=== PATIENT | female | born 1980 | race Two or more races ===

== ENCOUNTER 2019-08-19 22:35 | Inpatient (IN) | payer MEDICARE, MEDICAID ==
[2019-08-19] MEDS ORDERED: NS 0.9% 1000 ML** 1,000 ML IV ONE (22:49)
[2019-08-19] MEDS ORDERED: Charcoal ACTIVATED* 25 GM/120 ML BTL PO ONE (22:49)
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
[2019-08-19 23:30] LABS: ABS Basophils 0.1 10^3/ul (0-0.2); ABS Lymphocytes 1.6 10^3/ul (1.0-4.8); ABS Monocytes 0.4 10^3/ul (0-0.8); ABS Neutrophils 2.8 10^3/ul (1.5-7.7); Eosinophil % 0.8 %; Hematocrit 39 % (35-47); Hemoglobin 12.8 g/dL (12.0-16.0); Lymphocyte % 32.3 %; Mean Corpuscular HGB Conc 33 g/dL (31-36); Mean Corpuscular Hemoglobin 31 pg (27-31); Mean Corpuscular Volume 94 fL (80-97); Nucleated Red Blood Cells % 0.1; Platelet Count 245 10^3/uL (150-450); Red Blood Count 4.12 10^6 /uL (3.70-4.87); Red Cell Distribution Width 13 % (10-15); White Blood Count 4.9 10^3/uL (3.5-10.8)
--- OUTSIDE RECORDS SUMMARY | 2019-08-19 23:34 | XMS REPORT | Continuity of Care Document ---
:1980 External Reference #:[id number] Author Name Deangelo Monet M.D. (transmitted by agent of provider Ashley Torres) Address [address] [place] [id number] Care Team Providers Name Role Phone Masha Devlin MD - Internal Medicine Care Team Information Security Monitor [phone] Problems Description No Information Available Social History Type Date Description Comments Sex Unknown Tobacco Use Start: Unknown End: Former Cigarette Smoker Unknown Smoking Status Reviewed: 08/17/19 Former Cigarette Smoker ETOH Use Occasionally consumes alcohol Tobacco Use Start: Unknown End: Patient is a former quit Nov 2018 Unknown smoker Recreational Drug Use Denies Drug Use Exercise Type/Frequency Does not exercise Allergies, Adverse Reactions, Alerts Active Allergies Reaction Severity Comments Date Penicillin anaphylaxsis Severe 02/02/2019 Medications Active Medications SIG Qnty Indications Ordering Date Provider Voltarejuvenal apply 2 grams twice 200units Deangelo Monet, 08/17/2019 1% Gel daily as needed for M.D. pain to the hands as needed Contour Next Blood use to test blood 150units E10.40 Jose Parsons MD 06/14 Glucose Test sugar four times Strips daily. substitution okay Basaglar Kwikpen inject 24 units at 9ml E10.40 Jose Parsons MD 06/14/2019 bedtime or as 100Unit/ML Solution directed, MDD 30 Pen-Inject Novolog Flexpen 6 units with meals 9ml E10.40 Jose Parsons MD 06/14/2019 or as directed, mdd 100Unit/ML Solution 30 Pen-Inject Levothyroxine Sodium 300mcg once daily 30tabs E10.40 Jose Parsons MD 06/14 300mcg Tablets Pen [place] 1 each with every 150units E10.40 Jose Parsons MD 06/14/2019 31G X 6 insulin injection mm Misc Onetouch Ultra Mini as directed 1units E10.40 Jose Parsons MD 06/14/2019 w/Device Kit Onetouch Ultra Blue test 3 times per 150units E10.40 Jose Parsons MD 06/14 day and as Strips needed(based on insurance coverage) Onetouch Delica Plus to use 4 x daily to 1units E10.40 Jose Parsons MD 01/2019 [place]ancing Device monitor bs, [facility] substitute what insurance will cover Onetouch Delica test up to 3 times 200units E10.40 Jose Parsons MD 2018 Lancets Fine 30G daily 30G [facility] Wrist Splint use nightly to help 2units G56.03 Deangelo Monet, 05/18/2019 [facility] with carpal tunnel M.D. features g56.01 B6 Natural take one 60tabs G56.03 Deangelo Monet, 05/18/2019 100mg capsule/tablet M.D. Tablets daily by mouth Meloxicam take one tab twice 30tabs Deangelo Monet, 03/10/2019 7.5mg daily as needed for M.D. Tablets pain, avoid other nsaids Contour Next Blood use to test blood 150units E10.40 Jose Parsons MD 02/13 Glucose Test sugar 5 times Strips daily. Insulin use 4-6 times/day 150units E10.65 Jose Parsons MD 02/02/2019 Syringe/0.3ML/30G X for insulin 5/16" injection 30G X 5/16" 0.3 ML [facility] Quick-Set Infusion place 1 each every 20units E10.65 Jose Parsons MD 02/02 43" 9mm 2 days for insulin 43"/9mm Misc pump Minimed Pump replace every 2 20units Jose Parsons MD 02/02/2019 [place] 3ML days. dx e10.9 Res 3ML Misc Gabapentin 2 capsules by mouth 180caps Jose Parsons MD 300mg three times a day Capsules Lisinopril 1 by mouth every Unknown 2.5mg day Tablets Depakote ER 1 tablet by mouth Unknown 500mg twice daily Tablets ER 24HR Clonazepam 1 tablet twice Unknown 0.5mg daily as needed Tablets Bupropion 1 by mouth every Unknown Hydrochloride ER day (XL) 300mg Tablets ER 24HR Temazepam take one capsule by Unknown 30mg mouth once daily Capsules maximum daily dose = 1 History Medications Synthroid take 1 tablet 30tabs E10.40 Jose Parsons MD 05/18/2019 - 200mcg daily on an empty 06/14/2019 Tablets stomach Wrist Splint use nightly to 2units Deangelo Monet, 03/10/2019 - [facility] help with carpal M.DVincent 05/18/2019 tunnel features g56.01 bilateral and during the day when typing or writing, right and left Medications Administered in Office Medication SIG Qnty Indications Ordering Provider Date Records Fee Jose Parsons MD 03/22/2019 Injection Immunizations Description No Information Available Vital Signs Date Vital Result Comment 08/17/2019 1:26pm Height 60 inches 5'0" Weight 138.00 lb Heart Rate 87 /min BP Systolic Sitting 114 mmHg BP Diastolic Sitting 78 mmHg Respiratory Rate 16 /min Body Temperature 96.8 F O2 % BldC Oximetry 98 % BMI (Body Mass Index) 26.9 kg/m2 06/14/2019 9:03am Height 60 inches 5'0" Weight 133.00 lb w/ shoes Heart Rate 84 /min BP Systolic Sitting 133 mmHg BP Diastolic Sitting 88 mmHg BMI (Body Mass Index) 26.0 kg/m2 Results Test Acquired Facility Test Result H/L Range Note Date Laboratory 05/16/2019 [facility] TSH (Thyroid 56.19 High 0.34- 5.[address] Stim Horm) mcIU/[place] [address] [phone] Laboratory 05/16/2019 [facility] Rheumatoid < 10 IU/mL Normal <[address] [place] [address] [phone] Anca AB Ser If 05/16/2019 [facility] C-Anca Negative Negative [address] [place] [address] [phone] P-Anca Negative Negative 1 Vitamin B6 05/16/2019 [facility] Pyridoxal See Comment 5-[address] 5-Phosphate g/[place] [address] [phone] Pyridoxic Acid 2 g/L Abnormal 3-30 3 Laboratory 05/16/2019 [facility] Aso Negative <[address] (Antistreptolysin O) IU/mL Iu/[place] [address] Titer [phone] [place] Screen W/ Reflex To WB Negative Negative Creatine Kinase(CK) 28 U/L Normal 10-223 Uric Acid 4.7 mg/dL Normal 2.3-6.6 Ssa/SSB Abs Igg 05/16/2019 [facility] SS-A/Ro Antibody <0.[address] [place] [address] [phone] SS-B/La Antibody <0.2 U 6 Laboratory test 05/16/2019 [facility] Erythrocyte Sed 20 mm/Hr High 0-[address] [place] [address] [phone] C Reactive Protein 3.79 mg/L Normal <8.01 Ferritin 159.9 ng/mL Normal 11-307 1 Negative for cANCA and pANCA patterns by immunofluorescence. ADDITIONAL INFORMATION This test was developed and its performance characteristics determined by [facility] in a manner consistent with CLIA requirements. This test has not been cleared or approved by the U.S. Food and Drug Administration. Test Performed by: [facility] [place] [address] 2 Unknown interfering substance present; unable to obtain results. ADDITIONAL INFORMATION This test was developed and its performance characteristics determined by [facility] in a manner consistent with CLIA requirements. This test has not been cleared or approved by the U.S. Food and Drug Administration. 3 ADDITIONAL INFORMATION This test was developed and its performance characteristics determined by [facility] in a manner consistent with CLIA requirements. This test has not been cleared or approved by the U.S. Food and Drug Administration. Test Performed by: [facility] - [address] [address] 4 Normal values may vary with age, season and geographic area. Titers above upper limits may be indicative of infection, however only a two dilution rise in titer is required to be considered significant. ASO titer will usually rise above upper limits within one week of exposure, increase to peak levels at 3-5 weeks and return to baseline level at 6-12 twelve months. 5 REFERENCE VALUE <1.0 (Negative) 6 REFERENCE VALUE <1.0 (Negative) Test Performed by: [facility] - [address] [address] Procedures Date Code Description Status 05/31/2019 78370 Nerve Conduction 09-10 Studies Completed 05/31/2019 60553 Needle Electromyography Complete, Five Or More Muscles Completed Studied 05/31/2019 39049 Needle Electromyography Each Extremity W/Related Completed Paraspinal Areas Medical Devices Description No Information Available Encounters Type Date Location Provider Dx Diagnosis Office Visit 08/17/2019 Rheumatology Deangelo Monet, G56.03 Carpal tunnel 1:20p [facility] ElyDVincent syndrome, bilateral upper limbs G56.22 Lesion of ulnar nerve, left upper limb R70.0 Elevated erythrocyte sedimentation rate G62.9 Polyneuropathy, unspecified Office Visit 06/14/2019 9:00a [place] [facility] Jose Parsons, E10.40 Type 1 diabetes Endocrinology of mellitus with [facility] diabetic neuropathy, unsp E06.3 Autoimmune thyroiditis Office Visit 05/18/2019 1:20p Rheumatology Deangelo R20.8 Other disturbances [facility] Monet M.D. of skin sensation M06.4 Inflammatory polyarthropathy M79.643 Pain in unspecified hand R70.0 Elevated erythrocyte sedimentation rate G56.03 Carpal tunnel syndrome, bilateral upper limbs Office Visit 03/10/2019 Rheumatology Deangelo M06.4 Inflammatory 10:00a [facility] Monet M.D. polyarthropathy M79.643 Pain in unspecified hand R20.8 Other disturbances of skin sensation M79.10 Myalgia, unspecified site Assessments Date Code Description Provider 08/17/2019 G56.03 Carpal tunnel syndrome, bilateral upper limbs Deangelo Monet M.D. 08/17/2019 G56.22 Lesion of ulnar nerve, left upper limb Deangelo Monet M.D. 08/17/2019 R70.0 Elevated erythrocyte sedimentation rate Deangelo Monet M.D. 08/17/2019 G62.9 Polyneuropathy, unspecified Deangelo Monet M.D. 06/14/2019 E10.40 Type 1 diabetes mellitus with diabetic Jose Parsons MD neuropathy, unspecifi 06/14/2019 E06.3 Autoimmune thyroiditis Jose Parsons MD 05/31/2019 G56.03 Carpal tunnel syndrome, bilateral upper limbs Brynn Rodrigez M.D. 05/31/2019 G56.22 Lesion of ulnar nerve, left upper limb Brynn Rodrigez M.D. 05/18/2019 R20.8 Other disturbances of skin sensation Deangelo Monet M.D. 05/18/2019 M06.4 Inflammatory polyarthropathy Deangelo Monet M.D. 05/18/2019 M79.643 Pain in unspecified hand Deangelo Monet M.D. 05/18/2019 R70.0 Elevated erythrocyte sedimentation rate Deangelo Monet M.D. 05/18/2019 G56.03 Carpal tunnel syndrome, bilateral upper limbs Deangelo Monet M.D. 03/10/2019 M06.4 Inflammatory polyarthropathy Deangelo Monet M.D. 03/10/2019 M79.643 Pain in unspecified hand Deangelo Monet M.D. 03/10/2019 R20.8 Other disturbances of skin sensation Deangelo Monet M.D. 03/10/2019 M79.10 Myalgia, unspecified site Deangelo Monet M.D. Plan of Treatment 08/17/2019 - Deangelo Monet M.D.G56.03 Carpal tunnel syndrome, bilateral upper limbsReferral:Daly Lazo M.D., Surgery,HandG56.22 Lesion of ulnar nerve, left upper limbR70.0 Elevated erythrocyte sedimentation rateG62.9 Polyneuropathy , unspecifiedComments:I discussed with the patient that people with neuropathy do not always feel pain when there is a wound or injury on the foot. As a result , daily foot care is necessary to monitor for changes in the skin (such as cracks or wounds), which can increase the risk of infection. Also I advised: Avoid activities that can injure the feet Some activities increase the risk of foot injury and are not recommended, including walking barefoot, using a heating pad or hot water bottle on the feet, and stepping intothe bathtub before testing the temperature with the hand.Use care when trimming the nails Trim thetoe nails along the shape of the toe (rounded, not straight across) and file the nails to remove anysharp edges (figure 1). Never cut (or allow a manicurist to cut) the cuticles. Do not pop blisters, try to free ingrown toenails, or otherwise break the skin on the feet. See a healthcare provider or human resources clerk for even minor procedures.Wash and check the feet daily Use lukewarm water and mild soap to clean the feet. Gently pat feet dry and apply a moisturizing cream or lotion.Check the entire surface of both feet for skin breaks, blisters, swelling, or redness, including between and underneath the toes where damage may be hidden. Use a mirror or ask a family member or caregiver to help if it is difficult to see the entire foot. The patient expressed understanding.Follow up:Follow up in 9 to 12 months or sooner if needed Functional Status Description No Information Available Mental Status Description No Information Available Referrals Refer to Reason for Referral Status Appt Date Daly Lazo M.D. Please evaluate patient with carpal tunnel Sent symptoms confirmed on EMG; for possible carpal tunnel release [address] [place] [id number] [phone]
[2019-08-19 23:48] LABS: ALT 18 U/L (7-52); AST 18 U/L (13-39); Albumin 3.5 g/dL (3.2-5.2); Albumin/Globulin Ratio 1.2 (1-3); Alkaline Phosphatase 45 U/L (34-104); Anion Gap 6 mmol/L (2-11); BUN/Creatinine Ratio 17.1 (8-20); Blood Urea Nitrogen 12 mg/dL (6-24); CO2 Carbon Dioxide 29 mmol/L (22-32); Calcium 9.2 mg/dL (8.6-10.3); Chloride 102 mmol/L (101-111); EGFR African American 112.7 (>60); EGFR Non-African American 93.2 (>60); Glucose 472 mg/dL (70-100); Potassium 3.8 mmol/L (3.5-5.0); Sodium 137 mmol/L (135-145); Total Protein 6.5 g/dL (6.4-8.9)
[2019-08-19 23:54] LABS: HCG Pregnancy < 0.60 mIU/mL
[2019-08-19 23:57] LABS: Acetaminophen < 15 mcg/mL; Alcohol < 10 mg/dL (<10); Salicylate < 2.50 mg/dL (<30)
[2019-08-20 00:40] LABS: Urine Appearance Clear; Urine Bilirubin Negative (Negative); Urine Blood Negative (Negative); Urine Color Straw; Urine Glucose 3+(>=500 mg/dL) (Negative); Urine Ketones Trace (Negative); Urine Nitrite Negative (Negative); Urine Protein Negative (Negative); Urine Specific Gravity 1.031 (1.010-1.030); Urine Urobilinogen Negative (Negative)
[2019-08-20 00:56] LABS: Urine Benzodiazepine Screen Presumptive Positive (None Detect); Urine Opiates Screen None Detected (None Detect)
[2019-08-20 01:04] LABS: TSH (Thyroid Stimulating Horm) 0.69 mcIU/mL (0.34-5.60)
[2019-08-20] MEDS ORDERED: NS 0.9% 1000 ML** 2,000 ML IV ONE (02:23)
[2019-08-20] MEDS ORDERED: Insulin LISPRO* 1 UNITS UNIT SUBCUT ONE ×2 (02:24→02:37)
[2019-08-20] MEDS ORDERED: Dextrose 50% VIAL 50 ml IV PUSH PRN (02:24)
[2019-08-20] MEDS ORDERED: NS 0.9% 1000 ML** 1,000 ML IV SCH (02:30)
[2019-08-20] MEDS ORDERED: NS 0.9% w/ 20 Meq KCL 1000 ML* 1,000 ML IV SCH (05:00)
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
[2019-08-20] MEDS ORDERED: Levothyroxine TAB* 150 MCG TAB PO SCH ×2 (06:00→09:00)
[2019-08-20] MEDS ORDERED: NS 0.9% 1000 ML** 1,000 ML IV ONE ×2 (08:23→11:12)
--- NOTE | 2019-08-20 08:31 | PN ---
Subjective Date of Service: 08/20/19 Interval History: Ms. Birgit Jasso is lying in bed. Will attempt to open her eyes when spoken to, but is not able to fully open eyes or make any attempts at verbal communication. is at bedside and has been throughout the night. He reports one prior overdose a number of years ago. She was fighting with her mother yesterday, though unknown what the fight was about. Nursing reports hypotension intermittently throughout the night. At one point in the night, she was awake enough to get OOB to the bathroom with 2 heavy assist. Family History: Unchanged from Admission Social History: Unchanged from Admission Past Medical History: Unchanged from Admission Objective Active Medications: Dextrose (Dextrose 50% Vial 50 Ml*) 25 ml IV PUSH .FOR FS < 60 - SS PRN FS < 60 Potassium Chloride/Sodium Chloride (Ns 0.9% W/ 20 Meq Kcl 1000 Ml*) 1,000 mls @ 125 mls/hr IV PER RATE SHERMAN Sodium Chloride (Ns 0.9% 1000 Ml) 1,000 mls @ 0 mls/hr IV .BOLUS ONE Levothyroxine Sodium (Synthroid Tab*) 300 mcg PO 0600 SHERMAN Norethindrone (Ngoc (Nf)) 0.35 mg PO DAILY SHERMAN Pantoprazole Sodium (Protonix Tab*) 40 mg PO DAILY [facility] Vital Signs - 8 hr 08/20/19 08/20/19 08/20/19 00:53 01:00 01:01 Temperature Pulse Rate 99 95 101 Respiratory 16 Rate Blood Pressure 91/65 98/64 (mmHg) O2 Sat by Pulse 94 97 100 Oximetry 08/20/19 08/20/19 08/20/19 01:23 01:36 01:53 Temperature 98.1 F Pulse Rate 89 94 90 Respiratory 16 Rate Blood Pressure 99/71 103/77 101/71 (mmHg) O2 Sat by Pulse 98 96 Oximetry 08/20/19 08/20/19 08/20/19 02:00 02:29 02:53 Temperature Pulse Rate 91 88 93 Respiratory Rate Blood Pressure 127/80 124/80 (mmHg) O2 Sat by Pulse 96 100 100 Oximetry 08/20/19 08/20/19 08/20/19 03:00 03:23 03:42 Temperature 98.1 F Pulse Rate 92 93 101 Respiratory 12 Rate Blood Pressure 108/65 106/77 (mmHg) O2 Sat by Pulse 100 99 99 Oximetry 08/20/19 08/20/19 08/20/19 03:45 03:50 04:00 Temperature 98.1 F Pulse Rate 97 90 91 Respiratory 13 17 16 Rate Blood Pressure 117/74 101/71 102/64 (mmHg) O2 Sat by Pulse 99 96 98 Oximetry 08/20/19 08/20/19 08/20/19 04:15 04:30 04:45 Temperature Pulse Rate 89 87 87 Respiratory 16 18 18 Rate Blood Pressure 86/49 81/40 80/45 (mmHg) O2 Sat by Pulse 98 100 100 Oximetry 08/20/19 08/20/19 08/20/19 05:00 05:01 05:31 Temperature Pulse Rate 104 106 Respiratory 24 30 21 Rate Blood Pressure 118/92 93/58 (mmHg) O2 Sat by Pulse 100 95 Oximetry 08/20/19 08/20/19 08/20/19 05:45 06:00 06:01 Temperature Pulse Rate 99 101 103 Respiratory 24 24 23 Rate Blood Pressure 86/44 77/47 85/45 (mmHg) O2 Sat by Pulse 96 95 95 Oximetry 08/20/19 08/20/19 08/20/19 06:15 06:30 06:33 Temperature Pulse Rate 99 99 98 Respiratory 22 23 21 Rate Blood Pressure 75/46 69/40 118/72 (mmHg) O2 Sat by Pulse 96 95 93 Oximetry 08/20/19 08/20/19 08/20/19 06:45 06:52 07:00 Temperature Pulse Rate 96 98 99 Respiratory 0 5 2 Rate Blood Pressure 91/72 101/59 96/58 (mmHg) O2 Sat by Pulse 92 92 92 Oximetry 08/20/19 08/20/19 08/20/19 07:15 07:30 07:46 Temperature Pulse Rate 100 98 99 Respiratory 1 17 20 Rate Blood Pressure 92/58 122/72 89/61 (mmHg) O2 Sat by Pulse 90 97 98 Oximetry Oxygen Devices in Use Now: OxyMask - 2L Appearance: Middle-aged female lying in bed, sedated, but in NAD Ears/Nose/Mouth/Throat: Mucous Membranes Moist Neck: NL Appearance and Movements; NL JVP, Trachea Midline Respiratory: Symmetrical Chest Expansion and Respiratory Effort, Clear to Auscultation Cardiovascular: NL Sounds; No Murmurs; No JVD, RRR Abdominal: NL Sounds; No Tenderness; No Distention Extremities: No Edema Neurological: - - Arouses to verbal stimuli Lines/Tubes/Other Access: Clean, Dry and Intact Peripheral IV Nutrition: Taking PO's Result Diagrams: 08/19/19 23:24 08/19/19 23:24 Assess/Plan/Problems-Billing Assessment: Ms. Niesha Jasso is a 39 yo F with PMH of DM, hypothyroidism, one prior suicide attempt by overdose; who presented to the ED after an overdose, requiring admission to ICU d/t level of sedation. - Patient Problems (1) Overdose Code(s): T50.901A - POISONING BY UNSP DRUG/MEDS/BIOL SUBST, ACCIDENTAL, INIT Comment: - Suicide attempt after fighting with mother; history of one prior suicide attempt - Reportedly took trazodone 50mg x10, clonazepam 0.5mg x10, temazepam 30mg x10 - Poison Control recommended serial EKGs to monitor for QT prolongation, capnography, and monitoring x6 hours after mental status is back to baseline - Appreciate Psych consult - 1:1 monitor (2) Insulin dependent diabetes mellitus Code(s): E11.9 - TYPE 2 DIABETES MELLITUS WITHOUT COMPLICATIONS; Z79.4 - SNF (CURRENT) USE OF INSULIN Comment: - Hyperglycemic - A1c earlier this year 9.1% - Takes 70/30 and glargine at home - Start Lispo SS (3) Hypotension Comment: - Intermittent with SBP down into 60s, but varies by arm - NS bolus x1L now and monitor closely (4) Hypothyroidism Code(s): E03.9 - HYPOTHYROIDISM, UNSPECIFIED Comment: - Continue levothyroxine (change to IV) (5) DVT prophylaxis Code(s): Z29.9 - ENCOUNTER FOR PROPHYLACTIC MEASURES, UNSPECIFIED Comment: - SCDs (6) Full code status Code(s): Z78.9 - OTHER SPECIFIED HEALTH STATUS Comment: Status and Disposition: Inpatient. Remains in ICU d/t sedation and hypotension. Anticipate d/c to [facility] when medically stable, but Psych consult pending. Attending: Eitan Jackson
[2019-08-20] MEDS: Pantoprazole TAB * 40 MG TAB PO SCH (08:38)
[2019-08-20] MEDS: Norethindrone (NF) 0.35 MG TAB PO SCH (08:38)
[2019-08-20] MEDS: Levothyroxine INJ* 100 MCG/5 ML VIAL IV SCH (09:46)
[2019-08-20] MEDS ORDERED: Insulin LISPRO* 1 UNITS UNIT SUBCUT SCH (10:00)
[2019-08-20] MEDS: Insulin LISPRO* 1 UNITS UNIT SUBCUT SCH ×5 (11:34→22:04)
--- NOTE | 2019-08-20 11:49 | PN ---
Date of Service: 08/20/19 Critical Care Services: qt-c's <500 minimally awake Vital Signs: Temp Pulse Resp BP SpO2 FiO2 99.4 F 95 20 88/61 97 08/20/19 08:00 08/20/19 11:00 08/20/19 11:00 08/20/19 11:00 08/20/19 11:00 Physical Exam: Gen: NAD. Croatian speaking. lethargic but responsive, Heart: RRR, Lungs: Decreased Breath sounds, GI: +BSs, soft, NTP. No rebound or guarding. Neuro: No focal deficits. Extremities: No edema. Fluid Balance (Past 24 Hours): I= O= Net Intake & Output 08/18/19 08/19/19 08/20/19 08/21/19 06:59 06:59 06:59 06:59 Intake Total 3000 0 Balance 3000 0 Weight 138 lb Intake: IV Fluids 3000 NS (0.9%) 2000 Oral 0 Other: Estimated Void Large # Voids 1 0 Labs: Laboratory Results - last 24 hr 08/19/19 08/19/19 08/19/19 23:24 23:24 23:24 WBC 4.9 RBC 4.12 Hgb 12.8 Hct 39 MCV 94 MCH 31 MCHC 33 RDW 13 Plt Count 245 MPV 8.0 Neut % (Auto) 57.3 Lymph % (Auto) 32.3 [place] % (Auto) 8.2 Eos % (Auto) 0.8 Baso % (Auto) 1.4 Absolute Neuts (auto) 2.8 Absolute Lymphs (auto) 1.6 Absolute Monos (auto) 0.4 Absolute Eos (auto) 0.0 Absolute Basos (auto) 0.1 Absolute Nucleated RBC 0.0 Nucleated RBC % 0.1 VBG pH VBG pCO2 VBG pO2 VBG HCO3 VBG O2 Saturation VBG Base Excess Sodium 137 Potassium 3.8 Chloride 102 Carbon Dioxide 29 Anion Gap 6 BUN 12 Creatinine 0.70 Est GFR ( Amer) 112.7 Est GFR (Non-Af Amer) 93.2 BUN/Creatinine Ratio 17.1 Glucose 472 H POC Glucose (mg/dL) Glucose Meter Confirm Lactic Acid 1.2 Calcium 9.2 Total Bilirubin 0.30 AST 18 ALT 18 Alkaline Phosphatase 45 Total Creatine Kinase Total Protein 6.5 Albumin 3.5 Globulin 3.0 Albumin/Globulin Ratio 1.2 TSH 0.69 Beta HCG, Quant < 0.60 Urine Color Urine Appearance Urine pH Ur Specific Koppel Urine Protein Urine Ketones Urine Blood Urine Nitrate Urine Bilirubin Urine Urobilinogen Ur Leukocyte Esterase Urine Glucose Salicylates < 2.50 Urine Opiates Screen Acetaminophen < 15 Ur Barbiturates Screen Ur Phencyclidine Scrn Ur Amphetamines Screen U Benzodiazepines Scrn Urine Cocaine Screen U Cannabinoids Screen Serum Alcohol < 10 08/20/19 08/20/19 08/20/19 00:30 00:30 01:15 WBC RBC Hgb Hct MCV MCH MCHC RDW Plt Count MPV Neut % (Auto) Lymph % (Auto) [place] % (Auto) Eos % (Auto) Baso % (Auto) Absolute Neuts (auto) Absolute Lymphs (auto) Absolute Monos (auto) Absolute Eos (auto) Absolute Basos (auto) Absolute Nucleated RBC Nucleated RBC % VBG pH 7.32 VBG pCO2 49 VBG pO2 57.0 H VBG HCO3 23.5 L VBG O2 Saturation 88.2 H VBG Base Excess -1.4 L Sodium Potassium Chloride Carbon Dioxide Anion Gap BUN Creatinine Est GFR ( Amer) Est GFR (Non-Af Amer) BUN/Creatinine Ratio Glucose POC Glucose (mg/dL) Glucose Meter Confirm Lactic Acid Calcium Total Bilirubin AST ALT Alkaline Phosphatase Total Creatine Kinase Total Protein Albumin Globulin Albumin/Globulin Ratio TSH Beta HCG, Quant Urine Color Straw Urine Appearance Clear Urine pH 5.0 Ur Specific [place]oppel 1.031 H Urine Protein Negative Urine Ketones Trace A Urine Blood Negative Urine Nitrate Negative Urine Bilirubin Negative Urine Urobilinogen Negative Ur Leukocyte Esterase Negative Urine Glucose 3+(>=500 mg/dl) A Salicylates Urine Opiates Screen None detected Acetaminophen Ur Barbiturates Screen None detected Ur Phencyclidine Scrn None detected Ur Amphetamines Screen None detected U Benzodiazepines Scrn Presumptive positive A Urine Cocaine Screen None detected U Cannabinoids Screen None detected Serum Alcohol 08/20/19 08/20/19 08/20/19 02:21 02:26 06:26 WBC RBC Hgb Hct MCV MCH MCHC RDW Plt Count MPV Neut % (Auto) Lymph % (Auto) [place] % (Auto) Eos % (Auto) Baso % (Auto) Absolute Neuts (auto) Absolute Lymphs (auto) Absolute Monos (auto) Absolute Eos (auto) Absolute Basos (auto) Absolute Nucleated RBC Nucleated RBC % VBG pH VBG pCO2 VBG pO2 VBG HCO3 VBG O2 Saturation VBG Base Excess Sodium Potassium Chloride Carbon Dioxide Anion Gap BUN Creatinine Est GFR ( Amer) Est GFR (Non-Af Amer) BUN/Creatinine Ratio Glucose POC Glucose (mg/dL) > 444 H* 234 H Glucose Meter Confirm 491 H Lactic Acid Calcium Total Bilirubin AST ALT Alkaline Phosphatase Total Creatine Kinase Total Protein Albumin Globulin Albumin/Globulin Ratio TSH Beta HCG, Quant Urine Color Urine Appearance Urine pH Ur Specific Koppel Urine Protein Urine Ketones Urine Blood Urine Nitrate Urine Bilirubin Urine Urobilinogen Ur Leukocyte Esterase Urine Glucose Salicylates Urine Opiates Screen Acetaminophen Ur Barbiturates Screen Ur Phencyclidine Scrn Ur Amphetamines Screen U Benzodiazepines Scrn Urine Cocaine Screen U Cannabinoids Screen Serum Alcohol 08/20/19 09:00 WBC RBC Hgb Hct MCV MCH MCHC RDW Plt Count MPV Neut % (Auto) Lymph % (Auto) [place] % (Auto) Eos % (Auto) Baso % (Auto) Absolute Neuts (auto) Absolute Lymphs (auto) Absolute Monos (auto) Absolute Eos (auto) Absolute Basos (auto) Absolute Nucleated RBC Nucleated RBC % VBG pH VBG pCO2 VBG pO2 VBG HCO3 VBG O2 Saturation VBG Base Excess Sodium Potassium Chloride Carbon Dioxide Anion Gap BUN Creatinine Est GFR ( Amer) Est GFR (Non-Af Amer) BUN/Creatinine Ratio Glucose POC Glucose (mg/dL) Glucose Meter Confirm Lactic Acid Calcium Total Bilirubin AST ALT Alkaline Phosphatase Total Creatine Kinase 23 Total Protein Albumin Globulin Albumin/Globulin Ratio TSH Beta HCG, Quant Urine Color Urine Appearance Urine pH Ur Specific [place] Urine Protein Urine Ketones Urine Blood Urine Nitrate Urine Bilirubin Urine Urobilinogen Ur Leukocyte Esterase Urine Glucose Salicylates Urine Opiates Screen Acetaminophen Ur Barbiturates Screen Ur Phencyclidine Scrn Ur Amphetamines Screen U Benzodiazepines Scrn Urine Cocaine Screen U Cannabinoids Screen Serum Alcohol Impression: Overdose and suicide attempt Hx of Bi-polar disease, suicide attempts, and depression Plan: 1:1 Supervision Psych consult in Croatian Monitor Qt-c's D/W Boyfriend at the bedside with [employer] Critical Care Time:
[2019-08-20] MEDS: NS 0.9% 1000 ML** 1,000 ML IV SCH (16:59)
[2019-08-20] MEDS: Insulin GLARGINE(*) 1 UNITS UNIT SUBCUT SCH (17:36)
[2019-08-20] MEDS ORDERED: INSULIN GLARGINE HUM REC ANLOG 24 UNIT SUBCUT SCH (18:00)
[2019-08-21] MEDS: Insulin LISPRO* 1 UNITS UNIT SUBCUT SCH ×5 (01:51→20:52)
[2019-08-21] MEDS ORDERED: Magnesium CITRATE* 300 ML BTL PO ONE (03:09)
[2019-08-21] MEDS ORDERED: Docusate CAP* 100 MG PO PRN (03:09)
[2019-08-21] MEDS ORDERED: Polyethylene Glycol 3350* 17 GM PACKET PO PRN (03:10)
[2019-08-21] MEDS: Levothyroxine INJ* 100 MCG/5 ML VIAL IV SCH (06:36)
[2019-08-21 06:42] LABS: ABS Eosinophils 0.2 10^3/ul (0-0.6); ABS Lymphocytes 2.1 10^3/ul (1.0-4.8); ABS Monocytes 0.4 10^3/ul (0-0.8); ABS Neutrophils 2.8 10^3/ul (1.5-7.7); Eosinophil % 3.2 %; Hematocrit 34 % (35-47); Lymphocyte % 37.5 %; Mean Corpuscular HGB Conc 33 g/dL (31-36); Mean Corpuscular Hemoglobin 31 pg (27-31); Mean Corpuscular Volume 95 fL (80-97); Nucleated Red Blood Cells % 0.1; Platelet Count 219 10^3/uL (150-450); Red Blood Count 3.52 10^6 /uL (3.70-4.87); Red Cell Distribution Width 13 % (10-15); White Blood Count 5.5 10^3/uL (3.5-10.8)
[2019-08-21 06:48] LABS: INR 1.02 (0.82-1.09)
[2019-08-21 06:52] LABS: BUN/Creatinine Ratio 8.3 (8-20); Calcium 7.1 mg/dL (8.6-10.3); EGFR African American 174.2 (>60)
[2019-08-21] MEDS ORDERED: Potassium Chlor TAB* 20 MEQ TAB.ER PO ONE (07:10)
[2019-08-21] MEDS: Pantoprazole TAB * 40 MG TAB PO SCH (08:01)
[2019-08-21] MEDS: KCL 20 MEQ/100 ML IVPREMIX* 20 MEQ/100 ML BAG IV SCH ×2 (08:02→11:42)
[2019-08-21] MEDS: Norethindrone (NF) 0.35 MG TAB PO SCH (08:02)
[2019-08-21] MEDS: NS 0.9% 1000 ML** 1,000 ML IV SCH (09:44)
--- NOTE | 2019-08-21 09:50 | PN ---
Subjective Date of Service: 08/21/19 Interval History: Ms. Niesha Jasso is feeling better today. She is awake and able to participate in conversation. She has little to no memory of yesterday. Feels constipated and told nursing she has not had a BM in over a week. Denies CP, SOB, N/V. She is hungry. She is asking if she will be sent down to [facility] after medically cleared. No concerns from nursing. Family History: Unchanged from Admission Social History: Unchanged from Admission Past Medical History: Unchanged from Admission Objective Active Medications: Dextrose (Dextrose 50% Vial 50 Ml*) 25 ml IV PUSH .FOR FS < 60 - SS PRN FS < 60 Docusate Sodium (Colace Cap*) 100 mg PO BID PRN CONSTIPATION Sodium Chloride (Ns 0.9% 1000 Ml) 1,000 mls @ 125 mls/hr IV PER RATE SHERMAN Potassium Chloride (Potassium Chloride 20 Meq/100 Ml Ivpremix*) 20 meq in 100 mls @ 50 mls/hr IV Q2H [facility] Insulin Glargine (Lantus(*)) 10 units SUBCUT Q24H [facility]ERMAN Insulin Human Lispro (Humalog*) 0 units SUBCUT ACHS SHERMAN; Protocol Levothyroxine Sodium (Synthroid Tab*) 300 mcg PO DAILY@0600 [facility] Norethindrone (Ngoc (Nf)) 0.35 mg PO DAILY [facility] Pantoprazole Sodium (Protonix Tab*) 40 mg PO DAILY [facility] Polyethylene Glycol/Electrolytes (Miralax*) 17 gm PO DAILY PRN CONSTIPATION Vital Signs - 8 hr 08/21/19 08/21/19 08/21/19 02:00 02:30 03:00 Temperature Pulse Rate 96 95 91 Respiratory 20 23 Rate Blood Pressure 106/69 108/69 103/64 (mmHg) O2 Sat by Pulse 95 94 93 Oximetry 08/21/19 08/21/19 08/21/19 03:30 03:33 04:00 Temperature 99.5 F Pulse Rate 90 95 Respiratory 22 Rate Blood Pressure 105/71 99/68 (mmHg) O2 Sat by Pulse 96 95 Oximetry 08/21/19 08/21/19 08/21/19 04:30 05:00 05:30 Temperature Pulse Rate 83 86 87 Respiratory 22 Rate Blood Pressure 95/66 103/64 95/62 (mmHg) O2 Sat by Pulse 96 95 94 Oximetry 08/21/19 08/21/19 08/21/19 06:00 06:30 07:00 Temperature Pulse Rate 87 87 93 Respiratory 23 Rate Blood Pressure 99/63 117/75 108/81 (mmHg) O2 Sat by Pulse 94 96 98 Oximetry 08/21/19 08/21/19 08/21/19 07:30 08:00 08:01 Temperature Pulse Rate 88 91 89 Respiratory 15 17 Rate Blood Pressure 122/85 113/71 (mmHg) O2 Sat by Pulse 98 97 97 Oximetry 08/21/19 08/21/19 08:19 09:00 Temperature 99.7 F Pulse Rate 90 Respiratory 18 13 Rate Blood Pressure 128/86 (mmHg) O2 Sat by Pulse 94 Oximetry Oxygen Devices in Use Now: Nasal Cannula - 2L Appearance: Middle-aged female sitting in bed in NAD Ears/Nose/Mouth/Throat: Mucous Membranes Moist Neck: NL Appearance and Movements; NL JVP, Trachea Midline Respiratory: Symmetrical Chest Expansion and Respiratory Effort, Clear to Auscultation Cardiovascular: NL Sounds; No Murmurs; No JVD, RRR Abdominal: - - Soft, tender throughout Extremities: No Edema Neurological: Alert and Oriented x 3 Lines/Tubes/Other Access: Clean, Dry and Intact Peripheral IV Nutrition: Taking PO's Result Diagrams: 08/21/19 06:19 08/21/19 06:19 Assess/Plan/Problems-Billing Assessment: Ms. Niesha Jasso is a 39 yo F with PMH of DM, hypothyroidism, one prior suicide attempt by overdose; who presented to the ED after an overdose, requiring admission to ICU d/t level of sedation. - Patient Problems (1) Overdose Code(s): T50.901A - POISONING BY UNSP DRUG/MEDS/BIOL SUBST, ACCIDENTAL, INIT Comment: - Suicide attempt after fighting with mother; history of one prior suicide attempt - Reportedly took trazodone 50mg x10, clonazepam 0.5mg x10, temazepam 30mg x10 - Poison Control recommended serial EKGs to monitor for QT prolongation, capnography, and monitoring x6 hours after mental status is back to baseline - Appreciate Psych consult - 1:1 monitor (2) Hypotension Comment: - Resolved with IVF (3) Insulin dependent diabetes mellitus Code(s): E11.9 - TYPE 2 DIABETES MELLITUS WITHOUT COMPLICATIONS; Z79.4 - [employer] (CURRENT) USE OF INSULIN Comment: - Hyperglycemic, but one episode of hypoglycemia last night - A1c earlier this year 9.1% - Takes 70/30 and glargine at home - Continue Lantus, Lispro SS (4) Hypothyroidism Code(s): E03.9 - HYPOTHYROIDISM, UNSPECIFIED Comment: - Continue levothyroxine (5) DVT prophylaxis Code(s): Z29.9 - ENCOUNTER FOR PROPHYLACTIC MEASURES, UNSPECIFIED Comment: - SCDs (6) Full code status Code(s): Z78.9 - OTHER SPECIFIED HEALTH STATUS Comment: Status and Disposition: Inpatient. Transfer out of ICU today. Anticipate d/c to [facility] when medically stable, Psych consult pending. Attending: Lizzette Valles
--- NOTE | 2019-08-21 12:33 | CONSULT ---
Consult Consult: Psychiatry attempted to evaluate Ms. Brenner in the ICU. Several attempts to interview her are truncated by her urgent need to use the commode s/p Mag. Citrate. Psychiatry will f/u with her tomorrow morning (08/22) when she can tolerate this better.
[2019-08-21] MEDS: Insulin GLARGINE(*) 1 UNITS UNIT SUBCUT SCH (16:47)
[2019-08-22 06:12] LABS: BUN/Creatinine Ratio 8.3 (8-20); Calcium 8.8 mg/dL (8.6-10.3); EGFR African American 134.7 (>60); EGFR Non-African American 111.3 (>60); Potassium 4.1 mmol/L (3.5-5.0)
[2019-08-22] MEDS ORDERED: Acetaminophen TAB* 325 MG PO ONE (06:12)
[2019-08-22 06:28] LABS: Magnesium 1.9 mg/dL (1.9-2.7)
[2019-08-22 06:55] LABS: TSH (Thyroid Stimulating Horm) 0.41 mcIU/mL (0.34-5.60)
[2019-08-22 06:57] LABS: Free T4 1.15 ng/dL (0.61-1.12)
[2019-08-22] MEDS: Levothyroxine TAB* 100 MCG TAB PO SCH (06:58)
[2019-08-22] MEDS: Norethindrone (NF) 0.35 MG TAB PO SCH (08:09)
[2019-08-22] MEDS: Pantoprazole TAB * 40 MG TAB PO SCH (08:10)
[2019-08-22] MEDS: Insulin LISPRO* 1 UNITS UNIT SUBCUT SCH ×4 (08:10→20:31)
[2019-08-22] MEDS ORDERED: Polyethylene Glycol 3350* 17 GM PACKET PO PRN (10:56)
[2019-08-22] MEDS ORDERED: Magnesium Hydroxide LIQ* 30 ML UDC PO PRN (10:56)
[2019-08-22] MEDS ORDERED: Senna TAB 8.6 mg* TAB PO PRN (10:56)
--- NOTE | 2019-08-22 11:00 | PN ---
Subjective Date of Service: 08/22/19 Interval History: Pt feels well, overnight telemetry showed no arrhythmia. C/o no BM x 7 days and upper abd discomfort, denies nausea, eating well Family History: Unchanged from Admission Social History: Unchanged from Admission Past Medical History: Unchanged from Admission Objective Active Medications: Dextrose (Dextrose 50% Vial 50 Ml*) 25 ml IV PUSH .FOR FS < 60 - SS PRN PRN Reason: FS < 60 Docusate Sodium (Colace Cap*) 100 mg PO BID PRN PRN Reason: CONSTIPATION Docusate Sodium (Colace Cap*) 100 mg PO BID [facility] Insulin Glargine (Lantus(*)) 20 units SUBCUT Q24H [facility] Insulin Human Lispro (Humalog*) 0 units SUBCUT ACHS [facility]; Protocol Last Admin: 08/22/19 08:10 Dose: 4 unit Levothyroxine Sodium (Synthroid Tab*) 300 mcg PO DAILY@0600 [facility] Last Admin: 08/22/19 06:58 Dose: 150 mcg Magnesium Hydroxide (Milk Of Magnesia Liq*) 30 ml PO BID [facility] Magnesium Hydroxide (Milk Of Magnesia Liq*) 30 ml PO BID PRN PRN Reason: CONSTIPATION Norethindrone (Ngoc (Nf)) 0.35 mg PO DAILY [facility] Last Admin: 08/22/19 08:09 Dose: Not Given Pantoprazole Sodium (Protonix Tab*) 40 mg PO DAILY [facility] Last Admin: 08/22/19 08:10 Dose: 40 mg Polyethylene Glycol/Electrolytes (Miralax*) 17 gm PO DAILY PRN PRN Reason: CONSTIPATION Polyethylene Glycol/Electrolytes (Miralax*) 17 gm PO DAILY PRN PRN Reason: CONSTIPATION Senna (Senokot 8.6 Mg Tab*) 1 tab PO BEDTIME PRN PRN Reason: CONSTIPATION Vital Signs - 8 hr 08/22/19 08/22/19 08/22/19 03:02 07:30 07:39 Temperature 98.2 F 98.1 F Pulse Rate 116 104 Respiratory 16 16 18 Rate Blood Pressure 144/85 112/66 (mmHg) O2 Sat by Pulse 97 95 Oximetry Oxygen Devices in Use Now: None Appearance: 39 yo F in nAD, aAOx3 Eyes: No Scleral Icterus, PERRLA Ears/Nose/Mouth/Throat: NL Teeth, Lips, Gums, Mucous Membranes Moist Neck: NL Appearance and Movements; NL JVP, Trachea Midline Respiratory: Symmetrical Chest Expansion and Respiratory Effort, Clear to Auscultation Cardiovascular: NL Sounds; No Murmurs; No JVD, RRR Abdominal: - - soft, mild tenderness in b/l upper Q's no rebounbd no guarding, BS+, tympanic to percussion Lymphatic: No Cervical Adenopathy Extremities: No Edema, No Clubbing, Cyanosis Skin: No Rash or Ulcers, No Nodules or Sclerosis Neurological: Alert and Oriented x 3, NL Muscle Strength and Tone Result Diagrams: 08/21/19 06:19 08/22/19 05:41 Microbiology and Other Data: Microbiology 08/20/19 04:00 Nasal Screen MRSA (PCR) - Final Nasal Mrsa Not Detected Assess/Plan/Problems-Billing Assessment: Ms. Niesha Jasso is a 39 yo F with PMH of DM, hypothyroidism, one prior suicide attempt by overdose; who presented to the ED after an overdose, requiring admission to ICU d/t level of sedation. - Patient Problems (1) Overdose Comment: - Suicide attempt after fighting with mother; history of one prior suicide attempt - Reportedly took trazodone 50mg x10, clonazepam 0.5mg x10, temazepam 30mg x10 - Poison Control recommended serial EKGs to monitor for QT prolongation, capnography, and monitoring x6 hours after mental status is back to baseline - Psych consult pending - 1:1 monitor (2) Hypotension Comment: - Resolved with IVF (3) Hypothyroidism Comment: - Continue levothyroxine (4) Insulin dependent diabetes mellitus Comment: - Hyperglycemic, increasing Lantus from 10 to 20 u today - A1c earlier this year 9.1% - Continue Lantus, Lispro SS (5) Constipation Comment: laxatives ordered (6) DVT prophylaxis Comment: - SCDs Status and Disposition: Inpatient. , Psych consult pending.
[2019-08-22] MEDS ORDERED: hydrOXYzine HCL TAB* 50 MG PO PRN (11:33)
--- NOTE | 2019-08-22 12:17 | DS ---
CC: Dr. Devlin; Dr. Arora * DISCHARGE SUMMARY: DATE OF ADMISSION: 08/20/19 DATE OF DISCHARGE: 08/22/19 PRIMARY CARE PROVIDER: Dr. Devlin. DISPOSITION AT DISCHARGE: Transferred to our mental health unit. CONDITION AT DISCHARGE: Stable. DISCHARGE DIAGNOSES: 1. Overdose on trazodone, clonazepam, temazepam. 2. Hypotension that resolved with IV fluids. SECONDARY DIAGNOSES: 1. Depression. 2. Insulin-dependent diabetes. 3. Hypothyroidism. LABORATORY DATA AND STUDIES PERFORMED DURING THE HOSPITAL STAY: Included: On 08/29, white blood cell count of 5.5, hemoglobin 11.0, hematocrit 34, and platelets of 219. Sodium was 137, potassium 4.1, chloride 108, carbon dioxide 24, BUN 5, creatinine 0.6. The patient's TSH level was 0.41, free T4 of 1.1, total T3 of 80. Microbiology test: Nasal MRSA screen was negative. Chest x-ray obtained on admission, impression: "Lung volumes, lines and tubes as above." CONSULTATIONS DURING THE HOSPITAL STAY: Included Dr. Arora from Psychiatry. HOSPITALIZATION COURSE: Kelsie Jasso is a 39-year-old female who immigrated from [place] approximately 10 months ago with multiple psychiatric admissions in the past for depression as well as insulin-dependent diabetes and hypothyroidism, who presented to the hospital, brought in after a suicidal attempt. Apparently, the patient argued with her family member and she took several doses of the medications from home. 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 On 08/22/19, Dr. Aroar saw the patient in consultation and recommended inpatient psychiatric admission. MEDICATIONS AT DISCHARGE: Include: 1. Insulin glargine 24 units subcutaneously q.p.m. 2. Synthroid 300 mcg daily. 3. Norethindrone 0.35 mg daily. 4. Omeprazole 40 mg daily. 5. Insulin lispro sliding scale with fingersticks 4 times a day. Please note that the patient's thyroid hormones were slightly abnormal, but her TSH is within normal limits. The patient is on thyroid supplementation and no further changes in her medications are recommended. The patient is being admitted to mental health unit for voluntary status. For physical exam at the time of discharge, please see the progress note. Please note that this is a short summary of the patient's hospital stay. Please refer to further medical records for details. TIME SPENT: Approximately 35 minutes were spent on the patient's discharge. [id number]/[facility] #: [id number] EMILY
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
[2019-08-22] MEDS: Insulin GLARGINE(*) 1 UNITS UNIT SUBCUT SCH (16:57)
[2019-08-22] MEDS: Docusate CAP* 100 MG PO SCH (20:32)
[2019-08-22] MEDS: Divalproex DR TAB(*) 500 MG PO SCH (20:32)
[2019-08-22] MEDS: QUEtiapine TAB* 100 MG PO SCH (20:33)
[2019-08-23] MEDS: Insulin LISPRO* 1 UNITS UNIT SUBCUT SCH ×4 (10:15→21:39)
[2019-08-23] MEDS: Magnesium Hydroxide LIQ* 30 ML UDC PO SCH ×2 (10:18→10:35)
[2019-08-23] MEDS: Levothyroxine TAB* 100 MCG TAB PO SCH (10:19)
[2019-08-23] MEDS: BuPROPion XL* 150 MG TAB.XL PO SCH (10:20)
[2019-08-23] MEDS: Docusate CAP* 100 MG PO SCH ×2 (10:21→21:37)
[2019-08-23] MEDS: Divalproex DR TAB(*) 500 MG PO SCH ×2 (10:21→21:37)
[2019-08-23] MEDS: Pantoprazole TAB * 40 MG TAB PO SCH (10:21)
[2019-08-23] MEDS: Norethindrone (NF) 0.35 MG TAB PO SCH (10:35)
[2019-08-23] MEDS ORDERED: Magnesium CITRATE* 300 ML BTL PO ONE (11:35)
--- NOTE | 2019-08-23 15:38 | PN ---
Subjective - Subjective Date of Service: 08/23/19 Service Type: 22959 Hosp care 15 min low complexity Subjective: Patient lying in bed, pleasant cooperative upon approach. She reports significant upper abd pain and constipation x2 days since being given activated charcoal. She reports improved sleep last night, attributes to current medications. She states her usually helps her with insulin coverage and that her FS readings are usually higher than they have been in the hospital. She denies following a diabetic diet and is agreeable to meet with indirect sales exec. Will tend to constipation and diabetes management, as this is preventing milieu and group interactions. Objective - General Observations Appearance: Unkempt Stature: Overweight Posture: Other (See Comment) - lying down Eye Contact: Average Behavior/Activity: Slowed - Interaction Observations Attitude Towards Examiner: Cooperative Stated Mood: Dysphoric Affect: Flat Speech Pattern/Tone: Appropriate, Quiet Volume Thought Process: Circumstantial Perception: WNL Thought Content: Preoccupation/Ruminations, Depressive Thought Process: Lethality: Passive Wish Hallucination Type: Denies Delusion Type: Denies - Cognitive Function Orientation: A&O x 4 Level of Consciousness: Alert Cognition: Impaired Attention/Concentration Estimated Intelligence: Normal Insight: Difficulty Acknowledging Presence of Psyciatric Problems Judgment Within Normal Limits: No Ability to Make Reasonable Decisions: Serverely Impaired - Medication Compliance Cooperative with Inpatient Medication Regimen: Yes - Group Participation Participates in Group Activities: No Assessment - Assessment Merits Inpatient Hospitalization: For Immediate Safety, For Stabilization Inpatient DSM-V Dx: F31.81 Clinical Impression: 39yo, , [place] female with history of bipolar 2 d/o borderline personality d/o who was transferred to [facility] on 08/22/19 after being treated in ICU for intentional overdose on clonazepam, temazepam and trazodone in a suicide attempt. She merits hospitalization for immediate safety and stabilization. Plan - Plan Treatment Plan: Name: IFTIKHARJANN HARDEN Birthdate: 1980 [id number] continue acute intensive psychiatric treatment. obtained abd x-ray, showing constipation. give mag citratex1 and utilize prn medications. continue depakote and obtain valproic acid level on am of 08/25/19. continue wellbutrin and quetiapine, as ordered. discharge to include PCP and referral for outpatient mental health treatment. Patient would likely benefit from program such as [facility]. Continued Medication Management: Start Medication Medications: Current Medications Bupropion HCl (Wellbutrin Xl *) 300 mg PO DAILY [facility] Last Admin: 08/23/19 10:20 Dose: 300 mg Divalproex Sodium (Depakote Dr Tab(*)) 500 mg PO BID [facility] Last Admin: 08/23/19 10:21 Dose: 500 mg Docusate Sodium (Colace Cap*) 100 mg PO BID [facility] Last Admin: 08/23/19 10:21 Dose: 100 mg Hydroxyzine HCl (Atarax Tab*) 50 mg PO Q6H PRN PRN Reason: anxiety Insulin Glargine (Lantus(*)) 20 units SUBCUT Q24H [facility] Last Admin: 08/22/19 16:57 Dose: 20 units Insulin Human Lispro (Humalog*) [address] [facility]; Protocol Last Admin: 08/23/19 12:54 Dose: 3 unit Levothyroxine Sodium (Synthroid Tab*) 300 mcg PO DAILY@0600 [facility] Last Admin: 08/23/19 10:19 Dose: 300 mcg Magnesium Hydroxide (Milk Of Magnesia Liq*) 30 ml PO BID PRN PRN Reason: CONSTIPATION Norethindrone (Ngoc (Nf)) 0.35 mg PO DAILY [facility] Last Admin: 08/23/19 10:35 Dose: Not Given Pantoprazole Sodium (Protonix Tab*) 40 mg PO DAILY [facility] Last Admin: 08/23/19 10:21 Dose: 40 mg Quetiapine Fumarate (Seroquel Tab*) 100 mg PO BEDTIME [facility] Last Admin: 08/22/19 20:33 Dose: 100 mg Senna (Senokot 8.6 Mg Tab*) 1 tab PO BEDTIME PRN PRN Reason: CONSTIPATION - Discharge Plan Discharge Plan: Inpatient Hospitalization
--- NOTE | 2019-08-23 16:52 | PN ---
[facility]: Group Therapy Note - Service Type Service Type: [id number] Group Psychotherapy - Group Participation Patient Participating in Group: Yes Level of Group Participation: Attentive, Spontaneously Participate Relatedness to Group: Well Related - Additional Group Comments Group Comments: Kelsie participated and was very attentive throughout the group. She appeared to be personally involved in some of the discussion, but she was also quiet and reserved.
[2019-08-23] MEDS: Insulin GLARGINE(*) 1 UNITS UNIT SUBCUT SCH (17:08)
[2019-08-23] MEDS: QUEtiapine TAB* 100 MG PO SCH (21:38)
[2019-08-24 08:39] LABS: HDL Cholesterol 36.8 mg/dL
[2019-08-24] MEDS: Docusate CAP* 100 MG PO SCH ×2 (09:25→21:42)
[2019-08-24] MEDS: Divalproex DR TAB(*) 500 MG PO SCH ×2 (09:25→21:04)
[2019-08-24] MEDS: Pantoprazole TAB * 40 MG TAB PO SCH (09:25)
[2019-08-24] MEDS: BuPROPion XL* 150 MG TAB.XL PO SCH (09:25)
[2019-08-24] MEDS: Insulin LISPRO* 1 UNITS UNIT SUBCUT SCH ×4 (09:26→21:07)
[2019-08-24] MEDS: Norethindrone (NF) 0.35 MG TAB PO SCH (09:28)
--- NOTE | 2019-08-24 10:45 | PN ---
Subjective - Subjective Date of Service: 08/24/19 Service Type: 24798 Hosp care 25 min moderate complexity Subjective: Patient is euthymic with bright affect. She reports having a large BM and continues to have abd cramping and bloating. Will continue laxatives and patient encouraged to increase fluids and ambulation. Will consider repeat abd x-ray. Spoke with hospitalist regarding diabetes management. Will increase bedtime dose of Lispro. Objective - General Observations Appearance: Well Groomed Stature: Overweight Posture: WNL Eye Contact: Average Behavior/Activity: WNL - Interaction Observations Attitude Towards Examiner: Cooperative Stated Mood: Euthymic Affect: Bright Speech Pattern/Tone: Clear, Appropriate, Normal Volume Thought Process: Coherent, Goal Directed Perception: WNL Thought Content: Depressive Thought Process: Lethality: Passive Wish Hallucination Type: Denies Delusion Type: Denies - Cognitive Function Orientation: A&O x 4 Level of Consciousness: Alert Cognition: WNL Estimated Intelligence: Normal Insight: WNL Judgment Within Normal Limits: No Ability to Make Reasonable Decisions: Moderately Impaired - Medication Compliance Cooperative with Inpatient Medication Regimen: Yes - Group Participation Participates in Group Activities: Partial Assessment - Assessment Merits Inpatient Hospitalization: For Immediate Safety, For Stabilization Inpatient DSM-V Dx: F31.81 Clinical Impression: 39yo, , [place] female with history of bipolar 2 d/o borderline personality d/o who was transferred to [facility] on 08/22/19 after being treated in ICU for intentional overdose on clonazepam, temazepam and trazodone in a suicide attempt. She merits hospitalization for immediate safety and stabilization. Plan - Plan Treatment Plan: Name: IFTIKHARJANN HARDEN Birthdate: 1980 [id number] continue acute intensive psychiatric treatment. increase laxatives and lispro; continue other medications as ordered. obtain valproic acid level on am of 08/25/19. discharge to include PCP and referral for outpatient mental health treatment. Patient would likely benefit from program such as [facility]. Continued Medication Management: Start Medication Medications: Current Medications Bupropion HCl (Wellbutrin Xl *) 300 mg PO DAILY [facility] Last Admin: 08/24/19 09:25 Dose: 300 mg Divalproex Sodium (Depakote Dr Tab(*)) 500 mg PO BID [facility] Last Admin: 08/24/19 09:25 Dose: 500 mg Docusate Sodium (Colace Cap*) 100 mg PO BID [facility] Last Admin: 08/24/19 09:25 Dose: Not Given Hydroxyzine HCl (Atarax Tab*) 50 mg PO Q6H PRN PRN Reason: anxiety Insulin Glargine (Lantus(*)) 20 units SUBCUT Q24H [facility] Last Admin: 08/23/19 17:08 Dose: 20 units Insulin Human Lispro (Humalog*) 0 units SUBCUT [facility]; Protocol Last Admin: 08/24/19 09:26 Dose: 1 unit Levothyroxine Sodium (Synthroid Tab*) 300 mcg PO DAILY@0600 [facility] Last Admin: 08/23/19 10:19 Dose: 300 mcg Magnesium Hydroxide (Milk Of Magnesia Liq*) 30 ml PO BID PRN PRN Reason: CONSTIPATION Norethindrone (Ngoc (Nf)) 0.35 mg PO DAILY [facility] Last Admin: 08/24/19 09:28 Dose: Not Given Pantoprazole Sodium (Protonix Tab*) 40 mg PO DAILY [facility] Last Admin: 08/24/19 09:25 Dose: 40 mg Polyethylene Glycol/Electrolytes (Miralax*) 17 gm PO DAILY [facility] Quetiapine Fumarate (Seroquel Tab*) 100 mg PO BEDTIME [facility] Last Admin: 08/23/19 21:38 Dose: 100 mg Senna (Senokot 8.6 Mg Tab*) 2 tab PO BID [facility] - Discharge Plan Discharge Plan: Inpatient Hospitalization
[2019-08-24] MEDS: Levothyroxine TAB* 100 MCG TAB PO SCH (11:01)
[2019-08-24] MEDS: Polyethylene Glycol 3350* 17 GM PACKET PO SCH (12:32)
[2019-08-24] MEDS: Senna TAB 8.6 mg* TAB PO SCH ×2 (12:33→21:42)
[2019-08-24] MEDS: Insulin GLARGINE(*) 1 UNITS UNIT SUBCUT SCH (12:35)
[2019-08-24] MEDS: QUEtiapine TAB* 100 MG PO SCH (21:04)
[2019-08-25] MEDS: Insulin LISPRO* 1 UNITS UNIT SUBCUT SCH ×2 (08:44→13:35)
[2019-08-25] MEDS: Docusate CAP* 100 MG PO SCH (08:45)
[2019-08-25] MEDS: Senna TAB 8.6 mg* TAB PO SCH (08:45)
[2019-08-25] MEDS: BuPROPion XL* 150 MG TAB.XL PO SCH (08:46)
[2019-08-25] MEDS: Divalproex DR TAB(*) 500 MG PO SCH (08:46)
[2019-08-25] MEDS: Levothyroxine TAB* 100 MCG TAB PO SCH (08:46)
[2019-08-25] MEDS: Pantoprazole TAB * 40 MG TAB PO SCH (08:46)
[2019-08-25] MEDS: Norethindrone (NF) 0.35 MG TAB PO SCH (08:47)
[2019-08-25] MEDS: Polyethylene Glycol 3350* 17 GM PACKET PO SCH (08:47)
[2019-08-25 10:40] VITALS: BP 126/69
[2019-08-25] MEDS: Insulin GLARGINE(*) 1 UNITS UNIT SUBCUT SCH (13:35)
--- NOTE | 2019-08-25 21:54 | DS ---
CC: Dr. Devlin; Dr. Parsons; [facility]. * DISCHARGE SUMMARY: DATE OF ADMISSION TO THE [facility]: 08/22/19 DATE OF DISCHARGE: 08/25/19 SUPERVISING PSYCHIATRIST: Cuate Arora MD * (DICTATED BY EITAN MUNOZ NP) DIAGNOSES: 1. Bipolar 2 disorder, most recent episode depressed. 2. Borderline personality disorder. 3. Diabetes mellitus, type 2. CONDITION AT THE TIME OF DISCHARGE: Improved. The patient is euthymic with bright affect. She has been pleasant and participating in unit programming. She reports resolution of constipation and abdominal pain. She denies suicidal ideation. She denies passive wish. She reports desire to be discharged. She reports desire to be referred to [facility] as she has been trying to do so since her arrival to this area earlier this year. The patient is discharged to home. MENTAL STATUS EXAM: Kelsie is a 39-year-old female with several facial piercings and tattoos on arms and with hair dyed reddish. She is cooperative, pleasant, and talkative. She is alert and oriented x3. Her speech is soft, articulate, and spontaneous. She speaks Georgian with a Jamaican accent. Mood is euthymic with bright affect. Thought process is logical, coherent, and goal directed. Eye contact is good. Thought content is negative for suicidal ideation or passive wish. She denies HI or . She denies auditory or visual hallucinations. Insight and judgement are good and that she was agreeable to voluntary hospitalization. She appears to have an average intellect and her fund of knowledge is adequate. INSTRUCTIONS GIVEN TO PATIENT: A. Medications: The following were prescribed by myself for a 2 week supply: 1. Bupropion XL 300 [address] daily[address] 2. Depakote [address] 500 mg p.o. b.i.d. 3. Docusate 100 mg p.o. b.i.d. p.r.n. constipation. 4. MiraLAX 17 g p.o. daily p.r.n. constipation. 5. Quetiapine 200 mg p.o. q.h.s. 6. Senokot 8.6 mg 2 tabs p.o. b.i.d. p.r.n. constipation. She will resume the following medications through primary care: 1. Insulin Lantus 25 units q.h.s. 2. Humalog insulin per sliding scale. 3. Levothyroxine 300 mcg p.o. q.a.m. 4. Norethindrone 0.35 mg p.o. daily. 5. Pantoprazole 40 mg p.o. daily. B. Diet: Diabetic diet. The patient was given information by her lap machine tender. C. Activity: Ambulation as tolerated. Tobacco cessation is not applicable. There are no pending labs or diagnostic studies. D. Followup care: The patient was referred to [facility] and has an intake on 09/01/19 with Yuki Abdi. She was referred back to Dr. Devlin, has an appointment on 09/05/[address] Parsons on 08/29/19. E. Substance use followup: Not applicable. HOSPITAL COURSE: Part A: Reason for admission. The patient is a 39-year-old Jamaican female with a significant history of bipolar disorder type 2 and borderline personality disorder. She was admitted to the hospital on 08/20/19. She was treated for an overdose on clonazepam, trazodone, and temazepam. The patient reported having a vague memory of events leading to hospitalization. She states that she was talking with her mother on the phone and that the two of them had an argument. The patient states, "I got angry, I basically exploded." She recalls taking the meds described above. She also indicates that the day prior she had had an intentional overdose on 10 tablets of Klonopin and 10 tablets of Aleve. The patient believed at that the time that she would and that was an intent to end her life. She states she sees Dr. Devlin in the community for primary care since moving to the [facility], but she had the left over medications from her previous prescription in [place]. She describes herself has having low self esteem. She indicates that her mother was intoxicated and calling her names such as "silly and stupid". The patient endorses depressed mood. She reports trying to get into [facility] for the past several months without success. She endorses a remote history of discrete hypomanic episode lasting over a week long in her teens and 20s. Current symptoms include difficulty sleeping, guilt , poor energy, lack of concentration, decreased appetite, and suicidal ideations. She denies anhedonia or psychomotor retardation. Part B: Psychiatric treatment rendered. The patient was transferred to the adult behavioral services unit and placed on 15 minute checks for safety. We resumed Depakote DR 500 mg twice daily, Wellbutrin XL 300 mg daily, and Seroquel 100 mg at night. For the first day on the BSU, the patient endorsed significant abdominal pain and constipation. We obtained an abdominal x-ray, which indicated her colon was full of stool. She received mag citrate and other laxatives with good effect. The following day, the patient reported some cramping, but participated in groups and therapeutic milieu. She was observed to be interactive, euthymic with bright affect. She reported her mood to be good. The patient agreed to meet with lap machine tender to discuss a diabetic diet. It appears her helps her with diabetes management and she states that her sugars are often higher than they have been here in the 250s. We obtained a hemoglobin A1c that was 14.3. According to medical records from the floor she has had an A1c of approximately 9 earlier this year. We increased insulin Lantus bedtime dose to 25 units. Her Depakote trough this morning on the day of discharge was 89 and therapeutic. The patient was notified of this result. She reported mild problematic sleeping, but otherwise readiness for discharge. We increased Seroquel to 200 mg at discharge. The patient declined the need to remain hospitalized for further programming or stabilization and reported readiness to be discharged home. EITAN MUNOZ NP [id number]/[facility] #: [id number] EMILY
== END 2019-08-25 16:32 | disposition home or self-care (01) | DRG 885 ==
LOC: ED 22:35 → ICU 08-20 02:24 → MEDTELE 08-21 07:30 → BSU 08-22 15:27
PROVIDERS: ADMIT Internal Medicine; ATTEND Internal Medicine
DX: F31.81 Bipolar II disorder (principal); F60.3 Borderline personality disorder; E11.9 Type 2 diabetes mellitus without complications; T43.212A Poisoning by selective serotonin and norepinephrine reuptake inhibitors, intentional self-harm, initial encounter; I95.9 Hypotension, unspecified; E03.9 Hypothyroidism, unspecified; K59.00 Constipation, unspecified; K21.9 Gastro-esophageal reflux disease without esophagitis; Y92.9 Unspecified place or not applicable; Z88.0 Allergy status to penicillin; Z79.4 Long term (current) use of insulin; Z79.899 Other long term (current) drug therapy; Z87.891 Personal history of nicotine dependence; Z81.8 Family history of other mental and behavioral disorders
CPT/HCPCS: 36415; 71045; 74019; 80048; 80053; 80061; 80164; 80307; 80320; 80329; 81003; 82550; 82803; 82947; 83036; 83605; 83735; 84439; 84443; 84479; 84702; 85025; 85610; 87641; 90853; 93005; 99222; 99231; 99232; 99238; 99285; A9270-GY; G0480; J3480

== ENCOUNTER 2019-10-11 11:25 | Emergency (ER) | payer MEDICARE, MEDICAID ==
[2019-10-11] MEDS ORDERED: Ibuprofen TAB* 600 MG PO ONE (12:02)
[2019-10-11 13:25] VITALS: BP 140/89
--- NOTE | 2019-10-11 13:44 | ED ---
Back Pain - HPI Summary HPI Summary: This patient is an otherwise healthy 39-year-old female who presents to the ED after a fall 2 days ago. She states she fell onto her right side. She is endorsing pain to her right ribs. She states she is now having difficulty with breathing due to the right rib pain. She denies any wheezing or rhonchorous sounds. States when she takes a deep breath, the pain worsens to her right side. She denies any hematemesis or hemoptysis. Eating and drinking well still. Ambulating well. Denies any pain otherwise. Pain is currently rated a 7/10. Denies any bruises or other signs of trauma. - History of Current Complaint Chief Complaint: EDChestWallPain Stated Complaint: FELL TWO DAYS AGO/ RT SIDE PAIN/ CHEST PAIN PER PT Time Seen by Provider: 10/11/19 11:29 Hx Obtained From: Patient Onset/Duration: Sudden Onset Onset/Duration: Started Hours Ago Timing: Constant Back Pain Location: Is Discrete @ - right ribs Severity Initially: Moderate Severity Currently: Moderate Pain Intensity: 4 Pain Scale Used: 0-10 Numeric Character: Aching Aggravating Symptom(s): Movement, Lifting, Bending Alleviating Symptom(s): Rest, Position Associated Signs And Symptoms: Positive: Negative. Negative: Swelling, Redness , Bruising, Weakness, Numbness - Risk Factors AAA Risk Factors: Negative - Allergies/Home Medications Allergies/Adverse Reactions: Allergies Allergy/AdvReac Type Severity Reaction Status Date / Time Penicillins Allergy Severe Anaphylatic Verified 10/11/19 11:30 Shock PMH/Surg Hx/FS Hx/Imm Hx Previously Healthy: Yes Endocrine/Hematology History: Reports: Hx Diabetes Sensory History: Denies: Hx Contacts or Glasses, Hx Legally Blind, Hx Deafness, Hx Hearing Aid Opthamlomology History: Denies: Hx Contacts or Glasses, Hx Legally Blind Psychiatric History: Reports: Hx Depression, Hx Bipolar Disorder - Surgical History Surgery Procedure, Year, and Place: Cholecystectomy, tubal - Immunization History Date of Tetanus Vaccine: unk Date of Influenza Vaccine: unk Hx Pertussis Vaccination: No Immunizations Up to Date: Yes Infectious Disease History: No Infectious Disease History: Denies: Traveled Outside the [place] in Last 30 Days - Family History Known Family History: Positive: Diabetes - Social History Occupation: Employed Full-time Lives: With Family Alcohol Use: None Hx Substance Use: No Substance Use Type: Reports: None Substance Use Comment - Amount & Last Used: today Hx Tobacco Use: No Smoking Status (MU): Never Smoked Tobacco Review of Systems Negative: Fever, Chills, Fatigue, Skin Diaphoresis Positive: Chest Pain - referred from R ribs. Negative: Palpitations Negative: Shortness Of Breath, Cough Negative: Abdominal Pain, Vomiting Positive: Arthralgia - right rib pain Neurological: Negative All Other Systems Reviewed And Are Negative: Yes Physical Exam Triage Information Reviewed: Yes Vital Signs On Initial Exam: Initial Vitals Temp Pulse Resp BP Pulse Ox 98.5 F 103 16 129/88 100 10/11/19 11:27 10/11/19 11:27 10/11/19 11:27 10/11/19 11:27 10/11/19 11:27 Vital Signs Reviewed: Yes Appearance: Positive: Well-Appearing, Well-Nourished Skin: Positive: Warm, Skin Color Reflects Adequate Perfusion Head/Face: Positive: Normal Head/Face Inspection Eyes: Positive: EOMI, NIKUNJ, Conjunctiva Clear Neck: Positive: Supple Respiratory/Lung Sounds: Positive: Clear to Auscultation, Breath Sounds Present Cardiovascular: Positive: RRR, Pulses are Symmetrical in both Upper and Lower Extremities Musculoskeletal: Positive: Pain @ - right ribs Neurological: Positive: Speech Normal Psychiatric: Positive: Affect/Mood Appropriate Procedures - Sedation Patient Received Moderate/Deep Sedation with Procedure: No Diagnostics - Vital Signs Vital Signs Temp Pulse Resp BP Pulse Ox 10/11/19 13:24 98.1 F 87 16 140/89 100 10/11/19 11:27 98.5 F 103 16 129/88 100 - Laboratory Lab Statement: Any lab studies that have been ordered have been reviewed, and results considered in the medical decision making process. Back Pain Course/Dx - Course Course Of Treatment: This patient is evaluated for right-sided rib pain as well as chest discomfort. States she has chest pain from the R ribs after a fall. Denies cardiac history. She has not been using Tylenol or ibuprofen for relief. She has not used any heat or ice to the area. On palpation, patient is endorsing a 10/10 pain to the right ribs. There is no ecchymosis or signs of trauma. Lungs CTA, RRR. Chest x-ray with right rib series obtained which is negative for any acute fractures. On reexamination, patient remains clear to auscultation and is now complaining of a 4/10 pain after dispensed ibuprofen. Patient states she is okay for discharge at this time. Return precautions given. Rib contusion diagnosis. - Diagnoses Differential Diagnosis/HQI/PQRI: Positive: Fracture, Strain, Sprain Provider Diagnoses: Rib pain on right side Discharge ED - Sign-Out/Discharge Documenting (check all that apply): Patient Departure - Discharge Plan Condition: Stable Disposition: HOME Patient Education Materials: Rib Contusion (ED) Referrals: Masha Devlin MD [Primary Care Provider] - Additional Instructions: Please follow up with PCP Ibuprofen 600mg three times daily Heat to the area as much as possible - Billing Disposition and Condition Condition: STABLE Disposition: Home
== END 2019-10-11 13:25 | disposition home or self-care (01) ==
LOC: ED 11:25
DX: R07.81 Pleurodynia (principal); W19.XXXA Unspecified fall, initial encounter; Y92.9 Unspecified place or not applicable; E11.9 Type 2 diabetes mellitus without complications; F31.9 Bipolar disorder, unspecified; Z90.49 Acquired absence of other specified parts of digestive tract; Z98.51 Tubal ligation status; Z88.0 Allergy status to penicillin
CPT/HCPCS: 99282; A9270-GY

== ENCOUNTER 2019-10-15 10:40 | Inpatient (IN) | payer MEDICARE, MEDICAID ==
--- NOTE | 2019-10-15 11:02 | ED ---
HPI Chest Pain - HPI Summary HPI Summary: Patient is a 39 y/o F presenting to the ED for a chief complaint of right anterior chest pain and rib pain that began one week ago after a fall. Patient is present with her . Patient states that her chest pain began after a fall in her bathroom on 10/09/19. At that time, patient was seen at [facility] and had a chest x-ray. She was diagnosed with a right rib contusion and discharged. Since her fall, she has taken ibuprofen for chest pain. Her chest pain and right rib pain have worsened since initial onset. She has difficulty describing her symptoms due to the pain. On triage, she rates her chest pain as 10/10 in severity. The chest pain worsens with deep breaths, movement, and coughing. Patient notes shortness of breath. On vitals, patient does not have a fever. Patient denies any alleviating factors. PMHx is significant for diabetes mellitus type I. - History of Current Complaint Chief Complaint: EDChestWallPain Time Seen by Provider: 10/15/19 10:56 Hx Obtained From: Patient Onset/Duration: Started Days Ago - 10/09/19, Traumatic - Fall, Still Present Timing: Constant, Lasting Days Initial Severity: Severe Current Severity: Severe Pain Intensity: 10 Pain Scale Used: 0-10 Numeric Chest Pain Location: Right Anterior Chest Pain Radiates: No Aggravating Factor(s): Movement, Deep Breaths, Other: - Coughing Alleviating Factor(s): Nothing Associated Signs and Symptoms: Positive: Chest Pain, Shortness of Breath. Negative: Fever Related History: Recent Trauma - Fall - Additional Pertinent History Primary Care Physician: OLGA - Allergy/Home Medications Allergies/Adverse Reactions: Allergies Allergy/AdvReac Type Severity Reaction Status Date / Time Penicillins Allergy Severe Anaphylatic Verified 10/15/19 10:52 Shock PMH/Surg Hx/FS Hx/Imm Hx Previously Healthy: Yes Endocrine/Hematology History: Reports: Hx Diabetes - Type I Cardiovascular History: Denies: Hx Hypercholesterolemia, Hx Hypertension GI History: Reports: Hx Gastroesophageal Reflux Disease Sensory History: Denies: Hx Contacts or Glasses, Hx Legally Blind, Hx Deafness, Hx Hearing Aid Opthamlomology History: Denies: Hx Contacts or Glasses, Hx Legally Blind EENT History: Denies: Hx Deafness Psychiatric History: Reports: Hx Depression, Hx Bipolar Disorder - Surgical History Surgical History: Yes Surgery Procedure, Year, and Place: Cholecystectomy, tubal - Immunization History Date of Tetanus Vaccine: unk Date of Influenza Vaccine: unk Infectious Disease History: No Infectious Disease History: Denies: Traveled Outside the [place] in Last 30 Days - Family History Known Family History: Positive: Diabetes - Social History Occupation: Unemployed Lives: With Family Alcohol Use: None Hx Substance Use: No Substance Use Type: Reports: None Substance Use Comment - Amount & Last Used: today Hx Tobacco Use: No Smoking Status (MU): Never Smoked Tobacco Review of Systems Negative: Fever - In vitals, 98.5 F Positive: Chest Pain - Right anterior Positive: Shortness Of Breath Positive: Myalgia - Right-sided rib pain All Other Systems Reviewed And Are Negative: Yes Physical Exam - Summary Physical Exam Summary: VITAL SIGNS: Reviewed. GENERAL: Patient is a well-developed and nourished FEMALE who is lying comfortable in the stretcher. Patient is not in any acute respiratory distress. HEAD AND FACE: No signs of trauma. No ecchymosis, hematomas or skull depressions. No sinus tenderness.. EYES: PERRLA, EOMI x 2, No injected conjunctiva, no nystagmus. EARS: Hearing grossly intact. Ear canals and tympanic membranes are within normal limits. MOUTH: Oropharynx within normal limits. NECK: Supple, trachea is midline, no adenopathy, no JVD, no carotid bruit, no c- spine tenderness, neck with full ROM. CHEST: Symmetric. Right-sided ribcage and midaxillary area tenderness. No ecchymosis, no deformity, no crepitus. LUNGS: Clear to auscultation bilaterally. No wheezing or crackles. CVS: Regular rate and rhythm, S1 and S2 present, no murmurs or gallops appreciated. ABDOMEN: Soft, non-tender. No signs of distention. No rebound, no guarding, and no masses palpated. Bowel sounds are normal. EXTREMITIES: FROM in all major joints, no edema, no cyanosis or clubbing. NEURO: Alert and oriented x 3. No acute neurological deficits. Speech is normal and follows commands. SKIN: Dry and warm. Triage Information Reviewed: Yes Vital Signs On Initial Exam: Initial Vitals Temp Pulse Resp BP Pulse Ox 98.5 F 110 16 148/75 100 10/15/19 10:51 10/15/19 10:51 10/15/19 10:51 10/15/19 10:51 10/15/19 10:51 Vital Signs Reviewed: Yes Procedures - Sedation Patient Received Moderate/Deep Sedation with Procedure: No Diagnostics - Vital Signs Vital Signs Temp Pulse Resp BP Pulse Ox 10/15/19 10:51 98.5 F 110 16 148/75 100 - Laboratory Result Diagrams: 10/15/19 16:44 10/15/19 16:44 Lab Statement: Any lab studies that have been ordered have been reviewed, and results considered in the medical decision making process. - CT Chest CT CT Interpretation Completed By: Radiologist Summary of CT Findings: Chest CT IMPRESSION: No pneumothorax is noted. No chest wall injury is identified. No alveolar consolidation is noted. Reviewed by Dr. Birmingham. - EKG 10:44 Cardiac Rate: Tachycardia - 107 BPM EKG Rhythm: Sinus Tachycardia ST Segment: Normal Ectopy: None Summary of EKG Findings: EKG at 10:44 shows sinus tachycardia with 107 BPM, no STEMI. Reviewed and interpreted by Dr. Birmingham. Chest Pain Course/Dx - Course Assessment/Plan: Patient is a 39 y/o F presenting to the ED for a chief complaint of right anterior chest pain and rib pain that began one week ago after a fall. Patient is present with her . Patient states that her chest pain began after a fall in her bathroom on 10/09/19. At that time, patient was seen at [facility] and had a chest x-ray. She was diagnosed with a right rib contusion and discharged. Since her fall, she has taken ibuprofen for chest pain. Her chest pain and right rib pain have worsened since initial onset. She has difficulty describing her symptoms due to the pain. On triage, she rates her chest pain as 10/10 in severity. The chest pain worsens with deep breaths, movement, and coughing. Patient notes shortness of breath. On vitals, patient does not have a fever. Patient denies any alleviating factors. PMHx is significant for diabetes mellitus type I. The patient's blood work is consistent with DKA. In the ED course, the patient was given IV fluids and insulin drip. The patient also has increased WBC's, however as the chest CT shows no pneumonia and she doesn't have any urinary tract infection symptoms, I chose not to give antibiotics at this point. I discussed my physical exam and other findings with Dr. Munroe from the ICU and she accepted the patient for admission. She agrees with management and she doesn't think that the patient requires antibiotics at this point. The patient is feeling better and she is hemodynamically stable. She was also given morphine for the pain and Zofran for nausea and vomiting. - Diagnoses Provider Diagnoses: DKA (diabetic ketoacidoses), Rib pain on right side - Provider Notifications Discussed Care Of Patient With: Kassie Munroe - At 13:14, patients case was reviewed by Dr. Kassie Munroe who agrees to admit the [place] [facility] Discussed With Above Provider: 13:14 Instructed by Provider To: Admit As Inpatient - Critical Care Time Critical Care Time: 30-74 min Discharge ED - Sign-Out/Discharge Documenting (check all that apply): Patient Departure - Admit - Discharge Plan Condition: Stable Disposition: ADMITTED TO [facility] - Billing Disposition and Condition Condition: STABLE Disposition: Admitted to [facility] - Attestation Statements Document Initiated by Hollieibe: Yes Documenting Scribe: Brynn Frausto Provider For Whom Terence is Documenting (Include Credential): Adolfo Birmingham MD Scribe Attestation: I, Brynn Frausto, scribed for Adolfo Birmingham MD on 10/15/19 at 1821. Scribe Documentation Reviewed: Yes Provider Attestation: The documentation as recorded by the Brynn magaña accurately reflects the service I personally performed and the decisions made by me, Adolfo Birmingham MD Status of Scribe Document: Viewed
[2019-10-15] MEDS ORDERED: Morphine 4 MG/ML VIAL (1 ml) 4 MG/ML VIAL IV ONE (11:04)
[2019-10-15] MEDS ORDERED: Ondansetron INJ* 2 MG/ML VIAL IV ONE (11:04)
[2019-10-15 11:05] LABS: Hematocrit 42 % (35-47); Hemoglobin 13.4 g/dL (12.0-16.0); Mean Corpuscular HGB Conc 32 g/dL (31-36); Mean Corpuscular Hemoglobin 31 pg (27-31); Mean Corpuscular Volume 97 fL (80-97); Platelet Count 452 10^3/uL (150-450); Red Blood Count 4.34 10^6 /uL (3.70-4.87); Red Cell Distribution Width 14 % (10-15); White Blood Count 20.3 10^3/uL (3.5-10.8)
[2019-10-15 11:09] LABS: INR 0.97 (0.82-1.09)
[2019-10-15 11:21] LABS: ABS Basophils 0.1 10^3/ul (0-0.2); ABS Lymphocytes 1.1 10^3/ul (1.0-4.8); ABS Monocytes 1.8 10^3/ul (0-0.8); ABS Neutrophils 17.2 10^3/ul (1.5-7.7); Lymphocyte % 5.6 %
[2019-10-15 11:30] LABS: ALT 7 U/L (7-52); AST 9 U/L (13-39); Albumin 3.5 g/dL (3.2-5.2); Albumin/Globulin Ratio 0.7 (1-3); Alkaline Phosphatase 103 U/L (34-104); BUN/Creatinine Ratio 11.5 (8-20); Blood Urea Nitrogen 12 mg/dL (6-24); Calcium 9.5 mg/dL (8.6-10.3); Chloride 103 mmol/L (101-111); EGFR African American 71.4 (>60); Globulin 4.9 g/dL (2-4); Glucose 499 mg/dL (70-100); Potassium 4.5 mmol/L (3.5-5.0); Sodium 132 mmol/L (135-145); Total Protein 8.4 g/dL (6.4-8.9)
[2019-10-15 11:35] LABS: CO2 Carbon Dioxide < 7 mmol/L (22-32)
[2019-10-15] MEDS: NS 0.9% 1000 ML** 2,000 ML IV ONE ×2 (11:41→13:29)
[2019-10-15 11:46] LABS: HCG Pregnancy 0.96 mIU/mL
[2019-10-15] MEDS: Insulin Infusion 100unit/100mL 100 UNITS/100 ML UNIT IV SCH ×3 (12:07→18:46)
[2019-10-15 12:11] LABS: C Reactive Protein 240.84 mg/L (<8.01); Creatine Kinase 23 U/L (10-223)
[2019-10-15 12:49] LABS: Alcohol < 10 mg/dL (<10); Salicylate < 2.50 mg/dL (<30)
[2019-10-15] MEDS ORDERED: NS 0.9% 1000 ML** 1,000 ML IV SCH (14:15)
--- NOTE | 2019-10-15 14:40 | HP ---
History of Present Illness - History of Present Illness Reason for Visit: right chest pain-1 week History of Present Illness: 39 F with history of Insulin dependent Diabetes Mellitus, Hypothyroidism, Bipolar disorder with recent fall presented with right anterior chest pain. According to patient she was apparently well 1 week ago when she fell down and hit her right side and since then she is having pain on her right anterior chest. She visited ED after 2 days, xray was negative for fracture and she was discharged with ibuprofen and hot compression with diagnosis of right rib contusion. She states that she is still having pain and is getting worse. Pain is 10/10 and is increased on movement and on deep inspiration and cough. She denies fever, chills and rigor and cough. Although she admits of having shortness of breath. She also states that she is having burning micturition and increased frequency of urination for 1 week. Her appetite has decreased and she is not eating and drinking well. She admits that she has not taken her insulin regularly since August as she thinks it is not helping her. Hospital Stay Her vitals sign were stable except mild tachycardia. Blood work showed WBC of 20.3 with left shift, ABG pH 7.00, ABG pO2 142, Hco3 is 3.6 and base excess - 27.3, Na 132, Co2 <7, creatinine 1.04, Glucose 499, Trop 0.05 and CRP 240.84. Urine tox screen negative for alcohol. Chest CT negative for chest wall injury, pneumothorax and consolidation. She is admitted with diagnosis of DKA and requires insulin drip and fluid resuscitation and needs ICU admission. - Past Medical History Past Medical History: 1. Insulin dependent Diabetes Mellitus 2. Hypothyroidism 3. Bipolar disorder 4. Suicide attempt - Past Surgical History Past Surgical History: 1. Cholecystectomy 2. Ovarian Cyst removal - Past Family History Past Family History: Mother had heart disease and Hypertension. Father has Diabetes. - Past Social History Past Social History: Patient lives with her and is on disability. She used to drink alcohol ocassionally; quit few months ago. She quit smoking 1 years ago; used to smoke 1 PPD. She denies use of other recreational drug. She is full code. Medications: Home Medications 1. Seroquel 200 mg bedtime 2. Miralax 17 g PO daily PRN 3. Omeprazole 1 cap PO daily 4. Levothyroxine 300 mcg PO daily 5. Depakote Dr 500 mg PO BID 6. Wellbutrin XL 300 mg daily 7. Norethindrone 0.35 mg PO daily Allergies/Adverse Reactions: Allergies Allergy/AdvReac Type Severity Reaction Status Date / Time Penicillins Allergy Severe Anaphylatic Verified 10/15/19 10:52 Shock Review of Systems - Review of Systems Constitutional: Negative: Fever, Chills, Sweats, Weakness, Malaise, Other Eyes: Negative: Pain, Vision Change, Conjunctivae Inflammation, Eyelid Inflammation, Redness, Other ENT: Negative: Ear Pain, Ear Discharge, Nose Pain, Nose Discharge, Nose Congestion, Mouth Pain, Mouth Swelling, Throat Pain, Throat Swelling, Other Respiratory: Positive: Shortness of Breath, Pleuritic Pain. Negative: Cough, Dry, Hemoptysis, SOB with Excertion, Sputum, Wheezing Cardiovascular: Positive: Chest Pain. Negative: Palpitations, Orthopnea, Paroxysmal Noc. Dyspnea, Edema, Light Headedness, Other Gastrointestinal: Positive: Nausea, Vomiting. Negative: Abdominal Pain, Diarrhea, Constipation, Melena, Hematochezia, Other Genitourinary: Positive: Dysuria, Frequency. Negative: Incontinence, Hematuria , Retention, Other Musculoskeletal: Negative: Neck Pain, Shoulder Pain, Arm Pain, Back Pain, Hand Pain, Leg Pain, Foot Pain, Other Skin: Negative: Rash, Lesions, Maximiliano, Bruising, Other Neurological: Negative: Weakness, Numbness, Incoordination, Change in Speech, Confusion, Seizures, Other Exam Vital Signs: Vital Signs (72 hours) 10/15/19 10/15/19 10/15/19 10:51 11:03 11:04 Temperature 98.5 F Pulse Rate 110 106 105 Respiratory 16 23 24 Rate Blood Pressure 148/75 162/95 (mmHg) O2 Sat by Pulse 100 100 100 Oximetry 10/15/19 10/15/19 10/15/19 11:33 11:42 12:00 Temperature Pulse Rate 94 Respiratory 26 26 21 Rate Blood Pressure 150/96 (mmHg) O2 Sat by Pulse 100 Oximetry 10/15/19 10/15/19 10/15/19 13:00 13:07 13:39 Temperature Pulse Rate 90 90 88 Respiratory 19 22 22 Rate Blood Pressure 119/94 124/73 (mmHg) O2 Sat by Pulse 100 100 100 Oximetry Exam: Patient is lying on a bed with no acute distress. HEENT; Normocephalic and atraumatic Lungs: Rapid swallow breaths; Clear with no added sounds heart: Normal in rate and rhythm. S1/S2 heard with no murmur Abdomen: Soft, nondistended and nontender. Normal BS heard Extremities: No swelling. Warm and dry Neuro: Alert, oriented and conscious. Moving all four extremities equally Result Diagrams: 10/15/19 10:54 10/15/19 10:54 Assessment/Plan - Assessment/Plan Assessment: 39 F with history of Insulin dependent diabetes, Hypothyroidism and Depression and recent fall presented with right pleuritic chest pain associated with difficulty in breathing. Found to have leucocytosis, high anion gap metabolic acidosis 2/2 Diabetic keotacidosis with blood glucose of 499( 2/2 to noncompliance and ppt by suspected UTI) . Chest CT negative for fracture and infiltrates. Currently on insulin drip and IVF. Plan: Hospital Diagnosis 1. High Anion Gap Metabolic Acidosis 2. Diabetic Ketoacidosis 3. Suspected UTI Cardiovascular:No acute issues -- HR 90-96 bpm -- SBP 119-150 -- Telemetry Home meds:None Pulmonary: No acute issues -- RR 20-22 -- sats 97-100% on room air Home meds:None Gastrointestinal:(1) Nausea and Vomiting -- Secondary to DKA --IV zofran prn -- LFTs Tbili 0.20 ALP 103 AST 9 ALT 7 -- diet: clear liquid -- bowel regimen: None -- ulcer prophylaxis: not indicated at this time Home meds: None Endocrine:(1) DKA (2) Insulin dependent DM (3) hypothyroidism --currently on DKA- receiving IVF and insulin drip --noncompliance- not taking insulin since august because she thinks it didnot help her --Blood glucose: 499, 456 --ABG pH-7.00 pCo2- <20 Hco3- 3.6 O2 saturation-99 --IVF- NS @ 125 cc/hr; received bolus on ED --On insulin drip Home meds: Insulin glargine, lispro, levothyroxine Renal: (1) GRICEL- resolved -- UOP: ins and outs -- Cr 1.04, 0.86 -- Lytes Na 136 K 4.5 Ca 9.5 Mag 2.3 --received IVF Home meds: None Infectious disease:(1) leucocytosis -- Tmax 97.4 -- WBC 20 --elevated CRP- 240.84 --has burning micturition and increased frequency of micturition -- Micro UA pending Urine cx pending MRSA negative --start on ciprofloxacin(day 1) Home meds: None Neurologic:(1) Bipolar (2) Borderline personality (3) History of suicide attempt -- No active issues Home meds: Wellbutrin, Depakote, Seroquel Hematological: No acute issues -- Hgb 13.4 -- Plt 452 -- Coags INR 0.97 -- DVT prophylaxis: SQ Lovenox Home meds: None Metabolic:(1) High anion gap metabolic acidosis (2) Diabetic ketoacidosis --Received bolus IVF --On insulin drip --secondary to noncompliance and also ppt by UTI Home meds: None Other: None Home meds: None Deep vein thrombosis prophylaxis: SQ Lovenox Dietary:clear liquid Condition: critical Prognosis: guarded Code status: Full code Disposition:continue ICU care Critical Care Time spent in the care of this patient (excluding any procedure time): at least 60 minutes. Patient care included clinical interview (with patient and/or family), bedside exam of the patient, review of labs, x-rays, and other ancillary data, coordination of (respiratory, nursing care, review of patient's records, discussion regarding patients management with involved consultants, primary physician, pharmacists, and other healthcare personnel (dietary, case management , physical/occupational therapy etc.) Attestation Documenting Resident: Shivani Campoverde Supervising Physician: Kassie Munroe Attestation: This service has been performed in part by a resident under the direction of a teaching physician.I, Kassie Munroe, performed the service, or was physically present during the critical, or krishnan portions of the service, furnished by the resident. I participated in the management of the patient.
[2019-10-15 14:59] LABS: Glucose Confirmatory 382 mg/dL (70-100); Magnesium 2.3 mg/dL (1.9-2.7)
[2019-10-15 15:16] LABS: BUN/Creatinine Ratio 15.1 (8-20); Blood Urea Nitrogen 13 mg/dL (6-24); Calcium 8.5 mg/dL (8.6-10.3); Chloride 111 mmol/L (101-111); EGFR African American 88.9 (>60); EGFR Non-African American 73.5 (>60); Sodium 136 mmol/L (135-145)
[2019-10-15 15:24] LABS: Troponin I 0.05 ng/mL (<0.03)
[2019-10-15] MEDS ORDERED: NS 0.9% 1000 ML** 1,000 ML IV ONE (15:49)
[2019-10-15 16:05] LABS: Glucose 382 mg/dL (70-100)
[2019-10-15 16:52] LABS: CO2 Carbon Dioxide < 7 mmol/L (22-32); Troponin I 0.03 ng/mL (<0.03)
[2019-10-15] MEDS: Enoxaparin(*) 40 MG/0.4 ML SYR SUBCUT SCH (16:52)
[2019-10-15] MEDS: Ciprofloxacin 400MG IVPREMIX(* 400 MG/200 ML BAG IVPB SCH (16:52)
[2019-10-15 16:53] LABS: Hematocrit 36 % (35-47); Hemoglobin 11.8 g/dL (12.0-16.0); Mean Corpuscular HGB Conc 33 g/dL (31-36); Mean Corpuscular Hemoglobin 31 pg (27-31); Mean Corpuscular Volume 94 fL (80-97); Mean Platelet Volume 6.9 fL (7.4-10.4); Platelet Count 401 10^3/uL (150-450); Red Blood Count 3.84 10^6 /uL (3.70-4.87); Red Cell Distribution Width 13 % (10-15); White Blood Count 17.5 10^3/uL (3.5-10.8)
[2019-10-15 17:10] LABS: BUN/Creatinine Ratio 15.8 (8-20); Calcium 7.8 mg/dL (8.6-10.3); EGFR African American 102.5 (>60); EGFR Non-African American 84.7 (>60); Magnesium 1.9 mg/dL (1.9-2.7); Potassium 3.3 mmol/L (3.5-5.0)
[2019-10-15 17:17] LABS: ABS Basophils 0.1 10^3/ul (0-0.2); ABS Lymphocytes 1.4 10^3/ul (1.0-4.8); ABS Monocytes 1.1 10^3/ul (0-0.8); ABS Neutrophils 14.9 10^3/ul (1.5-7.7); Lymphocyte % 8.1 %
[2019-10-15] MEDS: Acetaminophen TAB* 325 MG PO PRN (17:38)
[2019-10-15] MEDS ORDERED: D5W 1/2 NS 1000 ML BAG* 1,000 ML IV SCH (19:00)
[2019-10-15 20:57] LABS: Urine Appearance Cloudy; Urine Bilirubin Negative (Negative); Urine Blood 1+ (Negative); Urine Color Yellow; Urine Glucose 3+(>=500 mg/dL) (Negative); Urine Ketones 2+ (Negative); Urine Nitrite Negative (Negative); Urine Protein 2+(100 mg/dL) (Negative); Urine Specific Gravity 1.018 (1.010-1.030); Urine Urobilinogen Negative (Negative)
[2019-10-15 21:08] LABS: Urine Bacteria Absent (Absent); Urine Granular Casts Present (Absent); Urine Red Blood Cell 1+(3-5/hpf) (Absent); Urine Squamous Epithelial Cell Present (Absent); Urine White Blood Cell Trace(0-5/hpf) (Absent)
[2019-10-15] MEDS: Divalproex DR TAB(*) 500 MG PO SCH (21:21)
[2019-10-15] MEDS: Ibuprofen TAB* 600 MG PO PRN (21:21)
[2019-10-15] MEDS: Potassium Chlor TAB* 20 MEQ TAB.ER PO SCH (21:21)
[2019-10-15 21:48] LABS: BUN/Creatinine Ratio 16.5 (8-20); Calcium 7.9 mg/dL (8.6-10.3); Magnesium 1.7 mg/dL (1.9-2.7); Potassium 2.9 mmol/L (3.5-5.0)
[2019-10-15] MEDS ORDERED: Potassium Chlor TAB* 20 MEQ TAB.ER PO ONE (21:58)
[2019-10-15] MEDS ORDERED: Magnesium Sulfate 2 GM IV* 2 GM/50 ML BAG IVPB ONE (21:59)
[2019-10-15] MEDS ORDERED: D5W IV SCH ×2 (22:00)
[2019-10-15] MEDS ORDERED: 1/2 NS IV SCH ×2 (22:00)
[2019-10-15] MEDS ORDERED: POTASSIUM ACETATE IV SCH ×2 (22:00)
[2019-10-15] MEDS ORDERED: 1/2 NS IVPB SCH (23:00)
[2019-10-15] MEDS ORDERED: D5W IVPB SCH (23:00)
[2019-10-15] MEDS ORDERED: POTASSIUM ACETATE IVPB SCH (23:00)
[2019-10-16 03:01] LABS: BUN/Creatinine Ratio 17.6 (8-20); Calcium 7.9 mg/dL (8.6-10.3); EGFR African American 105.7 (>60); EGFR Non-African American 87.4 (>60); Potassium 3.3 mmol/L (3.5-5.0)
[2019-10-16] MEDS: Ciprofloxacin 400MG IVPREMIX(* 400 MG/200 ML BAG IVPB SCH ×2 (04:33→17:38)
[2019-10-16] MEDS: Insulin Infusion 100unit/100mL 100 UNITS/100 ML UNIT IV SCH (04:34)
[2019-10-16] MEDS: POTASSIUM ACETATE IVPB SCH ×3 (06:21→21:12)
[2019-10-16] MEDS: 1/2 NS IVPB SCH ×3 (06:21→21:12)
[2019-10-16] MEDS: D5W IVPB SCH ×3 (06:21→21:12)
[2019-10-16] MEDS: Levothyroxine TAB* 150 MCG TAB PO SCH (06:29)
[2019-10-16 07:11] LABS: BUN/Creatinine Ratio 17.3 (8-20); Calcium 7.8 mg/dL (8.6-10.3); EGFR African American 104.1 (>60); Potassium 3.4 mmol/L (3.5-5.0)
[2019-10-16] MEDS ORDERED: Insulin Infusion 100unit/100mL 100 UNITS/100 ML UNIT IV SCH (07:30)
[2019-10-16] MEDS ORDERED: Pantoprazole TAB * 40 MG TAB PO SCH (09:00)
[2019-10-16] MEDS: Acetaminophen TAB* 325 MG PO PRN ×2 (09:11→13:20)
[2019-10-16] MEDS: Potassium Chlor TAB* 20 MEQ TAB.ER PO SCH (09:11)
[2019-10-16] MEDS: Polyethylene Glycol 3350* 17 GM PACKET PO PRN (09:11)
[2019-10-16] MEDS: BuPROPion XL* 300 MG TAB.XL PO SCH (09:12)
[2019-10-16] MEDS: Norethindrone (NF) 0.35 MG TAB PO SCH (09:27)
[2019-10-16] MEDS: Divalproex DR TAB(*) 500 MG PO SCH ×3 (09:27→21:21)
[2019-10-16] MEDS: Pantoprazole TAB * 40 MG TAB PO SCH (09:29)
[2019-10-16] MEDS ORDERED: Dextrose 50% VIAL 50 ml IV PUSH PRN ×2 (10:48→20:16)
[2019-10-16] MEDS: Insulin GLARGINE(*) 1 UNITS UNIT SUBCUT SCH (11:06)
[2019-10-16] MEDS: Ondansetron INJ* 2 MG/ML VIAL IV PRN ×2 (11:06→21:21)
[2019-10-16] MEDS: Ibuprofen TAB* 600 MG PO PRN (11:12)
--- NOTE | 2019-10-16 11:17 | PN ---
<Shivani Campoverde - Last Filed: 10/16/19 11:10> Date of Service: 10/16/19 Critical Care Services: 39 F with history of Insulin dependent diabetes, Hypothyroidism and Depression and recent fall presented with right pleuritic chest pain associated with difficulty in breathing. Found to have leucocytosis, high anion gap metabolic acidosis 2/2 Diabetic ketoacidosis with blood glucose of 499( 2/2 to noncompliance and ppt by suspected UTI) . Chest CT negative for fracture and infiltrates. Received insulin drip and IVF. Bridging with insulin glargine and lispro. HD#2 on 10/16 Overnight- No acute overnight events Patient is resting on bed and breathing comfortably. She says that she has rib pain but is responding well to tylenol and ibuprofen. She also adds that she get nauseous and throws up so doesnot want to take depakote; agreed to take after giving zofran. Vital Signs: Temp Pulse Resp BP SpO2 FiO2 97.6 F 94 17 123/69 100 10/16/19 07:52 10/16/19 10:00 10/16/19 10:00 10/16/19 10:00 10/16/19 10:00 Physical Exam: Gen: Resting on a bed without any distress HEENT: Normocephalic and atraumatic Lungs: tenderness on right lower rib. clear with no added sounds Cardiac: Normal in rate and rhythm. S1/S2 heard with no murmur. Abdomen: Soft, nondistended and nontender. Extremities: Warm and dry Neuro: alert, oriented and coperative Fluid Balance (Past 24 Hours): I= O= Net Intake & Output 10/14/19 10/15/19 10/16/19 10/17/19 06:59 06:59 06:59 06:59 Intake Total 3383.7 Output Total 600 Balance 2783.7 Weight 61.1 kg Intake: IV Fluids 2809.8 D5W 1/2 NS 20 meq KCL 1500 NS 1300 IVPB 200 ABX - CIPROFLOXACIN 200 Medicated IV 13.9 CC - Insulin 13.9 Oral 360 Output: Urine 600 Labs: Laboratory Results - last 24 hr 10/15/19 10/15/19 10/15/19 10:50 10:54 10:54 WBC RBC Hgb Hct MCV MCH MCHC RDW Plt Count MPV Neut % (Auto) 84.9 Lymph % (Auto) 5.6 Hitchcock % (Auto) 8.8 Eos % (Auto) 0.0 Baso % (Auto) 0.7 Absolute Neuts (auto) 17.2 H Absolute Lymphs (auto) 1.1 Absolute Monos (auto) 1.8 H Absolute Eos (auto) 0.0 Absolute Basos (auto) 0.1 Absolute Nucleated RBC 0.0 Nucleated RBC % 0.0 INR (Anticoag Therapy) 0.97 ABG pH ABG pCO2 ABG pO2 ABG HCO3 ABG O2 Saturation ABG Base Excess Sodium Potassium Chloride Carbon Dioxide Anion Gap BUN Creatinine Est GFR ( Amer) Est GFR (Non-Af Amer) BUN/Creatinine Ratio Glucose POC Glucose (mg/dL) Glucose Meter Confirm Lactic Acid 1.0 Calcium Magnesium Total Bilirubin AST ALT Alkaline Phosphatase Total Creatine Kinase Troponin I C-Reactive Protein Total Protein Albumin Globulin Albumin/Globulin Ratio Beta HCG, Quant Urine Color Urine Appearance Urine pH Ur Specific [place] Urine Protein Urine Ketones Urine Blood Urine Nitrate Urine Bilirubin Urine Urobilinogen Ur Leukocyte Esterase Urine WBC (Auto) Urine RBC (Auto) Ur Squamous Epith Cells Urine Bacteria Granular Casts Urine Glucose Urine Ascorbic Acid Salicylates Serum Alcohol 10/15/19 10/15/19 10/15/19 10:54 11:09 11:55 WBC RBC Hgb Hct MCV MCH MCHC RDW Plt Count MPV Neut % (Auto) Lymph % (Auto) [place] % (Auto) Eos % (Auto) Baso % (Auto) Absolute Neuts (auto) Absolute Lymphs (auto) Absolute Monos (auto) Absolute Eos (auto) Absolute Basos (auto) Absolute Nucleated RBC Nucleated RBC % INR (Anticoag Therapy) ABG pH 7.00 L* ABG pCO2 ABG pO2 142 H ABG HCO3 3.6 L* ABG O2 Saturation 99.4 H ABG Base Excess -27.3 L Sodium 132 L Potassium 4.5 Chloride 103 Carbon Dioxide < 7 L* Anion Gap Not Reportable BUN 12 Creatinine 1.04 H Est GFR ( Amer) 71.4 Est GFR (Non-Af Amer) 59.0 BUN/Creatinine Ratio 11.5 Glucose 499 H POC Glucose (mg/dL) 226 H Glucose Meter Confirm Lactic Acid Calcium 9.5 Magnesium Total Bilirubin 0.20 AST 9 L ALT 7 Alkaline Phosphatase 103 Total Creatine Kinase 23 Troponin I 0.05 H* C-Reactive Protein 240.84 H Total Protein 8.4 Albumin 3.5 Globulin 4.9 H Albumin/Globulin Ratio 0.7 L Beta HCG, Quant 0.96 Urine Color Urine Appearance Urine pH Ur Specific [place] Urine Protein Urine Ketones Urine Blood Urine Nitrate Urine Bilirubin Urine Urobilinogen Ur Leukocyte Esterase Urine WBC (Auto) Urine RBC (Auto) Ur Squamous Epith Cells Urine Bacteria Granular Casts Urine Glucose Urine Ascorbic Acid Salicylates < 2.50 Serum Alcohol < 10 10/15/19 10/15/19 10/15/19 12:46 13:01 14:35 WBC RBC Hgb Hct MCV MCH MCHC RDW Plt Count MPV Neut % (Auto) Lymph % (Auto) [place] % (Auto) Eos % (Auto) Baso % (Auto) Absolute Neuts (auto) Absolute Lymphs (auto) Absolute Monos (auto) Absolute Eos (auto) Absolute Basos (auto) Absolute Nucleated RBC Nucleated RBC % INR (Anticoag Therapy) ABG pH ABG pCO2 ABG pO2 ABG HCO3 ABG O2 Saturation ABG Base Excess Sodium 136 Potassium TNP Chloride 111 Carbon Dioxide < 7 L* Anion Gap Not Reportable BUN 13 Creatinine 0.86 Est GFR ( Amer) 88.9 Est GFR (Non-Af Amer) 73.5 BUN/Creatinine Ratio 15.1 Glucose 456 H 382 H POC Glucose (mg/dL) > 444 H* Glucose Meter Confirm 382 H Lactic Acid Calcium 8.5 L Magnesium 2.3 Total Bilirubin AST ALT Alkaline Phosphatase Total Creatine Kinase Troponin I 0.03 H* C-Reactive Protein Total Protein Albumin Globulin Albumin/Globulin Ratio Beta HCG, Quant Urine Color Urine Appearance Urine pH Ur Specific [place] Urine Protein Urine Ketones Urine Blood Urine Nitrate Urine Bilirubin Urine Urobilinogen Ur Leukocyte Esterase Urine WBC (Auto) Urine RBC (Auto) Ur Squamous Epith Cells Urine Bacteria Granular Casts Urine Glucose Urine Ascorbic Acid Salicylates Serum Alcohol 10/15/19 10/15/19 10/15/19 14:38 15:38 16:42 WBC RBC Hgb Hct MCV MCH MCHC RDW Plt Count MPV Neut % (Auto) Lymph % (Auto) [place] % (Auto) Eos % (Auto) Baso % (Auto) Absolute Neuts (auto) Absolute Lymphs (auto) Absolute Monos (auto) Absolute Eos (auto) Absolute Basos (auto) Absolute Nucleated RBC Nucleated RBC % INR (Anticoag Therapy) ABG pH ABG pCO2 ABG pO2 ABG HCO3 ABG O2 Saturation ABG Base Excess Sodium Potassium Chloride Carbon Dioxide Anion Gap BUN Creatinine Est GFR ( Amer) Est GFR (Non-Af Amer) BUN/Creatinine Ratio Glucose POC Glucose (mg/dL) 403 H* 357 H 251 H Glucose Meter Confirm Lactic Acid Calcium Magnesium Total Bilirubin AST ALT Alkaline Phosphatase Total Creatine Kinase Troponin I C-Reactive Protein Total Protein Albumin Globulin Albumin/Globulin Ratio Beta HCG, Quant Urine Color Urine Appearance Urine pH Ur Specific [place] Urine Protein Urine Ketones Urine Blood Urine Nitrate Urine Bilirubin Urine Urobilinogen Ur Leukocyte Esterase Urine WBC (Auto) Urine RBC (Auto) Ur Squamous Epith Cells Urine Bacteria Granular Casts Urine Glucose Urine Ascorbic Acid Salicylates Serum Alcohol 10/15/19 10/15/19 10/15/19 16:44 16:44 17:38 WBC 17.5 H RBC 3.84 Hgb 11.8 L Hct 36 MCV 94 MCH 31 MCHC 33 RDW 13 Plt Count 401 MPV 6.9 L Neut % (Auto) 85.2 Lymph % (Auto) 8.1 Hitchcock % (Auto) 6.0 Eos % (Auto) 0.0 Baso % (Auto) 0.7 Absolute Neuts (auto) 14.9 H Absolute Lymphs (auto) 1.4 Absolute Monos (auto) 1.1 H Absolute Eos (auto) 0.0 Absolute Basos (auto) 0.1 Absolute Nucleated RBC 0.0 Nucleated RBC % 0.0 INR (Anticoag Therapy) ABG pH ABG pCO2 ABG pO2 ABG HCO3 ABG O2 Saturation ABG Base Excess Sodium 137 Potassium 3.3 L Chloride 115 H Carbon Dioxide 7 L* Anion Gap 15 H BUN 12 Creatinine 0.76 Est GFR ( Amer) 102.5 Est GFR (Non-Af Amer) 84.7 BUN/Creatinine Ratio 15.8 Glucose 237 H POC Glucose (mg/dL) 246 H Glucose Meter Confirm Lactic Acid Calcium 7.8 L Magnesium 1.9 Total Bilirubin AST ALT Alkaline Phosphatase Total Creatine Kinase Troponin I C-Reactive Protein Total Protein Albumin Globulin Albumin/Globulin Ratio Beta HCG, Quant Urine Color Urine Appearance Urine pH Ur Specific [place] Urine Protein Urine Ketones Urine Blood Urine Nitrate Urine Bilirubin Urine Urobilinogen Ur Leukocyte Esterase Urine WBC (Auto) Urine RBC (Auto) Ur Squamous Epith Cells Urine Bacteria Granular Casts Urine Glucose Urine Ascorbic Acid Salicylates Serum Alcohol 10/15/19 10/15/19 10/15/19 18:34 19:17 20:39 WBC RBC Hgb Hct MCV MCH MCHC RDW Plt Count MPV Neut % (Auto) Lymph % (Auto) [place] % (Auto) Eos % (Auto) Baso % (Auto) Absolute Neuts (auto) Absolute Lymphs (auto) Absolute Monos (auto) Absolute Eos (auto) Absolute Basos (auto) Absolute Nucleated RBC Nucleated RBC % INR (Anticoag Therapy) ABG pH ABG pCO2 ABG pO2 ABG HCO3 ABG O2 Saturation ABG Base Excess Sodium Potassium Chloride Carbon Dioxide Anion Gap BUN Creatinine Est GFR ( Amer) Est GFR (Non-Af Amer) BUN/Creatinine Ratio Glucose POC Glucose (mg/dL) 149 H 261 H 259 H Glucose Meter Confirm Lactic Acid Calcium Magnesium Total Bilirubin AST ALT Alkaline Phosphatase Total Creatine Kinase Troponin I C-Reactive Protein Total Protein Albumin Globulin Albumin/Globulin Ratio Beta HCG, Quant Urine Color Urine Appearance Urine pH Ur Specific [place] Urine Protein Urine Ketones Urine Blood Urine Nitrate Urine Bilirubin Urine Urobilinogen Ur Leukocyte Esterase Urine WBC (Auto) Urine RBC (Auto) Ur Squamous Epith Cells Urine Bacteria Granular Casts Urine Glucose Urine Ascorbic Acid Salicylates Serum Alcohol 10/15/19 10/15/19 10/15/19 20:45 21:25 22:53 WBC RBC Hgb Hct MCV MCH MCHC RDW Plt Count MPV Neut % (Auto) Lymph % (Auto) [place] % (Auto) Eos % (Auto) Baso % (Auto) Absolute Neuts (auto) Absolute Lymphs (auto) Absolute Monos (auto) Absolute Eos (auto) Absolute Basos (auto) Absolute Nucleated RBC Nucleated RBC % INR (Anticoag Therapy) ABG pH ABG pCO2 ABG pO2 ABG HCO3 ABG O2 Saturation ABG Base Excess Sodium 133 L Potassium 2.9 L Chloride 112 H Carbon Dioxide 12 L* Anion Gap 9 BUN 13 Creatinine 0.79 Est GFR ( Amer) 98.0 Est GFR (Non-Af Amer) 81.0 BUN/Creatinine Ratio 16.5 Glucose 223 H POC Glucose (mg/dL) 205 H Glucose Meter Confirm Lactic Acid Calcium 7.9 L Magnesium 1.7 L Total Bilirubin AST ALT Alkaline Phosphatase Total Creatine Kinase Troponin I C-Reactive Protein Total Protein Albumin Globulin Albumin/Globulin Ratio Beta HCG, Quant Urine Color Yellow Urine Appearance Cloudy Urine pH 5.0 Ur Specific [place] 1.018 Urine Protein 2+(100 mg/dl) A Urine Ketones 2+ A Urine Blood 1+ A Urine Nitrate Negative Urine Bilirubin Negative Urine Urobilinogen Negative Ur Leukocyte Esterase Negative Urine WBC (Auto) Trace(0-5/hpf) Urine RBC (Auto) 1+(3-5/hpf) A Ur Squamous Epith Cells Present A Urine Bacteria Absent Granular Casts Present A Urine Glucose 3+(>=500 mg/dl) A Urine Ascorbic Acid * A Salicylates Serum Alcohol 10/15/19 10/16/19 10/16/19 23:39 00:39 01:38 WBC RBC Hgb Hct MCV MCH MCHC RDW Plt Count MPV Neut % (Auto) Lymph % (Auto) [place] % (Auto) Eos % (Auto) Baso % (Auto) Absolute Neuts (auto) Absolute Lymphs (auto) Absolute Monos (auto) Absolute Eos (auto) Absolute Basos (auto) Absolute Nucleated RBC Nucleated RBC % INR (Anticoag Therapy) ABG pH ABG pCO2 ABG pO2 ABG HCO3 ABG O2 Saturation ABG Base Excess Sodium Potassium Chloride Carbon Dioxide Anion Gap BUN Creatinine Est GFR ( Amer) Est GFR (Non-Af Amer) BUN/Creatinine Ratio Glucose POC Glucose (mg/dL) 191 H 179 H 182 H Glucose Meter Confirm Lactic Acid Calcium Magnesium Total Bilirubin AST ALT Alkaline Phosphatase Total Creatine Kinase Troponin I C-Reactive Protein Total Protein Albumin Globulin Albumin/Globulin Ratio Beta HCG, Quant Urine Color Urine Appearance Urine pH Ur Specific [place] Urine Protein Urine Ketones Urine Blood Urine Nitrate Urine Bilirubin Urine Urobilinogen Ur Leukocyte Esterase Urine WBC (Auto) Urine RBC (Auto) Ur Squamous Epith Cells Urine Bacteria Granular Casts Urine Glucose Urine Ascorbic Acid Salicylates Serum Alcohol 10/16/19 10/16/19 10/16/19 02:40 03:35 04:37 WBC RBC Hgb Hct MCV MCH MCHC RDW Plt Count MPV Neut % (Auto) Lymph % (Auto) [place] % (Auto) Eos % (Auto) Baso % (Auto) Absolute Neuts (auto) Absolute Lymphs (auto) Absolute Monos (auto) Absolute Eos (auto) Absolute Basos (auto) Absolute Nucleated RBC Nucleated RBC % INR (Anticoag Therapy) ABG pH ABG pCO2 ABG pO2 ABG HCO3 ABG O2 Saturation ABG Base Excess Sodium 133 L Potassium 3.3 L Chloride 114 H Carbon Dioxide 13 L* Anion Gap 6 BUN 13 Creatinine 0.74 Est GFR ( Amer) 105.7 Est GFR (Non-Af Amer) 87.4 BUN/Creatinine Ratio 17.6 Glucose 165 H POC Glucose (mg/dL) 176 H 171 H Glucose Meter Confirm Lactic Acid Calcium 7.9 L Magnesium Total Bilirubin AST ALT Alkaline Phosphatase Total Creatine Kinase Troponin I C-Reactive Protein Total Protein Albumin Globulin Albumin/Globulin Ratio Beta HCG, Quant Urine Color Urine Appearance Urine pH Ur Specific [place] Urine Protein Urine Ketones Urine Blood Urine Nitrate Urine Bilirubin Urine Urobilinogen Ur Leukocyte Esterase Urine WBC (Auto) Urine RBC (Auto) Ur Squamous Epith Cells Urine Bacteria Granular Casts Urine Glucose Urine Ascorbic Acid Salicylates Serum Alcohol 10/16/19 10/16/19 10/16/19 05:37 06:34 07:32 WBC RBC Hgb Hct MCV MCH MCHC RDW Plt Count MPV Neut % (Auto) Lymph % (Auto) [place] % (Auto) Eos % (Auto) Baso % (Auto) Absolute Neuts (auto) Absolute Lymphs (auto) Absolute Monos (auto) Absolute Eos (auto) Absolute Basos (auto) Absolute Nucleated RBC Nucleated RBC % INR (Anticoag Therapy) ABG pH ABG pCO2 ABG pO2 ABG HCO3 ABG O2 Saturation ABG Base Excess Sodium 132 L Potassium 3.4 L Chloride 113 H Carbon Dioxide 15 L Anion Gap 4 BUN 13 Creatinine 0.75 Est GFR ( Amer) 104.1 Est GFR (Non-Af Amer) 86.0 BUN/Creatinine Ratio 17.3 Glucose 167 H POC Glucose (mg/dL) 215 H 180 H Glucose Meter Confirm Lactic Acid Calcium 7.8 L Magnesium Total Bilirubin AST ALT Alkaline Phosphatase Total Creatine Kinase Troponin I C-Reactive Protein Total Protein Albumin Globulin Albumin/Globulin Ratio Beta HCG, Quant Urine Color Urine Appearance Urine pH Ur Specific [place] Urine Protein Urine Ketones Urine Blood Urine Nitrate Urine Bilirubin Urine Urobilinogen Ur Leukocyte Esterase Urine WBC (Auto) Urine RBC (Auto) Ur Squamous Epith Cells Urine Bacteria Granular Casts Urine Glucose Urine Ascorbic Acid Salicylates Serum Alcohol 10/16/19 10/16/19 10/16/19 08:36 09:45 10:42 WBC RBC Hgb Hct MCV MCH MCHC RDW Plt Count MPV Neut % (Auto) Lymph % (Auto) [place] % (Auto) Eos % (Auto) Baso % (Auto) Absolute Neuts (auto) Absolute Lymphs (auto) Absolute Monos (auto) Absolute Eos (auto) Absolute Basos (auto) Absolute Nucleated RBC Nucleated RBC % INR (Anticoag Therapy) ABG pH ABG pCO2 ABG pO2 ABG HCO3 ABG O2 Saturation ABG Base Excess Sodium Potassium Chloride Carbon Dioxide Anion Gap BUN Creatinine Est GFR ( Amer) Est GFR (Non-Af Amer) BUN/Creatinine Ratio Glucose POC Glucose (mg/dL) 158 H 215 H 230 H Glucose Meter Confirm Lactic Acid Calcium Magnesium Total Bilirubin AST ALT Alkaline Phosphatase Total Creatine Kinase Troponin I C-Reactive Protein Total Protein Albumin Globulin Albumin/Globulin Ratio Beta HCG, Quant Urine Color Urine Appearance Urine pH Ur Specific [place] Urine Protein Urine Ketones Urine Blood Urine Nitrate Urine Bilirubin Urine Urobilinogen Ur Leukocyte Esterase Urine WBC (Auto) Urine RBC (Auto) Ur Squamous Epith Cells Urine Bacteria Granular Casts Urine Glucose Urine Ascorbic Acid Salicylates Serum Alcohol Studies: 10/15- Chest CT- Negative for fracture, pneumothorax and infiltrates. 10/15- EKG- sinus tachycardia with LVH Nutrition: clear liquid Impression: 39 F with history of Insulin dependent diabetes, Hypothyroidism and Depression and recent fall presented with right pleuritic chest pain associated with difficulty in breathing. Found to have leucocytosis, high anion gap metabolic acidosis 2/2 Diabetic ketoacidosis with blood glucose of 499( 2/2 to noncompliance and ppt by suspected UTI) . Chest CT negative for fracture and infiltrates. Received insulin drip and IVF. Bridging with insulin glargine and lispro. Plan: Hospital Diagnosis 1. High Anion Gap Metabolic Acidosis 2. Diabetic Ketoacidosis 3. UTI Cardiovascular:No acute issues -- HR 90-96 bpm -- SBP 97-133 -- Telemetry Home meds:None Pulmonary: No acute issues -- RR 16-20 -- sats 97-100% on room air Home meds:None Gastrointestinal:(1) Nausea and Vomiting -- Secondary to DKA-closed anion gap --IV zofran prn -- LFTs Tbili 0.20 ALP 103 AST 9 ALT 7 -- diet: clear liquid -- bowel regimen: None -- ulcer prophylaxis: not indicated at this time Home meds: None Endocrine:(1) DKA (2) Insulin dependent DM (3) hypothyroidism -- Closed anion gap --ppt by noncompliance- not taking insulin since august because she thinks it did not help her --Blood glucose: 158-230 --ABG 10/15 pH-7.00 pCo2- <20 Hco3- 3.6 O2 saturation-99 --IVF- NS @ 125 cc/hr; received bolus on ED --On insulin drip- bridging with insulin glargine and lispro; can stop regular insulin after 1-2 hr. --pending Ab1c Home meds: Insulin glargine, lispro, levothyroxine Renal: (1) GRICEL- resolved -- UOP: ins and outs -- Cr 1.04, 0.86, 0.75 -- Lytes Na 132 K 3.4 Ca 7.8 Mag 1.7; repleting --receiving IVF Home meds: None Infectious disease:(1) leucocytosis (2) UTI -- Tmax 97.4 -- WBC 17.5 from 20 --elevated CRP- 240.84 --has burning micturition and increased frequency of micturition -- Micro UA abnormal Urine cx pending MRSA negative --start on ciprofloxacin(day 2) Home meds: None Neurologic:(1) Bipolar (2) Borderline personality (3) History of suicide attempt -- No active issues --nauseous while taking depakote; trying with zofran Home meds: Wellbutrin, Depakote, Seroquel Hematological: No acute issues -- Hgb 11.8 from 13; trend -- Plt 401 from 452 -- Coags INR 0.97 -- DVT prophylaxis: SQ Lovenox Home meds: None Metabolic:(1) High anion gap metabolic acidosis-closed (2) Diabetic ketoacidosis-resolved --Received bolus IVF --On insulin drip- bridging with insulin lantus and lispro --secondary to noncompliance and also ppt by UTI Home meds: None Other: Right rib pain secondary to fall --controlled with tylenol and ibyprofen Home meds: None Deep vein thrombosis prophylaxis: SQ Lovenox Dietary:clear liquid Condition:Improved Prognosis: guarded Code status: Full code Disposition:continue ICU care Critical Care Time spent in the care of this patient (excluding any procedure time): at least 60 minutes. Patient care included clinical interview (with patient and/or family), bedside exam of the patient, review of labs, x-rays, and other ancillary data, coordination of (respiratory, nursing care, review of patient's records, discussion regarding patients management with involved consultants, primary physician, pharmacists, and other healthcare personnel (dietary, case management , physical/occupational therapy etc.) Attestation Documenting Resident: Shivani Campoverde Supervising Physician: Gustavo Holbrook Attestation: This service has been performed in part by a resident under the direction of a teaching physician.I, Kassie Munroe, performed the service, or was physically present during the critical, or krishnan portions of the service, furnished by the resident. I participated in the management of the patient. <Gustavo Holbrook - Last Filed: 10/16/19 13:12> Vital Signs: Temp Pulse Resp BP SpO2 FiO2 36.7 C 97 18 116/68 100 10/16/19 11:49 10/16/19 12:00 10/16/19 12:00 10/16/19 12:00 10/16/19 12:00 Physical Exam: Gen: HEENT: Lungs: Cardiac: Abdomen: Extremities: Neuro: Fluid Balance (Past 24 Hours): I= O= Net Intake & Output 10/14/19 10/15/19 10/16/19 10/17/19 06:59 06:59 06:59 06:59 Intake Total 3383.7 180 Output Total 600 Balance 2783.7 180 Weight 61.1 kg Intake: IV Fluids 2809.8 D5W 1/2 NS 20 meq KCL 1500 NS 1300 IVPB 200 ABX - CIPROFLOXACIN 200 Medicated IV 13.9 CC - Insulin 13.9 Oral 360 180 Output: Urine 600 Labs: Laboratory Results - last 24 hr 10/15/19 10/15/19 10/15/19 10:54 13:01 14:35 WBC RBC Hgb Hct MCV MCH MCHC RDW Plt Count MPV Neut % (Auto) Lymph % (Auto) [place] % (Auto) Eos % (Auto) Baso % (Auto) Absolute Neuts (auto) Absolute Lymphs (auto) Absolute Monos (auto) Absolute Eos (auto) Absolute Basos (auto) Absolute Nucleated RBC Nucleated RBC % Sodium 132 L 136 Potassium 4.5 TNP Chloride 103 111 Carbon Dioxide < 7 L* < 7 L* Anion Gap Not Reportable BUN 12 13 Creatinine 1.04 H 0.86 Est GFR ( Amer) 71.4 88.9 Est GFR (Non-Af Amer) 59.0 73.5 BUN/Creatinine Ratio 11.5 15.1 Glucose 499 H 456 H 382 H POC Glucose (mg/dL) Glucose Meter Confirm 382 H Calcium 9.5 8.5 L Magnesium 2.3 Total Bilirubin 0.20 AST 9 L ALT 7 Alkaline Phosphatase 103 Total Creatine Kinase 23 Troponin I 0.05 H* 0.03 H* C-Reactive Protein 240.84 H Total Protein 8.4 Albumin 3.5 Globulin 4.9 H Albumin/Globulin Ratio 0.7 L Beta HCG, Quant 0.96 Urine Color Urine Appearance Urine pH Ur Specific [place] Urine Protein Urine Ketones Urine Blood Urine Nitrate Urine Bilirubin Urine Urobilinogen Ur Leukocyte Esterase Urine WBC (Auto) Urine RBC (Auto) Ur Squamous Epith Cells Urine Bacteria Granular Casts Urine Glucose Urine Ascorbic Acid Salicylates < 2.50 Serum Alcohol < 10 10/15/19 10/15/19 10/15/19 14:38 15:38 16:42 WBC RBC Hgb Hct MCV MCH MCHC RDW Plt Count MPV Neut % (Auto) Lymph % (Auto) [place] % (Auto) Eos % (Auto) Baso % (Auto) Absolute Neuts (auto) Absolute Lymphs (auto) Absolute Monos (auto) Absolute Eos (auto) Absolute Basos (auto) Absolute Nucleated RBC Nucleated RBC % Sodium Potassium Chloride Carbon Dioxide Anion Gap BUN Creatinine Est GFR ( Amer) Est GFR (Non-Af Amer) BUN/Creatinine Ratio Glucose POC Glucose (mg/dL) 403 H* 357 H 251 H Glucose Meter Confirm Calcium Magnesium Total Bilirubin AST ALT Alkaline Phosphatase Total Creatine Kinase Troponin I C-Reactive Protein Total Protein Albumin Globulin Albumin/Globulin Ratio Beta HCG, Quant Urine Color Urine Appearance Urine pH Ur Specific [place] Urine Protein Urine Ketones Urine Blood Urine Nitrate Urine Bilirubin Urine Urobilinogen Ur Leukocyte Esterase Urine WBC (Auto) Urine RBC (Auto) Ur Squamous Epith Cells Urine Bacteria Granular Casts Urine Glucose Urine Ascorbic Acid Salicylates Serum Alcohol 10/15/19 10/15/19 10/15/19 16:44 16:44 17:38 WBC 17.5 H RBC 3.84 Hgb 11.8 L Hct 36 MCV 94 MCH 31 MCHC 33 RDW 13 Plt Count 401 MPV 6.9 L Neut % (Auto) 85.2 Lymph % (Auto) 8.1 [place] % (Auto) 6.0 Eos % (Auto) 0.0 Baso % (Auto) 0.7 Absolute Neuts (auto) 14.9 H Absolute Lymphs (auto) 1.4 Absolute Monos (auto) 1.1 H Absolute Eos (auto) 0.0 Absolute Basos (auto) 0.1 Absolute Nucleated RBC 0.0 Nucleated RBC % 0.0 Sodium 137 Potassium 3.3 L Chloride 115 H Carbon Dioxide 7 L* Anion Gap 15 H BUN 12 Creatinine 0.76 Est GFR ( Amer) 102.5 Est GFR (Non-Af Amer) 84.7 BUN/Creatinine Ratio 15.8 Glucose 237 H POC Glucose (mg/dL) 246 H Glucose Meter Confirm Calcium 7.8 L Magnesium 1.9 Total Bilirubin AST ALT Alkaline Phosphatase Total Creatine Kinase Troponin I C-Reactive Protein Total Protein Albumin Globulin Albumin/Globulin Ratio Beta HCG, Quant Urine Color Urine Appearance Urine pH Ur Specific [place] Urine Protein Urine Ketones Urine Blood Urine Nitrate Urine Bilirubin Urine Urobilinogen Ur Leukocyte Esterase Urine WBC (Auto) Urine RBC (Auto) Ur Squamous Epith Cells Urine Bacteria Granular Casts Urine Glucose Urine Ascorbic Acid Salicylates Serum Alcohol 10/15/19 10/15/19 10/15/19 18:34 19:17 20:39 WBC RBC Hgb Hct MCV MCH MCHC RDW Plt Count MPV Neut % (Auto) Lymph % (Auto) [place] % (Auto) Eos % (Auto) Baso % (Auto) Absolute Neuts (auto) Absolute Lymphs (auto) Absolute Monos (auto) Absolute Eos (auto) Absolute Basos (auto) Absolute Nucleated RBC Nucleated RBC % Sodium Potassium Chloride Carbon Dioxide Anion Gap BUN Creatinine Est GFR ( Amer) Est GFR (Non-Af Amer) BUN/Creatinine Ratio Glucose POC Glucose (mg/dL) 149 H 261 H 259 H Glucose Meter Confirm Calcium Magnesium Total Bilirubin AST ALT Alkaline Phosphatase Total Creatine Kinase Troponin I C-Reactive Protein Total Protein Albumin Globulin Albumin/Globulin Ratio Beta HCG, Quant Urine Color Urine Appearance Urine pH Ur Specific [place] Urine Protein Urine Ketones Urine Blood Urine Nitrate Urine Bilirubin Urine Urobilinogen Ur Leukocyte Esterase Urine WBC (Auto) Urine RBC (Auto) Ur Squamous Epith Cells Urine Bacteria Granular Casts Urine Glucose Urine Ascorbic Acid Salicylates Serum Alcohol 10/15/19 10/15/19 10/15/19 20:45 21:25 22:53 WBC RBC Hgb Hct MCV MCH MCHC RDW Plt Count MPV Neut % (Auto) Lymph % (Auto) [place] % (Auto) Eos % (Auto) Baso % (Auto) Absolute Neuts (auto) Absolute Lymphs (auto) Absolute Monos (auto) Absolute Eos (auto) Absolute Basos (auto) Absolute Nucleated RBC Nucleated RBC % Sodium 133 L Potassium 2.9 L Chloride 112 H Carbon Dioxide 12 L* Anion Gap 9 BUN 13 Creatinine 0.79 Est GFR ( Amer) 98.0 Est GFR (Non-Af Amer) 81.0 BUN/Creatinine Ratio 16.5 Glucose 223 H POC Glucose (mg/dL) 205 H Glucose Meter Confirm Calcium 7.9 L Magnesium 1.7 L Total Bilirubin AST ALT Alkaline Phosphatase Total Creatine Kinase Troponin I C-Reactive Protein Total Protein Albumin Globulin Albumin/Globulin Ratio Beta HCG, Quant Urine Color Yellow Urine Appearance Cloudy Urine pH 5.0 Ur Specific [place] 1.018 Urine Protein 2+(100 mg/dl) A Urine Ketones 2+ A Urine Blood 1+ A Urine Nitrate Negative Urine Bilirubin Negative Urine Urobilinogen Negative Ur Leukocyte Esterase Negative Urine WBC (Auto) Trace(0-5/hpf) Urine RBC (Auto) 1+(3-5/hpf) A Ur Squamous Epith Cells Present A Urine Bacteria Absent Granular Casts Present A Urine Glucose 3+(>=500 mg/dl) A Urine Ascorbic Acid * A Salicylates Serum Alcohol 10/15/19 10/16/19 10/16/19 23:39 00:39 01:38 WBC RBC Hgb Hct MCV MCH MCHC RDW Plt Count MPV Neut % (Auto) Lymph % (Auto) [place] % (Auto) Eos % (Auto) Baso % (Auto) Absolute Neuts (auto) Absolute Lymphs (auto) Absolute Monos (auto) Absolute Eos (auto) Absolute Basos (auto) Absolute Nucleated RBC Nucleated RBC % Sodium Potassium Chloride Carbon Dioxide Anion Gap BUN Creatinine Est GFR ( Amer) Est GFR (Non-Af Amer) BUN/Creatinine Ratio Glucose POC Glucose (mg/dL) 191 H 179 H 182 H Glucose Meter Confirm Calcium Magnesium Total Bilirubin AST ALT Alkaline Phosphatase Total Creatine Kinase Troponin I C-Reactive Protein Total Protein Albumin Globulin Albumin/Globulin Ratio Beta HCG, Quant Urine Color Urine Appearance Urine pH Ur Specific [place] Urine Protein Urine Ketones Urine Blood Urine Nitrate Urine Bilirubin Urine Urobilinogen Ur Leukocyte Esterase Urine WBC (Auto) Urine RBC (Auto) Ur Squamous Epith Cells Urine Bacteria Granular Casts Urine Glucose Urine Ascorbic Acid Salicylates Serum Alcohol 10/16/19 10/16/19 10/16/19 02:40 03:35 04:37 WBC RBC Hgb Hct MCV MCH MCHC RDW Plt Count MPV Neut % (Auto) Lymph % (Auto) [place] % (Auto) Eos % (Auto) Baso % (Auto) Absolute Neuts (auto) Absolute Lymphs (auto) Absolute Monos (auto) Absolute Eos (auto) Absolute Basos (auto) Absolute Nucleated RBC Nucleated RBC % Sodium 133 L Potassium 3.3 L Chloride 114 H Carbon Dioxide 13 L* Anion Gap 6 BUN 13 Creatinine 0.74 Est GFR ( Amer) 105.7 Est GFR (Non-Af Amer) 87.4 BUN/Creatinine Ratio 17.6 Glucose 165 H POC Glucose (mg/dL) 176 H 171 H Glucose Meter Confirm Calcium 7.9 L Magnesium Total Bilirubin AST ALT Alkaline Phosphatase Total Creatine Kinase Troponin I C-Reactive Protein Total Protein Albumin Globulin Albumin/Globulin Ratio Beta HCG, Quant Urine Color Urine Appearance Urine pH Ur Specific [place] Urine Protein Urine Ketones Urine Blood Urine Nitrate Urine Bilirubin Urine Urobilinogen Ur Leukocyte Esterase Urine WBC (Auto) Urine RBC (Auto) Ur Squamous Epith Cells Urine Bacteria Granular Casts Urine Glucose Urine Ascorbic Acid Salicylates Serum Alcohol 10/16/19 10/16/19 10/16/19 05:37 06:34 07:32 WBC RBC Hgb Hct MCV MCH MCHC RDW Plt Count MPV Neut % (Auto) Lymph % (Auto) [place] % (Auto) Eos % (Auto) Baso % (Auto) Absolute Neuts (auto) Absolute Lymphs (auto) Absolute Monos (auto) Absolute Eos (auto) Absolute Basos (auto) Absolute Nucleated RBC Nucleated RBC % Sodium 132 L Potassium 3.4 L Chloride 113 H Carbon Dioxide 15 L Anion Gap 4 BUN 13 Creatinine 0.75 Est GFR ( Amer) 104.1 Est GFR (Non-Af Amer) 86.0 BUN/Creatinine Ratio 17.3 Glucose 167 H POC Glucose (mg/dL) 215 H 180 H Glucose Meter Confirm Calcium 7.8 L Magnesium Total Bilirubin AST ALT Alkaline Phosphatase Total Creatine Kinase Troponin I C-Reactive Protein Total Protein Albumin Globulin Albumin/Globulin Ratio Beta HCG, Quant Urine Color Urine Appearance Urine pH Ur Specific [place] Urine Protein Urine Ketones Urine Blood Urine Nitrate Urine Bilirubin Urine Urobilinogen Ur Leukocyte Esterase Urine WBC (Auto) Urine RBC (Auto) Ur Squamous Epith Cells Urine Bacteria Granular Casts Urine Glucose Urine Ascorbic Acid Salicylates Serum Alcohol 10/16/19 10/16/19 10/16/19 08:36 09:45 10:42 WBC RBC Hgb Hct MCV MCH MCHC RDW Plt Count MPV Neut % (Auto) Lymph % (Auto) [place] % (Auto) Eos % (Auto) Baso % (Auto) Absolute Neuts (auto) Absolute Lymphs (auto) Absolute Monos (auto) Absolute Eos (auto) Absolute Basos (auto) Absolute Nucleated RBC Nucleated RBC % Sodium Potassium Chloride Carbon Dioxide Anion Gap BUN Creatinine Est GFR ( Amer) Est GFR (Non-Af Amer) BUN/Creatinine Ratio Glucose POC Glucose (mg/dL) 158 H 215 H 230 H Glucose Meter Confirm Calcium Magnesium Total Bilirubin AST ALT Alkaline Phosphatase Total Creatine Kinase Troponin I C-Reactive Protein Total Protein Albumin Globulin Albumin/Globulin Ratio Beta HCG, Quant Urine Color Urine Appearance Urine pH Ur Specific [place] Urine Protein Urine Ketones Urine Blood Urine Nitrate Urine Bilirubin Urine Urobilinogen Ur Leukocyte Esterase Urine WBC (Auto) Urine RBC (Auto) Ur Squamous Epith Cells Urine Bacteria Granular Casts Urine Glucose Urine Ascorbic Acid Salicylates Serum Alcohol Plan: DKA resolved. Making transition to glargine off gtt. HgbA1C ordered. Patient reports non-compliance x 2 months. I have educated the patient in detail about the need to be compliant with her DM regimen and the consequences of not doing so. The above attestation should read : This service has been performed in part by a resident under the direction of a teaching physician. I, Gustavo Holbrook, performed the service, or was physically present during the critical, or krishnan portions of the service, furnished by the resident. I participated in the management of the patient.
[2019-10-16] MEDS: Insulin LISPRO* 1 UNITS UNIT SUBCUT SCH ×3 (13:18→21:31)
[2019-10-16] MEDS: Enoxaparin(*) 40 MG/0.4 ML SYR SUBCUT SCH (13:18)
[2019-10-16 15:08] LABS: Magnesium 2.6 mg/dL (1.9-2.7)
[2019-10-16] MEDS: Ketorolac INJ* 15 MG/ML 1 ML VIAL IV PUSH PRN ×2 (15:58→21:21)
[2019-10-16] MEDS ORDERED: Insulin LISPRO* 1 UNITS UNIT SUBCUT ONE (20:16)
[2019-10-16 21:39] LABS: Calcium 7.9 mg/dL (8.6-10.3); Magnesium 2.3 mg/dL (1.9-2.7); Potassium 4.2 mmol/L (3.5-5.0)
[2019-10-16 21:45] LABS: EGFR African American 82.2 (>60)
[2019-10-17] MEDS: Insulin GLARGINE(*) 1 UNITS UNIT SUBCUT SCH ×2 (00:04→11:48)
[2019-10-17] MEDS: Insulin LISPRO* 1 UNITS UNIT SUBCUT SCH ×6 (00:16→20:19)
[2019-10-17] MEDS: D5W IVPB SCH (00:58)
[2019-10-17] MEDS: POTASSIUM ACETATE IVPB SCH (00:58)
[2019-10-17] MEDS: 1/2 NS IVPB SCH (00:58)
[2019-10-17] MEDS: Ciprofloxacin 400MG IVPREMIX(* 400 MG/200 ML BAG IVPB SCH (03:59)
[2019-10-17] MEDS ORDERED: Insulin LISPRO* 1 UNITS UNIT SUBCUT ONE (04:36)
[2019-10-17] MEDS: Ketorolac INJ* 15 MG/ML 1 ML VIAL IV PUSH PRN ×2 (05:39→18:28)
[2019-10-17] MEDS: Levothyroxine TAB* 150 MCG TAB PO SCH (05:39)
[2019-10-17 06:25] LABS: ABS Lymphocytes 0.6 10^3/ul (1.0-4.8); ABS Monocytes 0.9 10^3/ul (0-0.8); ABS Neutrophils 8.9 10^3/ul (1.5-7.7); Eosinophil % 0.1 %; Hematocrit 31 % (35-47); Hemoglobin 10.7 g/dL (12.0-16.0); Lymphocyte % 5.7 %; Mean Corpuscular HGB Conc 34 g/dL (31-36); Mean Corpuscular Hemoglobin 31 pg (27-31); Mean Corpuscular Volume 92 fL (80-97); Mean Platelet Volume 7.1 fL (7.4-10.4); Platelet Count 288 10^3/uL (150-450); Red Blood Count 3.41 10^6 /uL (3.70-4.87); Red Cell Distribution Width 13 % (10-15); White Blood Count 10.4 10^3/uL (3.5-10.8)
[2019-10-17 06:37] LABS: Calcium 7.7 mg/dL (8.6-10.3); Magnesium 2.1 mg/dL (1.9-2.7); Potassium 3.6 mmol/L (3.5-5.0)
[2019-10-17 06:42] LABS: BUN/Creatinine Ratio 9.8 (8-20); EGFR African American 82.2 (>60)
[2019-10-17] MEDS: Polyethylene Glycol 3350* 17 GM PACKET PO PRN (07:37)
[2019-10-17] MEDS: Acetaminophen TAB* 325 MG PO PRN ×3 (07:37→20:18)
[2019-10-17] MEDS: Pantoprazole TAB * 40 MG TAB PO SCH (07:38)
[2019-10-17] MEDS: Norethindrone (NF) 0.35 MG TAB PO SCH (07:41)
[2019-10-17] MEDS: Divalproex DR TAB(*) 500 MG PO SCH ×2 (07:41→20:20)
[2019-10-17] MEDS: BuPROPion XL* 300 MG TAB.XL PO SCH (10:51)
[2019-10-17] MEDS ORDERED: PROCHLORPERAZINE INJ 5 MG/ML 2 ML VIAL IV PRN (13:50)
[2019-10-17] MEDS: Enoxaparin(*) 40 MG/0.4 ML SYR SUBCUT SCH (13:57)
[2019-10-17] MEDS ORDERED: Magnesium Hydroxide LIQ* 30 ML UDC PO PRN (13:57)
--- NOTE | 2019-10-17 14:01 | PN ---
Subjective Date of Service: 10/17/19 Interval History: Denies other barriers to insulin; denies issues with fridge to keep insulin, financial issues. She simply decided to stop taking the insulin because "I was taking it and my blood sugar would still be high." She mentioned she has had transportation issues to get to appointments and she has discussed this with the diabetic nurse educator, Nikki. She has not had a BM in 2 weeks reportedly and has abd pain today. She notes some nausea which has only improved minimally with zofran. Objective Active Medications: Acetaminophen (Tylenol Tab*) 650 mg PO Q4H PRN PRN Reason: PAIN - MILD Last Admin: 10/17/19 11:48 Dose: 650 mg Bupropion HCl (Bupropion Xl*) 300 mg PO DAILY [facility] Last Admin: 10/17/19 10:51 Dose: 300 mg Dextrose (Dextrose 50% Vial 50 Ml*) 25 ml IV PUSH .FOR FS < 60 - SS PRN PRN Reason: FS < 60 Divalproex Sodium (Depakote Dr Tab(*)) 500 mg PO BID [facility] Last Admin: 10/17/19 07:41 Dose: Not Given Enoxaparin Sodium (Lovenox(*)) 40 mg SUBCUT Q24H [facility] Last Admin: 10/16/19 13:18 Dose: 40 mg Insulin Glargine (Lantus(*)) 20 units SUBCUT Q24H [facility] Insulin Human Lispro (Humalog*) 0 units SUBCUT ACHS [facility]; Protocol Ketorolac Tromethamine (Toradol Inj*) 15 mg IV PUSH Q6H PRN PRN Reason: PAIN - MILD Last Admin: 10/17/19 05:39 Dose: 15 mg Levothyroxine Sodium (Synthroid Tab*) 300 mcg PO DAILY@0600 [facility] Last Admin: 10/17/19 05:39 Dose: 300 mcg Norethindrone (Ngoc (Nf)) 0.35 mg PO DAILY [facility] Last Admin: 10/17/19 07:41 Dose: Not Given Ondansetron HCl (Zofran Inj*) 4 mg IV Q6H PRN PRN Reason: NAUSEA Last Admin: 10/16/19 21:21 Dose: 4 mg Pantoprazole Sodium (Protonix Tab*) 40 mg PO DAILY [facility] Last Admin: 01/07/20 07:38 Dose: 40 mg Polyethylene Glycol/Electrolytes (Miralax*) 17 gm PO DAILY PRN PRN Reason: CONSTIPATION Last Admin: 10/17/19 07:37 Dose: 17 gm Prochlorperazine Edisylate (Compazine Inj*) 5 mg IV Q6H PRN PRN Reason: Nausea/Vomiting breakthrough Vital Signs - 8 hr 10/17/19 10/17/19 07:15 07:45 Temperature 97.8 F Pulse Rate 100 Respiratory 14 14 Rate Blood Pressure 99/59 (mmHg) O2 Sat by Pulse 99 Oximetry Oxygen Devices in Use Now: None Appearance: young, female, laying upright in bed, appearing comfortable and in NAD Eyes: No Scleral Icterus, - - PERRL Ears/Nose/Mouth/Throat: Mucous Membranes Moist Neck: Trachea Midline Respiratory: Symmetrical Chest Expansion and Respiratory Effort, Clear to Auscultation Cardiovascular: NL Sounds; No Murmurs; No JVD, RRR Abdominal: - - abd soft, minimally tender diffusely, without distension Extremities: No Edema, No Clubbing, Cyanosis Skin: No Rash or Ulcers Neurological: Alert and Oriented x 3, NL Muscle Strength and Tone Result Diagrams: 10/17/19 05:48 10/17/19 05:48 Microbiology and Other Data: Microbiology 10/15/19 12:57 Aerobic Blood Culture - Preliminary Blood Venous No Growth Day 2 Anaerobic Blood Culture - Preliminary No Growth Day 2 10/15/19 12:59 Aerobic Blood Culture - Preliminary Blood Venous No Growth Day 2 Anaerobic Blood Culture - Preliminary No Growth Day 2 10/15/19 20:45 Urine Culture - Final Urine No Growth (<1,000 CFU/mL) 10/15/19 14:22 Nasal Screen MRSA (PCR) - Final Nasal Mrsa Not Detected Assess/Plan/Problems-Billing Assessment: 39 yo female with PMHx DMT1, hypothyroidism, BPD presents with DKA. Initially admitted to the ICU and has since been transferred to the floor. - Patient Problems (1) DKA (diabetic ketoacidoses) Current Visit: Yes Status: Acute Code(s): E11.10 - TYPE 2 DIABETES MELLITUS WITH KETOACIDOSIS WITHOUT COMA SNOMED Code(s): 897157226 Comment: -transfered to floor from ICU -anion gap has closed, though bicarb remains low -ABG is compensated -BG>500 yesterday evening -will continue to monitor (2) Diabetes mellitus type 1 Current Visit: Yes Status: Acute Comment: -will need f/u with Dr. Parsons -was taking long acting insulin 24U QPM, with 6U short acting insulin with each meal and a sliding scale prn short acting insulin; this was the regimen from June 2019 which patient self-discontinued -changing inpatient regimen to glargine 20U QPM with scheduled 3U lispro AC and adjusting sliding scale to match Dr. Parsons's SS rec - glucose 201-250 ... add 2 units - glucose 251-300 ... add 4 units - glucose 301-350 ... add 6 units - glucose >350 ... add 8 units (3) Fall Current Visit: Yes Status: Acute Comment: -fell at home prior to this admission, a mechanical fall in shower -c/o rib pain; rib x-ray from 10/11/19 without fracture; continue toradol (4) Constipation Current Visit: No Status: Acute Code(s): K59.00 - CONSTIPATION, UNSPECIFIED SNOMED Code(s): 70511139 Comment: -reports no BM in 2 weeks -suppository ordered, po laxitives have been ineffective -ABD plain demonstrates large volume stool -if abd pain is not resolved after BM should consider gastroparesis (5) Hypothyroidism Current Visit: No Status: Acute Code(s): E03.9 - HYPOTHYROIDISM, UNSPECIFIED SNOMED Code(s): 44828124 Comment: - TSH elevated - Patient states she has been taking her synthroid, however I have called her pharmacy and she has not picked it up in a year though she is picking up her other medications - was previously on 175 mcg, will continue with this (6) Depression Current Visit: Yes Status: Acute Code(s): F32.9 - MAJOR DEPRESSIVE DISORDER , SINGLE EPISODE, UNSPECIFIED SNOMED Code(s): 44229487 Comment: -continue depakote and wellbutrin (7) DVT prophylaxis Current Visit: No Status: Acute Code(s): Z29.9 - ENCOUNTER FOR PROPHYLACTIC MEASURES, UNSPECIFIED SNOMED Code(s): 546608810 Comment: -lovenox (8) Full code status Current Visit: No Status: Acute Code(s): Z78.9 - OTHER SPECIFIED HEALTH STATUS SNOMED Code(s): 066381392 Comment:
[2019-10-17 14:47] LABS: TSH (Thyroid Stimulating Horm) 13.47 mcIU/mL (0.34-5.60)
[2019-10-17] MEDS ORDERED: Insulin GLARGINE(*) 1 UNITS UNIT SUBCUT SCH (21:00)
[2019-10-18] MEDS ORDERED: Morphine INJ* 2 MG/ML 1 ML SYRINGE (TWO MG - NEW SYRINGE VERSION) IV ONE (03:12)
[2019-10-18 03:43] LABS: Hematocrit 31 % (35-47); Hemoglobin 10.8 g/dL (12.0-16.0); Mean Corpuscular HGB Conc 35 g/dL (31-36); Mean Corpuscular Hemoglobin 31 pg (27-31); Mean Corpuscular Volume 90 fL (80-97); Mean Platelet Volume 7.1 fL (7.4-10.4); Platelet Count 303 10^3/uL (150-450); Red Blood Count 3.46 10^6 /uL (3.70-4.87); Red Cell Distribution Width 14 % (10-15); White Blood Count 16.6 10^3/uL (3.5-10.8)
[2019-10-18 03:58] LABS: Albumin 2.5 g/dL (3.2-5.2); Albumin/Globulin Ratio 0.7 (1-3); BUN/Creatinine Ratio 11.6 (8-20); Calcium 8.2 mg/dL (8.6-10.3); EGFR African American 88.9 (>60); EGFR Non-African American 73.5 (>60); Globulin 3.5 g/dL (2-4); Potassium 3.1 mmol/L (3.5-5.0); Total Bilirubin 0.2 mg/dL (0.2-1.0)
[2019-10-18 04:12] LABS: ABS Lymphocytes 0.5 10^3/ul (1.0-4.8); Eosinophil % 0.1 %; Lymphocyte % 3.2 %
[2019-10-18] MEDS ORDERED: Ciprofloxacin 400MG IVPREMIX(* 400 MG/200 ML BAG IVPB SCH (05:00)
--- NOTE | 2019-10-18 05:16 | PN ---
Resident Interval ProgressNote Date of Service: 10/18/19 Called to see patient for right flank pain 39 y/o T1DM came in for DKA, currently resolved with gap closed. She had this sudden onset of right flank pain tonight, radiating to her back, no nausea/ vomiting. It's constant. Never had flank pain in the past, no kidney stone in the past. PE: vitals: T99.3, HR 126, BP 121/61mmhg Abdomen: BS+, right flank erythematous, warm, swollen, but no laceration seen. CVA tenderness+, tenderness mainly on right abdomen, soft, no rigidity Labs: TW 16.6, Hb 10.8, glucose 261 K 3.1, bicarb 16, AG closed A: right flank pain with leukocytosis ? nephrolithiasis vs cellulitis vs myositis P; - start iv cipro+ doxycycline for broad coverage - urine analysis - CTAP plain to look for stone or pyelonephritis - K replacement
[2019-10-18] MEDS: Levothyroxine TAB* 175 MCG TAB PO SCH (06:29)
[2019-10-18] MEDS: Ketorolac INJ* 15 MG/ML 1 ML VIAL IV PUSH PRN (06:29)
[2019-10-18] MEDS: KCL 10 MEQ/50 ML IVPREMIX* 10 MEQ/50 ML BAG IV SCH ×3 (06:29→09:47)
[2019-10-18] MEDS: BuPROPion XL* 300 MG TAB.XL PO SCH (08:07)
[2019-10-18] MEDS: Acetaminophen TAB* 325 MG PO PRN (08:07)
[2019-10-18] MEDS: Insulin LISPRO* 1 UNITS UNIT SUBCUT SCH ×7 (08:47→20:57)
[2019-10-18] MEDS ORDERED: DOXYcycline CAP(*) 100 MG PO SCH (09:00)
[2019-10-18] MEDS ORDERED: LACTATED RINGERS IV ONE (09:05)
[2019-10-18] MEDS ORDERED: Morphine INJ* 2 MG/ML 1 ML SYRINGE (TWO MG - NEW SYRINGE VERSION) IV PRN (09:19)
[2019-10-18] MEDS ORDERED: HYDROmorphone INJ1* 1 MG/ML SYRINGE IV PRN (09:33)
[2019-10-18] MEDS ORDERED: PROCHLORPERAZINE INJ 5 MG/ML 2 ML VIAL IV PRN (09:33)
[2019-10-18] MEDS ORDERED: Scopolamine 1.5 mg* PATCH TRANSDERM PRN (09:33)
[2019-10-18] MEDS ORDERED: DiMENhydriNATE IV* 50 MG/ML VIAL IV PUSH PRN (09:33)
[2019-10-18] MEDS ORDERED: fentaNYL* 50 MCG/ML 2 ML VIAL (100 MCG VIAL) IV PRN (09:33)
[2019-10-18] MEDS ORDERED: Naloxone* 0.4 MG/ML 1 ML VIAL IV PRN (09:33)
[2019-10-18] MEDS ORDERED: Buffered Lidocaine 1% SYRIN* 1 ML/SYRINGE INTRADERM ONE ×2 (09:33→11:00)
[2019-10-18] MEDS ORDERED: fentaNYL* 50 MCG/ML 2 ML VIAL (100 MCG VIAL) ONE (09:43)
[2019-10-18] MEDS ORDERED: Rocuronium* 10 MG/ML VIAL ONE (09:43)
[2019-10-18] MEDS ORDERED: KETAMINE HCL* 50 MG/ML 10 ML VIAL ONE (09:43)
[2019-10-18] MEDS ORDERED: Midazolam* 1 MG/ML 2 ML VIAL (2 MG) ONE (09:44)
[2019-10-18] MEDS: KCL 20 MEQ/100 ML IVPREMIX* 20 MEQ/100 ML BAG IV SCH ×2 (09:47→17:42)
[2019-10-18] MEDS: Pantoprazole TAB * 40 MG TAB PO SCH (09:49)
[2019-10-18] MEDS: Divalproex DR TAB(*) 500 MG PO SCH ×2 (09:49→21:00)
[2019-10-18] MEDS: Norethindrone (NF) 0.35 MG TAB PO SCH (09:49)
[2019-10-18] MEDS ORDERED: Bupivacaine 0.25% EPI 200,000* 30 ML SDV ONE (09:52)
[2019-10-18] MEDS ORDERED: Lactated Ringers 1000 ML Bag* 1,000 ML IV SCH ×2 (10:00→18:00)
[2019-10-18] MEDS ORDERED: metroNIDAZOLE IV 500 MG/100ML* 500 MG/100 ML BAG IVPB SCH (10:00)
--- NOTE | 2019-10-18 10:05 | CONSULT ---
Consult Consult: CC: TITA abd pain/R flank pain HPI: 39 yo F with DM admitted in DKA on 10/15/19 to [facility] [place]. H/o fall in [place] on 10/11 following which she reports R flank pain with progressive worsening over the week. Early on she had N/V but denies any recently and just ate some breakfast. Yesterday she also c/o abdominal pain, R side, requiring pain medication. A CT scan was done to r/o kidney stone and she was found to have a retroperitoneal abscess at the tip of the appendix with concern for perforated appendicitis with abscess. RN notes she had had increasing tachycardia and decreased U/O overnight. No F/C. PMH: PSH: lap edward; lap R ovarian cystectomy All: PCN Active Medications Generic Name Dose Route Start Last Admin Trade Name Freq PRN Reason Stop Dose Admin Acetaminophen 650 mg 10/15/19 14:58 10/18/19 08:07 Tylenol Tab* PO 650 mg Q4H PRN Administration PAIN - MILD Bisacodyl 10 mg 10/17/19 13:57 Dulcolax Supp* DC DAILY PRN severe constipation Bupropion HCl 300 mg 10/16/19 09:00 10/18/19 08:07 Bupropion Xl* PO 300 mg DAILY [facility] Administration Dextrose 25 ml 10/16/19 10:48 Dextrose 50% Vial 50 Ml* IV PUSH .FOR FS < 60 - SS PRN FS < 60 Dimenhydrinate 12.5 mg 10/18/19 09:33 Dramamine Iv* IV PUSH ONCE PRN NAUSEA/VOMITING Divalproex Sodium 500 mg 10/15/19 21:00 10/18/19 09:[address] Tab(*) PO Not Given BID [facility] Enoxaparin Sodium 40 mg 10/15/19 14:00 10/17/19 13:57 Lovenox(*) SUBCUT 40 mg Q24H [facility] Administration Fentanyl Citrate 25 mcg 10/18/19 09:33 Fentanyl* IV Q3M PRN PAIN - MODERATE Hydromorphone HCl 0.2 mg 10/18/19 09:33 Dilaudid Inj1s* IV Q5M PRN PAIN - SEVERE Lactated Ringer's 1,830 mls @ 1,830 mls/hr 10/18/19 09:05 10/18/19 09:37 Lactated Ringers 1000 Ml Bag* 30 ml/kg infuse over 1 hr (1830 ml) 10/18/19 10:04 1,830 mls/hr IV Administration .NOTE TOTAL VOLUME ONE Aztreonam 2 gm/ Sodium 100 mls @ 100 mls/hr 10/18/19 18:00 Chloride IV Q8H [facility] Metronidazole/Sodium Chloride 500 mg in 100 mls @ 100 mls/hr 10/18/19 10:00 Flagyl 500 Mg Ivpb* IVPB Q8H [facility] Potassium Chloride 20 meq in 100 mls @ 50 mls/hr 10/18/19 10:00 10/18/19 09: 47 Potassium Chloride 20 Meq/100 Ml Ivpremix* IV 10/18/19 13:59 50 mls/hr Q2H [facility] Administration Lactated Ringer's 1,000 mls @ 125 mls/hr 10/18/19 10:00 Lactated Ringers 1000 Ml Bag* IV PER RATE [facility] Insulin Glargine 20 units 10/17/19 21:00 10/17/19 20:19 Lantus(*) SUBCUT 20 unit Q24H [facility] Administration Insulin Human Lispro 0 units 10/17/19 13:49 10/18/19 08:47 Humalog* SUBCUT 4 units ACHS [facility] Administration Protocol Insulin Human Lispro 3 units 10/17/19 16:30 10/18/19 08:48 Humalog* SUBCUT 3 units AC [facility] Administration Ketorolac Tromethamine 15 mg 10/16/19 14:55 10/18/19 06:29 Toradol Inj* IV PUSH 15 mg Q6H PRN Administration PAIN - MILD Levothyroxine Sodium 175 mcg 10/18/19 06:00 10/18/19 06:29 Synthroid Tab* PO 175 mcg 0600 [facility] Administration Lidocaine/Sodium Bicarbonate 0.2 ml 10/18/19 09:33 Buffered Lidocaine 1% Syrin* INTRADERM 10/18/19 09:34 ONCE ONE Magnesium Hydroxide 30 ml 10/17/19 13:57 Milk Of Magnesia Liq* PO Q4H PRN CONSTIPATION Morphine Sulfate 2 mg 10/18/19 09:19 Morphine Inj (Syringe))* IV Q2H PRN PAIN - SEVERE Naloxone HCl 0.08 mg 10/18/19 09:33 Narcan* IV Q2M PRN severe induced resp depression Norethindrone 0.35 mg 10/16/19 09:00 10/18/19 09:49 Ngoc (Nf) PO Not Given DAILY [facility] Ondansetron HCl 4 mg 10/16/19 10:54 10/16/19 21:21 Zofran Inj* IV 4 mg Q6H PRN Administration NAUSEA Pantoprazole Sodium 40 mg 10/16/19 10:00 10/18/19 09:49 Protonix Tab* PO Not Given DAILY [facility] Pharmacy Profile Note 1 note 10/21/19 09:35 Scopolamine Patch Remove* PATCH OFF 10/21/19 09:36 Q72H ONE Polyethylene Glycol/Electrolytes 17 gm 10/15/19 15:59 10/17/19 07:37 Miralax* PO 17 gm DAILY PRN Administration CONSTIPATION Prochlorperazine Edisylate 5 mg 10/17/19 13:50 Compazine Inj* IV Q6H PRN Nausea/Vomiting breakthrough Prochlorperazine Edisylate 5 mg 10/18/19 09:33 Compazine Inj* IV ONCE PRN NAUSEA/VOMITING Scopolamine 1 patch 10/18/19 09:33 Transderm-Scop 1.5 Mg Patch* TRANSDERM Q72H PRN Nausea/Vomiting Vital Signs Temp 99.3 F 10/18/19 02:54 Pulse 126 10/18/19 02:54 Resp 18 10/18/19 04:30 BP 121/61 10/18/19 02:54 Pulse Ox 99 10/18/19 02:54 Gen: Mild distress; A&O x 3 Abd: well healed lap scars; ND; soft; tender in RLQ and flank; +Rovsing sx. +BS Ext: warm Intake & Output 10/17/19 10/18/19 10/18/19 18:59 06:59 18:59 Intake Total 600 0 240 Output Total 0 Balance 600 0 240 Intake: Oral 600 0 240 Output: Urine 0 Other: # Bowel Movements 0 Laboratory Results - last 24 hr 10/17/19 10/17/19 10/17/19 05:48 10:02 11:39 WBC RBC Hgb Hct MCV MCH MCHC RDW Plt Count MPV Neut % (Auto) Lymph % (Auto) [place] % (Auto) Eos % (Auto) Baso % (Auto) Absolute Neuts (auto) Absolute Lymphs (auto) Absolute Monos (auto) Absolute Eos (auto) Absolute Basos (auto) Absolute Nucleated RBC Nucleated RBC % ABG pH ABG pCO2 ABG pO2 ABG HCO3 ABG O2 Saturation ABG Base Excess Sodium 131 L Potassium 3.6 Chloride 109 Carbon Dioxide 13 L* Anion Gap 9 BUN 9 Creatinine 0.92 Est GFR ( Amer) 82.2 Est GFR (Non-Af Amer) 68.0 BUN/Creatinine Ratio 9.8 Glucose 392 H POC Glucose (mg/dL) 224 H Glucose Meter Confirm Calcium 7.7 L Ionized Calcium 1.29 Magnesium 2.1 Total Bilirubin AST ALT Alkaline Phosphatase Total Protein Albumin Globulin Albumin/Globulin Ratio TSH 13.47 H 10/17/19 10/17/19 10/17/19 12:30 17:14 19:58 WBC RBC Hgb Hct MCV MCH MCHC RDW Plt Count MPV Neut % (Auto) Lymph % (Auto) [place] % (Auto) Eos % (Auto) Baso % (Auto) Absolute Neuts (auto) Absolute Lymphs (auto) Absolute Monos (auto) Absolute Eos (auto) Absolute Basos (auto) Absolute Nucleated RBC Nucleated RBC % ABG pH 7.34 L ABG pCO2 29 L ABG pO2 100 ABG HCO3 18.1 L ABG O2 Saturation 99.8 H ABG Base Excess -8.8 L Sodium Potassium Chloride Carbon Dioxide Anion Gap BUN Creatinine Est GFR ( Amer) Est GFR (Non-Af Amer) BUN/Creatinine Ratio Glucose POC Glucose (mg/dL) 391 H Glucose Meter Confirm 287 H Calcium Ionized Calcium Magnesium Total Bilirubin AST ALT Alkaline Phosphatase Total Protein Albumin Globulin Albumin/Globulin Ratio TSH 10/18/19 10/18/19 10/18/19 03:19 03:35 03:35 WBC 16.6 H RBC 3.46 L Hgb 10.8 L Hct 31 L MCV 90 MCH 31 MCHC 35 RDW 14 Plt Count 303 MPV 7.1 L Neut % (Auto) 90.6 Lymph % (Auto) 3.2 [place] % (Auto) 5.9 Eos % (Auto) 0.1 Baso % (Auto) 0.2 Absolute Neuts (auto) 15.0 H Absolute Lymphs (auto) 0.5 L Absolute Monos (auto) 1.0 H Absolute Eos (auto) 0.0 Absolute Basos (auto) 0.0 Absolute Nucleated RBC 0.0 Nucleated RBC % 0.0 ABG pH ABG pCO2 ABG pO2 ABG HCO3 ABG O2 Saturation ABG Base Excess Sodium 135 Potassium 3.1 L Chloride 108 Carbon Dioxide 19 L Anion Gap 8 BUN 10 Creatinine 0.86 Est GFR ( Amer) 88.9 Est GFR (Non-Af Amer) 73.5 BUN/Creatinine Ratio 11.6 Glucose 225 H POC Glucose (mg/dL) 261 H Glucose Meter Confirm Calcium 8.2 L Ionized Calcium Magnesium Total Bilirubin 0.20 AST 11 L ALT 8 Alkaline Phosphatase 86 Total Protein 6.0 L Albumin 2.5 L Globulin 3.5 Albumin/Globulin Ratio 0.7 L TSH 10/18/19 10/18/19 08:14 08:44 WBC RBC Hgb Hct MCV MCH MCHC RDW Plt Count MPV Neut % (Auto) Lymph % (Auto) [place] % (Auto) Eos % (Auto) Baso % (Auto) Absolute Neuts (auto) Absolute Lymphs (auto) Absolute Monos (auto) Absolute Eos (auto) Absolute Basos (auto) Absolute Nucleated RBC Nucleated RBC % ABG pH ABG pCO2 ABG pO2 ABG HCO3 ABG O2 Saturation ABG Base Excess Sodium Potassium Chloride Carbon Dioxide Anion Gap BUN Creatinine Est GFR ( Amer) Est GFR (Non-Af Amer) BUN/Creatinine Ratio Glucose POC Glucose (mg/dL) 290 H 143 H Glucose Meter Confirm Calcium Ionized Calcium Magnesium Total Bilirubin AST ALT Alkaline Phosphatase Total Protein Albumin Globulin Albumin/Globulin Ratio TSH CT scan reviewed. Assessment: 39 yo F with DM and now evidence of perforated appendicitis with abscess in retroperitoneum. Plan: Will proceed to the OR for laparoscopic appendectomy/drainage of abscess. The nature of the procedure, indications, risks, benefits, alternative and option of no treatment was discussed. Risks explained including, not limited to : bleeding, infection, pain, scars, blood clots, pneumonia, visceral injury and risk of GETA. All questions answered. She stated understanding and agrees to proceed. Keep NPO. Cipro/Flagyl to continue.
[2019-10-18] MEDS ORDERED: metroNIDAZOLE IV 500 MG/100ML* 500 MG/100 ML BAG IVPB ONE (10:15)
--- NOTE | 2019-10-18 10:24 | PN ---
Hospitalist Progress Note Date of Service: 10/18/19 HOSPITALIST ADDENDUM Case reviewed and d/w Stacy DEAN. Patient seen and examined at bedside. Ms Niesha Jasso is a 39yo F with PMH of insulin dependent DM, hypothyroidism, admitted initially to ICU for DKA. CT abdome showed findings suggestive of perforated appendicitis with phlegmon. Surgery consult appreciated and plan to take to OR today. Selected Entries 10/18/19 07:22 Temperature 100.0 F Pulse Rate 114 Respiratory 22 Rate Blood Pressure 102/57 (mmHg) O2 Sat by Pulse 100 Oximetry Abd: soft, RLQ tenderness with peritoneal signs, BS+ A/P: Acute appendicitis Agree with surgical management. Change antibiotics to Aztreonam and Metronidazole.
[2019-10-18] MEDS ORDERED: Phenylephrine 10 MG/ML VIAL* 1 ML VIAL ONE (11:30)
[2019-10-18] MEDS ORDERED: Norepinephrine VIAL* 1 MG/ML 4 ML VIAL ONE (11:30)
[2019-10-18] MEDS ORDERED: Lidocaine 2% PF * 5 ML VIAL ONE (11:30)
[2019-10-18] MEDS ORDERED: Propofol* 10 MG/ML 20 ML BTL ONE (11:31)
[2019-10-18] MEDS ORDERED: Sugammadex * 500 MG/5 ML VIAL IV PUSH ONE (11:31)
[2019-10-18] MEDS ORDERED: DiMENhydriNATE IV* 50 MG/ML VIAL ONE (11:31)
[2019-10-18] MEDS ORDERED: PROCHLORPERAZINE INJ 5 MG/ML 2 ML VIAL ONE (11:31)
--- NOTE | 2019-10-18 12:15 | BRIEFOPN ---
Brief Operative/Procedure Note - Operation Details Pre-Op Diagnosis: Perforated appendicitis with abscess Post-Op Diagnosis: Perforated appendicitis with abscess Procedures: Appendectomy and drain placement Surgeon(s)/Proceduralists: Dr. Tavear. Assist: DIANNE Armando Anesthesia: GETA. IVF: 2L Estimated Blood Loss: <50cc Findings: As above Specimen(s)/Culture(s) Description: Appendix Complications: None
[2019-10-18] MEDS ORDERED: Insulin LISPRO* 1 UNITS UNIT SUBCUT ONE (13:06)
[2019-10-18] MEDS: Lactated Ringers 1000 ML Bag* 1,000 ML IV SCH ×2 (15:15→20:21)
[2019-10-18] MEDS: Enoxaparin(*) 40 MG/0.4 ML SYR SUBCUT SCH (15:41)
--- NOTE | 2019-10-18 15:44 | PN ---
Subjective Date of Service: 10/18/19 Interval History: Overnight patient found to be tachycardic to the 120s and meeting sepsis criteria. CT abd/pelvis found acute appendicitis with large phlegmon. Patient assessed in the morning.Patient feels her abdominal pain is localized to the right side and worse than yesterday. Feels some nausea but denies vomiting. Denies fever/chills, chest pain, SOB. Still has not had BM. Objective Active Medications: Acetaminophen (Tylenol Tab*) 650 mg PO Q4H PRN PRN Reason: PAIN - MILD Last Admin: 10/18/19 08:07 Dose: 650 mg Bisacodyl (Dulcolax Supp*) 10 mg ND DAILY PRN PRN Reason: severe constipation Bupropion HCl (Bupropion Xl*) 300 mg PO DAILY [facility] Last Admin: 10/18/19 08:07 Dose: 300 mg Dextrose (Dextrose 50% Vial 50 Ml*) 25 ml IV PUSH .FOR FS < 60 - SS PRN PRN Reason: FS < 60 Divalproex Sodium (Depakote Dr Tab(*)) 500 mg PO BID [facility] Last Admin: 10/18/19 09:49 Dose: Not Given Enoxaparin Sodium (Lovenox(*)) 40 mg SUBCUT Q24H [facility] Last Admin: 10/18/19 15:41 Dose: 40 mg Aztreonam 2 gm/ Sodium (Chloride) 100 mls @ 100 mls/hr IV Q8H [facility] Lactated Ringer's (Lactated Ringers 1000 Ml Bag*) 1,000 mls @ 150 mls/hr IV PER RATE [facility] Last Admin: 10/18/19 15:15 Dose: 150 mls/hr Metronidazole/Sodium Chloride (Flagyl 500 Mg Ivpb*) 500 mg in 100 mls @ 100 mls /hr IVPB Q8H [facility] Insulin Glargine (Lantus(*)) 20 units SUBCUT Q24H [facility] Last Admin: 10/17/19 20:19 Dose: 20 unit Insulin Human Lispro (Humalog*) 0 units SUBCUT ACHS [facility]; Protocol Last Admin: 10/18/19 12:50 Dose: 2 units Insulin Human Lispro (Humalog*) 3 units SUBCUT AC [facility] Last Admin: 10/18/19 15:07 Dose: Not Given Levothyroxine Sodium (Synthroid Tab*) 175 mcg PO 0600 [facility] Last Admin: 10/18/19 06:29 Dose: 175 mcg Magnesium Hydroxide (Milk Of Magnesia Liq*) 30 ml PO Q4H PRN PRN Reason: CONSTIPATION Morphine Sulfate (Morphine Inj (Syringe))*) 2 mg IV Q2H PRN PRN Reason: PAIN - SEVERE Norethindrone (Ngoc (Nf)) 0.35 mg PO DAILY [facility] Last Admin: 10/18/19 09:49 Dose: Not Given Ondansetron HCl (Zofran Inj*) 4 mg IV Q6H PRN PRN Reason: NAUSEA Last Admin: 10/16/19 21:21 Dose: 4 mg Pantoprazole Sodium (Protonix Tab*) 40 mg PO DAILY [facility] Last Admin: 10/18/19 09:49 Dose: Not Given Polyethylene Glycol/Electrolytes (Miralax*) 17 gm PO DAILY PRN PRN Reason: CONSTIPATION Last Admin: 10/17/19 07:37 Dose: 17 gm Prochlorperazine Edisylate (Compazine Inj*) 5 mg IV Q6H PRN PRN Reason: Nausea/Vomiting breakthrough Vital Signs - 8 hr 10/18/19 10/18/19 10/18/19 08:00 12:20 12:44 Temperature 97.2 F Pulse Rate 105 104 Respiratory 20 20 18 Rate Blood Pressure 119/80 109/74 (mmHg) O2 Sat by Pulse 100 100 Oximetry 10/18/19 10/18/19 10/18/19 13:30 13:57 14:00 Temperature 96.8 F Pulse Rate 99 102 100 Respiratory 16 18 16 Rate Blood Pressure 98/71 107/71 (mmHg) O2 Sat by Pulse 100 100 100 Oximetry 10/18/19 14:45 Temperature 97.5 F Pulse Rate 101 Respiratory 16 Rate Blood Pressure 108/62 (mmHg) O2 Sat by Pulse 100 Oximetry Oxygen Devices in Use Now: None Appearance: Young, female laying upright in hospital bed appearing overall comfortable; nontoxic appearing and not diaphoretic Eyes: No Scleral Icterus, - - PERRL Ears/Nose/Mouth/Throat: Mucous Membranes Moist Neck: Trachea Midline Respiratory: Symmetrical Chest Expansion and Respiratory Effort, Clear to Auscultation Cardiovascular: NL Sounds; No Murmurs; No JVD, - - tachycardia with regular rhythm Abdominal: - - tenderness to right upper and lower quadrant; bowel is soft; no distension; normoactive BS x 4Q; no guarding Extremities: No Edema, No Clubbing, Cyanosis Skin: No Rash or Ulcers Neurological: Alert and Oriented x 3, NL Muscle Strength and Tone Result Diagrams: 10/18/19 03:35 10/18/19 03:35 Microbiology and Other Data: Microbiology 10/15/19 12:57 Aerobic Blood Culture - Preliminary Blood Venous No Growth Day 2 Anaerobic Blood Culture - Preliminary No Growth Day 2 10/15/19 12:59 Aerobic Blood Culture - Preliminary Blood Venous No Growth Day 2 Anaerobic Blood Culture - Preliminary No Growth Day 2 10/15/19 20:45 Urine Culture - Final Urine No Growth (<1,000 CFU/mL) 10/15/19 14:22 Nasal Screen MRSA (PCR) - Final Nasal Mrsa Not Detected Assess/Plan/Problems-Billing Assessment: 39 yo female with PMHx DMT1, hypothyroidism, BPD presents with DKA. DKA has since been improving. Patient developed signs of sepsis on the floor and found to have perforated appendicitis, now s/p appendectomy on 10/18/19. - Patient Problems (1) Sepsis Current Visit: Yes Status: Acute Comment: -SIRS criteria of tachycardia and leukocytosis -secondary to appendicitis, further description below -blood culture pending -changed antibiotics to aztreonam and flagyl as patient was previously on cipro during this hospitalization and hx of anaphylaxis to penicillins (2) Perforated appendicitis Current Visit: Yes Status: Acute Code(s): K35.32 - ACUTE APPENDICITIS WITH PERF AND LOC PERITONITIS, W/O ABSCS SNOMED Code(s): 73661382 Comment: -found to have signs of sepsis overnight. CT abd/pelvis demonstrates appendix phlegmon 11 cm at its largest with associated gas -Dr. Tavera performed appendectomy today -will continue aztreonam and flagyl; blood culture pending; will continue to monitor -giving additional fluid bolus this evening due to tachycardia recurring postoperatively -cont symptomatic tx (3) DKA (diabetic ketoacidoses) Current Visit: Yes Status: Acute Code(s): E11.10 - TYPE 2 DIABETES MELLITUS WITH KETOACIDOSIS WITHOUT COMA SNOMED Code(s): 154531938 Comment: -previously in the ICU and has since been transferred to the floor -anion gap has closed, bicarb is improving upward -ABG is compensated -BGs 140s-310s -will continue to monitor (4) Diabetes mellitus type 1 Current Visit: Yes Status: Acute Comment: -will need f/u with Dr. Parsons, diabetic nurse educator is following at home -was taking long acting insulin 24U QPM, with 6U short acting insulin with each meal and a sliding scale prn short acting insulin; this was the regimen from June 2019 which patient self-discontinued -increasing inpatient glargine to match home regimen as patient is still hyperglycemic -ordering scheduled 3U lispro AC and adjusting sliding scale to match Dr. Parsons' s SS rec - glucose 201-250 ... add 2 units - glucose 251-300 ... add 4 units - glucose 301-350 ... add 6 units - glucose >350 ... add 8 units (5) Fall Current Visit: Yes Status: Acute Comment: -fell at home prior to this admission, a mechanical fall in shower -c/o rib pain; rib x-ray from 10/11/19 without fracture -continue pain control (6) Constipation Current Visit: No Status: Acute Code(s): K59.00 - CONSTIPATION, UNSPECIFIED SNOMED Code(s): 84227706 Comment: -reports no BM in 2 weeks -suppository ordered, po laxitives have been ineffective -ABD plain demonstrates large volume stool -still questioning if there is undiagnosed gastroparesis however now will be difficult to discern given acute appendicitis s/p appendectomy (7) Hypothyroidism Current Visit: No Status: Acute Code(s): E03.9 - HYPOTHYROIDISM, UNSPECIFIED SNOMED Code(s): 36254553 Comment: - TSH elevated - Patient states she has been taking her synthroid, however I have called her pharmacy and she has not picked it up in a year though she is picking up her other medications - was previously on 175 mcg, will continue with this - will need f/u outpatient (8) Depression Current Visit: Yes Status: Acute Code(s): F32.9 - MAJOR DEPRESSIVE DISORDER , SINGLE EPISODE, UNSPECIFIED SNOMED Code(s): 66186061 Comment: -continue depakote and wellbutrin (9) DVT prophylaxis Current Visit: No Status: Acute Code(s): Z29.9 - ENCOUNTER FOR PROPHYLACTIC MEASURES, UNSPECIFIED SNOMED Code(s): 443153079 Comment: -lovenox (10) Full code status Current Visit: No Status: Acute Code(s): Z78.9 - OTHER SPECIFIED HEALTH STATUS SNOMED Code(s): 909644871 Comment: Status and Disposition: inpatient
[2019-10-18] MEDS: metroNIDAZOLE IV 500 MG/100ML* 500 MG/100 ML BAG IVPB SCH (16:06)
[2019-10-18] MEDS: Polyethylene Glycol 3350* 17 GM PACKET PO PRN (17:58)
[2019-10-18] MEDS ORDERED: oxyCODONE/Acetamin 5/325 MG* TAB PO PRN (18:13)
[2019-10-18] MEDS ORDERED: Insulin GLARGINE(*) 1 UNITS UNIT SUBCUT SCH (18:17)
[2019-10-18] MEDS: Aztreonam (*) 2 GM in NS 0.9% 100 ML* 100 ML IV SCH (18:24)
[2019-10-18] MEDS ORDERED: Lactated Ringers 1000 ML Bag* 1,000 ML IV ONE (19:00)
[2019-10-18] MEDS: Insulin GLARGINE(*) 1 UNITS UNIT SUBCUT SCH (20:57)
--- NOTE | 2019-10-18 22:53 | OP ---
CC: Dr. Masha Devlin * DATE OF OPERATION: 10/18/19 - ROOM #351 DATE OF : 80 SURGEON: Dr. Tavera. [employer] SERVICER: ERIN Barragan ANESTHESIOLOGIST: Gustavo Shah MD ANESTHESIA: General endotracheal. PRE-OP DIAGNOSIS: Perforated appendicitis with abscess. POST-OP DIAGNOSIS: Perforated appendicitis with abscess. OPERATIVE PROCEDURE: Laparoscopic drainage of retroperitoneal abscess and laparoscopic appendectomy. ESTIMATED BLOOD LOSS: Minimal. IV FLUIDS: Crystalloid. SPECIMENS: Abscess fluid culture. DRAINS: 7 mm Jorge-Do. COMPLICATIONS: None. COUNTS: Instrument, needle, and sponge counts correct. DESCRIPTION OF PROCEDURE: The patient was brought to the operating room and placed on table supine. Sequential compression devices were placed on both lower extremities. General anesthesia was administered. She was positioned and padded appropriately. She had received appropriate intravenous antibiotics. Time-out was performed. Local anesthetic was infiltrated to the skin and soft tissue prior to making each incision. Entry to the abdomen was through a transumbilical vertical incision using an open technique. After accessing peritoneal cavity, a 12 mm trocar was placed. Carbon dioxide was insufflated to a pressure of 15 mmHg. Under direct visualization, 5 mm trocars were placed in the suprapubic midline and the left lower quadrant. Inspection was turned to the right lower quadrant. There was a normal appearing cecum and there was noted to be a thickened appendix base with appendix coursing in the retrocecal direction. As the tissues were bluntly mobilized medially, a retroperitoneal abscess was encountered with pus forthcoming that was aspirated with laparoscopic suction and the fluid was sent for culture and sensitivity and the abscess was irrigated copiously. It was determined that this abscess was most likely on the basis of an appendicitis which appeared to be more chronic than acute. It was decided, however, to perform the appendectomy. The appendix was identified at the base and wound was created in the mesentry at the base and then the appendix was divided from the cecum with EndoGIA stapler with a liu cartridge. The mesentry of the appendix was then divided using EndoGIA stapler with a oliva cartridge. The appendix was placed through an endoscopic retrieval bag and submitted to Pathology. A 7 mm ERICA drain was cut to an appropriate length, placed into the peritoneal cavity, and inserted into the abscess. The tubing was withdrawn through the suprapubic wound. The remaining ports were removed under direct visualization and carbon dioxide was released. The umbilicus was closed with 0 Vicryl in a [id number] fashion to approximate the fascia. The skin incisions were closed with 4-0 Monocryl in subcuticular fashion. DermaFlex was applied. The drain was secured with 3-0 Prolene. Dressings were applied to the drain site and it was connected to the suction bulb. [id number]/[facility] #: [id number] [facility] C[facility]ERSanjuana
[2019-10-19] MEDS: metroNIDAZOLE IV 500 MG/100ML* 500 MG/100 ML BAG IVPB SCH ×3 (00:43→17:04)
[2019-10-19] MEDS: Aztreonam (*) 2 GM in NS 0.9% 100 ML* 100 ML IV SCH ×3 (02:07→18:13)
[2019-10-19] MEDS: Lactated Ringers 1000 ML Bag* 1,000 ML IV SCH ×2 (04:26→14:53)
[2019-10-19] MEDS: oxyCODONE/Acetamin 5/325 MG* TAB PO PRN ×4 (04:33→22:49)
[2019-10-19] MEDS: Levothyroxine TAB* 175 MCG TAB PO SCH (06:12)
[2019-10-19 06:42] LABS: Hematocrit 26 % (35-47); Hemoglobin 8.9 g/dL (12.0-16.0); Mean Corpuscular HGB Conc 35 g/dL (31-36); Mean Corpuscular Hemoglobin 31 pg (27-31); Mean Corpuscular Volume 90 fL (80-97); Mean Platelet Volume 6.9 fL (7.4-10.4); Platelet Count 248 10^3/uL (150-450); Red Blood Count 2.82 10^6 /uL (3.70-4.87); Red Cell Distribution Width 14 % (10-15); White Blood Count 12.9 10^3/uL (3.5-10.8)
[2019-10-19 07:02] LABS: Albumin 1.9 g/dL (3.2-5.2); Albumin/Globulin Ratio 0.7 (1-3); BUN/Creatinine Ratio 15.5 (8-20); Calcium 7.2 mg/dL (8.6-10.3); EGFR African American 110.9 (>60); EGFR Non-African American 91.6 (>60); Globulin 2.8 g/dL (2-4); Potassium 3.4 mmol/L (3.5-5.0); Total Bilirubin 0.2 mg/dL (0.2-1.0); Total Protein 4.7 g/dL (6.4-8.9)
[2019-10-19 07:03] LABS: BUN/Creatinine Ratio 15.5 (8-20); Calcium 7.2 mg/dL (8.6-10.3); EGFR African American 110.9 (>60); EGFR Non-African American 91.6 (>60); Potassium 3.4 mmol/L (3.5-5.0)
[2019-10-19 07:40] LABS: ABS Lymphocytes 0.9 10^3/ul (1.0-4.8); Eosinophil % 0.2 %; Lymphocyte % 6.7 %
[2019-10-19] MEDS: Divalproex DR TAB(*) 500 MG PO SCH ×2 (08:08→22:30)
[2019-10-19] MEDS: Pantoprazole TAB * 40 MG TAB PO SCH (08:09)
[2019-10-19] MEDS: Norethindrone (NF) 0.35 MG TAB PO SCH (08:09)
[2019-10-19] MEDS: Polyethylene Glycol 3350* 17 GM PACKET PO PRN (08:19)
[2019-10-19] MEDS: Insulin LISPRO* 1 UNITS UNIT SUBCUT SCH ×7 (08:21→22:22)
[2019-10-19] MEDS: BuPROPion XL* 300 MG TAB.XL PO SCH (08:42)
--- NOTE | 2019-10-19 08:44 | PN ---
Progress Note - Progress Note Date of Service: 10/19/19 SOAP: Subjective: Better today. Still has pain but well controlled. Tolerating full liquid diet. No BM and just took MOM. Objective: Vital Signs Temp 98.0 F 10/19/19 07:41 Pulse 101 10/19/19 07:41 Resp 18 10/19/19 08:34 BP 97/62 10/19/19 07:41 Pulse Ox 97 10/19/19 07:41 Gen: NAD; non-toxic appearing. Abd: incisions c/d/i; no erythema; ERICA with dark, maroon effluent with particulate matter. Ext: warm and well perfused. Intake & Output 10/18/19 10/19/19 10/19/19 18:59 06:59 18:59 Intake Total 640 1768 Output Total 1105 770 Balance -465 998 Intake: IV Fluids 300 1198 ABX - AZTREONAM 105 ABX - CIPROFLOXACIN 250 ABX - FLAGYL 103 LR 990 potassium 50 IVPB 100 ABX - FLAGYL 100 Oral 240 570 Output: ERICA #1 95 70 Brown 1000 700 Residual 10 Brown 16 Fr 10 Laboratory Results - last 24 hr 10/18/19 10/18/19 10/18/19 08:44 09:54 12:08 WBC RBC Hgb Hct MCV MCH MCHC RDW Plt Count MPV Neut % (Auto) Lymph % (Auto) [place] % (Auto) Eos % (Auto) Baso % (Auto) Absolute Neuts (auto) Absolute Lymphs (auto) Absolute Monos (auto) Absolute Eos (auto) Absolute Basos (auto) Absolute Nucleated RBC CBC Comment Nucleated RBC % Diff Slide Review Hypogranular Platelets Clumped Platelets Large Platelets Giant Platelets Sodium Potassium Chloride Carbon Dioxide Anion Gap BUN Creatinine Est GFR ( Amer) Est GFR (Non-Af Amer) BUN/Creatinine Ratio Glucose POC Glucose (mg/dL) 143 H 315 H Lactic Acid 1.9 Calcium Total Bilirubin AST ALT Alkaline Phosphatase Total Protein Albumin Globulin Albumin/Globulin Ratio 10/18/19 10/18/19 10/18/19 12:25 15:19 20:44 WBC RBC Hgb Hct MCV MCH MCHC RDW Plt Count MPV Neut % (Auto) Lymph % (Auto) [place] % (Auto) Eos % (Auto) Baso % (Auto) Absolute Neuts (auto) Absolute Lymphs (auto) Absolute Monos (auto) Absolute Eos (auto) Absolute Basos (auto) Absolute Nucleated RBC CBC Comment Nucleated RBC % Diff Slide Review Hypogranular Platelets Clumped Platelets Large Platelets Giant Platelets Sodium Potassium Chloride Carbon Dioxide Anion Gap BUN Creatinine Est GFR ( Amer) Est GFR (Non-Af Amer) BUN/Creatinine Ratio Glucose POC Glucose (mg/dL) 219 H 231 H 255 H Lactic Acid Calcium Total Bilirubin AST ALT Alkaline Phosphatase Total Protein Albumin Globulin Albumin/Globulin Ratio 10/19/19 10/19/19 10/19/19 06:22 06:22 06:22 WBC 12.9 H RBC 2.82 L Hgb 8.9 L Hct 26 L MCV 90 MCH 31 MCHC 35 RDW 14 Plt Count 248 MPV 6.9 L Neut % (Auto) 85.3 Lymph % (Auto) 6.7 [place] % (Auto) 7.6 Eos % (Auto) 0.2 Baso % (Auto) 0.2 Absolute Neuts (auto) 11.0 H Absolute Lymphs (auto) 0.9 L Absolute Monos (auto) 1.0 H Absolute Eos (auto) 0.0 Absolute Basos (auto) 0.0 Absolute Nucleated RBC 0.0 CBC Comment Nucleated RBC % 0.0 Diff Slide Review Hypogranular Platelets Clumped Platelets Large Platelets Giant Platelets Sodium 136 Potassium 3.4 L Chloride 112 H Carbon Dioxide 18 L Anion Gap 6 BUN 11 Creatinine 0.71 Est GFR ( Amer) 110.9 Est GFR (Non-Af Amer) 91.6 BUN/Creatinine Ratio 15.5 Glucose 104 H POC Glucose (mg/dL) Lactic Acid 1.4 Calcium 7.2 L Total Bilirubin AST ALT Alkaline Phosphatase Total Protein Albumin Globulin Albumin/Globulin Ratio 10/19/19 10/19/19 10/19/19 06:31 06:31 08:20 WBC Cancelled RBC Cancelled Hgb Cancelled Hct Cancelled MCV Cancelled MCH Cancelled MCHC Cancelled RDW Cancelled Plt Count Cancelled MPV Cancelled Neut % (Auto) Cancelled Lymph % (Auto) Cancelled [place] % (Auto) Cancelled Eos % (Auto) Cancelled Baso % (Auto) Cancelled Absolute Neuts (auto) Cancelled Absolute Lymphs (auto) Cancelled Absolute Monos (auto) Cancelled Absolute Eos (auto) Cancelled Absolute Basos (auto) Cancelled Absolute Nucleated RBC Cancelled CBC Comment Cancelled Nucleated RBC % Cancelled Diff Slide Review Cancelled Hypogranular Platelets Cancelled Clumped Platelets Cancelled Large Platelets Cancelled Giant Platelets Cancelled Sodium 136 Potassium 3.4 L Chloride 113 H Carbon Dioxide 18 L Anion Gap 5 BUN 11 Creatinine 0.71 Est GFR ( Amer) 110.9 Est GFR (Non-Af Amer) 91.6 BUN/Creatinine Ratio 15.5 Glucose 104 H POC Glucose (mg/dL) 112 H Lactic Acid Calcium 7.2 L Total Bilirubin 0.20 AST 41 H ALT 28 Alkaline Phosphatase 82 Total Protein 4.7 L Albumin 1.9 L Globulin 2.8 Albumin/Globulin Ratio 0.7 L Microbiology 10/18/19 11:23 Gram Stain - Final Wound 10/15/19 12:57 Aerobic Blood Culture - Preliminary Blood Venous No Growth Day 3 Anaerobic Blood Culture - Preliminary No Growth Day 3 10/15/19 12:59 Aerobic Blood Culture - Preliminary Blood Venous No Growth Day 3 Anaerobic Blood Culture - Preliminary No Growth Day 3 Assessment: POD#1 s/p lap drainage RP abscess/appendectomy. Tachycardia possibly SIRS response in combination with pain. Clinically improved. Plan: Diet as tolerated. Cont abx and await culture results. Cont ERICA.
--- NOTE | 2019-10-19 13:31 | PN ---
Subjective Date of Service: 10/19/19 Interval History: HOSPITALIST PROGRESS NOTE Patient seen and examined at bedside. Care reviewed and d/w Ashwin Larkin RN. She feels improved today. Abdominal pain is controlled, denies N/V, passing flatus, but no BM so far. Family History: Unchanged from Admission Social History: Unchanged from Admission Past Medical History: Unchanged from Admission Objective Active Medications: Acetaminophen (Tylenol Tab*) 650 mg PO Q4H PRN PRN Reason: PAIN - MILD Last Admin: 10/18/19 08:07 Dose: 650 mg Bisacodyl (Dulcolax Supp*) 10 mg MD DAILY PRN PRN Reason: severe constipation Bupropion HCl (Bupropion Xl*) 300 mg PO DAILY [facility] Last Admin: 10/19/19 08:42 Dose: 300 mg Dextrose (Dextrose 50% Vial 50 Ml*) 25 ml IV PUSH .FOR FS < 60 - SS PRN PRN Reason: FS < 60 Divalproex Sodium (Depakote Dr Tab(*)) 500 mg PO BID [facility] Last Admin: 10/19/19 08:08 Dose: Not Given Enoxaparin Sodium (Lovenox(*)) 40 mg SUBCUT Q24H [facility] Last Admin: 10/18/19 15:41 Dose: 40 mg Aztreonam 2 gm/ Sodium (Chloride) 100 mls @ 100 mls/hr IV Q8H [facility] Last Admin: 10/19/19 09:55 Dose: 100 mls/hr Lactated Ringer's (Lactated Ringers 1000 Ml Bag*) 1,000 mls @ 150 mls/hr IV PER RATE [facility] Last Admin: 10/19/19 04:26 Dose: 150 mls/hr Metronidazole/Sodium Chloride (Flagyl 500 Mg Ivpb*) 500 mg in 100 mls @ 100 mls /hr IVPB Q8H [facility] Last Admin: 10/19/19 08:09 Dose: 100 mls/hr Insulin Glargine (Lantus(*)) 24 units SUBCUT BEDTIME [facility] Last Admin: 10/18/19 20:57 Dose: 24 units Insulin Human Lispro (Humalog*) 0 units SUBCUT ACHS [facility]; Protocol Last Admin: 10/19/19 12:29 Dose: Not Given Insulin Human Lispro (Humalog*) 3 units SUBCUT AC [facility] Last Admin: 10/19/19 12:29 Dose: Not Given Levothyroxine Sodium (Synthroid Tab*) 175 mcg PO 0600 [facility] Last Admin: 10/19/19 06:12 Dose: 175 mcg Magnesium Hydroxide (Milk Of Magnesia Liq*) 30 ml PO Q4H PRN PRN Reason: CONSTIPATION Last Admin: 10/19/19 08:19 Dose: 30 ml Morphine Sulfate (Morphine Inj (Syringe))*) 2 mg IV Q2H PRN PRN Reason: pain - breakthrough Norethindrone (Ngoc (Nf)) 0.35 mg PO DAILY [facility] Last Admin: 10/19/19 08:09 Dose: Not Given Ondansetron HCl (Zofran Inj*) 4 mg IV Q6H PRN PRN Reason: NAUSEA Last Admin: 10/16/19 21:21 Dose: 4 mg Oxycodone/Acetaminophen (Percocet 5/325 Tab*) 1 tab PO Q4H PRN PRN Reason: PAIN - MODERATE Last Admin: 10/18/19 20:43 Dose: 1 tab Oxycodone/Acetaminophen (Percocet 5/325 Tab*) 2 tab PO Q4H PRN PRN Reason: PAIN - SEVERE Last Admin: 10/19/19 12:30 Dose: 2 tab Pantoprazole Sodium (Protonix Tab*) 40 mg PO DAILY [facility] Last Admin: 10/19/19 08:09 Dose: 40 mg Polyethylene Glycol/Electrolytes (Miralax*) 17 gm PO DAILY PRN PRN Reason: CONSTIPATION Last Admin: 10/19/19 08:19 Dose: 17 gm Prochlorperazine Edisylate (Compazine Inj*) 5 mg IV Q6H PRN PRN Reason: Nausea/Vomiting breakthrough Vital Signs - 8 hr 10/19/19 10/19/19 10/19/19 07:41 08:00 08:34 Temperature 98.0 F Pulse Rate 101 Respiratory 16 18 18 Rate Blood Pressure 97/62 (mmHg) O2 Sat by Pulse 97 Oximetry 10/19/19 10/19/19 11:05 12:30 Temperature 98.3 F Pulse Rate 114 Respiratory 16 18 Rate Blood Pressure 111/63 (mmHg) O2 Sat by Pulse 100 Oximetry Oxygen Devices in Use Now: None Appearance: Pleasant young lady sitting up in bed in NAD Eyes: No Scleral Icterus Ears/Nose/Mouth/Throat: Mucous Membranes Moist Neck: Trachea Midline Respiratory: Symmetrical Chest Expansion and Respiratory Effort, Clear to Auscultation Cardiovascular: NL Sounds; No Murmurs; No JVD, RRR Abdominal: - - Soft, mild incisional tenderness, NG, NR, BS+, CDI. ERICA drain with sanguinolent drainage Neurological: Alert and Oriented x 3, NL Muscle Strength and Tone Result Diagrams: 10/19/19 06:22 10/19/19 06:31 Assess/Plan/Problems-Billing Assessment: Mrs Jasso is a 39 yo female with PMH of type 1 DM, hypothyroidism, Bipolar disorder, who presented to ED with c/o pleuritic chest pain after a fall, found to be in DKA requiring ICU admission for insulin drip. Patient developed signs of sepsis and was found to have perforated appendicitis with retroperitoneal abscess, now s/p lap abscess drainage and appendectomy on 10/18/19. - Patient Problems (1) Sepsis Comment: - Presentation compatible with sepsis including tachycardia and leukocytosis - Source is appendicitis (2) Perforated appendicitis Comment: - CT abd/pelvis demonstrated a complex 11x5x3 cm fluid and gas collection inseparable from the appendix. - S/p appendectomy. - Continue aztreonam and flagyl; initial blood cultures show no growth and repeat ones are pending. (3) DKA (diabetic ketoacidoses) Comment: - Present on admission secondary to non compliance, now resolved. (4) Diabetes mellitus type 1 Comment: - She was taking long acting insulin 24U QPM, with 6U short acting insulin with each meal and a sliding scale prn short acting insulin; this was the regimen from June 2019 which patient self-discontinued. - Continue Lantus 24 units and Lispro 3 units AC with sliding scale: - glucose 201-250 ... add 2 units - glucose 251-300 ... add 4 units - glucose 301-350 ... add 6 units - glucose >350 ... add 8 units (5) Hypothyroidism Comment: - TSH elevated, likely secondary to non compliance, as Stacy DEAN called her pharmacy and she has not picked it up in a year though she is picking up her other medications - Continue Levothyroxine 175 mcg/day and repeat TFT as outpatient in the next 4- 6 weeks. (6) Depression Comment: - Continue Depakote and Wellbutrin (7) DVT prophylaxis Comment: - Lovenox. (8) Full code status Comment: Status and Disposition: Inpatient
[2019-10-19] MEDS: Enoxaparin(*) 40 MG/0.4 ML SYR SUBCUT SCH (14:50)
[2019-10-19] MEDS: KCL 10 MEQ/50 ML IVPREMIX* 10 MEQ/50 ML BAG IV SCH ×2 (14:51→22:26)
[2019-10-19] MEDS: Acetaminophen TAB* 325 MG PO PRN (15:33)
[2019-10-19] MEDS: Insulin GLARGINE(*) 1 UNITS UNIT SUBCUT SCH (22:52)
[2019-10-20] MEDS: Lactated Ringers 1000 ML Bag* 1,000 ML IV SCH ×2 (00:13→14:01)
[2019-10-20] MEDS: KCL 10 MEQ/50 ML IVPREMIX* 10 MEQ/50 ML BAG IV SCH (03:44)
[2019-10-20] MEDS: Levothyroxine TAB* 175 MCG TAB PO SCH (06:26)
[2019-10-20] MEDS: metroNIDAZOLE IV 500 MG/100ML* 500 MG/100 ML BAG IVPB SCH ×5 (06:38→23:55)
[2019-10-20] MEDS: Aztreonam (*) 2 GM in NS 0.9% 100 ML* 100 ML IV SCH ×3 (06:40→18:30)
[2019-10-20] MEDS ORDERED: Aztreonam (*) 2 GM in NS 0.9% 100 ML* 100 ML IV SCH (08:00)
[2019-10-20] MEDS: Insulin LISPRO* 1 UNITS UNIT SUBCUT SCH ×7 (10:00→21:02)
[2019-10-20] MEDS: Pantoprazole TAB * 40 MG TAB PO SCH (10:04)
[2019-10-20] MEDS: Norethindrone (NF) 0.35 MG TAB PO SCH (10:04)
[2019-10-20] MEDS: BuPROPion XL* 300 MG TAB.XL PO SCH (10:04)
[2019-10-20] MEDS: Divalproex DR TAB(*) 500 MG PO SCH ×2 (10:04→20:52)
[2019-10-20] MEDS: oxyCODONE/Acetamin 5/325 MG* TAB PO PRN ×3 (10:08→21:01)
[2019-10-20] MEDS: Acetaminophen TAB* 325 MG PO PRN (11:14)
--- NOTE | 2019-10-20 13:07 | PN ---
Subjective Date of Service: 10/20/19 Interval History: HOSPITALIST PROGRESS NOTE Patient seen and examined at bedside. Case reviewed and d/w Ashwin Larkin RN. She feels a little better today, still has mild RLQ pain. Had a BM yesterday, tolerating liquid diet well. Family History: Unchanged from Admission Social History: Unchanged from Admission Past Medical History: Unchanged from Admission Objective Active Medications: Bisacodyl (Dulcolax Supp*) 10 mg AL DAILY PRN PRN Reason: severe constipation Bupropion HCl (Bupropion Xl*) 300 mg PO DAILY [facility] Last Admin: 10/20/19 10:04 Dose: 300 mg Dextrose (Dextrose 50% Vial 50 Ml*) 25 ml IV PUSH .FOR FS < 60 - SS PRN PRN Reason: FS < 60 Divalproex Sodium (Depakote Dr Tab(*)) 500 mg PO BID [facility] Last Admin: 10/20/19 10:04 Dose: Not Given Enoxaparin Sodium (Lovenox(*)) 40 mg SUBCUT Q24H [facility] Last Admin: 10/19/19 14:50 Dose: 40 mg Lactated Ringer's (Lactated Ringers 1000 Ml Bag*) 1,000 mls @ 150 mls/hr IV PER RATE [facility] Last Admin: 10/20/19 00:13 Dose: 150 mls/hr Metronidazole/Sodium Chloride (Flagyl 500 Mg Ivpb*) 500 mg in 100 mls @ 100 mls /hr IVPB Q8H [facility] Last Admin: 10/20/19 06:41 Dose: 100 mls/hr Aztreonam 2 gm/ Sodium (Chloride) 100 mls @ 100 mls/hr IV Q8H [facility] Last Admin: 10/20/19 10:05 Dose: 100 mls/hr Ibuprofen (Motrin Tab*) 600 mg PO Q6H PRN PRN Reason: PAIN - MILD Insulin Glargine (Lantus(*)) 24 units SUBCUT BEDTIME [facility] Last Admin: 10/19/19 22:52 Dose: 24 units Insulin Human Lispro (Humalog*) 0 units SUBCUT ACHS [facility]; Protocol Last Admin: 10/20/19 10:00 Dose: Not Given Insulin Human Lispro (Humalog*) 3 units SUBCUT AC [facility] Last Admin: 10/20/19 10:01 Dose: Not Given Levothyroxine Sodium (Synthroid Tab*) 175 mcg PO 0600 [facility] Last Admin: 10/20/19 06:26 Dose: 175 mcg Magnesium Hydroxide (Milk Of Magnesia Liq*) 30 ml PO Q4H PRN PRN Reason: CONSTIPATION Last Admin: 10/19/19 08:19 Dose: 30 ml Morphine Sulfate (Morphine Inj (Syringe))*) 2 mg IV Q2H PRN PRN Reason: pain - breakthrough Norethindrone (Ngoc (Nf)) 0.35 mg PO DAILY [facility] Last Admin: 10/20/19 10:04 Dose: Not Given Ondansetron HCl (Zofran Inj*) 4 mg IV Q6H PRN PRN Reason: NAUSEA Last Admin: 10/16/19 21:21 Dose: 4 mg Oxycodone/Acetaminophen (Percocet 5/325 Tab*) 1 tab PO Q4H PRN PRN Reason: PAIN - MODERATE Last Admin: 10/18/19 20:43 Dose: 1 tab Oxycodone/Acetaminophen (Percocet 5/325 Tab*) 2 tab PO Q4H PRN PRN Reason: PAIN - SEVERE Last Admin: 10/20/19 10:08 Dose: 2 tab Pantoprazole Sodium (Protonix Tab*) 40 mg PO DAILY [facility] Last Admin: 10/20/19 10:04 Dose: 40 mg Polyethylene Glycol/Electrolytes (Miralax*) 17 gm PO DAILY PRN PRN Reason: CONSTIPATION Last Admin: 10/19/19 08:19 Dose: 17 gm Prochlorperazine Edisylate (Compazine Inj*) 5 mg IV Q6H PRN PRN Reason: Nausea/Vomiting breakthrough Vital Signs - 8 hr 10/20/19 10/20/19 10/20/19 06:43 09:01 10:08 Temperature 97.2 F Pulse Rate 108 Respiratory 20 16 18 Rate Blood Pressure 128/76 (mmHg) O2 Sat by Pulse 100 Oximetry 10/20/19 11:38 Temperature 98.2 F Pulse Rate 107 Respiratory 16 Rate Blood Pressure 112/65 (mmHg) O2 Sat by Pulse 100 Oximetry Oxygen Devices in Use Now: None Appearance: Young lady sitting up in bed in NAD Eyes: No Scleral Icterus Ears/Nose/Mouth/Throat: Mucous Membranes Moist Neck: Trachea Midline Respiratory: Symmetrical Chest Expansion and Respiratory Effort, Clear to Auscultation Cardiovascular: RRR - Normal S1 and S2 Abdominal: - - Soft, mild RLQ and incisional tenderness, NG, NR, BS+. ERICA with serosanguinolent drainage Neurological: Alert and Oriented x 3, NL Muscle Strength and Tone Result Diagrams: 10/19/19 06:22 10/19/19 06:31 Assess/Plan/Problems-Billing Assessment: Mrs Jasso is a 39 yo female with PMH of type 1 DM, hypothyroidism, Bipolar disorder, who presented to ED with c/o pleuritic chest pain after a fall, found to be in DKA requiring ICU admission for insulin drip. Patient developed signs of sepsis and was found to have perforated appendicitis with retroperitoneal abscess, now s/p lap abscess drainage and appendectomy on 10/18/19. - Patient Problems (1) Sepsis Comment: - Presentation compatible with sepsis including tachycardia and leukocytosis - Source is appendicitis (2) Perforated appendicitis Comment: - CT abd/pelvis demonstrated a complex 11x5x3 cm fluid and gas collection inseparable from the appendix. - S/p appendectomy. - Continue aztreonam and flagyl; f/u blood cultures show no growth and peritoneal fluid is pending (3) DKA (diabetic ketoacidoses) Comment: - Present on admission secondary to non compliance, now resolved. (4) Diabetes mellitus type 1 Comment: - She was taking long acting insulin 24U QPM, with 6U short acting insulin with each meal and a sliding scale prn short acting insulin; this was the regimen from June 2019 which patient self-discontinued. - Continue Lantus 24 units and Lispro 3 units AC with sliding scale: - glucose 201-250 ... add 2 units - glucose 251-300 ... add 4 units - glucose 301-350 ... add 6 units - glucose >350 ... add 8 units (5) Hypothyroidism Comment: - TSH elevated, likely secondary to non compliance, as Stacy DEAN called her pharmacy and she has not picked it up in a year though she is picking up her other medications - Continue Levothyroxine 175 mcg/day and repeat TFT as outpatient in the next 4- 6 weeks. (6) Depression Comment: - Continue Depakote and Wellbutrin (7) DVT prophylaxis Comment: - Lovenox. (8) Full code status Comment: Status and Disposition: Inpatient
--- NOTE | 2019-10-20 13:39 | PN ---
Progress Note - Progress Note Date of Service: 10/20/19 SOAP: Subjective: NAD C/O Right side abdominal pain + BM + Flatus tolerating fulls Objective: Vital Signs Temp 98.2 F 10/20/19 11:38 Pulse 107 10/20/19 11:38 Resp 18 10/20/19 13:27 BP 112/65 10/20/19 11:38 Pulse Ox 100 10/20/19 11:38 Intake & Output 10/19/19 10/20/19 10/20/19 18:59 06:59 18:59 Intake Total 1770 2083 Output Total 220 30 Balance 1550 205 Intake: IV Fluids 1200 1023 ABX - AZTREONAM 100 ABX - FLAGYL 100 LR 1000 983 potassium 40 IVPB 110 potassium 110 Oral 570 950 Output: JONAH #1 20 30 Urine 0 Brown 200 Other: Estimated Void Medium # Bowel Movements 2 Estimated Stool Amount Large # Voids 1 Microbiology 10/18/19 11:23 Wound Gram Stain - Final 10/18/19 11:23 Wound - Abscess Anaerobic Culture - Preliminary Bacteroides Fragilis 10/18/19 11:23 Wound Wound Culture - Preliminary Streptococcus Constellatus Bacteroides Fragilis Umbilical jonah DRAIN continues with SS leakage, Drain with dark purulent output in container PEX Gen: NAD Chest: CTA CVS: continues with tachycardia Abd: JONAH with SS leakage to dressing, bulb with maroon purulent output Right sided tendernes to palpation, incisions c/d/i Ext: calves soft B/L non tender Assessment: POD 2 S/P Laparoscopic drainage of a retroperitoneal abscess and appendectomy. Tachycardia. Bowel function returning, tolerated fulls [] Plan: ABX and Follow Cx's, advance diet, encouraged deep breathing. IS/SCD's, continue drain until output clears I changed the drain dressing during exam. []
[2019-10-20] MEDS: Enoxaparin(*) 40 MG/0.4 ML SYR SUBCUT SCH (13:57)
[2019-10-20] MEDS: Ibuprofen TAB* 600 MG PO PRN (13:57)
[2019-10-20 19:25] LABS: Hematocrit 27 % (35-47); Hemoglobin 8.8 g/dL (12.0-16.0); Mean Corpuscular HGB Conc 33 g/dL (31-36); Mean Corpuscular Hemoglobin 30 pg (27-31); Mean Corpuscular Volume 92 fL (80-97); Mean Platelet Volume 7.1 fL (7.4-10.4); Platelet Count 370 10^3/uL (150-450); Red Blood Count 2.93 10^6 /uL (3.70-4.87); Red Cell Distribution Width 15 % (10-15); White Blood Count 15.3 10^3/uL (3.5-10.8)
[2019-10-20 19:38] LABS: BUN/Creatinine Ratio 22.2 (8-20); Calcium 7.2 mg/dL (8.6-10.3); EGFR African American 127.3 (>60); EGFR Non-African American 105.2 (>60); Potassium 3.5 mmol/L (3.5-5.0)
[2019-10-20 19:58] LABS: ABS Eosinophils 0.1 10^3/ul (0-0.6); ABS Lymphocytes 1.1 10^3/ul (1.0-4.8); ABS Monocytes 1.3 10^3/ul (0-0.8); ABS Neutrophils 12.8 10^3/ul (1.5-7.7); Eosinophil % 0.5 %; Lymphocyte % 7.4 %
[2019-10-20] MEDS: Insulin GLARGINE(*) 1 UNITS UNIT SUBCUT SCH (21:03)
[2019-10-21] MEDS: Lactated Ringers 1000 ML Bag* 1,000 ML IV SCH (00:03)
[2019-10-21] MEDS: Aztreonam (*) 2 GM in NS 0.9% 100 ML* 100 ML IV SCH ×3 (01:41→17:21)
[2019-10-21] MEDS: Ibuprofen TAB* 600 MG PO PRN ×3 (01:47→23:24)
[2019-10-21] MEDS: oxyCODONE/Acetamin 5/325 MG* TAB PO PRN ×4 (05:08→21:14)
[2019-10-21] MEDS: Levothyroxine TAB* 175 MCG TAB PO SCH (05:08)
[2019-10-21] MEDS: Divalproex DR TAB(*) 500 MG PO SCH ×2 (07:18→21:05)
[2019-10-21] MEDS: Norethindrone (NF) 0.35 MG TAB PO SCH (07:19)
[2019-10-21] MEDS: BuPROPion XL* 300 MG TAB.XL PO SCH (07:47)
[2019-10-21] MEDS: Pantoprazole TAB * 40 MG TAB PO SCH (07:47)
[2019-10-21] MEDS: metroNIDAZOLE IV 500 MG/100ML* 500 MG/100 ML BAG IVPB SCH ×3 (07:47→23:20)
[2019-10-21] MEDS ORDERED: Scopolamine PATCH Remove* 1 NOTE MISC PATCH OFF ONE (09:35)
[2019-10-21] MEDS: Insulin LISPRO* 1 UNITS UNIT SUBCUT SCH ×7 (09:42→20:57)
--- NOTE | 2019-10-21 12:14 | PN ---
Progress Note - Progress Note Date of Service: 10/21/19 Note: Reports RLQ pain which is unchanged from yesterday. Pain is tolerable. She is tolerating regular diet. Having BMs. Has been OOB and walking. LR was saline locked today. Serous fluid draining around the ERICA. Vital Signs - 12 hr Temp Pulse Resp BP Pulse Ox 10/21/19 11:41 16 10/21/19 11:13 97.2 F 91 17 99/54 100 10/21/19 07:35 97.5 F 89 17 101/64 100 10/21/19 07:30 16 10/21/19 07:17 16 10/21/19 05:08 16 10/21/19 03:45 97.8 F 95 16 118/66 98 10/21/19 00:32 97.6 F 99 16 100/66 98 Intake & Output 10/20/19 10/21/19 10/21/19 22:59 06:59 14:59 Intake Total 1000 1127 1505 Output Total 680 305 Balance 6278 597 5376 Intake: IV Fluids 1017 873 LR 1017 873 IVPB 110 322 ABX - FLAGYL 110 LR 322 Oral 1000 310 Output: ERICA #1 30 5 Urine 650 300 Other: Estimated Void Large # Voids 1 General: No acute distress. Looks tired. Abdomen: Soft, tenderness in RLQ, nondistended. Dressing over lower abdomen is clean and dry. Perineal edema. ERICA drain with purulent fluid. Extremities: Moderate pedal edema b/l. Warm Skin: Warm and dry. Neuro: Alert, oriented x3 A&P 39F with appendicitis and abscess s/p lap appy and drain placement POD 3. -Diet as tolerated. -Oxycodone prn for pain. -Continue antibiotics -Appreciate hospitalist management of diabetes.
--- NOTE | 2019-10-21 13:01 | PN ---
Subjective Date of Service: 10/21/19 Interval History: HOSPITALIST PROGRESS NOTE Patient seen and examined at bedside. She offers no new complaints at this time. RLQ pain is unchanged, tolerating diet well with no N/V. Having BMs. Family History: Unchanged from Admission Social History: Unchanged from Admission Past Medical History: Unchanged from Admission Objective Active Medications: Bisacodyl (Dulcolax Supp*) 10 mg ID DAILY PRN PRN Reason: severe constipation Bupropion HCl (Bupropion Xl*) 300 mg PO DAILY [facility] Last Admin: 10/21/19 07:47 Dose: 300 mg Dextrose (Dextrose 50% Vial 50 Ml*) 25 ml IV PUSH .FOR FS < 60 - SS PRN PRN Reason: FS < 60 Divalproex Sodium (Depakote Dr Tab(*)) 500 mg PO BID [facility] Last Admin: 10/21/19 07:18 Dose: Not Given Enoxaparin Sodium (Lovenox(*)) 40 mg SUBCUT Q24H [facility] Last Admin: 10/20/19 13:57 Dose: 40 mg Metronidazole/Sodium Chloride (Flagyl 500 Mg Ivpb*) 500 mg in 100 mls @ 100 mls /hr IVPB Q8H [facility] Last Admin: 10/21/19 07:47 Dose: 100 mls/hr Aztreonam 2 gm/ Sodium (Chloride) 100 mls @ 100 mls/hr IV Q8H [facility] Last Admin: 10/21/19 09:49 Dose: 100 mls/hr Ibuprofen (Motrin Tab*) 600 mg PO Q6H PRN PRN Reason: PAIN - MILD Last Admin: 10/21/19 07:47 Dose: 600 mg Insulin Glargine (Lantus(*)) 24 units SUBCUT BEDTIME [facility] Last Admin: 10/20/19 21:03 Dose: 24 units Insulin Human Lispro (Humalog*) 0 units SUBCUT ACHS [facility]; Protocol Last Admin: 10/21/19 09:44 Dose: Not Given Insulin Human Lispro (Humalog*) 3 units SUBCUT AC [facility] Last Admin: 10/21/19 09:42 Dose: 3 units Levothyroxine Sodium (Synthroid Tab*) 175 mcg PO 0600 [facility] Last Admin: 10/21/19 05:08 Dose: 175 mcg Magnesium Hydroxide (Milk Of Magnesia Liq*) 30 ml PO Q4H PRN PRN Reason: CONSTIPATION Last Admin: 10/19/19 08:19 Dose: 30 ml Morphine Sulfate (Morphine Inj (Syringe))*) 2 mg IV Q2H PRN PRN Reason: pain - breakthrough Norethindrone (Ngoc (Nf)) 0.35 mg PO DAILY [facility] Last Admin: 10/21/19 07:19 Dose: Not Given Ondansetron HCl (Zofran Inj*) 4 mg IV Q6H PRN PRN Reason: NAUSEA Last Admin: 10/16/19 21:21 Dose: 4 mg Oxycodone/Acetaminophen (Percocet 5/325 Tab*) 1 tab PO Q4H PRN PRN Reason: PAIN - MODERATE Last Admin: 10/18/19 20:43 Dose: 1 tab Oxycodone/Acetaminophen (Percocet 5/325 Tab*) 2 tab PO Q4H PRN PRN Reason: PAIN - SEVERE Last Admin: 10/21/19 11:41 Dose: 2 tab Pantoprazole Sodium (Protonix Tab*) 40 mg PO DAILY [facility] Last Admin: 10/21/19 07:47 Dose: 40 mg Polyethylene Glycol/Electrolytes (Miralax*) 17 gm PO DAILY PRN PRN Reason: CONSTIPATION Last Admin: 10/19/19 08:19 Dose: 17 gm Prochlorperazine Edisylate (Compazine Inj*) 5 mg IV Q6H PRN PRN Reason: Nausea/Vomiting breakthrough Vital Signs - 8 hr 10/21/19 10/21/19 10/21/19 05:08 07:17 07:30 Temperature Pulse Rate Respiratory 16 16 16 Rate Blood Pressure (mmHg) O2 Sat by Pulse Oximetry 10/21/19 10/21/19 10/21/19 07:35 11:13 11:41 Temperature 97.5 F 97.2 F Pulse Rate 89 91 Respiratory 17 17 16 Rate Blood Pressure 101/64 99/54 (mmHg) O2 Sat by Pulse 100 100 Oximetry Oxygen Devices in Use Now: None Appearance: Pleasant young lady sitting up in bed in NAD Eyes: No Scleral Icterus Ears/Nose/Mouth/Throat: Mucous Membranes Moist Neck: Trachea Midline Respiratory: Symmetrical Chest Expansion and Respiratory Effort, Clear to Auscultation Cardiovascular: NL Sounds; No Murmurs; No JVD, RRR Abdominal: - - Soft, mild RLQ tenderness, NG, NR, BS+. ERICA with purulent drainage Neurological: Alert and Oriented x 3, NL Muscle Strength and Tone Result Diagrams: 10/20/19 10:29 10/20/19 10:29 Assess/Plan/Problems-Billing Assessment: Mrs Jasso is a 39 yo female with PMH of type 1 DM, hypothyroidism, Bipolar disorder, who presented to ED with c/o pleuritic chest pain after a fall, found to be in DKA requiring ICU admission for insulin drip. Patient developed signs of sepsis and was found to have perforated appendicitis with retroperitoneal abscess, now s/p lap abscess drainage and appendectomy on 10/18/19. - Patient Problems (1) Sepsis Comment: - Presentation compatible with sepsis including tachycardia and leukocytosis - Source is appendicitis (2) Perforated appendicitis Comment: - CT abd/pelvis demonstrated a complex 11x5x3 cm fluid and gas collection inseparable from the appendix. - S/p appendectomy 10/18/2019. - Continue aztreonam and flagyl; f/u blood cultures show no growth, peritoneal fluid grew Strpetococcus constellatus and Bacteroides. (3) DKA (diabetic ketoacidoses) Comment: - Present on admission secondary to non compliance, now resolved. (4) Diabetes mellitus type 1 Comment: - She was taking long acting insulin 24U QPM, with 6U short acting insulin with each meal and a sliding scale prn short acting insulin; this was the regimen from June 2019 which patient self-discontinued. - Continue Lantus 24 units and Lispro 3 units AC with sliding scale: - glucose 201-250 ... add 2 units - glucose 251-300 ... add 4 units - glucose 301-350 ... add 6 units - glucose >350 ... add 8 units (5) Hypothyroidism Comment: - TSH elevated, likely secondary to non compliance, as Stacy DEAN called her pharmacy and she has not picked it up in a year though she is picking up her other medications - Continue Levothyroxine 175 mcg/day and repeat TFT as outpatient in the next 4- 6 weeks. (6) Depression Comment: - Continue Depakote and Bupropion (7) DVT prophylaxis Comment: - Lovenox. (8) Full code status Comment: Status and Disposition: Inpatient
[2019-10-21] MEDS: Enoxaparin(*) 40 MG/0.4 ML SYR SUBCUT SCH (15:10)
[2019-10-21] MEDS: Insulin GLARGINE(*) 1 UNITS UNIT SUBCUT SCH (21:06)
[2019-10-21] MEDS: Ondansetron INJ* 2 MG/ML VIAL IV PRN (21:15)
[2019-10-22] MEDS: Aztreonam (*) 2 GM in NS 0.9% 100 ML* 100 ML IV SCH ×4 (00:43→22:00)
[2019-10-22] MEDS: Levothyroxine TAB* 175 MCG TAB PO SCH (06:13)
[2019-10-22 08:47] LABS: ABS Lymphocytes 0.9 10^3/ul (1.0-4.8); ABS Monocytes 1.4 10^3/ul (0-0.8); ABS Neutrophils 18.7 10^3/ul (1.5-7.7); Eosinophil % 0.1 %; Hematocrit 32 % (35-47); Hemoglobin 10.5 g/dL (12.0-16.0); Lymphocyte % 4.5 %; Mean Corpuscular HGB Conc 33 g/dL (31-36); Mean Corpuscular Hemoglobin 31 pg (27-31); Mean Corpuscular Volume 92 fL (80-97); Mean Platelet Volume 7.1 fL (7.4-10.4); Platelet Count 490 10^3/uL (150-450); Red Blood Count 3.44 10^6 /uL (3.70-4.87); Red Cell Distribution Width 15 % (10-15); White Blood Count 21.1 10^3/uL (3.5-10.8)
[2019-10-22 08:57] LABS: BUN/Creatinine Ratio 28.6 (8-20); Calcium 7.2 mg/dL (8.6-10.3); EGFR African American 145.8 (>60); EGFR Non-African American 120.5 (>60); Potassium 4.1 mmol/L (3.5-5.0)
[2019-10-22] MEDS: Norethindrone (NF) 0.35 MG TAB PO SCH (09:01)
[2019-10-22] MEDS: Divalproex DR TAB(*) 500 MG PO SCH ×2 (09:01→20:52)
[2019-10-22] MEDS: Insulin LISPRO* 1 UNITS UNIT SUBCUT SCH ×7 (09:02→21:11)
[2019-10-22] MEDS: BuPROPion XL* 300 MG TAB.XL PO SCH (09:03)
[2019-10-22] MEDS: Pantoprazole TAB * 40 MG TAB PO SCH (09:03)
[2019-10-22] MEDS: oxyCODONE/Acetamin 5/325 MG* TAB PO PRN ×3 (09:07→22:22)
--- NOTE | 2019-10-22 11:31 | PN ---
Subjective Date of Service: 10/22/19 Interval History: HOSPITALIST PROGRESS NOTE Patient seen and examined at bedside. Care reviewed and d/w Janis Car RN. Her RLQ pain is a little worse today. No BM today, passing flatus. No N/V. Family History: Unchanged from Admission Social History: Unchanged from Admission Past Medical History: Unchanged from Admission Objective Active Medications: Bisacodyl (Dulcolax Supp*) [address] DAILY PRN PRN Reason: severe constipation Bupropion HCl (Bupropion Xl*) 300 mg PO DAILY [facility] Last Admin: 10/22/19 09:03 Dose: 300 mg Dextrose (Dextrose 50% Vial 50 Ml*) 25 ml IV PUSH .FOR FS < 60 - SS PRN PRN Reason: FS < 60 Divalproex Sodium (Depakote Dr Tab(*)) 500 mg PO BID [facility] Last Admin: 10/22/19 09:01 Dose: Not Given Enoxaparin Sodium (Lovenox(*)) 40 mg SUBCUT Q24H [facility] Last Admin: 10/21/19 15:10 Dose: 40 mg Metronidazole/Sodium Chloride (Flagyl 500 Mg Ivpb*) 500 mg in 100 mls @ 100 mls /hr IVPB Q8H [facility] Last Admin: 10/21/19 23:20 Dose: 100 mls/hr Aztreonam 2 gm/ Sodium (Chloride) 100 mls @ 100 mls/hr IV Q8H [facility] Last Admin: 10/22/19 00:43 Dose: 100 mls/hr Ibuprofen (Motrin Tab*) 600 mg PO Q6H PRN PRN Reason: PAIN - MILD Last Admin: 10/21/19 23:24 Dose: 600 mg Insulin Glargine (Lantus(*)) 22 units SUBCUT BEDTIME [facility] Insulin Human Lispro (Humalog*) 0 units SUBCUT ACHS [facility]; Protocol Last Admin: 10/22/19 09:02 Dose: 2 units Insulin Human Lispro (Humalog*) 3 units SUBCUT AC [facility] Last Admin: 10/22/19 09:02 Dose: 3 units Levothyroxine Sodium (Synthroid Tab*) 175 mcg PO 0600 [facility] Last Admin: 10/22/19 06:13 Dose: 175 mcg Magnesium Hydroxide (Milk Of Magnesia Liq*) 30 ml PO Q4H PRN PRN Reason: CONSTIPATION Last Admin: 10/19/19 08:19 Dose: 30 ml Morphine Sulfate (Morphine Inj (Syringe))*) 2 mg IV Q2H PRN PRN Reason: pain - breakthrough Norethindrone (Ngoc (Nf)) 0.35 mg PO DAILY [facility] Last Admin: 10/22/19 09:01 Dose: Not Given Ondansetron HCl (Zofran Inj*) 4 mg IV Q6H PRN PRN Reason: NAUSEA Last Admin: 10/21/19 21:15 Dose: 4 mg Oxycodone/Acetaminophen (Percocet 5/325 Tab*) 1 tab PO Q4H PRN PRN Reason: PAIN - MODERATE Last Admin: 10/18/19 20:43 Dose: 1 tab Oxycodone/Acetaminophen (Percocet 5/325 Tab*) 2 tab PO Q4H PRN PRN Reason: PAIN - SEVERE Last Admin: 10/22/19 09:07 Dose: 2 tab Pantoprazole Sodium (Protonix Tab*) 40 mg PO DAILY [facility] Last Admin: 10/22/19 09:03 Dose: 40 mg Polyethylene Glycol/Electrolytes (Miralax*) 17 gm PO DAILY PRN PRN Reason: CONSTIPATION Last Admin: 10/19/19 08:19 Dose: 17 gm Prochlorperazine Edisylate (Compazine Inj*) 5 mg IV Q6H PRN PRN Reason: Nausea/Vomiting breakthrough Vital Signs - 8 hr 10/22/19 10/22/19 10/22/19 04:10 07:49 07:57 Temperature 97.6 F 95.8 F 97.1 F Pulse Rate 84 75 Respiratory 16 16 Rate Blood Pressure 105/63 102/58 (mmHg) O2 Sat by Pulse 99 100 Oximetry 10/22/19 10/22/19 08:00 09:07 Temperature Pulse Rate Respiratory 18 18 Rate Blood Pressure (mmHg) O2 Sat by Pulse Oximetry Oxygen Devices in Use Now: None Appearance: Pleasant young lady lying in bed in NAD Eyes: No Scleral Icterus Ears/Nose/Mouth/Throat: Mucous Membranes Moist Neck: Trachea Midline Respiratory: Symmetrical Chest Expansion and Respiratory Effort, Clear to Auscultation Cardiovascular: NL Sounds; No Murmurs; No JVD, RRR Abdominal: - - Soft, mild RLQ tenderness, NG, NR, BS+. Dressing is soaked with serous drainage. ERICA has serous drainage with purulent residue Extremities: - - Bilateral LE edema Neurological: Alert and Oriented x 3, NL Muscle Strength and Tone Result Diagrams: 10/22/19 08:21 10/22/19 08:21 Microbiology and Other Data: Microbiology 10/15/19 12:57 Aerobic Blood Culture - Preliminary Blood Venous No Growth Day 2 Anaerobic Blood Culture - Preliminary No Growth Day 2 10/15/19 12:59 Aerobic Blood Culture - Preliminary Blood Venous No Growth Day 2 Anaerobic Blood Culture - Preliminary No Growth Day 2 10/15/19 20:45 Urine Culture - Final Urine No Growth (<1,000 CFU/mL) 10/15/19 14:22 Nasal Screen MRSA (PCR) - Final Nasal Mrsa Not Detected Assess/Plan/Problems-Billing Assessment: Mrs Jasso is a 39 yo female with PMH of type 1 DM, hypothyroidism, Bipolar disorder, who presented to ED with c/o pleuritic chest pain after a fall, found to be in DKA requiring ICU admission for insulin drip. Patient developed signs of sepsis and was found to have perforated appendicitis with retroperitoneal abscess, now s/p lap abscess drainage and appendectomy on 10/18/19. - Patient Problems (1) Sepsis Comment: - Presentation compatible with sepsis including tachycardia and leukocytosis - Source is appendicitis (2) Perforated appendicitis Comment: - CT abd/pelvis demonstrated a complex 11x5x3 cm fluid and gas collection inseparable from the appendix. - S/p appendectomy 10/18/2019. - Continue aztreonam and flagyl; f/u blood cultures show no growth, peritoneal fluid grew Strpetococcus constellatus and Bacteroides. - She's still having considerable drainage through her ERICA, but also serous drainage on her dressing. She has more pain today, WBC is up to 21k. D/w Surgery - suspect she has another collection, or ERICA not connected to collection. Will check CT abd/pelvis. - Unable to get peripheral IV access despite multiple attempts, including with US. General surgery will place central line. (3) DKA (diabetic ketoacidoses) Comment: - Present on admission secondary to non compliance, now resolved. (4) Diabetes mellitus type 1 Comment: - She was taking long acting insulin 24U QPM, with 6U short acting insulin with each meal and a sliding scale prn short acting insulin; this was the regimen from June 2019 which patient self-discontinued. - Her glucose was a little on the low side fasting - will decrease Lantus to 22 units and monitor. (5) Hypothyroidism Comment: - TSH elevated, likely secondary to non compliance, as Stacy DEAN called her pharmacy and she has not picked it up in a year though she is picking up her other medications - Continue Levothyroxine 175 mcg/day and repeat TFT as outpatient in the next 4- 6 weeks. (6) Depression Comment: - Continue Depakote and Bupropion (7) DVT prophylaxis Comment: - Lovenox. (8) Full code status Comment: Status and Disposition: Inpatient
--- NOTE | 2019-10-22 11:35 | PN ---
Progress Note - Progress Note Date of Service: 10/22/19 Note: C/o RLQ abdominal pain which is worse than yesterday. Tolerating diet. Last BM 2 days ago. Afebrile. Lost IV access and has not been able to have another peripheral IV placed despite multiple attempts. Vital Signs - 12 hr Temp Pulse Resp BP Pulse Ox 10/22/19 09:07 18 10/22/19 08:00 18 10/22/19 07:57 97.1 F 10/22/19 07:49 95.8 F 75 16 102/58 100 10/22/19 04:10 97.6 F 84 16 105/63 99 General: NAD, appears uncomfortable. Abdomen: soft, nondistended, tenderness to RLQ. No rebound or guarding. ERICA drain with fibrinous material and serous fluid. Extremities: Pedal edema b/l is improved from yesterday. Warm Skin: Warm and dry. Neuro: Alert, oriented x3 Laboratory Results - last 24 hr 10/22/19 10/22/19 10/22/19 05:53 08:21 08:21 WBC 21.1 H RBC 3.44 L Hgb 10.5 L Hct 32 L MCV 92 MCH 31 MCHC 33 RDW 15 Plt Count 490 H D MPV 7.1 L Neut % (Auto) 88.6 Lymph % (Auto) 4.5 Mcdowell % (Auto) 6.6 Eos % (Auto) 0.1 Baso % (Auto) 0.2 Absolute Neuts (auto) 18.7 H Absolute Lymphs (auto) 0.9 L Absolute Monos (auto) 1.4 H Absolute Eos (auto) 0.0 Absolute Basos (auto) 0.0 Absolute Nucleated RBC 0.0 Nucleated RBC % 0.0 Sodium 134 L Potassium 4.1 Chloride 107 Carbon Dioxide 21 L Anion Gap 6 BUN 16 Creatinine 0.56 Est GFR ( Amer) 145.8 Est GFR (Non-Af Amer) 120.5 BUN/Creatinine Ratio 28.6 H Glucose 199 H POC Glucose (mg/dL) 94 Calcium 7.2 L A&P 39F with acute appendicitis and abscess s/p lap appy and drain placement POD 4. Abdominal pain worse than yesterday and worsening leukocytosis. -Central line placed for IV access. -Continue IV Flagyl and aztreonam. -ERICA to bulb suction -Plan for CT scan with po and IV contrast to evaluate for new abscess. -Hospitalist team following for diabetes management. -DVT ppx: lovenox
--- NOTE | 2019-10-22 11:48 | OP ---
Operative Report - Blank - Operative Report Date of Operation: 10/22/19 Note: PRE-PROCEDURE DX: Acute appendicitis with abscess POST-PROCEDURE DX: Same SURGEON: Alie Mckeon MD PROCEDURE: L subclavian central line placement ANESTHESIA: Local (Lidocaine 1%) EBL: 10 ml INDICATION: Kelsie Jasso was admitted with acute appendicitis with abscess s/p laparoscopic appendectomy and drain placement. She lost IV access and a new peripheral IV could not be placed despite multiple attempts. She requires IV antibiotics. Risks were discussed including but not limited to bleeding, infection, or pneumothorax. She agreed to proceed. DESCRIPTION: The left upper chest and neck were prepped and draped in the usual sterile fashion. A time out confirming the patient's name, date of , and procedure was called. The left subclavian vein was cannulated with the needle. The wire was placed through the needle, and the needle removed. A skin cari was made. The skin tract was dilated. The catheter was placed into the vein using Seldinger technique. The catheter was advanced to 19 cm at the skin. All lumens lamont back blood and were flushed with saline. The line was sutured in place with 3-0 silk. A Biopatch and sterile dressing was placed over the line. Chest xray showed central line in SVC without complication.
[2019-10-22] MEDS: metroNIDAZOLE IV 500 MG/100ML* 500 MG/100 ML BAG IVPB SCH ×3 (11:50→20:33)
[2019-10-22] MEDS: Enoxaparin(*) 40 MG/0.4 ML SYR SUBCUT SCH (13:34)
[2019-10-22] MEDS ORDERED: Iodixanol* (CONTRAST) 320 MG/ML 100 ML SDV IV ONE (15:02)
[2019-10-22] MEDS: Ibuprofen TAB* 600 MG PO PRN (20:32)
[2019-10-22] MEDS ORDERED: Insulin GLARGINE(*) 1 UNITS UNIT SUBCUT SCH (21:00)
[2019-10-22] MEDS: Polyethylene Glycol 3350* 17 GM PACKET PO PRN (21:03)
[2019-10-23] MEDS: metroNIDAZOLE IV 500 MG/100ML* 500 MG/100 ML BAG IVPB SCH ×3 (04:35→20:04)
[2019-10-23] MEDS: oxyCODONE/Acetamin 5/325 MG* TAB PO PRN ×4 (04:49→20:40)
[2019-10-23] MEDS: Levothyroxine TAB* 175 MCG TAB PO SCH (04:50)
[2019-10-23 04:57] LABS: Hematocrit 26 % (35-47); Hemoglobin 8.6 g/dL (12.0-16.0); Mean Corpuscular HGB Conc 33 g/dL (31-36); Mean Corpuscular Hemoglobin 30 pg (27-31); Mean Corpuscular Volume 92 fL (80-97); Mean Platelet Volume 6.7 fL (7.4-10.4); Platelet Count 504 10^3/uL (150-450); Red Blood Count 2.85 10^6 /uL (3.70-4.87); Red Cell Distribution Width 14 % (10-15); White Blood Count 18.4 10^3/uL (3.5-10.8)
[2019-10-23 05:13] LABS: BUN/Creatinine Ratio 20.3 (8-20); Calcium 7.2 mg/dL (8.6-10.3); EGFR African American 105.7 (>60); EGFR Non-African American 87.4 (>60); Potassium 3.9 mmol/L (3.5-5.0)
[2019-10-23 05:20] LABS: ABS Lymphocytes 1.6 10^3/ul (1.0-4.8); ABS Monocytes 1.4 10^3/ul (0-0.8); ABS Neutrophils 15.3 10^3/ul (1.5-7.7); Eosinophil % 0.3 %; Lymphocyte % 8.6 %
[2019-10-23] MEDS: Aztreonam (*) 2 GM in NS 0.9% 100 ML* 100 ML IV SCH ×2 (05:45→15:25)
[2019-10-23] MEDS: Pantoprazole TAB * 40 MG TAB PO SCH (08:33)
[2019-10-23] MEDS: BuPROPion XL* 300 MG TAB.XL PO SCH (08:33)
[2019-10-23] MEDS: Ibuprofen TAB* 600 MG PO PRN ×2 (08:34→18:24)
--- NOTE | 2019-10-23 09:51 | PN ---
Progress Note - Progress Note Date of Service: 10/23/19 SOAP: Subjective: NAD still c/o left abdominal pain + BM Yesterday [] Objective: Vital Signs Temp 98.8 F 10/23/19 07:40 Pulse 94 10/23/19 07:40 Resp 16 10/23/19 07:40 BP 105/63 10/23/19 07:40 Pulse Ox 99 10/23/19 07:40 Intake & Output 10/22/19 10/23/19 10/23/19 18:59 06:59 18:59 Intake Total 110 1450 Output Total 1295 1030 Balance -1185 420 Intake: IV Fluids 10 50 NS 10 50 IVPB 100 400 ABX - AZTREONAM 200 ABX - FLAGYL 100 200 Oral 1000 Output: ERICA #1 95 130 Urine 1200 900 Laboratory Tests 10/20/19 10/22/19 10/22/19 10:29 08:21 08:21 WBC 15.3 H 21.1 H Plt Count 370 490 H D BUN/Creatinine Ratio 28.6 H 10/23/19 10/23/19 04:30 04:30 WBC 18.4 H Plt Count 504 H BUN/Creatinine Ratio 20.3 H PEX Gen: NAD Chest: CTA CVS: RRR Abd: Right sided tenderness to palpation, ERICA now with serous output Ext: + edema, calves soft non tender [] Assessment: POD 5 S/P Lap Drainage of retroperitoneal abscess/appy with cont ^ WBC today 18.4(21.1). Ct suggests ERICA not draining the collection [] Plan: NPO now. IR for perc drainage of abscess/collection IS, deep breathing encouraged OOB, ambulate Above d/w Dr Tavera []
[2019-10-23] MEDS: Divalproex DR TAB(*) 500 MG PO SCH ×2 (09:52→21:40)
[2019-10-23] MEDS: Norethindrone (NF) 0.35 MG TAB PO SCH (09:52)
[2019-10-23] MEDS: Insulin LISPRO* 1 UNITS UNIT SUBCUT SCH ×7 (09:52→20:35)
[2019-10-23] MEDS ORDERED: Ciprofloxacin 400MG IVPREMIX(* 400 MG/200 ML BAG IVPB SCH (14:00)
[2019-10-23] MEDS: Enoxaparin(*) 40 MG/0.4 ML SYR SUBCUT SCH (15:44)
[2019-10-23] MEDS: Levofloxacin 750 MG IVPREMIX(* 750 MG/150 ML BAG IVPB SCH (15:45)
--- NOTE | 2019-10-23 19:46 | PN ---
Subjective Date of Service: 10/23/19 Interval History: Patient continues to report right sided abd pain. Denies chest pain or shortness of breath. Denies fever or chills. Denies n/v/d. Patient with purulent drainage from left abd drain. no fever or chills overnight WBC's 18.4 today trending down. Family History: Unchanged from Admission Social History: Unchanged from Admission Past Medical History: Unchanged from Admission Objective Active Medications: Bisacodyl (Dulcolax Supp*) 10 mg MT DAILY PRN PRN Reason: severe constipation Bupropion HCl (Bupropion Xl*) 300 mg PO DAILY [facility] Last Admin: 10/23/19 08:33 Dose: 300 mg Dextrose (Dextrose 50% Vial 50 Ml*) 25 ml IV PUSH .FOR FS < 60 - SS PRN PRN Reason: FS < 60 Divalproex Sodium (Depakote Dr Tab(*)) 500 mg PO BID [facility] Last Admin: 10/23/19 09:52 Dose: Not Given Enoxaparin Sodium (Lovenox(*)) 40 mg SUBCUT Q24H [facility] Last Admin: 10/23/19 15:44 Dose: 40 mg Heparin Sodium (Porcine) (Heparin Flush Picc/Ml/Cvc(*)) 1 - 3 ml FLUSH 0600, 1800 [facility]; Protocol Last Admin: 10/23/19 18:35 Dose: 1 ml Metronidazole/Sodium Chloride (Flagyl 500 Mg Ivpb*) 500 mg in 100 mls @ 100 mls /hr IVPB 0400,1200,2000 [facility] Last Admin: 10/23/19 13:00 Dose: 100 mls/hr Levofloxacin/Dextrose (Levaquin 750 Mg Ivpremix(*)) 750 mg in 150 mls @ 100 mls /hr IVPB Q24H [facility]; Protocol Last Admin: 10/23/19 15:45 Dose: 100 mls/hr Ibuprofen (Motrin Tab*) 600 mg PO Q6H PRN PRN Reason: PAIN - MILD Last Admin: 10/23/19 18:24 Dose: 600 mg Insulin Glargine (Lantus(*)) 22 units SUBCUT BEDTIME [facility] Last Admin: 10/22/19 21:01 Dose: 22 units Insulin Human Lispro (Humalog*) 0 units SUBCUT ACHS [facility]; Protocol Last Admin: 10/23/19 17:55 Dose: Not Given Insulin Human Lispro (Humalog*) 3 units SUBCUT [facility] Last Admin: 10/23/19 17:55 Dose: Not Given Levothyroxine Sodium (Synthroid Tab*) 175 mcg PO 0600 [facility] Last Admin: 10/23/19 04:50 Dose: 175 mcg Magnesium Hydroxide (Milk Of Magnesia Liq*) 30 ml PO Q4H PRN PRN Reason: CONSTIPATION Last Admin: 10/19/19 08:19 Dose: 30 ml Morphine Sulfate (Morphine Inj (Syringe))*) 2 mg IV Q2H PRN PRN Reason: pain - breakthrough Norethindrone (Ngoc (Nf)) 0.35 mg PO DAILY [facility] Last Admin: 10/23/19 09:52 Dose: Not Given Ondansetron HCl (Zofran Inj*) 4 mg IV Q6H PRN PRN Reason: NAUSEA Last Admin: 10/21/19 21:15 Dose: 4 mg Oxycodone/Acetaminophen (Percocet 5/325 Tab*) 1 tab PO Q4H PRN PRN Reason: PAIN - MODERATE Last Admin: 10/18/19 20:43 Dose: 1 tab Oxycodone/Acetaminophen (Percocet 5/325 Tab*) 2 tab PO Q4H PRN PRN Reason: PAIN - SEVERE Last Admin: 10/23/19 15:46 Dose: 2 tab Pantoprazole Sodium (Protonix Tab*) 40 mg PO DAILY [facility] Last Admin: 10/23/19 08:33 Dose: 40 mg Polyethylene Glycol/Electrolytes (Miralax*) 17 gm PO DAILY PRN PRN Reason: CONSTIPATION Last Admin: 10/22/19 21:03 Dose: 17 gm Prochlorperazine Edisylate (Compazine Inj*) 5 mg IV Q6H PRN PRN Reason: Nausea/Vomiting breakthrough Vital Signs - 8 hr 10/23/19 10/23/19 10/23/19 11:37 11:44 15:23 Temperature 98.8 F Pulse Rate 99 Respiratory 18 16 18 Rate Blood Pressure 101/57 (mmHg) O2 Sat by Pulse 100 Oximetry 10/23/19 10/23/19 10/23/19 15:30 15:46 17:56 Temperature 98 F Pulse Rate 105 Respiratory 16 18 18 Rate Blood Pressure 106/55 (mmHg) O2 Sat by Pulse 99 Oximetry Oxygen Devices in Use Now: None Appearance: alert, oriented x 3 , no acute distress Eyes: No Scleral Icterus Ears/Nose/Mouth/Throat: Clear Oropharnyx, Mucous Membranes Moist Neck: NL Appearance and Movements; NL JVP, Trachea Midline Respiratory: Symmetrical Chest Expansion and Respiratory Effort, Clear to Auscultation Cardiovascular: NL Sounds; No Murmurs; No JVD, No Edema Abdominal: - - tenderness to right abd, soft, bs active x 4 Extremities: No Edema, No Clubbing, Cyanosis Skin: No Rash or Ulcers Neurological: Alert and Oriented x 3 Nutrition: Taking PO's Result Diagrams: 10/23/19 04:30 10/23/19 04:30 Microbiology and Other Data: Microbiology 10/15/19 12:57 Aerobic Blood Culture - Preliminary Blood Venous No Growth Day 2 Anaerobic Blood Culture - Preliminary No Growth Day 2 10/15/19 12:59 Aerobic Blood Culture - Preliminary Blood Venous No Growth Day 2 Anaerobic Blood Culture - Preliminary No Growth Day 2 10/15/19 20:45 Urine Culture - Final Urine No Growth (<1,000 CFU/mL) 10/15/19 14:22 Nasal Screen MRSA (PCR) - Final Nasal Mrsa Not Detected Assess/Plan/Problems-Billing Assessment: Mrs Jasso is a 39 yo female with PMH of type 1 DM, hypothyroidism, Bipolar disorder, who presented to ED with c/o pleuritic chest pain after a fall, found to be in DKA requiring ICU admission for insulin drip. Patient developed signs of sepsis and was found to have perforated appendicitis with retroperitoneal abscess, now s/p lap abscess drainage and appendectomy on 10/18/19. - Patient Problems (1) Perforated appendicitis Current Visit: Yes Status: Acute Code(s): K35.32 - ACUTE APPENDICITIS WITH PERF AND LOC PERITONITIS, W/O ABSCS SNOMED Code(s): 29063624 Comment: management per surgery - CT abd/pelvis demonstrated a complex 11x5x3 cm fluid and gas collection inseparable from the appendix. - S/p appendectomy 10/18/2019. - continue flagyl; f/u blood cultures show no growth, peritoneal fluid grew Strpetococcus constellatus and Bacteroides.- aztreonam d/c'd and started on levaquin for gram positive coverage - ID consulted - She's still having considerable drainage through her ERICA, but also serous drainage on her dressing. She has more pain today, WBC trending down 18.4k. D/w Surgery - suspect she has another collection, or ERICA not connected to collection. -CT abd/pelvis- Per surgery suspect drain not in correct position to drain abscess- will have ultrasound guided drain placement tomorrow - central line in place (2) Sepsis Current Visit: Yes Status: Acute Comment: - Presentation compatible with sepsis including tachycardia and leukocytosis - Source is appendicitis - continue levaquin and flagyl (3) DKA (diabetic ketoacidoses) Current Visit: Yes Status: Acute Code(s): E11.10 - TYPE 2 DIABETES MELLITUS WITH KETOACIDOSIS WITHOUT COMA SNOMED Code(s): 167040099 Comment: - Present on admission secondary to non compliance, now resolved. (4) Depression Current Visit: Yes Status: Acute Code(s): F32.9 - MAJOR DEPRESSIVE DISORDER , SINGLE EPISODE, UNSPECIFIED SNOMED Code(s): 67307926 Comment: - Continue Depakote and Bupropion - patient is refusing depakote (5) Diabetes mellitus type 1 Current Visit: Yes Status: Acute Comment: - She was taking long acting insulin 24U QPM, with 6U short acting insulin with each meal and a sliding scale prn short acting insulin; this was the regimen from June 2019 which patient self-discontinued. - Her glucose today 108-189 - will decrease Lantus to 18 units and monitor. - continue 3 units with meals and sliding scale (6) Hypothyroidism Current Visit: Yes Status: Acute Code(s): E03.9 - HYPOTHYROIDISM, UNSPECIFIED SNOMED Code(s): 92657533 Comment: - TSH elevated, likely secondary to non compliance, as Stacy DEAN called her pharmacy and she has not picked it up in a year though she is picking up her other medications - Continue Levothyroxine 175 mcg/day and repeat TFT as outpatient in the next 4- 6 weeks. (7) DVT prophylaxis Current Visit: Yes Status: Acute Code(s): Z29.9 - ENCOUNTER FOR PROPHYLACTIC MEASURES, UNSPECIFIED SNOMED Code(s): 331639435 Comment: - Lovenox. (8) Full code status Current Visit: Yes Status: Acute Code(s): Z78.9 - OTHER SPECIFIED HEALTH STATUS SNOMED Code(s): 086636404 Comment: Status and Disposition: Inpatient
[2019-10-23] MEDS ORDERED: Insulin GLARGINE(*) 1 UNITS UNIT SUBCUT SCH (21:00)
[2019-10-24] MEDS: Ibuprofen TAB* 600 MG PO PRN ×2 (02:44→22:27)
[2019-10-24] MEDS: metroNIDAZOLE IV 500 MG/100ML* 500 MG/100 ML BAG IVPB SCH ×3 (03:59→20:29)
[2019-10-24] MEDS: Levothyroxine TAB* 175 MCG TAB PO SCH (05:41)
[2019-10-24] MEDS: oxyCODONE/Acetamin 5/325 MG* TAB PO PRN ×3 (05:41→20:26)
[2019-10-24 06:04] LABS: Hematocrit 25 % (35-47); Hemoglobin 8.4 g/dL (12.0-16.0); Mean Corpuscular HGB Conc 34 g/dL (31-36); Mean Corpuscular Hemoglobin 30 pg (27-31); Mean Corpuscular Volume 91 fL (80-97); Mean Platelet Volume 6.5 fL (7.4-10.4); Platelet Count 522 10^3/uL (150-450); Red Blood Count 2.75 10^6 /uL (3.70-4.87); Red Cell Distribution Width 14 % (10-15); White Blood Count 16.3 10^3/uL (3.5-10.8)
[2019-10-24 06:11] LABS: BUN/Creatinine Ratio 18.3 (8-20); Calcium 7.4 mg/dL (8.6-10.3); EGFR African American 134.7 (>60); EGFR Non-African American 111.3 (>60); Potassium 4.2 mmol/L (3.5-5.0)
[2019-10-24 07:31] LABS: ABS Lymphocytes 1.2 10^3/ul (1.0-4.8); ABS Monocytes 1.2 10^3/ul (0-0.8); ABS Neutrophils 13.9 10^3/ul (1.5-7.7); Eosinophil % 0.1 %; Lymphocyte % 7.2 %
[2019-10-24 08:32] LABS: C Reactive Protein 121.28 mg/L (<8.01)
[2019-10-24] MEDS: Insulin LISPRO* 1 UNITS UNIT SUBCUT SCH ×7 (08:33→21:16)
[2019-10-24] MEDS: Morphine INJ* 2 MG/ML 1 ML SYRINGE (TWO MG - NEW SYRINGE VERSION) IV PRN ×2 (08:44→23:26)
[2019-10-24 09:45] LABS: INR 1.37 (0.82-1.09)
[2019-10-24] MEDS ORDERED: fentaNYL* 50 MCG/ML 2 ML VIAL (100 MCG VIAL) ONE (10:51)
--- NOTE | 2019-10-24 11:01 | PN ---
Progress Note - Progress Note Date of Service: 10/24/19 SOAP: Subjective: NAD Still c/o right abdominl pain Objective: Vital Signs Temp 97.9 F 10/24/19 10:11 Pulse 91 10/24/19 10:11 Resp 16 10/24/19 10:11 BP 99/59 10/24/19 10:11 Pulse Ox 96 10/24/19 10:11 Intake & Output 10/23/19 10/24/19 10/24/19 18:59 06:59 18:59 Intake Total 480 1069 Output Total 800 1140 Balance -320 -71 Weight 140 lb Intake: IV Fluids 480 209 ABX - AZTREONAM 110 ABX - FLAGYL 110 209 ABX - LEVOFLOXACIN 260 Oral 0 500 NG Tube Irrigate Amount 360 Output: ERICA #1 40 Urine 800 1100 Other: Date of Last Bowel 10/23/19 Movement # Bowel Movements 2 Estimated Stool Amount Large Small PEX GEN: NAD Chest:CTA CVS: RRR Abd: Right side tender to mild palpation ERICA with serous output and fibrinous exudate EXT: + B/L edema calves soft non tender [] Assessment: 39 yo female S/P Lap drainage of retroperitoneal abscess and Appy with continued leukocytosis [] Plan: US guided drainage of abdominal collection/abscess today. Daily labs. Aztreonam was changed to Levaquin 10/23/19 []
[2019-10-24] MEDS: Divalproex DR TAB(*) 500 MG PO SCH ×2 (13:06→20:30)
[2019-10-24] MEDS: Norethindrone (NF) 0.35 MG TAB PO SCH (13:07)
[2019-10-24] MEDS: BuPROPion XL* 300 MG TAB.XL PO SCH (13:08)
[2019-10-24] MEDS: Pantoprazole TAB * 40 MG TAB PO SCH (13:08)
[2019-10-24] MEDS: Enoxaparin(*) 40 MG/0.4 ML SYR SUBCUT SCH (14:00)
[2019-10-24] MEDS: Levofloxacin 750 MG IVPREMIX(* 750 MG/150 ML BAG IVPB SCH (16:21)
--- NOTE | 2019-10-24 19:00 | CONS ---
CONSULTATION REPORT: DATE OF CONSULT: 10/24/19 REQUESTING PHYSICIAN: Dr. Tavera. CONSULTING SERVICE: Infectious Disease. REASON FOR CONSULT: Leukocytosis. IMPRESSION: 1. Perforated appendicitis with abscess, treated with laparoscopic appendectomy , washout of abscess on 10/18/19. Cultures then grew Streptococcus constellatus and bacteroides. Blood cultures were negative. Her white count initially was around 15,000 up to 21,000 on 10/22/19. She was afebrile during that time, but had repeat imaging because of worsening leukocytosis that showed the existing drain and a small abscess collection in retroperitoneum. She had a drain placed this morning. Her antibiotics were changed to Levaquin yesterday. White count is down to 16,000. She is comfortable. 2. Insulin dependent diabetes mellitus. Has been off insulin for about the last 3 to 4 months intermittently. 3. PENICILLIN allergy caused anaphylaxis about 30 years ago. RECOMMENDATIONS: Continue Levaquin and metronidazole and we will follow her drain output and white count. Overall, she seems to be heading in the right direction. HISTORY OF PRESENT ILLNESS: This is a 39-year-old woman with a PENICILLIN allergy, admitted with right chest pain and shortness of breath after a fall. Her evaluation here led to imaging of the abdomen that showed a right lower quadrant abscess. Dr. Tavera took her to the OR for appendectomy and washout of right lower quadrant abscess, which she tolerated well. White count at admission was 12,000 up to 15,000 on 10/20/19, [id number] on 10/22/19. She was initially on aztreonam and Flagyl. Her white count was down to 18,000 yesterday. She was switched to Levaquin. I discussed the case with Dr. Tavera at that time and her white count today is 16,000. She has remained afebrile, fairly comfortable. She had another drain placed today by Interventional Radiology in a collection that was apparently not communicating with her existing drain. She has not had an infection requiring hospitalization in the past. PAST MEDICAL HISTORY: 1. Insulin-dependent diabetes mellitus. 2. Hypothyroidism. 3. Bipolar disorder. 4. Status post cholecystectomy. 5. History of ovarian cyst removal. ALLERGIES: PENICILLIN caused throat swelling, anaphylaxis. MEDICATIONS: 1. Bisacodyl as needed. 2. Bupropion. 3. Depakote. 4. Enoxaparin. 5. Ibuprofen as needed. 6. Insulin glargine. 7. Insulin lispro. 8. Levaquin 750 mg IV daily. 9. Levothyroxine. 10. Flagyl 500 mg IV every 8 hours. 11. Norethindrone. 12. Oxycodone. 13. Acetaminophen. 14. Pantoprazole. 15. Prochlorperazine. SOCIAL HISTORY: She lives in [place] with her family. She drinks alcohol occasionally. Past tobacco use. No injection drugs. FAMILY HISTORY: Mother had heart disease and hypertension. Father had diabetes. REVIEW OF SYSTEMS: All negative except as noted above to a 14-point review. PHYSICAL EXAM: Vital Signs: Temperature is 37, heart rate 100, respiratory rate 17, blood pressure 103/57, oxygen saturation 96% on room air. In general, she is awake, not in distress. Neurologic: She is oriented x3. Follows all commands. HEENT: There is no conjunctival hemorrhage. Oropharynx without lesions. Neck is supple without mass. Heart is regular and tachycardic without murmurs. Lungs are clear to auscultation bilaterally. Abdomen: Soft. There are 2 drains present with some serous fluid present. There are bowel sounds present. Skin: There is no rash or splinter hemorrhage. Musculoskeletal: There is no spine tenderness to palpation. LABORATORY DATA: White blood cell count 16, hemoglobin 8, platelets 522. Creatinine is 0.6. CRP 121, it was 240 on the 10/15/19. Please see impressions and recommendations outlined above. Thanks for asking me to see Ms. Niesha Jasso in consultation. [id number]/[facility] #: [id number] [facility] HOSPITALSanjuana
--- NOTE | 2019-10-24 19:36 | PN ---
Subjective Date of Service: 10/24/19 Interval History: Patient reports that pain on right side is improving. Denies n/v/d. Denies black stools. Denies chest pain or shortness of breath. Denies fever or chills overnight. Patient to IR for drain placement today. Family History: Unchanged from Admission Social History: Unchanged from Admission Past Medical History: Unchanged from Admission Objective Active Medications: Bisacodyl (Dulcolax Supp*) 10 mg ND DAILY PRN PRN Reason: severe constipation Bupropion HCl (Bupropion Xl*) 300 mg PO DAILY [facility] Last Admin: 10/24/19 13:08 Dose: 300 mg Dextrose (Dextrose 50% Vial 50 Ml*) 25 ml IV PUSH .FOR FS < 60 - SS PRN PRN Reason: FS < 60 Divalproex Sodium (Depakote Dr Tab(*)) 500 mg PO BID [facility] Last Admin: 10/24/19 13:06 Dose: Not Given Enoxaparin Sodium (Lovenox(*)) 40 mg SUBCUT Q24H [facility] Last Admin: 10/24/19 14:00 Dose: 40 mg Heparin Sodium (Porcine) (Heparin Flush Picc/Ml/Cvc(*)) 1 - 3 ml FLUSH 0600, 1800 [facility]; Protocol Last Admin: 10/24/19 18:24 Dose: 3 ml Metronidazole/Sodium Chloride (Flagyl 500 Mg Ivpb*) 500 mg in 100 mls @ 100 mls /hr IVPB 0400,1200,2000 [facility] Last Admin: 10/24/19 13:08 Dose: 100 mls/hr Levofloxacin/Dextrose (Levaquin 750 Mg Ivpremix(*)) 750 mg in 150 mls @ 100 mls /hr IVPB Q24H [facility]; Protocol Last Admin: 10/24/19 16:21 Dose: 100 mls/hr Ibuprofen (Motrin Tab*) 600 mg PO Q6H PRN PRN Reason: PAIN - MILD Last Admin: 10/24/19 02:44 Dose: 600 mg Insulin Glargine (Lantus(*)) 15 units SUBCUT BEDTIME [facility] Insulin Human Lispro (Humalog*) 0 units SUBCUT ACHS [facility]; Protocol Last Admin: 10/24/19 18:24 Dose: 2 units Insulin Human Lispro (Humalog*) 3 units SUBCUT AC [facility] Last Admin: 10/24/19 18:24 Dose: 3 units Levothyroxine Sodium (Synthroid Tab*) 175 mcg PO 0600 [facility] Last Admin: 10/24/19 05:41 Dose: 175 mcg Magnesium Hydroxide (Milk Of Magnesia Liq*) 30 ml PO Q4H PRN PRN Reason: CONSTIPATION Last Admin: 10/19/19 08:19 Dose: 30 ml Morphine Sulfate (Morphine Inj (Syringe))*) 2 mg IV Q2H PRN PRN Reason: pain - breakthrough Last Admin: 10/24/19 08:44 Dose: 2 mg Norethindrone (Ngoc (Nf)) 0.35 mg PO DAILY [facility] Last Admin: 10/24/19 13:07 Dose: Not Given Ondansetron HCl (Zofran Inj*) 4 mg IV Q6H PRN PRN Reason: NAUSEA Last Admin: 10/21/19 21:15 Dose: 4 mg Oxycodone/Acetaminophen (Percocet 5/325 Tab*) 1 tab PO Q4H PRN PRN Reason: PAIN - MODERATE Last Admin: 10/18/19 20:43 Dose: 1 tab Oxycodone/Acetaminophen (Percocet 5/325 Tab*) 2 tab PO Q4H PRN PRN Reason: PAIN - SEVERE Last Admin: 10/24/19 13:07 Dose: 2 tab Pantoprazole Sodium (Protonix Tab*) 40 mg PO DAILY [facility] Last Admin: 10/24/19 13:08 Dose: 40 mg Polyethylene Glycol/Electrolytes (Miralax*) 17 gm PO DAILY PRN PRN Reason: CONSTIPATION Last Admin: 10/22/19 21:03 Dose: 17 gm Prochlorperazine Edisylate (Compazine Inj*) 5 mg IV Q6H PRN PRN Reason: Nausea/Vomiting breakthrough Vital Signs - 8 hr 10/24/19 10/24/19 10/24/19 12:38 12:42 13:07 Temperature 98.2 F Pulse Rate 95 Respiratory 16 16 16 Rate Blood Pressure 106/58 (mmHg) O2 Sat by Pulse 97 Oximetry 10/24/19 10/24/19 15:10 15:22 Temperature 98.0 F Pulse Rate 105 Respiratory 16 17 Rate Blood Pressure 103/57 (mmHg) O2 Sat by Pulse 96 Oximetry Oxygen Devices in Use Now: None Eyes: No Scleral Icterus Ears/Nose/Mouth/Throat: Clear Oropharnyx, Mucous Membranes Moist Neck: NL Appearance and Movements; NL JVP, Trachea Midline Respiratory: Symmetrical Chest Expansion and Respiratory Effort, Clear to Auscultation Cardiovascular: NL Sounds; No Murmurs; No JVD, No Edema Abdominal: - - BS acitve x 4 , mild generalized pain, drains with small amt of serous drainage Extremities: No Clubbing, Cyanosis, - - lower ext edema Skin: No Rash or Ulcers, - - ERICA drain with serious drainage Neurological: Alert and Oriented x 3 Nutrition: Taking PO's Result Diagrams: 10/25/19 05:40 10/25/19 05:40 Microbiology and Other Data: Microbiology 10/15/19 12:57 Aerobic Blood Culture - Preliminary Blood Venous No Growth Day 2 Anaerobic Blood Culture - Preliminary No Growth Day 2 10/15/19 12:59 Aerobic Blood Culture - Preliminary Blood Venous No Growth Day 2 Anaerobic Blood Culture - Preliminary No Growth Day 2 10/15/19 20:45 Urine Culture - Final Urine No Growth (<1,000 CFU/mL) 10/15/19 14:22 Nasal Screen MRSA (PCR) - Final Nasal Mrsa Not Detected Assess/Plan/Problems-Billing Assessment: Mrs Jasso is a 39 yo female with PMH of type 1 DM, hypothyroidism, Bipolar disorder, who presented to ED with c/o pleuritic chest pain after a fall, found to be in DKA requiring ICU admission for insulin drip. Patient developed signs of sepsis and was found to have perforated appendicitis with retroperitoneal abscess, now s/p lap abscess drainage and appendectomy on 10/18/19. - Patient Problems (1) Perforated appendicitis Current Visit: Yes Status: Acute Code(s): K35.32 - ACUTE APPENDICITIS WITH PERF AND LOC PERITONITIS, W/O ABSCS SNOMED Code(s): 24525123 Comment: management per surgery - CT abd/pelvis demonstrated a complex 11x5x3 cm fluid and gas collection inseparable from the appendix. - S/p appendectomy 10/18/2019. - continue flagyl; f/u blood cultures show no growth, peritoneal fluid grew Strpetococcus constellatus and Bacteroides.- aztreonam d/c'd and started on levaquin for gram positive coverage - ID consulted- recommended levaquin and flagyl - continue antibiotics until drains are removed. - drainage through her ERICA serous, but also serous drainage on her dressing. - WBC trending down 11k. -CT abd/pelvis- Per surgery suspect drain not in correct position to drain abscess-drain placed in IR yesterday - central line in place (2) Sepsis Current Visit: Yes Status: Acute Comment: - Presentation compatible with sepsis including tachycardia and leukocytosis - Source is appendicitis - continue levaquin and flagyl (3) DKA (diabetic ketoacidoses) Current Visit: Yes Status: Acute Code(s): E11.10 - TYPE 2 DIABETES MELLITUS WITH KETOACIDOSIS WITHOUT COMA SNOMED Code(s): 631603875 Comment: - Present on admission secondary to non compliance, now resolved. (4) Depression Current Visit: Yes Status: Acute Code(s): F32.9 - MAJOR DEPRESSIVE DISORDER , SINGLE EPISODE, UNSPECIFIED SNOMED Code(s): 70550481 Comment: - Continue Depakote and Bupropion - patient is refusing depakote (5) Diabetes mellitus type 1 Current Visit: Yes Status: Acute Comment: - She was taking long acting insulin 24U QPM, with 6U short acting insulin with each meal and a sliding scale prn short acting insulin; this was the regimen from June 2019 which patient self-discontinued. - Her glucose today 79-210- will decrease Lantus to 15 units and monitor. - continue 3 units with meals and sliding scale- hold for blood sugar less than 100 (6) Hypothyroidism Current Visit: Yes Status: Acute Code(s): E03.9 - HYPOTHYROIDISM, UNSPECIFIED SNOMED Code(s): 40790772 Comment: - TSH elevated, likely secondary to non compliance, as Stacy DEAN called her pharmacy and she has not picked it up in a year though she is picking up her other medications - Continue Levothyroxine 175 mcg/day and repeat TFT as outpatient in the next 4- 6 weeks. (7) DVT prophylaxis Current Visit: Yes Status: Acute Code(s): Z29.9 - ENCOUNTER FOR PROPHYLACTIC MEASURES, UNSPECIFIED SNOMED Code(s): 767600979 Comment: - Lovenox. (8) Full code status Current Visit: Yes Status: Acute Code(s): Z78.9 - OTHER SPECIFIED HEALTH STATUS SNOMED Code(s): 984725000 Comment: Status and Disposition: Inpatient
[2019-10-24] MEDS ORDERED: Insulin GLARGINE(*) 1 UNITS UNIT SUBCUT SCH (21:00)
[2019-10-24] MEDS: Insulin GLARGINE(*) 1 UNITS UNIT SUBCUT SCH (22:01)
[2019-10-25] MEDS: oxyCODONE/Acetamin 5/325 MG* TAB PO PRN ×4 (04:21→23:38)
[2019-10-25] MEDS: metroNIDAZOLE IV 500 MG/100ML* 500 MG/100 ML BAG IVPB SCH ×3 (04:21→21:06)
[2019-10-25] MEDS: Levothyroxine TAB* 175 MCG TAB PO SCH (05:54)
[2019-10-25 05:58] LABS: ABS Lymphocytes 1.5 10^3/ul (1.0-4.8); ABS Monocytes 1.1 10^3/ul (0-0.8); ABS Neutrophils 9.3 10^3/ul (1.5-7.7); Eosinophil % 0.2 %; Hematocrit 23 % (35-47); Hemoglobin 7.7 g/dL (12.0-16.0); Lymphocyte % 12.4 %; Mean Corpuscular HGB Conc 34 g/dL (31-36); Mean Corpuscular Hemoglobin 31 pg (27-31); Mean Corpuscular Volume 91 fL (80-97); Mean Platelet Volume 6.2 fL (7.4-10.4); Platelet Count 481 10^3/uL (150-450); Red Cell Distribution Width 15 % (10-15); White Blood Count 11.9 10^3/uL (3.5-10.8)
[2019-10-25 06:17] LABS: BUN/Creatinine Ratio 14.5 (8-20); Calcium 7.4 mg/dL (8.6-10.3); EGFR African American 129.7 (>60); EGFR Non-African American 107.2 (>60); Potassium 4.3 mmol/L (3.5-5.0)
[2019-10-25] MEDS: Norethindrone (NF) 0.35 MG TAB PO SCH (08:41)
[2019-10-25] MEDS: Divalproex DR TAB(*) 500 MG PO SCH ×2 (08:41→21:08)
[2019-10-25] MEDS: Insulin LISPRO* 1 UNITS UNIT SUBCUT SCH ×7 (08:42→21:06)
[2019-10-25] MEDS: BuPROPion XL* 300 MG TAB.XL PO SCH (09:25)
[2019-10-25] MEDS: Pantoprazole TAB * 40 MG TAB PO SCH (09:25)
--- NOTE | 2019-10-25 10:54 | PN ---
Progress Note - Progress Note Date of Service: 10/25/19 SOAP: Subjective: NAD comfortable in bed [] Objective: Temp Pulse Resp BP Pulse Ox 98.7 F 90 16 107/70 94 10/25/19 07:53 10/25/19 07:53 10/25/19 09:25 10/25/19 07:53 10/25/19 07:53 Intake & Output 10/24/19 10/25/19 10/25/19 22:59 06:59 14:59 Intake Total 480 300 Output Total 1260 425 900 Balance -780 -125 -900 Laboratory Tests 10/24/19 10/25/19 05:33 05:40 WBC 16.3 H 11.9 H Plt Count 522 H 481 H Patient Name: IFTIKHAR STEVENS Medical Record#: [id number] Ordering Physician: Isaac Faust RPA Acct.#: [id number] : 1980 Age: 39 Sex: F Location: SURGICAL STAY UNIT Exam Date: 10/24/19 0800 ADM Status: ADM IN Order Information: PLACE OF ABSCESS DRAIN Accession Number: [id number] CPT: 31522 INDICATION: Periappendiceal abscess extending to the RIGHT retroperitoneal and abdominal wall musculature. Surgical drain in place without effective drainage of the abdominal wall fluid collection within the transverse and oblique musculature. COMPARISON: October 23, 2019 ultrasound and October 22, 2019 CT. Written informed consent obtained. Timeout performed. PROCEDURE: Inferomedial to superior lateral approach selected. Following routine aseptic skin prep the soft tissues from the skin to the abdominal wall musculature was anesthetized with 50 mL 1% lidocaine. Through a small skin cari a 12-Portuguese pigtail drainage catheter was placed over an introducer stylette using trocar technique. Prompt return of 15 mL base colored pus. 20 mL 50% sterile saline diluted Omnipaque 300 contrast infused into the abscess cavity under gravity. The catheter was subsequently clamped and connected to a gravity drainage bag. The catheter was tethered to the skin with a nonabsorbable suture. Sterile dressing applied over the percutaneous drainage site. The patient tolerated the procedure without difficulty. Negative for immediate procedural complications. Subsequent abdomen radiograph documents the pigtail catheter at the level of the RIGHT lateral abdominal wall musculature and opacification of the fascia planes between the transverse and oblique musculature of the abdominal wall corresponding with the preprocedural CT finding. Surgical drain remains at the RIGHT lower quadrant. Residual enteric contrast in the colon. Negative for dilated bowel loops to indicate bowel obstruction. After the abdominal x-ray the drainage catheter was unclamped to allow for gravity drainage. IMPRESSION: #. Successful ultrasound-guided RIGHT abdominal wall pigtail drainage catheter placement. PEX GEN:NAD Chest:CTA CVS: RRR ABD:Pigtail drain RLQ dressing C/D/I, Right abdomen tender to palp ERICA drain with purulent/serous with particulte in bulb Assessment: 39 yo female POD 7 s/p lap appy/drainage of abscess, POD 1 S/P US guided drainage of residual abscess WBC improved since drainage and ABX change to Levaquin [] Plan: AM LABs, OOB Ambulate, IS, Encourage deep breathing, IV ABX, Patient was also seen and examined by Dr Tavera []
[2019-10-25] MEDS: Ibuprofen TAB* 600 MG PO PRN (11:13)
[2019-10-25] MEDS: Enoxaparin(*) 40 MG/0.4 ML SYR SUBCUT SCH (13:32)
[2019-10-25] MEDS: Levofloxacin 750 MG IVPREMIX(* 750 MG/150 ML BAG IVPB SCH (15:14)
[2019-10-25] MEDS ORDERED: Docusate CAP* 100 MG PO PRN (16:22)
[2019-10-25] MEDS ORDERED: Morphine INJ* 2 MG/ML 1 ML SYRINGE (TWO MG - NEW SYRINGE VERSION) IV PRN (16:23)
--- NOTE | 2019-10-25 18:29 | PN ---
Subjective Date of Service: 10/25/19 Interval History: patient reports that she is feeling better today, reports abd pain is improving . Denies fever or chills overnight. Denies chest pain or shortness of breath. Denies n/v/d. Family History: Unchanged from Admission Social History: Unchanged from Admission Past Medical History: Unchanged from Admission Objective Active Medications: Bisacodyl (Dulcolax Supp*) 10 mg [place] DAILY PRN PRN Reason: severe constipation Bupropion HCl (Bupropion Xl*) 300 mg PO DAILY [facility] Last Admin: 10/25/19 09:25 Dose: 300 mg Dextrose (Dextrose 50% Vial 50 Ml*) 25 ml IV PUSH .FOR FS < 60 - SS PRN PRN Reason: FS < 60 Divalproex Sodium (Depakote Dr Tab(*)) 500 mg PO BID [facility] Last Admin: 10/25/19 08:41 Dose: Not Given Docusate Sodium (Colace Cap*) 100 mg PO DAILY PRN PRN Reason: CONSTIPATION Enoxaparin Sodium (Lovenox(*)) 40 mg SUBCUT Q24H [facility] Last Admin: 10/25/19 13:32 Dose: 40 mg Heparin Sodium (Porcine) (Heparin Flush Picc/Ml/Cvc(*)) 1 - 3 ml FLUSH 0600, 1800 [facility]; Protocol Last Admin: 10/25/19 17:15 Dose: 3 ml Metronidazole/Sodium Chloride (Flagyl 500 Mg Ivpb*) 500 mg in 100 mls @ 100 mls /hr IVPB 0400,1200,2000 [facility] Last Admin: 10/25/19 12:18 Dose: 100 mls/hr Levofloxacin/Dextrose (Levaquin 750 Mg Ivpremix(*)) 750 mg in 150 mls @ 100 mls /hr IVPB Q24H [facility]; Protocol Last Admin: 10/25/19 15:14 Dose: 100 mls/hr Ibuprofen (Motrin Tab*) 600 mg PO Q6H PRN PRN Reason: PAIN - MILD Last Admin: 10/25/19 11:13 Dose: 600 mg Insulin Glargine (Lantus(*)) 8 units SUBCUT BEDTIME [facility] Last Admin: 10/24/19 22:01 Dose: 8 units Insulin Human Lispro (Humalog*) 0 units SUBCUT ACHS [facility]; Protocol Last Admin: 10/25/19 17:00 Dose: Not Given Insulin Human Lispro (Humalog*) 3 units SUBCUT [facility] Last Admin: 10/25/19 17:44 Dose: 3 units Levothyroxine Sodium (Synthroid Tab*) 175 mcg PO 0600 [facility] Last Admin: 10/25/19 05:54 Dose: 175 mcg Magnesium Hydroxide (Milk Of Magnesia Liq*) 30 ml PO Q4H PRN PRN Reason: CONSTIPATION Last Admin: 10/19/19 08:19 Dose: 30 ml Morphine Sulfate (Morphine Inj (Syringe))*) 2 mg IV Q4H PRN PRN Reason: pain - breakthrough Norethindrone (Ngoc (Nf)) 0.35 mg PO DAILY [facility] Last Admin: 10/25/19 08:41 Dose: Not Given Ondansetron HCl (Zofran Inj*) 4 mg IV Q6H PRN PRN Reason: NAUSEA Last Admin: 10/21/19 21:15 Dose: 4 mg Oxycodone/Acetaminophen (Percocet 5/325 Tab*) 1 tab PO Q4H PRN PRN Reason: PAIN - MODERATE Last Admin: 10/18/19 20:43 Dose: 1 tab Oxycodone/Acetaminophen (Percocet 5/325 Tab*) 2 tab PO Q4H PRN PRN Reason: PAIN - SEVERE Last Admin: 10/25/19 13:45 Dose: 2 tab Pantoprazole Sodium (Protonix Tab*) 40 mg PO DAILY [facility] Last Admin: 10/25/19 09:25 Dose: 40 mg Polyethylene Glycol/Electrolytes (Miralax*) 17 gm PO DAILY PRN PRN Reason: CONSTIPATION Last Admin: 10/22/19 21:03 Dose: 17 gm Prochlorperazine Edisylate (Compazine Inj*) 5 mg IV Q6H PRN PRN Reason: Nausea/Vomiting breakthrough Vital Signs - 8 hr 10/25/19 10/25/19 10/25/19 11:19 11:45 13:45 Temperature 98.2 F Pulse Rate 95 Respiratory 16 16 16 Rate Blood Pressure 103/61 (mmHg) O2 Sat by Pulse 95 Oximetry 10/25/19 10/25/19 15:12 16:19 Temperature 97.5 F Pulse Rate 87 Respiratory 18 16 Rate Blood Pressure 115/64 (mmHg) O2 Sat by Pulse 99 Oximetry Oxygen Devices in Use Now: None Appearance: alert , oriented x 3 , no acute distress Eyes: No Scleral Icterus Ears/Nose/Mouth/Throat: Clear Oropharnyx, Mucous Membranes Moist Neck: NL Appearance and Movements; NL JVP, Trachea Midline Respiratory: Symmetrical Chest Expansion and Respiratory Effort, Clear to Auscultation Cardiovascular: NL Sounds; No Murmurs; No JVD, No Edema Abdominal: - - soft , bs +x4, ERICA drain with serous drainage, pigtail drain with small amt of serous drainage Extremities: No Edema, No Clubbing, Cyanosis Skin: No Rash or Ulcers Neurological: Alert and Oriented x 3 Nutrition: Taking PO's Result Diagrams: 10/25/19 05:40 10/25/19 05:40 Microbiology and Other Data: Microbiology 10/15/19 12:57 Aerobic Blood Culture - Preliminary Blood Venous No Growth Day 2 Anaerobic Blood Culture - Preliminary No Growth Day 2 10/15/19 12:59 Aerobic Blood Culture - Preliminary Blood Venous No Growth Day 2 Anaerobic Blood Culture - Preliminary No Growth Day 2 10/15/19 20:45 Urine Culture - Final Urine No Growth (<1,000 CFU/mL) 10/15/19 14:22 Nasal Screen MRSA (PCR) - Final Nasal Mrsa Not Detected Assess/Plan/Problems-Billing Assessment: Mrs Jasso is a 39 yo female with PMH of type 1 DM, hypothyroidism, Bipolar disorder, who presented to ED with c/o pleuritic chest pain after a fall, found to be in DKA requiring ICU admission for insulin drip. Patient developed signs of sepsis and was found to have perforated appendicitis with retroperitoneal abscess, now s/p lap abscess drainage and appendectomy on 10/18/19. - Patient Problems (1) Perforated appendicitis Current Visit: Yes Status: Acute Code(s): K35.32 - ACUTE APPENDICITIS WITH PERF AND LOC PERITONITIS, W/O ABSCS SNOMED Code(s): 66463480 Comment: management per surgery - initially CT abd/pelvis demonstrated a complex 11x5x3 cm fluid and gas collection inseparable from the appendix. - S/p appendectomy 10/18/2019. - continue flagyl; f/u blood cultures show no growth, peritoneal fluid grew Strpetococcus constellatus and Bacteroides.- aztreonam d/c'd and started on levaquin for gram positive coverage - ID consulted- recommended levaquin and flagyl - continue antibiotics until drains are removed. - drainage through her ERICA serous, but also serous drainage on her dressing. - WBC trending down 11.9k. -CT abd/pelvis- Per surgery suspect drain not in correct position to drain abscess - pig tail drain placed in right abd byIR yesterday - central line in place (2) Sepsis Current Visit: Yes Status: Acute Comment: - Presentation compatible with sepsis including tachycardia and leukocytosis - Source is appendicitis - continue levaquin and flagyl (3) DKA (diabetic ketoacidoses) Current Visit: Yes Status: Acute Code(s): E11.10 - TYPE 2 DIABETES MELLITUS WITH KETOACIDOSIS WITHOUT COMA SNOMED Code(s): 507589201 Comment: - Present on admission secondary to non compliance, now resolved. (4) Depression Current Visit: Yes Status: Acute Code(s): F32.9 - MAJOR DEPRESSIVE DISORDER , SINGLE EPISODE, UNSPECIFIED SNOMED Code(s): 62638387 Comment: - Continue Depakote and Bupropion - patient is refusing depakote (5) Diabetes mellitus type 1 Current Visit: Yes Status: Acute Comment: - She was taking long acting insulin 24U QPM, with 6U short acting insulin with each meal and a sliding scale prn short acting insulin; this was the regimen from June 2019 which patient self-discontinued. - Her glucose today 78-266- conitnue Lantus at 8 units and monitor. - continue 3 units with meals and sliding scale- hold for blood sugar less than 100 (6) Hypothyroidism Current Visit: Yes Status: Acute Code(s): E03.9 - HYPOTHYROIDISM, UNSPECIFIED SNOMED Code(s): 86824820 Comment: - TSH elevated, likely secondary to non compliance, as Stacy DEAN called her pharmacy and she has not picked it up in a year though she is picking up her other medications - Continue Levothyroxine 175 mcg/day and repeat TFT as outpatient in the next 4- 6 weeks. (7) DVT prophylaxis Current Visit: Yes Status: Acute Code(s): Z29.9 - ENCOUNTER FOR PROPHYLACTIC MEASURES, UNSPECIFIED SNOMED Code(s): 082560471 Comment: - Lovenox. (8) Full code status Current Visit: Yes Status: Acute Code(s): Z78.9 - OTHER SPECIFIED HEALTH STATUS SNOMED Code(s): 268038039 Comment: Status and Disposition: Inpatient- discharge when medically stable
[2019-10-25] MEDS: Insulin GLARGINE(*) 1 UNITS UNIT SUBCUT SCH (21:07)
--- NOTE | 2019-10-25 21:21 | PN ---
Hospitalist Progress Note Date of Service: 10/25/19 Nurse reports that patient has prior history of suicidal thoughts. Currently no plans of hurting self or anyone else. She does have depression. Will place a psychiatry consult.
[2019-10-26] MEDS: metroNIDAZOLE IV 500 MG/100ML* 500 MG/100 ML BAG IVPB SCH ×3 (04:35→20:11)
[2019-10-26] MEDS: Levothyroxine TAB* 175 MCG TAB PO SCH (06:02)
[2019-10-26] MEDS: oxyCODONE/Acetamin 5/325 MG* TAB PO PRN ×3 (06:17→20:11)
[2019-10-26 06:27] LABS: ABS Lymphocytes 1.5 10^3/ul (1.0-4.8); ABS Neutrophils 8.2 10^3/ul (1.5-7.7); Eosinophil % 0.3 %; Hematocrit 24 % (35-47); Hemoglobin 8.3 g/dL (12.0-16.0); Lymphocyte % 13.9 %; Mean Corpuscular HGB Conc 35 g/dL (31-36); Mean Corpuscular Hemoglobin 31 pg (27-31); Mean Corpuscular Volume 91 fL (80-97); Mean Platelet Volume 6.4 fL (7.4-10.4); Platelet Count 592 10^3/uL (150-450); Red Blood Count 2.65 10^6 /uL (3.70-4.87); Red Cell Distribution Width 15 % (10-15); White Blood Count 10.7 10^3/uL (3.5-10.8)
[2019-10-26 06:43] LABS: BUN/Creatinine Ratio 10.3 (8-20); Calcium 7.8 mg/dL (8.6-10.3); EGFR Non-African American 115.7 (>60); Potassium 4.5 mmol/L (3.5-5.0)
[2019-10-26] MEDS: Insulin LISPRO* 1 UNITS UNIT SUBCUT SCH ×7 (08:13→20:49)
[2019-10-26] MEDS: Norethindrone (NF) 0.35 MG TAB PO SCH (08:29)
[2019-10-26] MEDS: BuPROPion XL* 300 MG TAB.XL PO SCH (08:29)
[2019-10-26] MEDS: Pantoprazole TAB * 40 MG TAB PO SCH (08:29)
[2019-10-26] MEDS: Divalproex DR TAB(*) 500 MG PO SCH ×2 (08:29→20:54)
[2019-10-26] MEDS: Ibuprofen TAB* 600 MG PO PRN (08:30)
--- NOTE | 2019-10-26 11:37 | CONSULT ---
Consult Consult: Psychiatry consult requested due to patient voicing suicidal ideation to nursing staff. CC: "I'm ok, but frustrated and exhausted." HPI: Patient known to specifications writer due to previous psychiatric inpatient treatment in August 2019. She has a documented history of bipolar disorder. Kelsie has been hospitalized on med/surg floor since the beginning of this month due to DKA , perforated appendicitis and associated complications. Today, patient reports feeling overwhelmed with medical complications. She states she is in a great deal of pain and that she does her best to tolerate it and fight through it. She states "the nurses tell me they can't believe I am still smiling." She reports being treated well by staff. Patient reports having support by her mother in [place] via phone and that her visits when can, depending on his work schedule. Patient states she stopped taking depakote last september due to nausea/ vomiting. She denies noticing a change in mood symptoms since then. She denies suicidal ideation or passive wish. She denies self harm behaviors since prior hospitalization last fall. She reports poor sleep and appetite but attributes this to medical complications. MSE: Patient is adequately groomed, wearing hospital gown and sitting on edge of recliner. Her hair is dyed bright red and in braided pigtails. She is pleasant and cooperative. She is A+Ox4 with good eye contact. Her speech is soft, articulate with accent. Concentration good, memory 3/3. No abnormal psychomotor activity noted. She denies SI/SIB or HI/. Thought process is linear and goal-directed. No perceptual disturbances noted. Insight and judgment good. Fund of knowledge adequate. A/P: Patient is a 39yo [place] female, , domiciled, unemployed with history of bipolar disorder and multiple psychiatric hospitalizations in [place] [facility] [place] She was restarted on Depakote at admission and has been consistently taking buproprion. She was possibly misinterpreted to have suicidal ideation by nursing and flagged for psychiatric consult. Patient denies SI or need for admission to [facility] after medical stabilization. Patient reported efficacy with quetiapine for sleep. However, this could interact with Levaquin and cause QT prolongation. Antibiotic therapy takes precedence at this time. No further recommendations. Psychiatry is signing off but is available for further questions or concerns. Thank you for allowing us to participate in this ozzie woman's care.
--- NOTE | 2019-10-26 13:14 | PN ---
Progress Note - Progress Note Date of Service: 10/26/19 SOAP: Subjective: NAD C/O LE Swelling [] Objective: WBC 10/15/19 10/15/19 10/17/19 10:54 16:44 05:48 WBC 20.3 10^3/uL H 10^3/uL 17.5 10^3/uL H 10^3/uL 10.4 10^3/uL 10^3/uL (3.5-10.8) (3.5-10.8) (3.5-10.8) 10/18/19 10/19/19 10/19/19 03:35 06:22 06:31 WBC 16.6 10^3/uL H 10^3/uL 12.9 10^3/uL H 10^3/uL Cancelled (3.5-10.8) (3.5-10.8) 10/20/19 10/22/19 10/23/19 10:29 08:21 04:30 WBC 15.3 10^3/uL H 10^3/uL 21.1 10^3/uL H 10^3/uL 18.4 10^3/uL H 10^3/uL (3.5-10.8) (3.5-10.8) (3.5-10.8) 10/24/19 10/25/19 10/26/19 05:33 05:40 06:10 WBC 16.3 10^3/uL H 10^3/uL 11.9 10^3/uL H 10^3/uL 10.7 10^3/uL 10^3/uL (3.5-10.8) (3.5-10.8) (3.5-10.8) Vital Signs Temp 97.9 F 10/26/19 11:21 Pulse 97 10/26/19 11:21 Resp 16 10/26/19 11:21 BP 120/68 10/26/19 11:21 Pulse Ox 98 10/26/19 11:21 Intake & Output 10/25/19 10/26/19 10/26/19 18:59 06:59 18:59 Intake Total 1049.9 610 420 Output Total 2070 1310 1490 Balance -1020.1 -700 -1070 Intake: IV Fluids 68.9 NS 68.9 IVPB 261 210 ABX - FLAGYL 104 210 ABX - LEVOFLOXACIN 157 Oral 720 400 420 Output: ERICA #1 30 80 70 Pigtail Drain 40 30 20 Urine 2000 1200 1400 PEX GEN:NAD Chest:CTAB CVS:RRR Abd:Left ERICA with purulent output Right pigtail drain with min output clear right sided tenderness to mild palpation Ext: B/L edema, calves soft non tender Assessment: 39 yo female POD 8 s/p lap appy/drainage of abscess, POD 2 S/P US guided drainage of residual abscess WBC now normalized since drainage and ABX change to Levaquin. Appreciate Psych input [] Plan: ABX duration per ID, continue drains, OOB, IS, SCD's, Encouraged deep breathing, []
[2019-10-26] MEDS: Enoxaparin(*) 40 MG/0.4 ML SYR SUBCUT SCH (13:21)
--- NOTE | 2019-10-26 14:39 | PN ---
Subjective Date of Service: 10/26/19 Interval History: Reports LE swelling. No pain. Denies other complaints Family History: Unchanged from Admission Social History: Unchanged from Admission Past Medical History: Unchanged from Admission Objective Active Medications: Bisacodyl (Dulcolax Supp*) 10 mg [place] DAILY PRN PRN Reason: severe constipation Bupropion HCl (Bupropion Xl*) 300 mg PO DAILY [facility] Last Admin: 10/26/19 08:29 Dose: 300 mg Dextrose (Dextrose 50% Vial 50 Ml*) 25 ml IV PUSH .FOR FS < 60 - SS PRN PRN Reason: FS < 60 Divalproex Sodium (Depakote Dr Tab(*)) 500 mg PO BID [facility] Last Admin: 10/26/19 08:29 Dose: Not Given Docusate Sodium (Colace Cap*) 100 mg PO DAILY PRN PRN Reason: CONSTIPATION Enoxaparin Sodium (Lovenox(*)) 40 mg SUBCUT Q24H [facility] Last Admin: 10/26/19 13:21 Dose: 40 mg Heparin Sodium (Porcine) (Heparin Flush Picc/Ml/Cvc(*)) 1 - 3 ml FLUSH 0600, 1800 [facility]; Protocol Last Admin: 10/26/19 06:03 Dose: 3 ml Metronidazole/Sodium Chloride (Flagyl 500 Mg Ivpb*) 500 mg in 100 mls @ 100 mls /hr IVPB 0400,1200,2000 [facility] Last Admin: 10/26/19 13:21 Dose: 100 mls/hr Levofloxacin/Dextrose (Levaquin 750 Mg Ivpremix(*)) 750 mg in 150 mls @ 100 mls /hr IVPB Q24H [facility]; Protocol Last Admin: 10/25/19 15:14 Dose: 100 mls/hr Ibuprofen (Motrin Tab*) 600 mg PO Q6H PRN PRN Reason: PAIN - MILD Last Admin: 10/26/19 08:30 Dose: 600 mg Insulin Glargine (Lantus(*)) 8 units SUBCUT BEDTIME [facility] Last Admin: 10/25/19 21:07 Dose: 8 units Insulin Human Lispro (Humalog*) 0 units SUBCUT ACHS [facility]; Protocol Last Admin: 10/26/19 12:54 Dose: 6 units Insulin Human Lispro (Humalog*) 3 units SUBCUT AC [facility] Last Admin: 10/26/19 12:55 Dose: 3 units Levothyroxine Sodium (Synthroid Tab*) 175 mcg PO 0600 [facility] Last Admin: 10/26/19 06:02 Dose: 175 mcg Magnesium Hydroxide (Milk Of Magnesia Liq*) 30 ml PO Q4H PRN PRN Reason: CONSTIPATION Last Admin: 10/19/19 08:19 Dose: 30 ml Morphine Sulfate (Morphine Inj (Syringe))*) 2 mg IV Q4H PRN PRN Reason: pain - breakthrough Norethindrone (Ngoc (Nf)) 0.35 mg PO DAILY [facility] Last Admin: 10/26/19 08:29 Dose: Not Given Ondansetron HCl (Zofran Inj*) 4 mg IV Q6H PRN PRN Reason: NAUSEA Last Admin: 10/21/19 21:15 Dose: 4 mg Oxycodone/Acetaminophen (Percocet 5/325 Tab*) 1 tab PO Q4H PRN PRN Reason: PAIN - MODERATE Last Admin: 10/18/19 20:43 Dose: 1 tab Oxycodone/Acetaminophen (Percocet 5/325 Tab*) 2 tab PO Q4H PRN PRN Reason: PAIN - SEVERE Last Admin: 10/26/19 13:21 Dose: 2 tab Pantoprazole Sodium (Protonix Tab*) 40 mg PO DAILY [facility] Last Admin: 10/26/19 08:29 Dose: 40 mg Polyethylene Glycol/Electrolytes (Miralax*) 17 gm PO DAILY PRN PRN Reason: CONSTIPATION Last Admin: 10/22/19 21:03 Dose: 17 gm Prochlorperazine Edisylate (Compazine Inj*) 5 mg IV Q6H PRN PRN Reason: Nausea/Vomiting breakthrough Vital Signs - 8 hr 10/26/19 10/26/19 10/26/19 07:44 08:00 11:21 Temperature 98.4 F 97.9 F Pulse Rate 102 97 Respiratory 18 18 16 Rate Blood Pressure 124/70 120/68 (mmHg) O2 Sat by Pulse 92 98 Oximetry 10/26/19 13:21 Temperature Pulse Rate Respiratory 18 Rate Blood Pressure (mmHg) O2 Sat by Pulse Oximetry Oxygen Devices in Use Now: None Eyes: No Scleral Icterus Ears/Nose/Mouth/Throat: NL Teeth, Lips, Gums Neck: NL Appearance and Movements; NL JVP Respiratory: Symmetrical Chest Expansion and Respiratory Effort Cardiovascular: NL Sounds; No Murmurs; No JVD Abdominal: - - non tender,no rebound no guarding pig tail and jonah draining Skin: - - bullous changes sec LE edema Neurological: Alert and Oriented x 3 Result Diagrams: 10/26/19 06:10 10/26/19 06:10 Microbiology and Other Data: Microbiology 10/15/19 12:57 Aerobic Blood Culture - Preliminary Blood Venous No Growth Day 2 Anaerobic Blood Culture - Preliminary No Growth Day 2 10/15/19 12:59 Aerobic Blood Culture - Preliminary Blood Venous No Growth Day 2 Anaerobic Blood Culture - Preliminary No Growth Day 2 10/15/19 20:45 Urine Culture - Final Urine No Growth (<1,000 CFU/mL) 10/15/19 14:22 Nasal Screen MRSA (PCR) - Final Nasal Mrsa Not Detected Assess/Plan/Problems-Billing Assessment: Mrs Jasso is a 39 yo female with PMH of type 1 DM, hypothyroidism, Bipolar disorder, who presented to ED with c/o pleuritic chest pain after a fall, found to be in DKA requiring ICU admission for insulin drip. Patient developed signs of sepsis and was found to have perforated appendicitis with retroperitoneal abscess, now s/p lap abscess drainage and appendectomy on 10/18/19. - Patient Problems (1) Perforated appendicitis Current Visit: Yes Status: Acute Code(s): K35.32 - ACUTE APPENDICITIS WITH PERF AND LOC PERITONITIS, W/O ABSCS SNOMED Code(s): 76839618 Comment: management per surgery - initially CT abd/pelvis demonstrated a complex 11x5x3 cm fluid and gas collection inseparable from the appendix. - S/p appendectomy 10/18/2019. - continue flagyl; f/u blood cultures show no growth, peritoneal fluid grew Strpetococcus constellatus and Bacteroides.- aztreonam d/c'd and started on levaquin for gram positive coverage - ID consulted- recommended levaquin and flagyl - continue antibiotics until drains are removed. - drainage through her JONAH serous, but also serous drainage on her dressing. - WBC trending down - pig tail drain placed in right abd byIR - central line in place (2) DKA (diabetic ketoacidoses) Current Visit: Yes Status: Acute Code(s): E11.10 - TYPE 2 DIABETES MELLITUS WITH KETOACIDOSIS WITHOUT COMA SNOMED Code(s): 878120052 Comment: - Present on admission secondary to non compliance, now resolved. (3) Diabetes mellitus type 1 Current Visit: Yes Status: Acute Comment: - She was taking long acting insulin 24U QPM, with 6U short acting insulin with each meal and a sliding scale prn short acting insulin; this was the regimen from June 2019 which patient self-discontinued. - Her glucose today 78-266- conitnue Lantus at 8 units and monitor. - continue 3 units with meals and sliding scale- hold for blood sugar less than 100 (4) Depression Current Visit: Yes Status: Acute Code(s): F32.9 - MAJOR DEPRESSIVE DISORDER , SINGLE EPISODE, UNSPECIFIED SNOMED Code(s): 48420766 Comment: - Continue Depakote and Bupropion - patient is refusing depakote (5) Hypothyroidism Current Visit: Yes Status: Acute Code(s): E03.9 - HYPOTHYROIDISM, UNSPECIFIED SNOMED Code(s): 49147915 Comment: - TSH elevated, likely secondary to non compliance, as Stacy DEAN called her pharmacy and she has not picked it up in a year though she is picking up her other medications - Continue Levothyroxine 175 mcg/day and repeat TFT as outpatient in the next 4- 6 weeks. (6) Sepsis Current Visit: Yes Status: Acute Comment: - Presentation compatible with sepsis including tachycardia and leukocytosis - Source is appendicitis - continue levaquin and flagyl (7) DVT prophylaxis Current Visit: Yes Status: Acute Code(s): Z29.9 - ENCOUNTER FOR PROPHYLACTIC MEASURES, UNSPECIFIED SNOMED Code(s): 170552827 Comment: - Lovenox. (8) Full code status Current Visit: Yes Status: Acute Code(s): Z78.9 - OTHER SPECIFIED HEALTH STATUS SNOMED Code(s): 281480414 Comment: (9) Leg edema Current Visit: Yes Status: Acute Code(s): R60.0 - LOCALIZED EDEMA SNOMED Code(s): 886635940 Comment: tense LE edema with bullous changes in legs Compression stockings leg elevation eval and r/o nephrotic syndrome in setting of dm, ua, urine protein, urine cr to start Status and Disposition: Inpatient- discharge when medically stable
[2019-10-26] MEDS: Levofloxacin 750 MG IVPREMIX(* 750 MG/150 ML BAG IVPB SCH (14:49)
[2019-10-26 19:54] LABS: Urine Appearance Clear; Urine Bilirubin Negative (Negative); Urine Blood Negative (Negative); Urine Color Straw; Urine Glucose 2+(150 mg/dL) (Negative); Urine Ketones Trace (Negative); Urine Nitrite Negative (Negative); Urine Protein Negative (Negative); Urine Specific Gravity 1.009 (1.010-1.030); Urine Urobilinogen Negative (Negative)
[2019-10-26] MEDS: Insulin GLARGINE(*) 1 UNITS UNIT SUBCUT SCH (20:53)
[2019-10-27] MEDS: oxyCODONE/Acetamin 5/325 MG* TAB PO PRN ×5 (02:07→21:33)
[2019-10-27] MEDS: metroNIDAZOLE IV 500 MG/100ML* 500 MG/100 ML BAG IVPB SCH ×2 (04:59→17:28)
[2019-10-27 05:09] LABS: ABS Monocytes 0.7 10^3/ul (0-0.8); ABS Neutrophils 9.1 10^3/ul (1.5-7.7); Eosinophil % 0.2 %; Hematocrit 22 % (35-47); Hemoglobin 7.7 g/dL (12.0-16.0); Mean Corpuscular HGB Conc 35 g/dL (31-36); Mean Corpuscular Hemoglobin 32 pg (27-31); Mean Corpuscular Volume 91 fL (80-97); Mean Platelet Volume 6.2 fL (7.4-10.4); Platelet Count 543 10^3/uL (150-450); Red Blood Count 2.41 10^6 /uL (3.70-4.87); Red Cell Distribution Width 14 % (10-15); White Blood Count 10.8 10^3/uL (3.5-10.8)
[2019-10-27 05:26] LABS: BUN/Creatinine Ratio 9.3 (8-20); Calcium 7.7 mg/dL (8.6-10.3); EGFR African American 152.1 (>60); EGFR Non-African American 125.7 (>60); Potassium 4.4 mmol/L (3.5-5.0)
[2019-10-27] MEDS: Levothyroxine TAB* 175 MCG TAB PO SCH (06:13)
[2019-10-27 07:01] LABS: Urine Creatinine Concentration 39.28 mg/dL
[2019-10-27] MEDS: Insulin LISPRO* 1 UNITS UNIT SUBCUT SCH ×7 (08:28→21:17)
[2019-10-27] MEDS: Divalproex DR TAB(*) 500 MG PO SCH ×2 (08:50→21:15)
[2019-10-27] MEDS: BuPROPion XL* 300 MG TAB.XL PO SCH (08:50)
[2019-10-27] MEDS: Ibuprofen TAB* 600 MG PO PRN ×2 (08:50→16:00)
[2019-10-27] MEDS: Norethindrone (NF) 0.35 MG TAB PO SCH (08:51)
[2019-10-27] MEDS: Pantoprazole TAB * 40 MG TAB PO SCH (08:51)
--- NOTE | 2019-10-27 10:11 | PN ---
Progress Note - Progress Note Date of Service: 10/27/19 SOAP: Subjective: CC: Leukocytosis HPI: Ms. Tejas Jasso is a 39 yo female with PMH significant for DM2, hypothyroidism , and Bipolar disorder; who presented to the hospital with complaints of chest pain and shortness of breath. She was found to have a perforated appendix. Denies fever, chills, nausea, vomiting, diarrhea, or urinary symptoms. She continues to have right lower ABD pain, and feels this worsened overnight. Objective: Vital Signs - 8 hr 10/27/19 10/27/19 10/27/19 02:07 02:13 03:08 Temperature 98.8 F Pulse Rate 99 Respiratory 17 17 16 Rate Blood Pressure 141/65 (mmHg) O2 Sat by Pulse 93 Oximetry 10/27/19 10/27/19 10/27/19 05:00 07:52 08:56 Temperature 98 F Pulse Rate 108 Respiratory 17 17 18 Rate Blood Pressure 135/72 (mmHg) O2 Sat by Pulse 93 Oximetry Physical Exam: General: NAD, sitting up in bed Neurological: Alert and Oriented x4 HEENT: Moist MM, no thrush Cardiovascular: Heart rate regular Respiratory: Lung sounds clear Abdominal: Bowel sounds present; ABD soft, tenderness with palpation to the right lower leg, non distended MSK: ARTIS Skin: No rash. Incision site to umbilicus with scan amount of dry blood drainage. ERICA site to left ABD, benign; draining purulent drainage. Pig tail to right side of ABD; draining clear green tinges drainage. Laboratory Results - last 24 hr 10/26/19 10/26/19 10/26/19 11:30 17:17 19:38 POC Glucose (mg/dL) 302 H 170 H Urine Color Straw Urine Appearance Clear Urine pH 5.0 Ur Specific [place] 1.009 L Urine Protein Negative Urine Ketones Trace A Urine Blood Negative Urine Nitrate Negative Urine Bilirubin Negative Urine Urobilinogen Negative Ur Leukocyte Esterase Negative Urine Glucose 2+(150 mg/dl) A 10/26/19 10/27/19 10/27/19 20:49 05:00 05:00 WBC 10.8 RBC 2.41 L Hgb 7.7 L Hct 22 L MCV 91 MCH 32 H MCHC 35 RDW 14 Plt Count 543 H MPV 6.2 L Neut % (Auto) 84.0 Lymph % (Auto) 9.0 [place] % (Auto) 6.6 Eos % (Auto) 0.2 Baso % (Auto) 0.2 Absolute Neuts (auto) 9.1 H Absolute Lymphs (auto) 1.0 Absolute Monos (auto) 0.7 Absolute Eos (auto) 0.0 Absolute Basos (auto) 0.0 Absolute Nucleated RBC 0.0 Nucleated RBC % 0.0 Sodium 137 Potassium 4.4 Chloride 102 Carbon Dioxide 31 Anion Gap 4 BUN 5 L Creatinine 0.54 Est GFR ( Amer) 152.1 Est GFR (Non-Af Amer) 125.7 BUN/Creatinine Ratio 9.3 Glucose 134 H POC Glucose (mg/dL) 161 H Calcium 7.7 L Microbiology 10/19/19 06:22 Aerobic Blood Culture - Final Blood Venous No Growth Day 5 Anaerobic Blood Culture - Final No Growth Day 5 10/19/19 06:31 Aerobic Blood Culture - Final Blood Venous No Growth Day 5 Anaerobic Blood Culture - Final No Growth Day 5 10/19/19 00:12 Aerobic Blood Culture - Final Blood Venous No Growth Day 5 Anaerobic Blood Culture - Final No Growth Day 5 10/18/19 11:23 Anaerobic Culture - Final Wound - Abscess Bacteroides Fragilis 10/18/19 11:23 Gram Stain - Final Wound Wound Culture - Final Streptococcus Constellatus Bacteroides Fragilis 10/15/19 12:57 Aerobic Blood Culture - Final Blood Venous No Growth Day 5 Anaerobic Blood Culture - Final No Growth Day 5 10/15/19 12:59 Aerobic Blood Culture - Final Blood Venous No Growth Day 5 Anaerobic Blood Culture - Final No Growth Day 5 10/15/19 20:45 Urine Culture - Final Urine No Growth (<1,000 CFU/mL) 10/15/19 14:22 Nasal Screen MRSA (PCR) - Final Nasal Mrsa Not Detected Assessment: 1. Perforated appendicitis with abscess. S/P lap appy with washout. Cultures with strep constellatus and bacteroides. Blood cultures with no growth to date. Now S/P pigtail drain placement. ERICA drain and pigtail with purulent drainage. Leukocytosis has resolved, afebrile. 2. DM2. 3. PCN allergy. Reports anaphylaxis 30 years ago. Plan: Will discontinue Levaquin. Start Ceftriaxone 1gm IV daily, and continue Flagyl ( will decrease to BID dosing). If she is ready for discharge over the weekend, discharge on Augmentin 500 mg BID for 10 days. Followup with ID outpatient.
[2019-10-27] MEDS ORDERED: Dextrose 50% Syringe 50 ML* 25 GM/50 ML SYRINGE IV PUSH PRN (12:47)
[2019-10-27] MEDS: Enoxaparin(*) 40 MG/0.4 ML SYR SUBCUT SCH (12:48)
--- NOTE | 2019-10-27 13:04 | PN ---
Progress Note - Progress Note Date of Service: 10/27/19 Note: Subjective: Had some increase in right sided ABD pain last night, but has since felt better. No nausea, vomiting, diarrhea, constipation, fever, or chills. Ambulating and passing BMs. No chest pain or SOB. Objective Vital Signs - 8 hr 10/27/19 10/27/19 10/27/19 07:52 08:00 08:56 Temperature 98 F Pulse Rate 108 Respiratory 17 18 18 Rate Blood Pressure 135/72 (mmHg) O2 Sat by Pulse 93 Oximetry 10/27/19 10/27/19 10/27/19 11:56 12:25 12:46 Temperature 97.8 F Pulse Rate 93 Respiratory 18 16 18 Rate Blood Pressure 113/59 (mmHg) O2 Sat by Pulse 93 Oximetry Intake and Output Last 24 Hours 10/25/19 10/26/19 10/27/19 10/28/19 06:59 06:59 06:59 06:59 Intake Total 1020 1659.9 640 410 Output Total 1780 3380 3530 315 Balance -760 -1720.1 -2890 95 Weight 140 lb Intake: IV Fluids 68.9 220 ABX - FLAGYL 110 ABX - LEVOFLOXACIN 110 NS 68.9 IVPB 471 ABX - FLAGYL 314 ABX - LEVOFLOXACIN 157 Oral 1020 1120 420 410 Output: ERICA #1 115 110 190 5 Pigtail Drain 65 70 40 10 Urine 1600 3200 3300 300 Other: Estimated Void Medium # Voids 2 Laboratory Last Values WBC 10.8 10^3/uL (3.5-10.8) 10/27/19 05:00 RBC 2.41 10^6 /uL (3.70-4.87) L 10/27/19 05:00 Hgb 7.7 g/dL (12.0-16.0) L 10/27/19 05:00 Hct 22 % (35-47) L 10/27/19 05:00 MCV 91 fL (80-97) 10/27/19 05:00 MCH 32 pg (27-31) H 10/27/19 05:00 MCHC 35 g/dL (31-36) 10/27/19 05:00 RDW 14 % (10-15) 10/27/19 05:00 Plt Count 543 10^3/uL (150-450) H 10/27/19 05:00 MPV 6.2 fL (7.4-10.4) L 10/27/19 05:00 Neut % (Auto) 84.0 % 10/27/19 05:00 Lymph % (Auto) 9.0 % 10/27/19 05:00 [place] % (Auto) 6.6 % 10/27/19 05:00 Eos % (Auto) 0.2 % 10/27/19 05:00 Baso % (Auto) 0.2 % 10/27/19 05:00 Absolute Neuts (auto) 9.1 10^3/ul (1.5-7.7) H 10/27/19 05:00 Absolute Lymphs (auto) 1.0 10^3/ul (1.0-4.8) 10/27/19 05:00 Absolute Monos (auto) 0.7 10^3/ul (0-0.8) 10/27/19 05:00 Absolute Eos (auto) 0.0 10^3/ul (0-0.6) 10/27/19 05:00 Absolute Basos (auto) 0.0 10^3/ul (0-0.2) 10/27/19 05:00 Absolute Nucleated RBC 0.0 10^3/ul 10/27/19 05:00 CBC Comment Cancelled 10/19/19 06:31 Nucleated RBC % 0.0 10/27/19 05:00 Diff Slide Review Cancelled 10/19/19 06:31 Hypogranular Platelets Cancelled 10/19/19 06:31 Clumped Platelets Cancelled 10/19/19 06:31 Large Platelets Cancelled 10/19/19 06:31 Giant Platelets Cancelled 10/19/19 06:31 INR (Anticoag Therapy) 1.37 (0.82-1.09) H 10/24/19 09:10 ABG pH 7.34 (7.35-7.45) L 10/17/19 12:30 ABG pCO2 29 mmHg (35-45) L 10/17/19 12:30 ABG pO2 100 mmHg (80-100) 10/17/19 12:30 ABG HCO3 18.1 mmol/L (19-31) L 10/17/19 12:30 ABG O2 Saturation 99.8 % (94.0-98.0) H 10/17/19 12:30 ABG Base Excess -8.8 mmol/L (-2.0-2.0) L 10/17/19 12:30 Sodium 137 mmol/L (135-145) 10/27/19 05:00 Potassium 4.4 mmol/L (3.5-5.0) 10/27/19 05:00 Chloride 102 mmol/L (101-111) 10/27/19 05:00 Carbon Dioxide 31 mmol/L (22-32) 10/27/19 05:00 Anion Gap 4 mmol/L (2-11) 10/27/19 05:00 BUN 5 mg/dL (6-24) L 10/27/19 05:00 Creatinine 0.54 mg/dL (0.51-0.95) 10/27/19 05:00 Est GFR ( Amer) 152.1 (>60) 10/27/19 05:00 Est GFR (Non-Af Amer) 125.7 (>60) 10/27/19 05:00 BUN/Creatinine Ratio 9.3 (8-20) 10/27/19 05:00 Glucose 134 mg/dL (70-100) H 10/27/19 05:00 POC Glucose (mg/dL) 209 mg/dL (70-100) H 10/27/19 11:53 Glucose Meter Confirm 287 mg/dL (70-100) H 10/17/19 17:14 Hemoglobin A1c 17.0 % (4.0-5.6) H 10/16/19 11:55 Lactic Acid 1.4 mmol/L (0.5-2.0) 10/19/19 06:22 Calcium 7.7 mg/dL (8.6-10.3) L 10/27/19 05:00 Ionized Calcium 1.29 mmol/L (1.16-1.32) 10/17/19 10:02 Magnesium 2.1 mg/dL (1.9-2.7) 10/17/19 05:48 Total Bilirubin 0.20 mg/dL (0.2-1.0) 10/19/19 06:31 AST 41 U/L (13-39) H 10/19/19 06:31 ALT 28 U/L (7-52) 10/19/19 06:31 Alkaline Phosphatase 82 U/L (34-104) 10/19/19 06:31 Total Creatine Kinase 23 U/L (10-223) 10/15/19 10:54 Troponin I 0.03 ng/mL (<0.03) H* 10/15/19 14:35 C-Reactive Protein 121.28 mg/L (<8.01) H 10/24/19 05:33 Total Protein 4.7 g/dL (6.4-8.9) L 10/19/19 06:31 Albumin 1.9 g/dL (3.2-5.2) L 10/19/19 06:31 Globulin 2.8 g/dL (2-4) 10/19/19 06:31 Albumin/Globulin Ratio 0.7 (1-3) L 10/19/19 06:31 TSH 13.47 mcIU/mL (0.34-5.60) H 10/17/19 05:48 Beta HCG, Quant 0.96 mIU/mL 10/15/19 10:54 Urine Color Straw 10/26/19 19:38 Urine Appearance Clear 10/26/19 19:38 Urine pH 5.0 (5-9) 10/26/19 19:38 Ur Specific [place] 1.009 (1.010-1.030) L 10/26/19 19:38 Urine Protein Negative (Negative) 10/26/19 19:38 Urine Ketones Trace (Negative) A 10/26/19 19:38 Urine Blood Negative (Negative) 10/26/19 19:38 Urine Nitrate Negative (Negative) 10/26/19 19:38 Urine Bilirubin Negative (Negative) 10/26/19 19:38 Urine Urobilinogen Negative (Negative) 10/26/19 19:38 Ur Leukocyte Esterase Negative (Negative) 10/26/19 19:38 Urine WBC (Auto) Trace(0-5/hpf) (Absent) 10/15/19 20:45 Urine RBC (Auto) 1+(3-5/hpf) (Absent) A 10/15/19 20:45 Ur Squamous Epith Cells Present (Absent) A 10/15/19 20:45 Urine Bacteria Absent (Absent) 10/15/19 20:45 Granular Casts Present (Absent) A 10/15/19 20:45 Ur Creatinine Concen 39.28 mg/dL 10/27/19 06:27 Ur Total Protein Conc 6 mg/dL 10/27/19 06:27 Urine Glucose 2+(150 mg/dl) (Negative) A 10/26/19 19:38 Urine Ascorbic Acid * (Negative) A 10/15/19 20:45 Salicylates < 2.50 mg/dL (<30) 10/15/19 10:54 Serum Alcohol < 10 mg/dL (<10) 10/15/19 10:54 PEX: General: Alert and in NAD or discomfort Integumentary: No rashes or jaundice HEENT: Oropharynx clear Heart: RRR, no MRG Lungs: CTAB, no WRR Abd: Soft, nondistended. BS present. Tender in right quadrants. ERICA and pigtail train with purulent output. Extremities: Bilateral lower leg edema, nonpitting. Calves soft and nontender. Distal pulses intact bilaterally. Assessment and plan: 39 yo F POD#9 S/P laparoscopic appendectomy/ abscess drainage, POD# 3 S/P US guided drainage of residual abscess. WBCs have normalized and is afebrile. Continue ABX per ID. Continue drains, ambulation, SCDs, and incentive spirometry.
--- NOTE | 2019-10-27 15:51 | PN ---
Subjective Date of Service: 10/27/19 Interval History: reports feeling better.LE edema improved with compression stockings.No abd pain Family History: Unchanged from Admission Social History: Unchanged from Admission Past Medical History: Unchanged from Admission Objective Active Medications: Bisacodyl (Dulcolax Supp*) 10 mg AR DAILY PRN PRN Reason: severe constipation Bupropion HCl (Bupropion Xl*) 300 mg PO DAILY [facility] Last Admin: 10/27/19 08:50 Dose: 300 mg Dextrose (D50w Syringe 50 Ml*) 12.5 gm IV PUSH .FOR FS < 60 - SS PRN PRN Reason: FS < 60 Divalproex Sodium (Depakote Dr Tab(*)) 500 mg PO BID [facility] Last Admin: 10/27/19 08:50 Dose: Not Given Docusate Sodium (Colace Cap*) 100 mg PO DAILY PRN PRN Reason: CONSTIPATION Enoxaparin Sodium (Lovenox(*)) 40 mg SUBCUT Q24H [facility] Last Admin: 10/27/19 12:48 Dose: 40 mg Heparin Sodium (Porcine) (Heparin Flush Picc/Ml/Cvc(*)) 1 - 3 ml FLUSH 0600, 1800 [facility]; Protocol Last Admin: 10/27/19 06:13 Dose: 3 ml Ceftriaxone Sodium 1 gm/ (Sodium Chloride) 50 mls @ 100 mls/hr IVPB Q24H [facility] Metronidazole/Sodium Chloride (Flagyl 500 Mg Ivpb*) 500 mg in 100 mls @ 100 mls /hr IVPB 0600,1800 [facility] Ibuprofen (Motrin Tab*) 600 mg PO Q6H PRN PRN Reason: PAIN - MILD Last Admin: 10/27/19 08:50 Dose: 600 mg Insulin Glargine (Lantus(*)) 8 units SUBCUT BEDTIME [facility] Last Admin: 10/26/19 20:53 Dose: 8 units Insulin Human Lispro (Humalog*) 0 units SUBCUT ACHS [facility]; Protocol Last Admin: 10/27/19 12:47 Dose: 2 units Insulin Human Lispro (Humalog*) 3 units SUBCUT AC [facility] Last Admin: 10/27/19 12:48 Dose: 3 units Levothyroxine Sodium (Synthroid Tab*) 175 mcg PO 0600 [facility] Last Admin: 10/27/19 06:13 Dose: 175 mcg Magnesium Hydroxide (Milk Of Magnesia Liq*) 30 ml PO Q4H PRN PRN Reason: CONSTIPATION Last Admin: 10/19/19 08:19 Dose: 30 ml Morphine Sulfate (Morphine Inj (Syringe))*) 2 mg IV Q4H PRN PRN Reason: pain - breakthrough Norethindrone (Ngoc (Nf)) 0.35 mg PO DAILY [facility] Last Admin: 10/27/19 08:51 Dose: Not Given Ondansetron HCl (Zofran Inj*) 4 mg IV Q6H PRN PRN Reason: NAUSEA Last Admin: 10/21/19 21:15 Dose: 4 mg Oxycodone/Acetaminophen (Percocet 5/325 Tab*) 1 tab PO Q4H PRN PRN Reason: PAIN - MODERATE Last Admin: 10/18/19 20:43 Dose: 1 tab Oxycodone/Acetaminophen (Percocet 5/325 Tab*) 2 tab PO Q4H PRN PRN Reason: PAIN - SEVERE Last Admin: 10/27/19 12:46 Dose: 2 tab Pantoprazole Sodium (Protonix Tab*) 40 mg PO DAILY [facility] Last Admin: 10/27/19 08:51 Dose: 40 mg Polyethylene Glycol/Electrolytes (Miralax*) 17 gm PO DAILY PRN PRN Reason: CONSTIPATION Last Admin: 10/22/19 21:03 Dose: 17 gm Prochlorperazine Edisylate (Compazine Inj*) 5 mg IV Q6H PRN PRN Reason: Nausea/Vomiting breakthrough Vital Signs - 8 hr 10/27/19 10/27/19 10/27/19 07:52 08:00 08:56 Temperature 98 F Pulse Rate 108 Respiratory 17 18 18 Rate Blood Pressure 135/72 (mmHg) O2 Sat by Pulse 93 Oximetry 10/27/19 10/27/19 10/27/19 11:56 12:25 12:46 Temperature 97.8 F Pulse Rate 93 Respiratory 18 16 18 Rate Blood Pressure 113/59 (mmHg) O2 Sat by Pulse 93 Oximetry 10/27/19 14:56 Temperature 97.9 F Pulse Rate 104 Respiratory 16 Rate Blood Pressure 104/60 (mmHg) O2 Sat by Pulse 96 Oximetry Oxygen Devices in Use Now: None Eyes: No Scleral Icterus Ears/Nose/Mouth/Throat: NL Teeth, Lips, Gums Neck: NL Appearance and Movements; NL JVP Respiratory: Symmetrical Chest Expansion and Respiratory Effort Cardiovascular: NL Sounds; No Murmurs; No JVD Abdominal: - - ERICA and pigtail in place.Recently changed. no rebound no guarding Extremities: - - LE edema Neurological: Alert and Oriented x 3 Result Diagrams: 10/27/19 05:00 10/27/19 05:00 Microbiology and Other Data: Microbiology 10/15/19 12:57 Aerobic Blood Culture - Preliminary Blood Venous No Growth Day 2 Anaerobic Blood Culture - Preliminary No Growth Day 2 10/15/19 12:59 Aerobic Blood Culture - Preliminary Blood Venous No Growth Day 2 Anaerobic Blood Culture - Preliminary No Growth Day 2 10/15/19 20:45 Urine Culture - Final Urine No Growth (<1,000 CFU/mL) 10/15/19 14:22 Nasal Screen MRSA (PCR) - Final Nasal Mrsa Not Detected Assess/Plan/Problems-Billing Assessment: Mrs Jasso is a 39 yo female with PMH of type 1 DM, hypothyroidism, Bipolar disorder, who presented to ED with c/o pleuritic chest pain after a fall, found to be in DKA requiring ICU admission for insulin drip. Patient developed signs of sepsis and was found to have perforated appendicitis with retroperitoneal abscess, now s/p lap abscess drainage and appendectomy on 10/18/19. - Patient Problems (1) Perforated appendicitis Current Visit: Yes Status: Acute Code(s): K35.32 - ACUTE APPENDICITIS WITH PERF AND LOC PERITONITIS, W/O ABSCS SNOMED Code(s): 00599671 Comment: management per surgery - initially CT abd/pelvis demonstrated a complex 11x5x3 cm fluid and gas collection inseparable from the appendix. - S/p appendectomy 10/18/2019. - continue flagyl; f/u blood cultures show no growth, peritoneal fluid grew Strpetococcus constellatus and Bacteroides.- aztreonam d/c'd and started on levaquin for gram positive coverage - ID consulted- recommended levaquin and flagyl - continue antibiotics until drains are removed. - drainage through her ERICA serous, - WBC trending down - pig tail drain placed in right abd byIR - central line in place (2) DKA (diabetic ketoacidoses) Current Visit: Yes Status: Acute Code(s): E11.10 - TYPE 2 DIABETES MELLITUS WITH KETOACIDOSIS WITHOUT COMA SNOMED Code(s): 032739348 Comment: - Present on admission secondary to non compliance, now resolved. (3) Diabetes mellitus type 1 Current Visit: Yes Status: Acute Comment: - She was taking long acting insulin 24U QPM, with 6U short acting insulin with each meal and a sliding scale prn short acting insulin; this was the regimen from June 2019 which patient self-discontinued. - Her glucose today 78-266- conitnue Lantus at 8 units and monitor. - continue 3 units with meals and sliding scale- hold for blood sugar less than 100 (4) Depression Current Visit: Yes Status: Acute Code(s): F32.9 - MAJOR DEPRESSIVE DISORDER , SINGLE EPISODE, UNSPECIFIED SNOMED Code(s): 10796906 Comment: - Continue Depakote and Bupropion - patient is refusing depakote (5) Hypothyroidism Current Visit: Yes Status: Acute Code(s): E03.9 - HYPOTHYROIDISM, UNSPECIFIED SNOMED Code(s): 87879336 Comment: - TSH elevated, likely secondary to non compliance, as Stacy DEAN called her pharmacy and she has not picked it up in a year though she is picking up her other medications - Continue Levothyroxine 175 mcg/day and repeat TFT as outpatient in the next 4- 6 weeks. (6) Sepsis Current Visit: Yes Status: Acute Comment: - Presentation compatible with sepsis including tachycardia and leukocytosis - Source is appendicitis - levaquin held. ceftriaxone and flagyl per ID (7) DVT prophylaxis Current Visit: Yes Status: Acute Code(s): Z29.9 - ENCOUNTER FOR PROPHYLACTIC MEASURES, UNSPECIFIED SNOMED Code(s): 916394400 Comment: - Lovenox. (8) Full code status Current Visit: Yes Status: Acute Code(s): Z78.9 - OTHER SPECIFIED HEALTH STATUS SNOMED Code(s): 673837205 Comment: (9) Leg edema Current Visit: Yes Status: Acute Code(s): R60.0 - LOCALIZED EDEMA SNOMED Code(s): 906911751 Comment: tense LE edema with bullous changes in legs Compression stockings leg elevation eval and r/o nephrotic syndrome in setting of dm, ua, urine protein, urine cr to start Status and Disposition: Discussed with ID.Ceftriaxone IV today and Flagyl and discussed oral versus PO antibiotics.They want IV antibiotics till drain present initially.Will follow progress and discuss with surgery and conside po antibiotics? Also needs home care. Going to be staying with a friend. Discussing with case management
[2019-10-27] MEDS: cefTRIAXone(*) 1 GM in NS 0.9% 50 ML* 50 ML IVPB SCH (16:09)
[2019-10-27] MEDS: Insulin GLARGINE(*) 1 UNITS UNIT SUBCUT SCH (21:17)
[2019-10-28] MEDS: oxyCODONE/Acetamin 5/325 MG* TAB PO PRN ×4 (05:27→20:10)
[2019-10-28] MEDS: Levothyroxine TAB* 175 MCG TAB PO SCH (05:28)
[2019-10-28 05:45] LABS: ABS Lymphocytes 1.5 10^3/ul (1.0-4.8); ABS Monocytes 0.7 10^3/ul (0-0.8); ABS Neutrophils 4.7 10^3/ul (1.5-7.7); Eosinophil % 0.5 %; Hematocrit 23 % (35-47); Hemoglobin 7.4 g/dL (12.0-16.0); Lymphocyte % 21.7 %; Mean Corpuscular HGB Conc 33 g/dL (31-36); Mean Corpuscular Hemoglobin 30 pg (27-31); Mean Corpuscular Volume 92 fL (80-97); Mean Platelet Volume 6.2 fL (7.4-10.4); Platelet Count 604 10^3/uL (150-450); Red Blood Count 2.43 10^6 /uL (3.70-4.87); Red Cell Distribution Width 14 % (10-15)
[2019-10-28] MEDS: metroNIDAZOLE IV 500 MG/100ML* 500 MG/100 ML BAG IVPB SCH ×2 (05:46→17:56)
[2019-10-28 06:00] LABS: BUN/Creatinine Ratio 11.1 (8-20); Blood Urea Nitrogen 7 mg/dL (6-24); CO2 Carbon Dioxide 34 mmol/L (22-32); Calcium 7.6 mg/dL (8.6-10.3); Chloride 104 mmol/L (101-111); EGFR African American 127.3 (>60); EGFR Non-African American 105.2 (>60); Glucose 186 mg/dL (70-100); Potassium 4.3 mmol/L (3.5-5.0); Sodium 138 mmol/L (135-145)
[2019-10-28] MEDS: Insulin LISPRO* 1 UNITS UNIT SUBCUT SCH ×7 (07:22→21:06)
[2019-10-28] MEDS: Divalproex DR TAB(*) 500 MG PO SCH ×2 (07:23→20:49)
[2019-10-28] MEDS: Norethindrone (NF) 0.35 MG TAB PO SCH (07:23)
[2019-10-28] MEDS: Pantoprazole TAB * 40 MG TAB PO SCH (08:32)
[2019-10-28] MEDS: BuPROPion XL* 300 MG TAB.XL PO SCH (08:32)
--- NOTE | 2019-10-28 10:42 | PN ---
Progress Note - Progress Note Date of Service: 10/28/19 SOAP: Subjective: Pt seen on 10/28/19 and document not competed initially. Pt feeling well. no nausea. appetite improving. ambulating Objective: af vss lungs clear abdo: soft/ mild distension/ tender at R groin ERICA: serous pigtail: seropurulent ext: edematous labs and imaging reviewed Assessment: s/p lap appy, post op abscess now drained Plan: continue drains for now- will remove ERICA on Wednesday abx d/c home planning
[2019-10-28] MEDS: Enoxaparin(*) 40 MG/0.4 ML SYR SUBCUT SCH (14:21)
--- NOTE | 2019-10-28 14:43 | PN ---
Subjective Date of Service: 10/28/19 Interval History: Reports feeling well. Denies abd pains. Drains in place Family History: Unchanged from Admission Social History: Unchanged from Admission Past Medical History: Unchanged from Admission Objective Active Medications: Bisacodyl (Dulcolax Supp*) 10 mg MA DAILY PRN PRN Reason: severe constipation Bupropion HCl (Bupropion Xl*) 300 mg PO DAILY [facility] Last Admin: 10/28/19 08:32 Dose: 300 mg Dextrose (D50w Syringe 50 Ml*) 12.5 gm IV PUSH .FOR FS < 60 - SS PRN PRN Reason: FS < 60 Divalproex Sodium (Depakote Dr Tab(*)) 500 mg PO BID [facility] Last Admin: 10/28/19 07:23 Dose: Not Given Docusate Sodium (Colace Cap*) 100 mg PO DAILY PRN PRN Reason: CONSTIPATION Enoxaparin Sodium (Lovenox(*)) 40 mg SUBCUT Q24H [facility] Last Admin: 10/28/19 14:21 Dose: 40 mg Heparin Sodium (Porcine) (Heparin Flush Picc/Ml/Cvc(*)) 1 - 3 ml FLUSH 0600, 1800 [facility]; Protocol Last Admin: 10/28/19 07:10 Dose: 3 ml Ceftriaxone Sodium 1 gm/ (Sodium Chloride) 50 mls @ 100 mls/hr IVPB Q24H [facility] Last Admin: 10/27/19 16:09 Dose: 100 mls/hr Metronidazole/Sodium Chloride (Flagyl 500 Mg Ivpb*) 500 mg in 100 mls @ 100 mls /hr IVPB 0600,1800 [facility] Last Admin: 10/28/19 05:46 Dose: 100 mls/hr Ibuprofen (Motrin Tab*) 600 mg PO Q6H PRN PRN Reason: PAIN - MILD Last Admin: 10/27/19 16:00 Dose: 600 mg Insulin Glargine (Lantus(*)) 8 units SUBCUT BEDTIME [facility] Last Admin: 10/27/19 21:17 Dose: 8 units Insulin Human Lispro (Humalog*) 0 units SUBCUT ACHS [facility]; Protocol Last Admin: 10/28/19 11:55 Dose: 2 units Insulin Human Lispro (Humalog*) 3 units SUBCUT AC [facility] Last Admin: 10/28/19 11:55 Dose: 3 units Levothyroxine Sodium (Synthroid Tab*) 175 mcg PO 0600 [facility] Last Admin: 10/28/19 05:28 Dose: 175 mcg Magnesium Hydroxide (Milk Of Magnesia Liq*) 30 ml PO Q4H PRN PRN Reason: CONSTIPATION Last Admin: 10/19/19 08:19 Dose: 30 ml Morphine Sulfate (Morphine Inj (Syringe))*) 2 mg IV Q4H PRN PRN Reason: pain - breakthrough Norethindrone (Ngoc (Nf)) 0.35 mg PO DAILY [facility] Last Admin: 10/28/19 07:23 Dose: Not Given Ondansetron HCl (Zofran Inj*) 4 mg IV Q6H PRN PRN Reason: NAUSEA Last Admin: 10/21/19 21:15 Dose: 4 mg Oxycodone/Acetaminophen (Percocet 5/325 Tab*) 1 tab PO Q4H PRN PRN Reason: PAIN - MODERATE Last Admin: 10/18/19 20:43 Dose: 1 tab Oxycodone/Acetaminophen (Percocet 5/325 Tab*) 2 tab PO Q4H PRN PRN Reason: PAIN - SEVERE Last Admin: 10/28/19 14:21 Dose: 2 tab Pantoprazole Sodium (Protonix Tab*) 40 mg PO DAILY [facility] Last Admin: 10/28/19 08:32 Dose: 40 mg Polyethylene Glycol/Electrolytes (Miralax*) 17 gm PO DAILY PRN PRN Reason: CONSTIPATION Last Admin: 10/22/19 21:03 Dose: 17 gm Prochlorperazine Edisylate (Compazine Inj*) 5 mg IV Q6H PRN PRN Reason: Nausea/Vomiting breakthrough Vital Signs - 8 hr 10/28/19 10/28/19 10/28/19 07:31 07:34 08:35 Temperature 97.9 F Pulse Rate 86 Respiratory 18 16 18 Rate Blood Pressure 112/71 (mmHg) O2 Sat by Pulse 92 Oximetry 10/28/19 10/28/19 10/28/19 10:12 11:15 11:56 Temperature 97.8 F Pulse Rate 95 Respiratory 18 16 18 Rate Blood Pressure 117/72 (mmHg) O2 Sat by Pulse 97 Oximetry 10/28/19 14:21 Temperature Pulse Rate Respiratory 18 Rate Blood Pressure (mmHg) O2 Sat by Pulse Oximetry Oxygen Devices in Use Now: None Eyes: No Scleral Icterus Ears/Nose/Mouth/Throat: NL Teeth, Lips, Gums Neck: NL Appearance and Movements; NL JVP Respiratory: Symmetrical Chest Expansion and Respiratory Effort Cardiovascular: NL Sounds; No Murmurs; No JVD Abdominal: NL Sounds; No Tenderness; No Distention, - - both drains in place no rebound no guarding Extremities: No Edema, - - edema improving Neurological: Alert and Oriented x 3 Result Diagrams: 10/28/19 05:30 10/28/19 05:30 Microbiology and Other Data: Microbiology 10/15/19 12:57 Aerobic Blood Culture - Preliminary Blood Venous No Growth Day 2 Anaerobic Blood Culture - Preliminary No Growth Day 2 10/15/19 12:59 Aerobic Blood Culture - Preliminary Blood Venous No Growth Day 2 Anaerobic Blood Culture - Preliminary No Growth Day 2 10/15/19 20:45 Urine Culture - Final Urine No Growth (<1,000 CFU/mL) 10/15/19 14:22 Nasal Screen MRSA (PCR) - Final Nasal Mrsa Not Detected Assess/Plan/Problems-Billing Assessment: Mrs Jasso is a 39 yo female with PMH of type 1 DM, hypothyroidism, Bipolar disorder, who presented to ED with c/o pleuritic chest pain after a fall, found to be in DKA requiring ICU admission for insulin drip. Patient developed signs of sepsis and was found to have perforated appendicitis with retroperitoneal abscess, now s/p lap abscess drainage and appendectomy on 10/18/19. - Patient Problems (1) Perforated appendicitis Current Visit: Yes Status: Acute Code(s): K35.32 - ACUTE APPENDICITIS WITH PERF AND LOC PERITONITIS, W/O ABSCS SNOMED Code(s): 27318976 Comment: management per surgery - initially CT abd/pelvis demonstrated a complex 11x5x3 cm fluid and gas collection inseparable from the appendix. - S/p appendectomy 10/18/2019. - continue flagyl; f/u blood cultures show no growth, peritoneal fluid grew Strpetococcus constellatus and Bacteroides.- aztreonam d/c'd and started on levaquin for gram positive coverage - ID consulted- levaquin stopped 10/27 and switched to ceftriaxone and flagyl - continue antibiotics until drains are removed. -WBC trended down -Can be discharged on PO antibiotics and ID will follow on further IV or PO antiotics based on progress. Will discuss with surgery about the drains and discharge. Pt has home care arranged from Wednesday and planning to live with her friend initially. Will discuss with case.Possible discharge with services on Wednesday after discussion with surgery. (2) DKA (diabetic ketoacidoses) Current Visit: Yes Status: Acute Code(s): E11.10 - TYPE 2 DIABETES MELLITUS WITH KETOACIDOSIS WITHOUT COMA SNOMED Code(s): 434213625 Comment: - Present on admission secondary to non compliance, now resolved. (3) Diabetes mellitus type 1 Current Visit: Yes Status: Acute Comment: - She was taking long acting insulin 24U QPM, with 6U short acting insulin with each meal and a sliding scale prn short acting insulin; this was the regimen from June 2019 which patient self-discontinued. - Her glucose today 78-266- conitnue Lantus at 8 units and monitor. - continue 3 units with meals and sliding scale- hold for blood sugar less than 100 (4) Depression Current Visit: Yes Status: Acute Code(s): F32.9 - MAJOR DEPRESSIVE DISORDER , SINGLE EPISODE, UNSPECIFIED SNOMED Code(s): 98143017 Comment: - Continue Depakote and Bupropion - patient is refusing depakote (5) Hypothyroidism Current Visit: Yes Status: Acute Code(s): E03.9 - HYPOTHYROIDISM, UNSPECIFIED SNOMED Code(s): 89440434 Comment: - TSH elevated, likely secondary to non compliance, as Stacy DEAN called her pharmacy and she has not picked it up in a year though she is picking up her other medications - Continue Levothyroxine 175 mcg/day and repeat TFT as outpatient in the next 4- 6 weeks. (6) Sepsis Current Visit: Yes Status: Acute Comment: - Presentation compatible with sepsis including tachycardia and leukocytosis - Source is appendicitis - levaquin held. ceftriaxone and flagyl per ID (7) DVT prophylaxis Current Visit: Yes Status: Acute Code(s): Z29.9 - ENCOUNTER FOR PROPHYLACTIC MEASURES, UNSPECIFIED SNOMED Code(s): 414970427 Comment: - Lovenox. (8) Full code status Current Visit: Yes Status: Acute Code(s): Z78.9 - OTHER SPECIFIED HEALTH STATUS SNOMED Code(s): 255328312 Comment: (9) Leg edema Current Visit: Yes Status: Acute Code(s): R60.0 - LOCALIZED EDEMA SNOMED Code(s): 214242988 Comment: tense LE edema with bullous changes in legs Compression stockings leg elevation eval and r/o nephrotic syndrome in setting of dm, ua, urine protein, urine cr to start Status and Disposition: Has home care arranged from wednesday.will confirm with case.will discuss drains with surgery.poss d/c on wednesday with homecare to friend's house
[2019-10-28] MEDS: cefTRIAXone(*) 1 GM in NS 0.9% 50 ML* 50 ML IVPB SCH (16:25)
[2019-10-28] MEDS: Insulin GLARGINE(*) 1 UNITS UNIT SUBCUT SCH (21:39)
[2019-10-29] MEDS: metroNIDAZOLE IV 500 MG/100ML* 500 MG/100 ML BAG IVPB SCH ×2 (05:51→18:03)
[2019-10-29] MEDS: Levothyroxine TAB* 175 MCG TAB PO SCH (05:53)
[2019-10-29 05:56] LABS: ABS Basophils 0.1 10^3/ul (0-0.2); ABS Lymphocytes 1.4 10^3/ul (1.0-4.8); ABS Monocytes 0.8 10^3/ul (0-0.8); ABS Neutrophils 8.2 10^3/ul (1.5-7.7); Eosinophil % 0.5 %; Hematocrit 23 % (35-47); Hemoglobin 7.6 g/dL (12.0-16.0); Lymphocyte % 13.3 %; Mean Corpuscular HGB Conc 33 g/dL (31-36); Mean Corpuscular Hemoglobin 30 pg (27-31); Mean Corpuscular Volume 93 fL (80-97); Mean Platelet Volume 6.3 fL (7.4-10.4); Platelet Count 655 10^3/uL (150-450); Red Blood Count 2.51 10^6 /uL (3.70-4.87); Red Cell Distribution Width 14 % (10-15); White Blood Count 10.5 10^3/uL (3.5-10.8)
[2019-10-29] MEDS: oxyCODONE/Acetamin 5/325 MG* TAB PO PRN ×4 (05:59→21:22)
[2019-10-29 06:12] LABS: BUN/Creatinine Ratio 11.7 (8-20); Calcium 7.7 mg/dL (8.6-10.3); EGFR African American 134.7 (>60); EGFR Non-African American 111.3 (>60); Potassium 4.3 mmol/L (3.5-5.0)
[2019-10-29] MEDS: Divalproex DR TAB(*) 500 MG PO SCH ×2 (08:35→19:16)
[2019-10-29] MEDS: Norethindrone (NF) 0.35 MG TAB PO SCH (08:35)
[2019-10-29] MEDS: BuPROPion XL* 300 MG TAB.XL PO SCH (08:47)
[2019-10-29] MEDS: Insulin LISPRO* 1 UNITS UNIT SUBCUT SCH ×7 (08:47→21:11)
[2019-10-29] MEDS: Pantoprazole TAB * 40 MG TAB PO SCH (08:47)
--- NOTE | 2019-10-29 09:55 | PN ---
Progress Note - Progress Note Date of Service: 10/29/19 SOAP: Subjective: Pt feeling well. no nausea.tolerating regular diet Objective: af vss abdo: soft/ mild distension/ NT ERICA: purulent ( changed from yesterday) pigtail: seropurulent ext: edematous Assessment: s/p lap appy, post op abscess now drained Plan: continue drains for now abx d/c home planning
--- NOTE | 2019-10-29 11:47 | PN ---
Subjective Date of Service: 10/29/19 Interval History: denies any complaints.no abd pain Family History: Unchanged from Admission Social History: Unchanged from Admission Past Medical History: Unchanged from Admission Objective Active Medications: Bisacodyl (Dulcolax Supp*) 10 mg GA DAILY PRN PRN Reason: severe constipation Bupropion HCl (Bupropion Xl*) 300 mg PO DAILY [facility] Last Admin: 10/29/19 08:47 Dose: 300 mg Dextrose (D50w Syringe 50 Ml*) 12.5 gm IV PUSH .FOR FS < 60 - SS PRN PRN Reason: FS < 60 Divalproex Sodium (Depakote Dr Tab(*)) 500 mg PO BID [facility] Last Admin: 10/29/19 08:35 Dose: Not Given Docusate Sodium (Colace Cap*) 100 mg PO DAILY PRN PRN Reason: CONSTIPATION Enoxaparin Sodium (Lovenox(*)) 40 mg SUBCUT Q24H [facility] Last Admin: 10/28/19 14:21 Dose: 40 mg Heparin Sodium (Porcine) (Heparin Flush Picc/Ml/Cvc(*)) 1 - 3 ml FLUSH 0600, 1800 [facility]; Protocol Last Admin: 10/29/19 07:12 Dose: 1 ml Ceftriaxone Sodium 1 gm/ (Sodium Chloride) 50 mls @ 100 mls/hr IVPB Q24H [facility] Last Admin: 10/28/19 16:25 Dose: 100 mls/hr Metronidazole/Sodium Chloride (Flagyl 500 Mg Ivpb*) 500 mg in 100 mls @ 100 mls /hr IVPB 0600,1800 [facility] Last Admin: 10/29/19 05:51 Dose: 100 mls/hr Ibuprofen (Motrin Tab*) 600 mg PO Q6H PRN PRN Reason: PAIN - MILD Last Admin: 10/27/19 16:00 Dose: 600 mg Insulin Glargine (Lantus(*)) 8 units SUBCUT BEDTIME [facility] Last Admin: 10/28/19 21:39 Dose: 8 units Insulin Human Lispro (Humalog*) 0 units SUBCUT ACHS [facility]; Protocol Last Admin: 10/29/19 08:47 Dose: 2 units Insulin Human Lispro (Humalog*) 3 units SUBCUT AC [facility] Last Admin: 10/29/19 08:48 Dose: 3 units Levothyroxine Sodium (Synthroid Tab*) 175 mcg PO 0600 [facility] Last Admin: 10/29/19 05:53 Dose: 175 mcg Magnesium Hydroxide (Milk Of Magnesia Liq*) 30 ml PO Q4H PRN PRN Reason: CONSTIPATION Last Admin: 10/19/19 08:19 Dose: 30 ml Morphine Sulfate (Morphine Inj (Syringe))*) 2 mg IV Q4H PRN PRN Reason: pain - breakthrough Norethindrone (Ngoc (Nf)) 0.35 mg PO DAILY [facility] Last Admin: 10/29/19 08:35 Dose: Not Given Ondansetron HCl (Zofran Inj*) 4 mg IV Q6H PRN PRN Reason: NAUSEA Last Admin: 10/21/19 21:15 Dose: 4 mg Oxycodone/Acetaminophen (Percocet 5/325 Tab*) 1 tab PO Q4H PRN PRN Reason: PAIN - MODERATE Last Admin: 10/18/19 20:43 Dose: 1 tab Oxycodone/Acetaminophen (Percocet 5/325 Tab*) 2 tab PO Q4H PRN PRN Reason: PAIN - SEVERE Last Admin: 10/29/19 05:59 Dose: 2 tab Pantoprazole Sodium (Protonix Tab*) 40 mg PO DAILY [facility] Last Admin: 10/29/19 08:47 Dose: 40 mg Polyethylene Glycol/Electrolytes (Miralax*) 17 gm PO DAILY PRN PRN Reason: CONSTIPATION Last Admin: 10/22/19 21:03 Dose: 17 gm Prochlorperazine Edisylate (Compazine Inj*) 5 mg IV Q6H PRN PRN Reason: Nausea/Vomiting breakthrough Vital Signs - 8 hr 10/29/19 10/29/19 10/29/19 03:53 05:59 07:29 Temperature 98.3 F Pulse Rate 105 Respiratory 18 16 16 Rate Blood Pressure 119/60 (mmHg) O2 Sat by Pulse 92 Oximetry 10/29/19 10/29/19 07:38 08:34 Temperature 98.1 F Pulse Rate 92 Respiratory 16 18 Rate Blood Pressure 118/65 (mmHg) O2 Sat by Pulse 92 Oximetry Oxygen Devices in Use Now: None Eyes: No Scleral Icterus Ears/Nose/Mouth/Throat: NL Teeth, Lips, Gums Neck: NL Appearance and Movements; NL JVP Respiratory: Symmetrical Chest Expansion and Respiratory Effort Cardiovascular: NL Sounds; No Murmurs; No JVD Abdominal: NL Sounds; No Tenderness; No Distention, - - drains in place Extremities: No Edema Neurological: Alert and Oriented x 3 Result Diagrams: 10/29/19 05:37 10/29/19 05:37 Microbiology and Other Data: Microbiology 10/15/19 12:57 Aerobic Blood Culture - Preliminary Blood Venous No Growth Day 2 Anaerobic Blood Culture - Preliminary No Growth Day 2 10/15/19 12:59 Aerobic Blood Culture - Preliminary Blood Venous No Growth Day 2 Anaerobic Blood Culture - Preliminary No Growth Day 2 10/15/19 20:45 Urine Culture - Final Urine No Growth (<1,000 CFU/mL) 10/15/19 14:22 Nasal Screen MRSA (PCR) - Final Nasal Mrsa Not Detected Assess/Plan/Problems-Billing Assessment: Mrs Jasso is a 39 yo female with PMH of type 1 DM, hypothyroidism, Bipolar disorder, who presented to ED with c/o pleuritic chest pain after a fall, found to be in DKA requiring ICU admission for insulin drip. Patient developed signs of sepsis and was found to have perforated appendicitis with retroperitoneal abscess, now s/p lap abscess drainage and appendectomy on 10/18/19. - Patient Problems (1) Perforated appendicitis Current Visit: Yes Status: Acute Code(s): K35.32 - ACUTE APPENDICITIS WITH PERF AND LOC PERITONITIS, W/O ABSCS SNOMED Code(s): 66493516 Comment: management per surgery - initially CT abd/pelvis demonstrated a complex 11x5x3 cm fluid and gas collection inseparable from the appendix. - S/p appendectomy 10/18/2019. - continue flagyl; f/u blood cultures show no growth, peritoneal fluid grew Strpetococcus constellatus and Bacteroides.- aztreonam d/c'd and started on levaquin for gram positive coverage - ID consulted- levaquin stopped 10/27 and switched to ceftriaxone and flagyl - continue antibiotics until drains are removed. -WBC trended down -Can be discharged on PO antibiotics and ID will follow on further IV or PO antiotics based on progress. Will discuss with surgery about the drains and discharge. Pt has home care arranged from Wednesday and planning to live with her friend initially. Will discuss with case.Possible discharge with services on Wednesday after discussion with surgery. (2) DKA (diabetic ketoacidoses) Current Visit: Yes Status: Acute Code(s): E11.10 - TYPE 2 DIABETES MELLITUS WITH KETOACIDOSIS WITHOUT COMA SNOMED Code(s): 000166718 Comment: - Present on admission secondary to non compliance, now resolved. (3) Diabetes mellitus type 1 Current Visit: Yes Status: Acute Comment: - She was taking long acting insulin 24U QPM, with 6U short acting insulin with each meal and a sliding scale prn short acting insulin; this was the regimen from June 2019 which patient self-discontinued. - Her glucose today 78-266- conitnue Lantus at 8 units and monitor. - continue 3 units with meals and sliding scale- hold for blood sugar less than 100 (4) Depression Current Visit: Yes Status: Acute Code(s): F32.9 - MAJOR DEPRESSIVE DISORDER , SINGLE EPISODE, UNSPECIFIED SNOMED Code(s): 68200207 Comment: - Continue Depakote and Bupropion - patient is refusing depakote (5) Hypothyroidism Current Visit: Yes Status: Acute Code(s): E03.9 - HYPOTHYROIDISM, UNSPECIFIED SNOMED Code(s): 65813037 Comment: - TSH elevated, likely secondary to non compliance, as Stacy DEAN called her pharmacy and she has not picked it up in a year though she is picking up her other medications - Continue Levothyroxine 175 mcg/day and repeat TFT as outpatient in the next 4- 6 weeks. (6) Sepsis Current Visit: Yes Status: Acute Comment: - Presentation compatible with sepsis including tachycardia and leukocytosis - Source is appendicitis - levaquin held. ceftriaxone and flagyl per ID (7) DVT prophylaxis Current Visit: Yes Status: Acute Code(s): Z29.9 - ENCOUNTER FOR PROPHYLACTIC MEASURES, UNSPECIFIED SNOMED Code(s): 791246759 Comment: - Lovenox. (8) Full code status Current Visit: Yes Status: Acute Code(s): Z78.9 - OTHER SPECIFIED HEALTH STATUS SNOMED Code(s): 037350370 Comment: (9) Leg edema Current Visit: Yes Status: Acute Code(s): R60.0 - LOCALIZED EDEMA SNOMED Code(s): 986231779 Comment: tense LE edema with bullous changes in legs Compression stockings leg elevation No indication of nephrotic syndrome Status and Disposition: Has home care arranged from wednesday.will confirm with case.will discuss drains with surgery.poss d/c on wednesday with homecare to friend's house
[2019-10-29] MEDS: Enoxaparin(*) 40 MG/0.4 ML SYR SUBCUT SCH (13:47)
[2019-10-29] MEDS: cefTRIAXone(*) 1 GM in NS 0.9% 50 ML* 50 ML IVPB SCH (16:06)
[2019-10-29] MEDS: Insulin GLARGINE(*) 1 UNITS UNIT SUBCUT SCH (21:23)
[2019-10-30] MEDS: metroNIDAZOLE IV 500 MG/100ML* 500 MG/100 ML BAG IVPB SCH (05:45)
[2019-10-30] MEDS: oxyCODONE/Acetamin 5/325 MG* TAB PO PRN ×2 (05:49→12:14)
[2019-10-30] MEDS: Levothyroxine TAB* 175 MCG TAB PO SCH (05:49)
[2019-10-30 05:53] LABS: ABS Eosinophils 0.1 10^3/ul (0-0.6); ABS Lymphocytes 1.3 10^3/ul (1.0-4.8); ABS Monocytes 0.8 10^3/ul (0-0.8); ABS Neutrophils 7.1 10^3/ul (1.5-7.7); Eosinophil % 0.7 %; Hematocrit 24 % (35-47); Hemoglobin 7.9 g/dL (12.0-16.0); Lymphocyte % 13.8 %; Mean Corpuscular HGB Conc 33 g/dL (31-36); Mean Corpuscular Hemoglobin 31 pg (27-31); Mean Corpuscular Volume 94 fL (80-97); Mean Platelet Volume 6.2 fL (7.4-10.4); Platelet Count 692 10^3/uL (150-450); Red Blood Count 2.57 10^6 /uL (3.70-4.87); Red Cell Distribution Width 15 % (10-15); White Blood Count 9.2 10^3/uL (3.5-10.8)
[2019-10-30 06:10] LABS: BUN/Creatinine Ratio 10.5 (8-20); EGFR African American 142.9 (>60); EGFR Non-African American 118.1 (>60); Potassium 4.1 mmol/L (3.5-5.0)
[2019-10-30] MEDS: Insulin LISPRO* 1 UNITS UNIT SUBCUT SCH ×4 (07:29→12:26)
[2019-10-30] MEDS: Pantoprazole TAB * 40 MG TAB PO SCH (09:13)
[2019-10-30] MEDS: BuPROPion XL* 300 MG TAB.XL PO SCH (09:13)
[2019-10-30] MEDS: Norethindrone (NF) 0.35 MG TAB PO SCH (09:14)
[2019-10-30] MEDS: Divalproex DR TAB(*) 500 MG PO SCH (09:14)
--- NOTE | 2019-10-30 10:29 | PN ---
Progress Note - Progress Note Date of Service: 10/30/19 SOAP: Subjective:rehan reg diet;wants to go home [] Objective: Vital Signs Temp 98.4 F 10/30/19 07:11 Pulse 92 10/30/19 07:11 Resp 18 10/30/19 07:27 BP 123/74 10/30/19 07:11 Pulse Ox 93 10/30/19 07:11 Intake & Output 10/29/19 10/30/19 10/30/19 18:59 06:59 18:59 Intake Total 1049 600 320 Output Total 950 2225 Balance 99 -1625 320 Intake: IV Fluids 50 NS 50 IVPB 105 100 ABX - FLAGYL 105 100 Medicated IV 54 Ceftriaxone 54 Oral 830 600 210 Pigtail Drain 10 10 Output: ERICA #1 20 45 Pigtail Drain 30 30 Urine 900 2150 Other: # Bowel Movements 4 Estimated Stool Amount Small abd:+bs,soft;ERICA drainage purulent,115ml/24h and pigtail serous 80ml/24h; nondistended,minimal tenderness;ext:bilat edema [] Assessment:afebrile,stable for discharge [] Plan:discharge today per Hospitalist service on antibiotics as recommended per ID;continue ERICA and pigtail;followup with in our office at 2pm []
[2019-10-30 11:22] VITALS: BP 128/72
[2019-10-30] MEDS: Enoxaparin(*) 40 MG/0.4 ML SYR SUBCUT SCH (15:39)
[2019-10-30] MEDS: cefTRIAXone(*) 1 GM in NS 0.9% 50 ML* 50 ML IVPB SCH (15:59)
--- NOTE | 2019-10-31 01:31 | DS ---
DISCHARGE SUMMARY: DATE OF ADMISSION: 10/15/19 DATE OF DISCHARGE: 10/30/19 PRIMARY DIAGNOSES: 1. Perforated appendicitis. 2. Sepsis secondary to appendicitis. 3. Diabetic ketoacidosis. 4. Insulin-dependent diabetes. SECONDARY DIAGNOSES: 1. Diabetes. 2. Hypothyroidism. 3. Depression. HOSPITAL COURSE: This is a 39-year-old female with history of insulin- dependent diabetes mellitus, hypothyroidism, bipolar disorder, with recent fall , presented with anterior chest pain. Patient had fallen a week ago and she had visited the ER after 2 days. X-rays was negative for fracture and the patient was discharged on ibuprofen with the diagnosis of rib contusion. The patient came in with complaints of ongoing chest pain. Her appetite had also decreased and patient also reported urinary discomfort. In the ER, patient was noted to have a white count of 20.3, left shift noted to have a pH of 7, bicarb of 3.6, creatinine of 1.04, glucose of 499. The patient was admitted to the ICU for diabetic ketoacidosis, was initially placed on insulin drip and transitioned to insulin sliding scale with Lantus. The patient had stopped taking all her insulin in August, reports that she did not think it was helping as her numbers were high despite being on insulin, so she stopped taking her insulin. The patient has been counseled about the importance of taking her insulin and patient agrees to do so at time of discharge. The patient was initially in the ICU for her DKA/high anion gap metabolic acidosis. The patient was also noted to have a suspected urinary tract infection. The patient was transitioned to the floor; however, patient was noted to have sudden onset of flank pain. Also had a KUB on 10/17/19 which showed large stool volume and postoperative changes. Due to her significant new onset flank pain at night, patient had a CT of the abdomen and pelvis ordered to also rule out a stone which showed a complex 11 x 5.3 x 3.5 cm fluid and gas collection in the right retroperitoneum, this was inseparable from the tip of a prominent fluid filled distended appendix, perforated acute appendicitis with organizing phlegmon was suspected. The patient was seen by General Surgery, Dr. Tavera, and it was decided to take the patient to the OR for laparoscopic appendectomy and drainage of abscess. The patient was also placed on IV antibiotics. The patient had her surgery for the perforated appendix on 10/18/19. The patient is status post laparoscopic drainage of retroperitoneal abscess and laparoscopic appendectomy. The patient was continued on aztreonam and Flagyl. The patient's blood cultures remained negative through hospital course, wound culture grew Streptococcus constellatus and Bacteroides fragilis. Peritoneal fluid grew Strep constellatus and bacteroides as mentioned, still having considerable drainage through the ERICA also had serous drainage in her dressing with more pain and increase in white count. At this point, a repeat CT of the abdomen and pelvis was done on 10/22/19, which showed a surgical drain in place in the right lower quadrant, appendix fossa with complete resolution of previous gas and fluid containing abscess collection extending to the retroperitoneum and abdominal wall musculature, small volume of residual fluid and gas in the right posterolateral and lateral abdominal wall musculature was noted. Small to moderate dependent pleural effusions were noted to be increased. The patient had a central line placed on 10/22/19. The patient also had ultrasound guided right abdominal wall pigtail drainage catheter placement on 10/23/19 that was ultrasound guided. Infectious Disease consult was also obtained on 10/24/[address] Ash. In the meantime, her antibiotics were switched to Levaquin, ID recommended continuing the Levaquin and Flagyl, and continuing the drain. The patient was also noted to be depressed during her hospital stay and it was questioned if the patient had any suicidal ideation. The patient was seen by Dr. Arora, Psychiatry, on 10/26/19. She was restarted on Depakote on admission and has been taking Wellbutrin. After counseling, it was decided not to broaden further therapy and it appeared that the patient was more frustrated and exhausted. The patient continued to improve on antibiotics with the [address] ID switched her antibiotics to ceftriaxone and Flagyl during the hospital course and at time of discharge recommended discharging the patient on p.o. Levaquin and p.o. Flagyl for 10 more days. The patient still has [address], the ERICA and the pigtail catheter. The amount of drainage has come down and in the last 24 hours patient has put out about 190 mL from the ERICA and 40 mL from the pigtail catheter. The patient does not have any abdominal pain, is tolerating her diet well. Surgery recommends that the patient be discharged with both drains and patient to follow up with Dr. Tavera on 11/02/19 for further evaluation. In the meantime, we will discharge patient per ID recommendations on Flagyl and Levaquin for 10 more days and patient will need antibiotics as long as she is draining and has drains in place. The patient has anaphylactic reaction to penicillin and Augmentin was not chosen. Vitals and labs noted to be stable at time of discharge. PHYSICAL EXAM: Temperature 98.1, pulse 83, respiratory rate 16, oxygen saturation 97%, blood pressure 128/72. HEENT: NC/AT. Heart: S1, S2 present. Regular at the time of exam. Lungs: Clear to auscultation. Abdomen: Soft, nontender. No rebound. No guarding. Drains in place. Extremities: Noted to have edema which is improved with compression stockings. DISCHARGE MEDICATIONS: Medication list at the time of discharge: 1. Oxycodone 2 tablets every 6 hours p.r.n. for severe pain. 2. Flagyl 500 mg p.o. t.i.d. for 10 more days. 3. Senna 2 tablets p.o. b.i.d. p.r.n. 4. Seroquel 200 mg at bed time. 5. MiraLAX 17 g p.o. daily p.r.n. 6. Protonix 40 mg p.o. daily. 7. Omeprazole 1 cap p.o. daily. 8. control pills p.o. daily. 9. Levothyroxine 175 mcg daily. 10. Levofloxacin 500 mg p.o. daily for 10 more days. 11. Lispro sliding scale. 12. Lantus 24 units subcu q.p.m. 13. Ibuprofen 400 mg p.o. q.6 hours p.r.n. 14. Colace. 15. Depakote 500 mg p.o. b.i.d. 16. Wellbutrin 300 mg p.o. daily. FOLLOWUP: 1. The patient to follow up with her PCP in a week. 2. The patient is being discharged on home care and currently planning to stay with her friend. 3. The patient to complete her antibiotics for 10 more days with Levaquin and Flagyl. 4. The patient to follow up with Dr. Tavera on 11/02/19 for further evaluation and further decisions on the drains per Surgery. 5. The patient to follow up with Dr. Ash in a week as an outpatient for further antibiotic therapy. 6. The patient to follow up with Dr. Sales as an outpatient. The patient has been continued on her home insulin regimen as patient has not really taken this since August. Her insulin can be further adjusted based on her progress per the endocrine office. The patient has already known patient of Dr. Sales. CONDITION: Stable. DISPOSITION: Home. TIME SPENT: Total time spent on discharge is equal to 90 minutes. [id number]/[facility] #: [id number] EMILY
== END 2019-10-30 16:03 | disposition home or self-care (01) | DRG 981 ==
LOC: ED 10:40 → ICU 13:23 → MED 10-16 18:33 → SSU 10-18 14:22
PROVIDERS: ADMIT Internal Medicine Critical Care Medicine; ATTEND Internal Medicine
PROC: 0DTJ4ZZ Resection of Appendix, Percutaneous Endoscopic Approach (ICD-10-PCS; principal; 2019-10-18 12:30)
PROC: 05H633Z Insertion of Infusion Device into Left Subclavian Vein, Percutaneous Approach (ICD-10-PCS; 2019-10-22)
PROC: 0W9F30Z Drainage of Abdominal Wall with Drainage Device, Percutaneous Approach (ICD-10-PCS; 2019-10-25)
DX: E10.10 Type 1 diabetes mellitus with ketoacidosis without coma (principal); A41.9 Sepsis, unspecified organism; K35.33 Acute appendicitis with perforation, localized peritonitis, and gangrene, with abscess; N17.9 Acute kidney failure, unspecified; N39.0 Urinary tract infection, site not specified; J90 Pleural effusion, not elsewhere classified; F31.9 Bipolar disorder, unspecified; K21.9 Gastro-esophageal reflux disease without esophagitis; K59.00 Constipation, unspecified; E03.9 Hypothyroidism, unspecified; F60.3 Borderline personality disorder; R60.0 Localized edema; B96.6 Bacteroides fragilis [B. fragilis] as the cause of diseases classified elsewhere; B95.4 Other streptococcus as the cause of diseases classified elsewhere; Z91.5 Personal history of self-harm; Z88.0 Allergy status to penicillin; Z91.14 Patient's other noncompliance with medication regimen
CPT/HCPCS: 36415; 36600; 49406; 71045; 71250; 74018; 74176; 74177; 75989; 76705; 80048; 80053; 80320; 80329; 81003; 81015; 82330; 82550; 82570; 82803; 82947; 83036; 83605; 83735; 84156; 84443; 84484; 84702; 85025; 85610; 86140; 87040; 87070; 87073; 87076; 87077; 87086; 87186; 87205; 87641; 88304; 93005; 96374; 96375; 99285; A9270-GY; C1776; G0480; J0696; J0744; J0780; J1240; J1650; J1815; J1885; J2250; J2270; J2405; J2704; J3010; J3475; J3480; Q9967

== ENCOUNTER 2019-11-20 19:09 | Inpatient (IN) | payer MEDICARE, MEDICAID ==
--- OUTSIDE RECORDS SUMMARY | 2019-11-20 19:45 | XMS REPORT ---
:1980 Author Organization [facility] Care Team Providers Name Role Phone VLAD REYNA Primary Care Physician Unavailable Allergies, Adverse Reactions, Alerts Allergy Code CodeSystem Reaction Severity Criticality Status Start Substance Date Moderate Medications Medication Medication Medication Start Stop Route Dose Status Fill Code CodeSystem Date Date Instructions RxNorm Relevant diagnostic tests/laboratory data Narrative No Information Procedures Procedure Code CodeSystem Target Date of Status Service Device Device Device Name Site Procedure Delivery Code Name UID Location SNOMED-CT () 2019-07-27 complete Mental [facility], [id number] Psychotherap [id number] SNOMED-CT () 2019-09-01 complete Mental y, 45 04 d [facility]- minutes with [address], [id number] Psychiatric [id number] SNOMED-CT () 2019-09-12 complete Mental diagnostic [facility] d [facility]- evaluation [address], [id number] SNOMED-CT () 2019-09-12 complete [address], [id number] Encounters/Encounter Diagnoses Encounter Encounter Diagnosis Diagnosis Diagnosis Date of Service Name Code Code Name CodeSystem Diagnosis Delivery Location Initial 34449 SNOMED-CT 2019-09-12 [facility] [address] [place], [place], Services [id number] Vital Signs No Information Social History Element Description Description Start End Code CodeSystem AdditionalInfo Date Date SexAssignedAtBirth Female 1979- F AdministrativeGender 0-16 Hospital Discharge Instructions Reason For Referral Medical Equipment FDA Assessments
--- OUTSIDE RECORDS SUMMARY | 2019-11-20 19:45 | XMS REPORT | Continuity of Care Document ---
:1980 External Reference #:[id number] Author Name Jsoe Parsons MD (transmitted by agent of provider Elham Arrieta) Address [address] [place] [address] Care Team Providers Name Role Phone Masha Devlin MD - Internal Medicine Care Team Information Green Chain Off Bearer Problems Description No Information Available Social History Type Date Description Comments Sex Unknown Tobacco Use Start: Unknown End: Former Cigarette Smoker Unknown Smoking Status Reviewed: 11/09/19 Former Cigarette Smoker ETOH Use Occasionally consumes alcohol Tobacco Use Start: Unknown End: Patient is a former quit Nov 2018 Unknown smoker Recreational Drug Use Denies Drug Use Exercise Type/Frequency Does not exercise Allergies, Adverse Reactions, Alerts Active Allergies Reaction Severity Comments Date Penicillin anaphylaxsis Severe 02/02/2019 Medications Active Medications SIG Qnty Indications Ordering Date Provider Levothyroxine Sodium 300mcg once daily 30tabs E10.40 Jose Parsons MD 11/09 in the morning 300mcg Tablets 0.9% Normal Saline 10 cc flush to 25units Ashwin Tavera, 11/06/2019 Flush drain 3 times , KARINA daily, as directed Voltaren apply 2 grams twice 200units Deangelo Monet, [...] as directed, mdd 100Unit/ML Solution 30 Pen-Inject Pen Patillas 1 each with every 150units E10.40 Jose Parsons MD 06/14/2019 31G X 6 insulin injection mm Misc Onetouch Ultra Mini as directed 1units E10.40 Jose Parsons MD 06/14/2019 w/Device Kit Onetouch Ultra Blue test 3 times per 150units E10.40 Jose Parsons MD 06/14 day and as needed Strips Onetouch Delica Plus to use 4 x daily to 1units E10.40 Jose Parsons MD 01/2019 Lancing Device monitor bs, ok to Misc substitute what insurance will cover Onetouch Delica test up to 3 times 200units E10.40 Jose Parsons MD 2018 Lancets Fine 30G daily 30G Misc Wrist Splint use nightly to help 2units G56.03 Deangelo Monet, 05/18/2019 Misc with carpal tunnel M.D. features g56.01 Contour Next Blood use to test blood 150units E10.40 Jose Parsons MD 02/13 Glucose Test sugar 5 times Strips daily. Minimed Pump replace every 2 20units Jose Parsons MD 02/02/2019 [place] 3ML days. dx e10.9 Res 3ML Misc Quick-Set Infusion place 1 each every 20units E10.65 Jose Parsons MD 02/02 43" 9mm 2 days for insulin 43"/9mm Misc pump Insulin use 4-6 times/day 150units E10.65 Jose Parsons MD 02/02/2019 Syringe/0.3ML/30G X for insulin 5/16" injection 30G X 5/16" 0.3 ML Misc Gabapentin 2 capsules by mouth 180caps Jose Parsons MD 300mg three times a day Capsules Depakote ER 1 tablet by mouth Unknown 500mg twice daily Tablets ER 24HR Bupropion 1 by mouth every Unknown Hydrochloride ER day (XL) 300mg Tablets ER 24HR Ibuprofen as needed Unknown 200mg Tablets Levofloxacin one by mouth daily 14tabs Martin DVincent 500mg Dav Tsang Tablets Metronidazole one tablet by mouth 30tabs Martin D. 500mg twice daily Dav Tsang Tablets Oxycodone-Acetaminop 1 tabs by mouth Unknown hen every 4-6 hours as 5-325mg Tablets needed for pain History Medications Levothyroxine Sodium 300mcg once 30tabs E10.40 Jose Parsons MD 06/14/2019 - daily 11/09/2019 300mcg Tablets B6 Natural take one 60tabs G56.03 Deangelo Chiki, 05/18/2019 - 100mg Tablets capsule/tablet M.D. Unknown daily by mouth Synthroid take 1 tablet 30tabs E10.40 Jose Parsons MD 05/18/2019 - 200mcg Tablets daily on an 06/14/2019 empty stomach Medications Administered in Office Medication SIG Qnty Indications Ordering Provider Date Records Fee Jose Parsons MD 03/22/2019 Injection Immunizations Description No Information Available Vital Signs Date Vital Result Comment 11/09/2019 8:16am Height 60 inches 5'0" Weight 127.00 lb w/ shoes Heart Rate 104 /min BP Systolic Sitting 110 mmHg BP Diastolic Sitting 80 mmHg BMI (Body Mass Index) 24.8 kg/m2 11/07/2019 10:28am Height 60 inches 5'0" Weight 131.12 lb Heart Rate 92 /min BP Systolic Sitting 100 mmHg BP Diastolic Sitting 72 mmHg Respiratory Rate 14 /min Body Temperature 96.6 F BMI (Body Mass Index) 25.6 kg/m2 Results Test Acquired Facility Test Result H/L Range Note Date Laboratory 05/16/2019 [facility] TSH (Thyroid 56.19 High 0.34- 5.[address] Stim Horm) mcIU/[place] [address] [phone] Laboratory 05/16/2019 [facility] Rheumatoid < 10 IU/mL Normal <[address] [place] [address] [phone] Anca AB Ser If 05/16/2019 [facility] C-Anca Negative Negative [address] [place] [address] [phone] P-Anca Negative Negative 1 Vitamin B6 05/16/2019 [facility] Pyridoxal See Comment 5-[address] 5-Phosphate g/[place] [address] [phone] Pyridoxic Acid 2 g/L Abnormal 3-30 3 Laboratory 05/16/2019 [facility] Aso Negative <200 4 test finding [address] [facility] (Antistreptolysin O) IU/mL Iu/[place] [address] Titer [phone] Lyme Screen W/ Reflex To WB Negative Negative Creatine Kinase(CK) 28 U/L Normal 10-223 Uric Acid 4.7 mg/dL Normal 2.3-6.6 Ssa/SSB Abs Igg 05/16/2019 [facility] SS-A/Ro Antibody <0.2 U [address] [place] [address] [phone] SS-B/La Antibody <0.2 U 6 Laboratory test 05/16/2019 [facility] Erythrocyte Sed 20 mm/Hr High 0-[address] [place] [address] [phone] C Reactive Protein 3.79 mg/L Normal <8.01 Ferritin 159.9 ng/mL Normal 11-307 1 Negative for cANCA and pANCA patterns by immunofluorescence. ADDITIONAL INFORMATION This test was developed and its performance characteristics determined by [facility] in a manner consistent with CLIA requirements. This test has not been cleared or approved by the U.S. Food and Drug Administration. Test Performed by: [facility] - [address] [address] 2 Unknown interfering substance present; unable to obtain results. ADDITIONAL INFORMATION This test was developed and its performance characteristics determined by [facility] in a manner consistent with CLIA requirements. This test has not been cleared or approved by the U.S. Food and Drug Administration. 3 ADDITIONAL INFORMATION This test was developed and its performance characteristics determined by [facility] in a manner consistent with CLIA requirements. This test has not been cleared or approved by the U.S. Food and Drug Administration. Test Performed by: [facility] - [address] [address] 4 Normal values may vary with age, [...] REFERENCE VALUE <1.0 (Negative) Test Performed by: [facility] - [address] [address] Procedures Date Code Description Status 10/22/2019 61821 Insert Non-Tunneled Venous Catether Completed 10/18/2019 42296 Laparoscopy, Surgical, Appendectomy Completed 10/18/2019 68955 Laparoscopy, Surgical, Appendectomy Completed 10/17/2019 68743 EKG, Interpretation Only Completed 08/21/2019 81965 EKG, Interpretation Only Completed 05/31/2019 17380 Nerve Conduction 09-10 Studies Completed 05/31/2019 29989 Needle Electromyography Complete, Five Or More Muscles Completed Studied 05/31/2019 45668 Needle Electromyography Each Extremity W/Related Completed Paraspinal Areas Medical Devices Description No Information Available Encounters Type Date Location Provider Dx Diagnosis Office Visit 10/29/2019 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 E03.9 Hypothyroidism, 8:52a claire Estrella MD unspecified Hospitalists R60.0 Localized edema Z79.4 custodial (current) use of insulin Office Visit 10/27/2019 [facility] Jasmin Beebe D72.829 Elevated white 8:37a Infectious Isai, TOBACCO CURER blood cell Diseases count, unspecified Office Visit 10/27/2019 [facility] E03.9 Hypothyroidism, 7:50p claire Estrella MD unspecified Hospitalists R60.0 Localized edema Z79.4 terminal operations supervisor (current) use of insulin Office Visit 10/26/2019 [facility] E03.9 Hypothyroidism, 8:50a Assjulio,claire Brady MD unspecified Hospitalists F32.9 Major depressive disorder, single episode, unspecified R60.0 Localized edema Z79.4 terminal operations supervisor (current) use of insulin Office Visit 10/25/2019 [facility] E03.9 Hypothyroidism, 8:47a clarie Estrella NP unspecified Hospitalists F32.9 Major depressive disorder, single episode, unspecified Z79.4 terminal operations supervisor (current) use of insulin Office Visit 10/24/2019 [facility] Martin Lemus D72.829 Elevated white 7:54a For Infectious Dav Tsang blood cell count, Diseases unspecified E11.9 Type 2 diabetes mellitus without complications Office Visit 10/24/2019 [facility] E10.9 Type 1 diabetes 8:46a Assclaire kim NP mellitus without Hospitalists complications F32.9 Major depressive disorder, single episode, unspecified E03.9 Hypothyroidism, unspecified Office Visit 10/23/2019 [facility] E03.9 Hypothyroidism, 8:45a Assclaire kim NP unspecified Hospitalists F32.9 Major depressive disorder, single episode, unspecified Z79.4 custodial (current) use of insulin Office Visit 10/22/2019 [facility] E10.9 Type 1 diabetes 8:44a claire Estrella M.D. mellitus without Hospitalists complications E03.9 Hypothyroidism, unspecified F32.9 Major depressive disorder, single episode, unspecified Office Visit 10/21/2019 [facility] E03.9 Hypothyroidism, 8:44a Assoc,pc Minnie, M.D. 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 Judy E03.9 Hypothyroidism, 8:42a Assclaire kim M.D. unspecified Hospitalists F32.9 Major depressive disorder, single episode, unspecified Z79.4 terminal operations supervisor (current) use of insulin Office Visit 10/19/2019 [facility] Judy E03.9 Hypothyroidism, 8:37a Assclaire kim M.D. unspecified Hospitalists F32.9 Major depressive disorder, single episode, unspecified Z79.4 custodial (current) use of insulin Office Visit 10/18/2019 8:37a [facility] Stacy A41.9 Sepsis, Assocclaire, ROSALBA unspecified Hospitalists organism E03.9 Hypothyroidism, unspecified Z79.4 custodial (current) use of insulin Office Visit 10/17/2019 [facility] Stacy K59.00 Constipation, 8:37a Assoc,claire Barraza, ROSALBA unspecified Hospitalists E03.9 Hypothyroidism, unspecified F32.9 Major depressive disorder, single episode, unspecified Z79.4 terminal operations supervisor (current) use of insulin Office Visit 10/16/2019 8:34a Intensivists Gustavo Holbrook, N39.0 Urinary tract M.D. infection, site not specified D72.829 Elevated white blood cell count, unspecified Z79.4 terminal operations supervisor (current) use of insulin Office Visit 10/15/2019 8:31a Intensivists Kassie E10.10 Type 1 diabetes MD Ludwig mellitus with ketoacidosis without coma R07.81 Pleurodynia Z91.19 Patient's noncompliance w oth medical treatment and regimen Office 08/22/2019 [facility] July T43.212A [facility] 11:43a Assocclaire M.D. seroton/norepineph Hospitalists reup inhibtr,slf-hrm, init E11.65 Type 2 diabetes mellitus with hyperglycemia K59.00 Constipation, unspecified E03.9 Hypothyroidism, unspecified Office Visit 08/21/2019 [facility] Madelyn T50.901A Poisoning by unsp 11:43a Assoc,claire House, TOBACCO CURER drug/meds/biol Hospitalists subst, accidental, init E11.649 Type 2 diabetes mellitus with hypoglycemia without coma E03.9 Hypothyroidism, unspecified Z79.4 custodial (current) use of insulin Office Visit 08/20/2019 11:42a Intensivists Perfecto Moore M.D. R53.83 Other fatigue T43.212A Poisn by slctv seroton/norepineph reup inhibtr,slf-hrm, init Office Visit 08/20/2019 11:42a [facility] Elham R53.83 Other fatigue Assoc,claire Orozco NP Hospitalists T43.212A Poisn by slctv seroton/norepineph reup inhibtr,slf-hrm, init E11.9 Type 2 diabetes mellitus without complications Office Visit 08/17/2019 1:20p Rheumatology Deangelo Monet, G56.03 Carpal tunnel [facility] Demarco syndrome, bilateral upper limbs G56.22 Lesion of ulnar nerve, left upper limb R70.0 Elevated erythrocyte sedimentation rate G62.9 Polyneuropathy, unspecified Office Visit 06/14/2019 9:00a [facility] Jose Parsons, E10.40 Type 1 diabetes Endocrinology of mellitus with Jayson diabetic neuropathy, [facility] E06.3 Autoimmune thyroiditis Office Visit 05/18/2019 1:20p Rheumatology Deangelo R20.8 Other disturbances [facility] Monet M.D. of skin sensation M06.4 Inflammatory polyarthropathy M79.643 Pain in unspecified hand R70.0 Elevated erythrocyte sedimentation rate G56.03 Carpal tunnel syndrome, bilateral upper limbs Assessments Date Code Description Provider 11/09/2019 E10.10 Type 1 diabetes mellitus with Jose Parsons MD ketoacidosis without coma 11/09/2019 E03.9 Hypothyroidism, unspecified Jose Parsons MD 11/09/2019 K35.21 Acute appendicitis with generalized Jose Parsons MD peritonitis, with abscess 11/07/2019 K65.1 Peritoneal abscess Martin Tsang M.D. 11/06/2019 K35.33 Acute appendicitis with perforation Ashwin Tavera MD, FACS and localized peritonitis, with abscess 11/02/2019 K35.33 Acute appendicitis with perforation Ahswin Tavera MD, FACS and localized peritonitis, with abscess 10/30/2019 K35.33 Acute appendicitis with perforation Tish Brady MD and localized peritonitis, with abscess 10/30/2019 K35.21 Acute appendicitis with generalized Kassie B. Eckenrode , TOBACCO CURER peritonitis, with abscess 10/30/2019 A41.9 Sepsis, unspecified organism Tish Brady MD 10/30/2019 E10.10 Type 1 diabetes mellitus with Tish Brady MD ketoacidosis without coma 10/30/2019 E03.9 Hypothyroidism, unspecified Tish Brady MD 10/30/2019 F32.9 Major depressive disorder, single Tish Brady MD episode, unspecified 10/30/2019 B96.6 Bacteroides fragilis [B. fragilis] Tish Brady MD as the cause of diseases classified elsewhere 10/30/2019 B95.4 Other streptococcus as the cause of Tish Brady MD diseases classified elsewhere 10/30/2019 R60.0 Localized edema Tish Brady MD 10/30/2019 J90 Pleural effusion, not elsewhere Tish Brady MD classified 10/30/2019 Z79.4 custodial (current) use of jay jay Brady MD 10/29/2019 E03.9 Hypothyroidism, unspecified Tish Brady MD 10/29/2019 K35.21 Acute appendicitis with generalized Gigi Almazan MD, FACS peritonitis, with abscess 10/29/2019 R60.0 Localized edema Tish Brady MD 10/29/2019 Z79.4 custodial (current) use of jay jay Brady MD 10/28/2019 E03.9 Hypothyroidism, unspecified Tish Brady MD 10/28/2019 K35.21 Acute appendicitis with generalized Gigi Almazan MD, FACS peritonitis, with abscess 10/28/2019 R60.0 Localized edema Tish Brady MD 10/28/2019 Z79.4 custodial (current) use of insulin Tish Brady MD 10/27/2019 D72.829 Elevated white blood cell count, Jasmin Alex NP unspecified 10/27/2019 E03.9 Hypothyroidism, unspecified Tish Brady MD 10/27/2019 K35.21 Acute appendicitis with generalized Hari Cisneros PA-C peritonitis, with abscess 10/27/2019 R60.0 Localized edema Tish Brady MD 10/27/2019 Z79.4 terminal operations supervisor (current) use of insulin Tish Brady MD 10/26/2019 E03.9 Hypothyroidism, unspecified Tish Brady MD 10/26/2019 F32.9 Major depressive disorder, single Tish Brady MD episode, unspecified 10/26/2019 K65.1 Peritoneal abscess Eitan Maxwell PA-C 10/26/2019 R60.0 Localized edema Tish Brady MD 10/26/2019 Z79.4 custodial (current) use of jay jay Brady MD 10/25/2019 K35.33 Acute appendicitis with perforation MACK Kaur and localized peritonitis, with abscess 10/25/2019 E03.9 Hypothyroidism, unspecified Elhamchau Orozco, TOBACCO CURER 10/25/2019 F32.9 Major depressive disorder, single Elham Orozco, TOBACCO CURER episode, unspecified 10/25/2019 Z79.4 custodial (current) use of insulin Elham Orozco, TOBACCO CURER 10/24/2019 D72.829 Elevated white blood cell count, Martin Tsang M.D. unspecified 10/24/2019 E10.9 Type 1 diabetes mellitus without Elham Orozco NP complications 10/24/2019 E11.9 Type 2 diabetes mellitus without Martin Tsang M.D. complications 10/24/2019 K35.21 Acute appendicitis with generalized MACK Kaur peritonitis, with abscess 10/24/2019 F32.9 Major depressive disorder, single Elham Orozco, TOBACCO CURER episode, unspecified 10/24/2019 E03.9 Hypothyroidism, unspecified Elham Union, TOBACCO CURER 10/23/2019 E03.9 Hypothyroidism, unspecified Elham Orozco, TOBACCO CURER 10/23/2019 K35.21 Acute appendicitis with generalized MACK Kaur peritonitis, with abscess 10/23/2019 F32.9 Major depressive disorder, single Elham Orozco, TOBACCO CURER episode, unspecified 10/23/2019 Z79.4 terminal operations supervisor (current) use of insulin Elhamchau Orozco, TOBACCO CURER 10/22/2019 E10.9 Type 1 diabetes mellitus without Judy Hartman M.D. complications 10/22/2019 I99.8 Other disorder of circulatory system Alie Mckeon MD 10/22/2019 E03.9 Hypothyroidism, unspecified Judy Hartman M.D. 10/22/2019 K35.21 Acute appendicitis with generalized Alie Mckeon MD peritonitis, with abscess 10/22/2019 F32.9 Major depressive disorder, single Judy Hartman M.D. episode, unspecified 10/22/2019 K35.21 Acute appendicitis with generalized Alie Mckeon MD peritonitis, with abscess 10/21/2019 E03.9 Hypothyroidism, unspecified Judy Hartman M.D. 10/21/2019 K35.21 Acute appendicitis with generalized Alie Mckeon MD peritonitis, with abscess 10/21/2019 F32.9 Major depressive disorder, single Judy Hartman M.D. episode, unspecified 10/21/2019 Z91.19 Patient's noncompliance with other Judy Hartman M.D. medical treatment and regimen 10/21/2019 Z79.4 terminal operations supervisor (current) use of insulin Judy Hartman M.D. 10/20/2019 E03.9 Hypothyroidism, unspecified Judy Hartman M.D. 10/20/2019 K35.21 Acute appendicitis with generalized MACK Kaur peritonitis, with abscess 10/20/2019 F32.9 Major depressive disorder, single Judy Hartman M.D. episode, unspecified 10/20/2019 Z79.4 terminal operations supervisor (current) use of insulin Judy Hartman M.D. 10/19/2019 E03.9 Hypothyroidism, unspecified Judy Hartman M.D. 10/19/2019 K35.21 Acute appendicitis with generalized Ashwin Tavera MD, FACS peritonitis, with abscess 10/19/2019 F32.9 Major depressive disorder, single Judy Hartman M.D. episode, unspecified 10/19/2019 Z79.4 terminal operations supervisor (current) use of insulin Judy Hartman M.D. 10/18/2019 K35.33 Acute appendicitis with perforation Ashwin Tavera MD, FACS and localized peritonitis, with abscess 10/18/2019 A41.9 Sepsis, unspecified organism Stacy O'gissell, PA-C 10/18/2019 E03.9 Hypothyroidism, unspecified Stacy O'gissell, PA-C 10/18/2019 Z79.4 terminal operations supervisor (current) use of insulin Stacy O'gissell, PA-C 10/17/2019 K59.00 Constipation, unspecified Stacy O'gissell, PA-C 10/17/2019 E03.9 Hypothyroidism, unspecified Stacy O'gissell, PA-C 10/17/2019 R00.0 Tachycardia, unspecified Winter Rinaldi M.D. 10/17/2019 F32.9 Major depressive disorder, single Stacy O'gissell, PA-C episode, unspecified 10/17/2019 Z79.4 custodial (current) use of insulin Stacy O'gissell, PA-C 10/16/2019 N39.0 Urinary tract infection, site not Gustavo Holbrook M.D. specified 10/16/2019 D72.829 Elevated white blood cell count, Gustavo Holbrook M.D. unspecified 10/16/2019 Z79.4 custodial (current) use of insulin Gustavo Holbrook M.D. 10/15/2019 E10.10 Type 1 diabetes mellitus with Kassie Munroe MD ketoacidosis without coma 10/15/2019 R07.81 Pleurodynia Kassie Munroe MD 10/15/2019 Z91.19 Patient's noncompliance with other Kassie Munroe MD medical treatment and regimen 08/22/2019 T43.212A Poisoning by selective serotonin and July Dietz M.D. norepinephrine reuptake inhibitors, intentional self-harm, initial encounter 08/22/2019 E11.65 Type 2 diabetes mellitus with July Mirela, M.D. hyperglycemia 08/22/2019 K59.00 Constipation, unspecified July Dietz M.D. 08/22/2019 E03.9 Hypothyroidism, unspecified July Dietz M.D. 08/21/2019 T50.901A Poisoning by unspecified drugs, Dion Nguyen M.D. medicaments and biological substances, accidental (unintentional), initial encounter 08/21/2019 T50.901A Poisoning by unspecified drugs, Madelyn Lacy, TOBACCO CURER medicaments and biological substances, accidental (unintentional), initial encounter 08/21/2019 E11.649 Type 2 diabetes mellitus with Madelyn Lacy, TOBACCO CURER hypoglycemia without coma 08/21/2019 E03.9 Hypothyroidism, unspecified Madelyn Lacy, TOBACCO CURER 08/21/2019 Z79.4 terminal operations supervisor (current) use of insulin Madelyn Lacy, TOBACCO CURER 08/20/2019 R53.83 Other fatigue Perfecto Moore M.D. 08/20/2019 T43.212A Poisoning by selective serotonin and Perfecto Moore M.D. norepinephrine reuptake inhibitors, intentional self-harm, initial encounter 08/20/2019 R53.83 Other fatigue Elham Orozco, TOBACCO CURER 08/20/2019 T43.212A Poisoning by selective serotonin and Elham Orozco, TOBACCO CURER norepinephrine reuptake inhibitors, intentional self-harm, initial encounter 08/20/2019 E11.9 Type 2 diabetes mellitus without Elham Pam, TOBACCO CURER complications 08/17/2019 G56.03 Carpal tunnel syndrome, bilateral Deangelo Monet M.D. upper limbs 08/17/2019 G56.22 Lesion of ulnar nerve, left upper Deangelo Monet M.D. limb 08/17/2019 R70.0 Elevated erythrocyte sedimentation Deangelo Monet M.D. rate 08/17/2019 G62.9 Polyneuropathy, unspecified Deangelo Moent M.D. 06/14/2019 E10.40 Type 1 diabetes mellitus with Jose Parsons MD diabetic neuropathy, unspecifi 06/14/2019 E06.3 Autoimmune thyroiditis Jose Parsons MD 05/31/2019 G56.03 Carpal tunnel syndrome, bilateral Brynn Rodrigez M.D. upper limbs 05/31/2019 G56.22 Lesion of ulnar nerve, left upper Brynn Rodrigez M.D. limb 05/18/2019 R20.8 Other disturbances of skin sensation Deangelo Monet M.D. 05/18/2019 M06.4 Inflammatory polyarthropathy Deangelo Monet M.D. 05/18/2019 M79.643 Pain in unspecified hand Deangelo Monet M.D. 05/18/2019 R70.0 Elevated erythrocyte sedimentation Deangelo Monet M.D. rate 05/18/2019 G56.03 Carpal tunnel syndrome, bilateral Deangelo Monet M.D. upper limbs Plan of Treatment Future Appointment(s):12/28/2019 11:00 am - Jose Parsons MD at [facility]11/13/2019 3:40 pm - Martin Tsang M.D. at [facility]/30/2020 - Jose Parsons MDE10.10 Type 1 diabetes mellitus with ketoacidosis without comaInstructions:1. Continue Basaglar 24 units every day. 2. Use Novolog 6 units with large meals, 3 units with smallmeals. 3. Check your blood glucose at least 3 times/day. 4. Return in 6 weeks for a follow-up visit.5. We will request insulin pump through [employer]. 6. Return in 6 weeks for a follow-up visit.E03.9 Hypothyroidism, jkzjegheldwI34.21 Acute appendicitis with generalized peritonitis, with abscess Functional Status Description No Information Available Mental Status Description No Information Available Referrals Refer to Reason for Referral Status Appt Date Daly Grider M.D. Please evaluate patient with carpal tunnel Sent symptoms confirmed on EMG; for possible carpal tunnel release [address] [place] [address] [place] [address] [phone]
--- OUTSIDE RECORDS SUMMARY | 2019-11-20 19:45 | XMS REPORT | Continuity of Care Document ---
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 Problems Description No Information Available Social History Type Date Description Comments Sex Unknown Tobacco Use Start: Unknown End: Former Cigarette Smoker Unknown Smoking Status Reviewed: 11/06/19 Former Cigarette Smoker ETOH Use Occasionally consumes alcohol Tobacco Use Start: Unknown End: Patient is a former quit Nov 2018 Unknown smoker Recreational Drug Use Denies Drug Use Exercise Type/Frequency Does not exercise Allergies, Adverse Reactions, Alerts Active Allergies Reaction Severity Comments Date Penicillin anaphylaxsis Severe 02/02/2019 Medications Active Medications SIG Qnty Indications Ordering Date Provider 0.9% Normal Saline 10 cc flush to 25units Ashwin Tavera, 11/06/2019 Flush drain 3 times KARINA GARCIA daily, as directed Voltaren apply 2 grams [...] Jose Parsons MD 06/14/2019 or as directed, primo 100Unit/ML Solution 30 Pen-Inject Levothyroxine Sodium 300mcg once daily 30tabs E10.40 Jose Parsons MD 06/14 300mcg Tablets Pen [place] 1 each with every 150units E10.40 Jose [...] to help 2units G56.03 Deangelo Monet, [facility] M.D. features g56.01 Contour Next Blood use to test blood 150units E10.40 Jose Parsons MD 02/13 Glucose Test sugar 5 times Strips daily. Insulin use 4-6 times/day 150units E10.65 Jose Parsons MD 02/02/2019 Syringe/0.3ML/30G X for insulin 5/16" injection 30G X 5/16" 0.3 ML [facility] Infusion place 1 each every 20units E10.65 Jose Parsons MD 02/02 43" 9mm 2 days for insulin 43"/9mm Misc pump Minimed Pump replace every 2 20units Jose Parsons MD 02/02/2019 [place] 3ML days. dx e10.9 Res 3ML Misc Gabapentin 2 capsules by mouth 180caps Jose Parsons MD 300mg three times a day Capsules Depakote ER 1 tablet by mouth Unknown 500mg twice daily Tablets ER 24HR Bupropion 1 by mouth every Unknown Hydrochloride ER day (XL) 300mg Tablets ER 24HR Ibuprofen as needed Unknown 200mg Tablets Levofloxacin one by mouth daily Unknown 500mg for 10 days Tablets Metronidazole one tablet by mouth Unknown 500mg 3 times daily for 7 Tablets days Oxycodone-Acetaminop 1 tabs by mouth Unknown hen every 4-6 hours as 5-325mg Tablets needed for pain History Medications B6 Natural take one 60tabs G56.03 Deangelo Monet, 05/18/2019 - capsule/tablet daily M.D. Unknown 100mg Tablets by mouth Synthroid take 1 tablet daily on 30tabs E10.40 Jose Parsons MD 05/18/2019 - an empty stomach 06/14/2019 200mcg Tablets Medications Administered in Office Medication SIG Qnty Indications Ordering Provider Date Records Fee Jose Parsons MD 03/22/2019 Injection Immunizations Description No Information Available Vital Signs Date Vital Result Comment 11/06/2019 11:14am Height 60 inches 5'0" Weight 149.00 lb Heart Rate 100 /min BP Systolic Sitting 140 mmHg BP Diastolic Sitting 80 mmHg Respiratory Rate 16 /min Body Temperature 97.2 F BMI (Body Mass Index) 29.1 kg/m2 11/02/2019 1:31pm Height 60 inches 5'0" Weight 149.00 lb Heart Rate 72 /min BP Systolic 122 mmHg BP Diastolic 80 mmHg Respiratory Rate 16 /min Body Temperature 97.5 F BMI (Body Mass Index) 29.1 kg/m2 Results Test Acquired Facility Test Result H/L Range Note Date Laboratory 05/16/2019 [facility] TSH (Thyroid 56.19 High 0.34- 5.[address] Stim Horm) mcIU/[place] [address] [phone] Laboratory 05/16/2019 [facility] Rheumatoid < 10 IU/mL Normal <[address] [place] [address] [phone] Anca AB Ser If 05/16/2019 [facility] C-Anca Negative Negative [address] [place] [address] [phone] P-Anca Negative Negative 1 Vitamin B6 05/16/2019 [facility] Pyridoxal See Comment 5-[address] 5-Phosphate g/[place] [address] [phone] Pyridoxic Acid 2 g/L Abnormal 3-30 3 Laboratory 05/16/2019 [facility] Aso Negative <[address] (Antistreptolysin O) IU/mL Iu/[place] [address] Titer [phone] Lyme Screen W/ Reflex To WB Negative Negative Creatine Kinase(CK) 28 U/L Normal 10-223 Uric Acid 4.7 mg/dL Normal 2.3-6.6 Ssa/SSB Abs Igg 05/16/2019 [facility] SS-A/Ro Antibody <0.2 U [address] [place] [address] [phone] SS-B/La Antibody <0.2 U 6 Laboratory test 05/16/2019 [facility] Erythrocyte Sed 20 mm/Hr High 0-[address] Rate [place], [place] [id number] [phone] C Reactive Protein 3.79 mg/L Normal <8.01 Ferritin 159.9 ng/mL Normal 11-307 1 Negative for cANCA and pANCA patterns by immunofluorescence. ADDITIONAL INFORMATION This test was developed and its performance characteristics determined by [facility] in a manner consistent with CLIA requirements. This test has not been cleared or approved by the U.S. Food and Drug Administration. Test Performed by: [facility] - [address] [address] 2 Unknown interfering substance present; unable to obtain results. ADDITIONAL INFORMATION This test was developed and its performance characteristics determined by [facility] in a manner consistent with CLIA requirements. This test has not been cleared or approved by the U.S. Food and Drug Administration. 3 ADDITIONAL INFORMATION This test was developed and its performance characteristics determined by [facility] in a manner consistent with CLIA requirements. This test has not been cleared or approved by the U.S. Food and Drug Administration. Test Performed by: [facility] - [address] [address] Normal values may vary with age, [...] REFERENCE VALUE <1.0 (Negative) Test Performed by: [facility] - [address] [address] Procedures Date Code Description Status 10/22/2019 83404 Insert Non-Tunneled Venous Catether Completed 10/18/2019 56152 Laparoscopy, Surgical, Appendectomy Completed 10/18/2019 10139 Laparoscopy, Surgical, Appendectomy Completed 10/17/2019 11103 EKG, Interpretation Only Completed 08/21/2019 19072 EKG, Interpretation Only Completed 05/31/2019 74902 Nerve Conduction 09-10 Studies Completed 05/31/2019 42498 Needle Electromyography Complete, Five Or More Muscles Completed Studied 05/31/2019 14378 Needle Electromyography Each Extremity W/Related Completed Paraspinal Areas Medical Devices Description No Information Available Encounters Type Date Location Provider Dx Diagnosis Office Visit 10/29/2019 [facility] E03.9 Hypothyroidism, 8:53a claire Estrella MD unspecified Hospitalists R60.0 Localized edema Z79.4 continuous churn buttermaker (current) use of insulin Office Visit 10/28/2019 [facility] E03.9 Hypothyroidism, 8:52a claire Estrella MD unspecified Hospitalists R60.0 Localized edema Z79.4 continuous churn buttermaker (current) use of insulin Office Visit 10/27/2019 [facility] E03.9 Hypothyroidism, 7:50p claire Estrella MD unspecified Hospitalists R60.0 Localized edema Z79.4 [facility] (current) use of insulin Office Visit 10/26/2019 [facility] Tish E03.9 Hypothyroidism, 8:50a claire Estrella MD unspecified Hospitalists F32.9 Major depressive disorder, single episode, unspecified R60.0 Localized edema Z79.4 [facility] (current) use of insulin [facility] Hypothyroidism, 8:47a claire Estrella NP unspecified Hospitalists F32.9 Major depressive disorder, single episode, unspecified Z79.4 continuous churn buttermaker (current) use of insulin [facility] E10[facility]9 Type 1 diabetes 8:46a claire Estrella NP mellitus without Hospitalists complications F32.9 Major depressive disorder, single episode, unspecified E03.9 Hypothyroidism, unspecified Office Visit [facility].9 Hypothyroidism, 8:45a claire Estrelal NP unspecified Hospitalists F32.9 Major depressive disorder, single episode, unspecified Z79.4 continuous churn buttermaker (current) use of insulin [facility] Type 1 diabetes 8:44a claire Estrella M.D. mellitus without Hospitalists complications E03.9 Hypothyroidism, unspecified F32.9 Major depressive disorder, single episode, unspecified [facility] Visit [facility] E[facility].9 Hypothyroidism, 8:44a claire Estrella M.D. unspecified Hospitalists F32.9 Major depressive disorder, single episode, unspecified Z91.19 Patient's noncompliance w oth medical treatment and regimen Z79.4 [facility] (current) use of insulin Office Visit [facility] E[facility].9 Hypothyroidism, 8:42a claire Estrella M.D. unspecified Hospitalists F32.9 Major depressive disorder, single episode, unspecified Z79.4 continuous churn buttermaker (current) use of insulin Office Visit 10/19[facility] E03.9 Hypothyroidism, 8:37a claire Estrella M.D. unspecified Hospitalists F32.9 Major depressive disorder, single episode, unspecified Z79.4 continuous churn buttermaker (current) use of insulin Office Visit 10/18/2019 8:37a [facility] Stacy A41.9 Sepsis, Assoc,claire Barraza PA-C unspecified Hospitalists organism E03.9 Hypothyroidism, unspecified Z79.4 continuous churn buttermaker (current) use of insulin Office Visit 10/17/2019 [facility] Stacy K59.00 Constipation, 8:37a Assoc,claire Barraza PA-C unspecified Hospitalists E03.9 Hypothyroidism, unspecified F32.9 Major depressive disorder, single episode, unspecified Z79.4 continuous churn buttermaker (current) use of insulin Office Visit 10/16/2019 8:34a Intensivists Gustavo Holbrook, N39.0 Urinary tract M.DVincent infection, site not specified D72.829 Elevated white blood cell count, unspecified Z79.4 [facility] (current) use of insulin Office Visit 10/15/2019 8:31a Intensivists Kassie E10.10 Type 1 diabetes MD Ludwig mellitus with ketoacidosis without coma R07.81 Pleurodynia Z91.19 Patient's noncompliance w oth medical treatment and regimen Office 08/22/2019 [facility] July T43.212A Poisn by slctv Visit 11:43a Assclaire kim M.D. seroton/norepineph Hospitalists reup inhibtr,slf-hrm, init E11.65 Type 2 diabetes mellitus with hyperglycemia K59.00 Constipation, unspecified E03.9 Hypothyroidism, unspecified Office Visit 08/21/2019 [facility] Madelyn T50.901A Poisoning by unsp 11:43a Assocclaire Lacy, REVENUE CYCLE ANALYST drug/meds/biol Hospitalists subst, accidental, init E11.649 Type 2 diabetes mellitus with hypoglycemia without coma E03.9 Hypothyroidism, unspecified Z79.4 [facility] (current) use of insulin Office Visit 08/20/2019 11:42a Intensivists Perfecto Moore M.D. R53.83 Other fatigue T43.212A Poisn by slctv seroton/norepineph reup inhibtr,slf-hrm, init Office Visit 08/20/2019 11:42a [facility] Elham R53.83 Other fatigue Assoc,claire Orozco, REVENUE CYCLE ANALYST Hospitalists T43.212A Poisn by slctv seroton/norepineph reup inhibtr,slf-hrm, init E11.9 Type 2 diabetes mellitus without complications Office Visit 08/17/2019 1:20p Rheumatology Deangelo Monet, G56.03 Carpal tunnel [facility] Demarco syndrome, bilateral upper limbs G56.22 Lesion of ulnar nerve, left upper limb R70.0 Elevated erythrocyte sedimentation rate G62.9 Polyneuropathy, unspecified Office Visit 06/14/2019 9:00a [facility] Jose Parsons, E10.40 Type 1 diabetes Endocrinology of mellitus with [facility] diabetic neuropathy, unsp E06.3 Autoimmune thyroiditis Office Visit 05/18/2019 1:20p Rheumatology Deangelo R20.8 Other disturbances Services Of Jayson Monet M.D. of skin sensation M06.4 Inflammatory polyarthropathy M79.643 Pain in unspecified hand R70.0 Elevated erythrocyte sedimentation rate G56.03 Carpal tunnel syndrome, bilateral upper limbs Assessments Date Code Description Provider 11/06/2019 K35.33 Acute appendicitis with perforation Ashwin Tavera MD, FACS and localized peritonitis, with abscess 11/02/2019 K35.33 Acute appendicitis with perforation Ashwin Tavera MD, FACS and localized peritonitis, with abscess 10/30/2019 K35.33 Acute appendicitis with perforation Tish Brady MD and localized peritonitis, with abscess 10/30/2019 K35.21 Acute appendicitis with generalized Kassie Petty Godwin , REVENUE CYCLE ANALYST peritonitis, with abscess 10/30/2019 A41.9 Sepsis, unspecified organism Tish Brady MD 10/30/2019 E10.10 Type 1 diabetes mellitus with Tish Brady MD ketoacidosis without coma 10/30/2019 E03.9 Hypothyroidism, unspecified Tish Brady MD 10/30/2019 F32.9 Major depressive disorder, single Tish Brady MD episode, unspecified 10/30/2019 B96.6 Bacteroides fragilis [B. fragilis] as Tish Brady MD the cause of diseases classified elsewhere 10/30/2019 B95.4 Other streptococcus as the cause of Tish Brady MD diseases classified elsewhere 10/30/2019 R60.0 Localized edema Tish Brady MD 10/30/2019 J90 Pleural effusion, not elsewhere Tish Brady MD classified 10/30/2019 Z79.4 continuous churn buttermaker (current) use of jay jay Brady MD 10/29/2019 E03.9 Hypothyroidism, unspecified Tish Brady MD 10/29/2019 K35.21 Acute appendicitis with generalized Gigi Almazan MD, FACS peritonitis, with abscess 10/29/2019 R60.0 Localized edema Tish Brady MD 10/29/2019 Z79.4 continuous churn buttermaker (current) use of jay jay Brady MD 10/28/2019 E03.9 Hypothyroidism, unspecalysa Brady MD 10/28/2019 K35.21 Acute appendicitis with generalized Gigi Almazan MD, FACS peritonitis, with abscess 10/28/2019 R60.0 Localized edema Tish Brady MD 10/28/2019 Z79.4 [facility] (current) use of jay jay Brady MD 10/27/2019 E03.9 Hypothyroidism, unspecified Tish Brady MD 10/27/2019 K35.21 Acute appendicitis with generalized Hari Cisneros PA-C peritonitis, with abscess 10/27/2019 R60.0 Localized edema Tish Brady MD 10/27/2019 Z79.4 [facility] (current) use of jay jay Brady MD 10/26/2019 E03.9 Hypothyroidism, unspecified Tish Brady MD 10/26/2019 F32.9 Major depressive disorder, single Tish Brady MD episode, unspecified 10/26/2019 K65.1 Peritoneal abscess MACK KaurC 10/26/2019 R60.0 Localized edema Tish Brady MD 10/26/2019 Z79.4 [facility] (current) use of jay jay Brady MD 10/25/2019 K35.33 Acute appendicitis with perforation MACK Kaur and localized peritonitis, with abscess 10/25/2019 E03.9 Hypothyroidism, unspecified Elham Pam, REVENUE CYCLE ANALYST 10/25/2019 F32.9 Major depressive disorder, single Elham Pam, REVENUE CYCLE ANALYST episode, unspecified 10/25/2019 Z79.4 [facility] (current) use of insulin Elham Pam, REVENUE CYCLE ANALYST 10/24/2019 E10.9 Type 1 diabetes mellitus without Elham Pam, REVENUE CYCLE ANALYST complications 10/24/2019 K35.21 Acute appendicitis with generalized MACK Kaur peritonitis, with abscess 10/24/2019 F32.9 Major depressive disorder, single Elham [place], REVENUE CYCLE ANALYST episode, unspecified 10/24/2019 E03.9 Hypothyroidism, unspecified Elham [place], REVENUE CYCLE ANALYST 10/23/2019 E03.9 Hypothyroidism, unspecified Elham Pam, REVENUE CYCLE ANALYST 10/23/2019 K35.21 Acute appendicitis with generalized MACK Kaur peritonitis, with abscess 10/23/2019 F32.9 Major depressive disorder, single Elham Pam, REVENUE CYCLE ANALYST episode, unspecified 10/23/2019 Z79.4 continuous churn buttermaker (current) use of insulin Elham Pam, REVENUE CYCLE ANALYST 10/22/2019 E10.9 Type 1 diabetes mellitus without [...] M.D. medical treatment and regimen 10/21/2019 Z79.4 continuous churn buttermaker (current) use of insulin Judy Hartman M.D. 10/20/2019 E03.9 Hypothyroidism, unspecified Judy Hartman M.D. 10/20/2019 K35.21 Acute appendicitis with generalized MACK Kaur peritonitis, with abscess 10/20/2019 F32.9 Major depressive disorder, single Judy Hartman M.D. episode, unspecified 10/20/2019 Z79.4 [facility] (current) use of insulin Judy Hartman M.D. 10/19/2019 E03.9 Hypothyroidism, unspecified Judy Hartman M.D. 10/19/2019 K35.21 Acute appendicitis with generalized Ashwin Tavera MD, FACS peritonitis, with abscess 10/19/2019 F32.9 Major depressive disorder, single Judy Hartman M.D. episode, unspecified 10/19/2019 Z79.4 [facility] (current) use of insulin Judy Hartman M.D. 10/18/2019 K35.33 Acute appendicitis with perforation Ashwin Tavera MD, FACS and localized peritonitis, with abscess 10/18/2019 A41.9 Sepsis, unspecified organism Stacy O'gissell, PA-C 10/18/2019 E03.9 Hypothyroidism, unspecified Stacy O'gissell, PA-C 10/18/2019 Z79.4 [facility] (current) use of insulin Stacy O'gissell, PA-C 10/17/2019 K59.00 Constipation, unspecified Stacy O'gissell, PA-C 10/17/2019 E03.9 Hypothyroidism, unspecified Stacy O'gissell, PA-C 10/17/2019 R00.0 Tachycardia, unspecified Winter Rinaldi M.D. 10/17/2019 F32.9 Major depressive disorder, single Stacy O'gissell, PA-C episode, unspecified 10/17/2019 Z79.4 [facility] (current) use of insulin Stacy O'gissell, PA-C 10/16/2019 N39.0 Urinary tract infection, site not Gustavo Holbrook M.D. specified 10/16/2019 D72.829 Elevated white blood cell count, Gustavo Holbrook M.D. unspecified 10/16/2019 Z79.4 continuous churn buttermaker (current) use of insulin Gustavo Holbrook M.D. [...] E11.65 Type 2 diabetes mellitus with July Dietz M.D. hyperglycemia 08/22/2019 K59.00 Constipation, unspecified July Dietz M.D. 08/22/2019 E03.9 Hypothyroidism, unspecified July Dietz M.D. 08/21/2019 T50.901A Poisoning by unspecified drugs, Dion Nguyen M.D. medicaments and biological substances, accidental (unintentional), initial encounter 08/21/2019 T50.901A Poisoning by unspecified drugs, Madelyn Lacy, REVENUE CYCLE ANALYST medicaments and biological substances, accidental (unintentional), initial encounter 08/21/2019 E11.649 Type 2 diabetes mellitus with Madelyn Lacy, REVENUE CYCLE ANALYST hypoglycemia without coma 08/21/2019 E03.9 Hypothyroidism, unspecified Madelyn Lacy, REVENUE CYCLE ANALYST 08/21/2019 Z79.4 continuous churn buttermaker (current) use of insulin Madelyn Lacy, REVENUE CYCLE ANALYST 08/20/2019 R53.83 Other fatigue Perfecto Moore M.D. 08/20/2019 T43.212A Poisoning by selective serotonin and Perfecto Moore M.D. norepinephrine reuptake inhibitors, intentional self-harm, initial encounter 08/20/2019 R53.83 Other fatigue Elham Orozco, MILLER 08/20/2019 T43.212A Poisoning by selective serotonin and Elham [place], REVENUE CYCLE ANALYST norepinephrine reuptake inhibitors, intentional self-harm, initial encounter 08/20/2019 E11.9 Type 2 diabetes mellitus without Elham Pam, REVENUE CYCLE ANALYST complications 08/17/2019 G56.03 Carpal tunnel syndrome, bilateral Deangelo Monet M.D. upper limbs 08/17/2019 G56.22 Lesion of ulnar nerve, left upper Deangelo Monet M.D. limb 08/17/2019 R70.0 Elevated erythrocyte sedimentation Deangelo Monet M.D. rate 08/17/2019 G62.9 Polyneuropathy, unspecified Deangelo Monet M.D. [...] M.D. upper limbs Plan of Treatment Future Appointment(s):11/13/2019 10:00 am - Ashwin [facility]aver[facility] MD, [facility]11/07/2019 10:30 am - Martin Tsang M.D. at [facility]10/27/2020 - Ashwin Tavera MD, FACSK35.33 Acute appendicitis with perforation and localized peritonitis, with abscessFollow up: 1 weekRecommendations:Continue to flush the pigtail drain with NS 3x/day. Functional Status Description No Information Available Mental Status Description No Information Available Referrals Refer to Dr Reason for Referral Status Appt Date Daly Grider M.D. Please evaluate patient with carpal tunnel Sent symptoms confirmed on EMG; for possible carpal tunnel release [address] [facility] [place] [address] [phone]
--- OUTSIDE RECORDS SUMMARY | 2019-11-20 19:45 | XMS REPORT | Continuity of Care Document ---
:1980 External Reference #:[id number] Author Name Martin Tsang M.D. (transmitted by agent of provider Ashley Torres ) Address [address] [place] [id number] Care Team Providers Name Role Phone Masha Devlin MD - Internal Medicine Care Team Information Drywall Finisher Foreman [phone] Problems Description No Information Available Social History Type Date Description Comments Sex Unknown Tobacco Use Start: Unknown End: Former Cigarette Smoker Unknown Smoking Status Reviewed: 11/07/19 Former Cigarette Smoker ETOH Use Occasionally consumes [...] Tavera, 11/06/2019 Flush drain 3 times , FACS daily, as directed Voltaren apply 2 grams [...] Jose Parsons MD 06/14 300mcg Tablets Pen [place] 1 each with every 150units E10.40 Jose [...] 01/2019 Lancing Device monitor bs, ok to [facility] substitute what insurance will cover Onetouch Delica test up to 3 times 200units E10.40 Jose Parsons MD 2018 Lancets Fine 30G daily 30G [facility] Wrist Splint use nightly to help 2units G56.03 Deangelo Monet, 05/18/2019 [facility] with carpal tunnel M.D. features g56.01 Contour Next Blood use to test blood 150units E10.40 Jose Parsons MD 02/13 Glucose Test sugar 5 times Strips daily. Insulin use 4-6 times/day 150units E10.65 Jose Parsons MD 02/02/2019 Syringe/0.3ML/30G X for insulin 5/16" injection 30G X 5/16" 0.3 ML [facility] Quick-Set Infusion place 1 each every 20units E10.65 Jose Parsons MD 02/02 43" 9mm 2 days for insulin 43"/9mm [facility] pump Minimed Pump replace every 2 20units Jose Parsons MD 02/02/2019 [place] 3ML days. dx e10.9 Res 3ML Misc Gabapentin 2 capsules by mouth 180caps Jose Parsons MD 300mg three times a day Capsules Depakote ER 1 tablet by mouth Unknown 500mg twice daily Tablets ER 24HR Bupropion 1 by mouth every Unknown Hydrochloride ER day (XL) 300mg Tablets ER 24HR Ibuprofen as needed Unknown 200mg Tablets Levofloxacin one by mouth daily 14tabs Martin D. 500mg Dav Tsang Tablets Metronidazole one tablet [...] Available Vital Signs Date Vital Result Comment 11/07/2019 10:28am Height 60 inches 5'0" Weight 131.12 lb Heart Rate 92 /min BP Systolic Sitting 100 mmHg BP Diastolic Sitting 72 mmHg Respiratory Rate 14 /min Body Temperature 96.6 F BMI (Body Mass Index) 25.6 kg/m2 11/06/2019 11:14am Height 60 inches 5'0" Weight 149.00 lb Heart Rate 100 /min BP Systolic Sitting 140 mmHg BP Diastolic Sitting 80 mmHg Respiratory Rate 16 /min Body Temperature 97.2 F BMI (Body Mass Index) 29.1 kg/m2 Results Test Acquired Facility Test Result H/L Range Note Date Laboratory 05/16/2019 [facility] TSH (Thyroid 56.19 High 0.34- 5.[address] Stim Horm) mcIU/[place] [address] [phone] Laboratory 05/16/2019 [facility] Rheumatoid < 10 IU/mL Normal <[address] [place] [address] [phone] Anca AB Ser If 05/16/2019 [facility] C-Anca Negative Negative [address] [place] [address] [phone] P-Anca Negative Negative 1 Vitamin B6 05/16/2019 [facility] Pyridoxal See Comment 5-[address] 5-Phosphate g/[place] [address] [phone] Pyridoxic Acid 2 g/L Abnormal 3-30 3 Laboratory 05/16/2019 [facility] Aso Negative <200 4 test finding [address] [facility] (Antistreptolysin O) IU/mL Iu/[place] [address] Titer [phone] Lyme Screen W/ Reflex To WB Negative Negative Creatine Kinase(CK) 28 U/L Normal 10-223 Uric Acid 4.7 mg/dL Normal 2.3-6.6 Ssa/SSB Abs Igg 05/16/2019 [facility] SS-A/Ro Antibody <0.2 U [address] [place] [address] [phone] SS-B/La Antibody <0.2 U 6 Laboratory test 05/16/2019 [facility] Erythrocyte Sed 20 mm/Hr High 0-[address] [place] [address] [phone] C Reactive Protein 3.79 mg/L Normal <8.01 Ferritin 159.9 ng/mL Normal 11-307 1 Negative for cANCA and pANCA patterns by immunofluorescence. ADDITIONAL INFORMATION This test was developed and its performance characteristics determined by [facility] in a manner consistent with CLIA requirements. This test has not been cleared or approved by the U.S. Food and Drug Administration. Test Performed by: [facility] - [facility] [address] [place] [address] 2 Unknown interfering substance present; unable to obtain results. ADDITIONAL INFORMATION This test was developed and its performance characteristics determined by [facility] in a manner consistent with CLIA requirements. This test has not been cleared or approved by the U.S. Food and Drug Administration. 3 ADDITIONAL INFORMATION This test was developed and its performance characteristics determined by [facility] in a manner consistent with CLIA requirements. This test has not been cleared or approved by the U.S. Food and Drug Administration. Test Performed by: [facility] - [address] [address] 4 Normal values may vary with age, [...] REFERENCE VALUE <1.0 (Negative) Test Performed by: [facility] - [address] [address] Procedures Date Code Description Status 10/22/2019 52021 Insert Non-Tunneled Venous Catether Completed 10/18/2019 58473 Laparoscopy, Surgical, Appendectomy Completed 10/18/2019 61867 Laparoscopy, Surgical, Appendectomy Completed 10/17/2019 86123 EKG, Interpretation Only Completed 08/21/2019 35506 EKG, Interpretation Only Completed 05/31/2019 17394 Nerve Conduction 09-10 Studies Completed 05/31/2019 80991 Needle Electromyography Complete, Five Or More Muscles Completed Studied 05/31/2019 29020 Needle Electromyography Each Extremity W/Related Completed Paraspinal Areas Medical Devices Description No Information Available Encounters Type Date Location Provider Dx Diagnosis Office Visit 10/29/2019 [facility] E03.9 Hypothyroidism, 8:53a claire Estrella MD unspecified Hospitalists R60.0 Localized edema Z79.4 senior care (current) use of insulin Office Visit 10/28/2019 [facility] E03.9 Hypothyroidism, 8:52a claire Estrella MD unspecified Hospitalists R60.0 Localized edema Z79.4 senior care (current) use of insulin Office Visit 10/27/2019 [facility] Alma Rosa Beebe D72.829 Elevated white 8:37a Infectious Isai, [employer] MANAGER blood cell Diseases count, unspecified Office Visit 10/27/2019 [facility] E03.9 Hypothyroidism, 7:50p claire Estrella MD unspecified Hospitalists R60.0 Localized edema Z79.4 senior care (current) use of insulin Office Visit 10/26/2019 [facility] E03.9 Hypothyroidism, 8:50a Assoc,claire Brady MD unspecified Hospitalists F32.9 Major depressive disorder, single episode, unspecified R60.0 Localized edema Z79.4 ocean transportation intermediary (current) use of insulin Office Visit 10/25/2019 [facility] E03.9 Hypothyroidism, 8:47a claire Estrella NP unspecified Hospitalists F32.9 Major depressive disorder, single episode, unspecified Z79.4 senior care (current) use of insulin Office Visit 10/24/2019 [facility] Martin Lemus D72.829 Elevated white 7:54a For Infectious Dav Tsang blood cell count, Diseases unspecified E11.9 Type 2 diabetes mellitus without complications Office Visit 10/24/2019 [facility] E10.9 Type 1 diabetes 8:46a claire Estrella NP mellitus without Hospitalists complications F32.9 Major depressive disorder, single episode, unspecified E03.9 Hypothyroidism, unspecified Office Visit 10/23/2019 [facility] E03.9 Hypothyroidism, 8:45a claire Estrella NP unspecified Hospitalists F32.9 Major depressive disorder, single episode, unspecified Z79.4 ocean transportation intermediary (current) use of insulin [facility] E10[facility]9 Type 1 diabetes 8:44a claire Estrella M.D. mellitus without Hospitalists complications E03.9 Hypothyroidism, unspecified F32.9 Major depressive disorder, single episode, unspecified [facility] Visit [facility] E03.9 Hypothyroidism, 8:44a claire Estrella M.D. unspecified Hospitalists F32.9 Major depressive disorder, single episode, unspecified Z91.19 Patient's noncompliance w oth medical treatment and regimen Z79.4 senior care (current) use of insulin Office Visit 10/20/2019 [facility] Judy E03.9 Hypothyroidism, 8:42a claire Estrella M.D. unspecified Hospitalists F32.9 Major depressive disorder, single episode, unspecified Z79.4 ocean transportation intermediary (current) use of insulin Office Visit 10/19/2019 [facility] Judy E03.9 Hypothyroidism, 8:37a claire Estrella M.D. unspecified Hospitalists F32.9 Major depressive disorder, single episode, unspecified Z79.4 ocean transportation intermediary (current) use of insulin Office Visit 10/18/2019 8:37a [facility] Stacy A41.9 Sepsis, Assclaire kim, ROSALBA unspecified Hospitalists organism E03.9 Hypothyroidism, unspecified Z79.4 senior care (current) use of insulin Office Visit 10/17/2019 [facility] Stacy K59.00 Constipation, 8:37a Assclaire kim, ROSABLA unspecified Hospitalists E03.9 Hypothyroidism, unspecified F32.9 Major depressive disorder, single episode, unspecified Z79.4 ocean transportation intermediary (current) use of insulin Office Visit 10/16/2019 8:34a Intensivists Gustavo Holbrook, N39.0 Urinary tract M.D. infection, site not specified D72.829 Elevated white blood cell count, unspecified Z79.4 ocean transportation intermediary (current) use of insulin Office Visit 10/15/2019 8:31a [facility] Kassie E10.10 Type 1 diabetes MD Ludwig mellitus with ketoacidosis without coma R07.81 Pleurodynia Z91.19 Patient's noncompliance w oth medical treatment and regimen Office 08/22/2019 [facility] July T43.212A Poisn by slctv Visit 11:43a Assclaire kim M.D. seroton/norepineph Hospitalists reup inhibtr,slf-hrm, init E11.65 Type 2 diabetes mellitus with hyperglycemia K59.00 Constipation, unspecified E03.9 Hypothyroidism, unspecified Office Visit 08/21/2019 [facility] Madelyn T50.901A Poisoning by unsp 11:43a Assoc,pc Lacy, [employer] MANAGER drug/meds/biol Hospitalists subst, accidental, init E11.649 Type 2 diabetes mellitus with hypoglycemia without coma E03.9 Hypothyroidism, unspecified Z79.4 senior care (current) use of insulin Office Visit 08/20/2019 11:42a [facility]ensiv[facility] Perfecto Moore M.D. R53.83 Other fatigue T43.212A Poisn by slctv seroton/norepineph reup inhibtr,slf-hrm, init Office Visit 08/20/2019 11:42a [facility] Elham R53.83 Other fatigue Assoc,claire Orozco NP Hospitalists T43.212A Poisn by slctv seroton/norepineph reup inhibtr,slf-hrm, init E11.9 Type 2 diabetes mellitus without complications Office Visit 08/17/2019 1:20p Rheumatology Deangelo Monet, G56.03 Carpal tunnel Services Of [facility]ayson Demarco syndrome, bilateral upper limbs G56.22 Lesion of ulnar nerve, left upper limb R70.0 Elevated erythrocyte sedimentation rate G62.9 Polyneuropathy, unspecified Office Visit 06/14/2019 9:00a [facility] Jose Parsons, E10.40 Type 1 diabetes Endocrinology of mellitus with Jayson diabetic neuropathy, uns E06.3 Autoimmune thyroiditis Office Visit 05/18/2019 1:20p Rheumatology Deangelo R20.8 Other disturbances Services Of Jyason Monet M.D. of skin sensation M06.4 Inflammatory polyarthropathy M79.643 Pain in unspecified hand R70.0 Elevated erythrocyte sedimentation rate G56.03 Carpal tunnel syndrome, bilateral upper limbs Assessments Date Code Description Provider 11/07/2019 K65.1 Peritoneal abscess Martin Tsang M.D. 11/06/2019 K35.33 Acute appendicitis with perforation Ashwin Tavera MD, FACS and localized peritonitis, with abscess 11/02/2019 K35.33 Acute appendicitis with perforation Ashwin Tavera MD, FACS and localized peritonitis, with abscess 10/30/2019 K35.33 Acute appendicitis with perforation Tish Brady MD and localized peritonitis, with abscess 10/30/2019 K35.21 Acute appendicitis with generalized Kassie B. Eckenrode , [employer] MANAGER peritonitis, with abscess 10/30/2019 A41.9 Sepsis, unspecified [...] elsewhere Tish Brady MD classified 10/30/2019 Z79.4 ocean transportation intermediary (current) use of insulin Tish Brady MD 10/29/2019 E03.9 Hypothyroidism, unspecified Tish Brady MD 10/29/2019 K35.21 Acute appendicitis with generalized Gigi Almazan MD, FACS peritonitis, with abscess 10/29/2019 R60.0 Localized edema Tish Brady MD 10/29/2019 Z79.4 senior care (current) use of jay jay Brady MD 10/28/2019 E03.9 Hypothyroidism, unspecified Tish Brady MD 10/28/2019 K35.21 Acute appendicitis with generalized Gigi Almazan MD, FACS peritonitis, with abscess 10/28/2019 R60.0 Localized edema Tish Brady MD 10/28/2019 Z79.4 senior care (current) use of jay jay Brady MD 10/27/2019 D72.829 Elevated white blood cell count, Jasmin Alex , [employer] MANAGER unspecified 10/27/2019 E03.9 Hypothyroidism, unspecified Tish Brady MD 10/27/2019 K35.21 Acute appendicitis with generalized Hari Cisneros PA-C peritonitis, with abscess 10/27/2019 R60.0 Localized edema Tish Brady MD 10/27/2019 Z79.4 senior care (current) use of insulin Tish Brady MD 10/26/2019 E03.9 Hypothyroidism, unspecified Tish Brady MD 10/26/2019 F32.9 Major depressive disorder, single Tish Brady MD episode, unspecified 10/26/2019 K65.1 Peritoneal abscess Eitan Maxwell PA-C 10/26/2019 R60.0 Localized edema Tish Brady MD 10/26/2019 Z79.4 senior care (current) use of jay jay Brady MD 10/25/2019 K35.33 Acute appendicitis with perforation MACK Kaur and localized peritonitis, with abscess 10/25/2019 E03.9 Hypothyroidism, unspecified Elham Orozco, [employer] MANAGER 10/25/2019 F32.9 Major depressive disorder, single Elham Orozco, [employer] DIVISION MANAGER episode, unspecified 10/25/2019 Z79.4 ocean transportation intermediary (current) use of insulin Elham Orozco, [employer] DIVISION MANAGER 10/24/2019 D72.829 Elevated white blood cell count, Martin Tsang M.D. unspecified 10/24/2019 E10.9 Type 1 diabetes mellitus without Elham Pam, [employer] MANAGER complications 10/24/2019 E11.9 Type 2 diabetes mellitus without Martin Tsang M.D. complications 10/24/2019 K35.21 Acute appendicitis with generalized MACK Kaur peritonitis, with abscess 10/24/2019 F32.9 Major depressive disorder, single Elham Pam, [employer] DIVISION MANAGER episode, unspecified 10/24/2019 E03.9 Hypothyroidism, unspecified Elham [place], [employer]GY DIVISION MANAGER 10/23/2019 E03.9 Hypothyroidism, unspecified Elham Pam, [employer]EW[employer]GY DIVISION MANAGER 10/23/2019 K35.21 Acute appendicitis with generalized MACK Kaur peritonitis, with abscess 10/23/2019 F32.9 Major depressive disorder, single Elham Pam, [employer] DIVISION MANAGER episode, unspecified 10/23/2019 Z79.4 senior care (current) use of insulin Elham Orozco NP 10/22/2019 E10.9 Type 1 diabetes mellitus without [...] M.D. medical treatment and regimen 10/21/2019 Z79.4 ocean transportation intermediary (current) use of insulin Judy Hartman M.D. 10/20/2019 E03.9 Hypothyroidism, unspecified Judy Hartman M.D. 10/20/2019 K35.21 Acute appendicitis with generalized MACK Kaur peritonitis, with abscess 10/20/2019 F32.9 Major depressive disorder, single Judy Hartman M.D. episode, unspecified 10/20/2019 Z79.4 senior care (current) use of insulin Judy Hartman M.D. 10/19/2019 E03.9 Hypothyroidism, unspecified Judy Hartman M.D. 10/19/2019 K35.21 Acute appendicitis with generalized Ashwin Tavera MD, FACS peritonitis, with abscess 10/19/2019 F32.9 Major depressive disorder, single Judy Hartman M.D. episode, unspecified 10/19/2019 Z79.4 ocean transportation intermediary (current) use of insulin Judy Hartman M.D. 10/18/2019 K35.33 Acute appendicitis with perforation Ashwin Tavera MD, FACS and localized peritonitis, with abscess 10/18/2019 A41.9 Sepsis, unspecified organism Stacy O'gissell, PA-C 10/18/2019 E03.9 Hypothyroidism, unspecified Stacy O'gissell, PA-C 10/18/2019 Z79.4 senior care (current) use of insulin Stacy O'gissell, PA-C 10/17/2019 K59.00 Constipation, unspecified Stacy O'gissell, PA-C 10/17/2019 E03.9 Hypothyroidism, unspecified Stacy O'gissell, PA-C 10/17/2019 R00.0 Tachycardia, unspecified Winter Rinaldi M.D. 10/17/2019 F32.9 Major depressive disorder, single Stacy O'gissell, PA-C episode, unspecified 10/17/2019 Z79.4 ocean transportation intermediary (current) use of insulin Stacy O'gissell, PA-C 10/16/2019 N39.0 Urinary tract infection, site not Gustavo Holbrook M.D. specified 10/16/2019 D72.829 Elevated white blood cell count, Gustavo Holbrook M.D. unspecified 10/16/2019 Z79.4 senior care (current) use of insulin Gustavo Holbrook M.D. [...] T50.901A Poisoning by unspecified drugs, Madelyn Lacy, [employer]ISION MANAGER medicaments and biological substances, accidental (unintentional), initial encounter 08/21/2019 E11.649 Type 2 diabetes mellitus with Madelyn Lacy, [employer] DIVISION MANAGER hypoglycemia without coma 08/21/2019 E03.9 Hypothyroidism, unspecified Madelyn Lacy, [employer] DIVISION MANAGER 08/21/2019 Z79.4 senior care (current) use of insulin Madelyn Lacy, [employer] DIVISION MANAGER 08/20/2019 R53.83 Other fatigue Perfecto Moore M.D. 08/20/2019 T43.212A Poisoning by selective serotonin and Perfecto Moore M.D. norepinephrine reuptake inhibitors, intentional self-harm, initial encounter 08/20/2019 R53.83 Other fatigue Elham Pam, [employer] DIVISION MANAGER 08/20/2019 T43.212A Poisoning by selective serotonin and Elham Orozco, [employer] DIVISION MANAGER norepinephrine reuptake inhibitors, intentional self-harm, initial encounter 08/20/2019 E11.9 Type 2 diabetes mellitus without Elham [place], [employer] DIVISION MANAGER complications 08/17/2019 G56.03 Carpal tunnel syndrome, bilateral [...] upper limbs Plan of Treatment Future Appointment(s):11/13/2019 3:40 pm - Martin Tsang M.D. at [facility]10/03/2020 10:00 am - Ashwin Tavera MD, FACS at [facility]11/07/2019 - Martin Tsang M.D.K65.1 Peritoneal abscessFollow up:wednesday Functional Status Description No Information Available Mental Status Description No Information Available Referrals Refer to Reason for Referral Status Appt Date Daly Grider M.D. Please evaluate patient with carpal tunnel Sent symptoms confirmed on EMG; for possible carpal tunnel release [address] [place], [place] [id number] [phone]
--- OUTSIDE RECORDS SUMMARY | 2019-11-20 19:45 | XMS REPORT ---
:1980 Author Organization [facility] Care Team Providers Name Role Phone Unavailable Unavailable Unavailable Problems Condition Condition Condition Status Onset Resolution Last Treating Comments Name Details Category Date Date Treatment Clinician Date Acute Acute Diagnosis Active 2020-0 Sofia appendiciti appendiciti 1-14 Fan s with s with [id number] perforation perforation and and localized localized peritonitis peritonitis , without , without abscess abscess Pain frequent Pain Mgmt Active 2020-0 [facility] pain 11-01 [place] 12:30: [id number] 00 Respiratory dyspnea Respirator Active 2020-0 [facility] present y 11-01 [place] 12:30: [id number] 00 Endo/Zay insulin Endo/Zay Active 2020-0 [facility] admn 11-01 [place] dependence 12:30: [id number] 00 Endo/Zay knowledge/s Endo/Zay Active 2020-0 [facility] kill 11-01 [place] deficit: pt 12:30: [id number] 00 Endo/Zay diabetic Endo/Zay Active 2020-0 [facility] foot care 11-01 [place] 12:30: [id number] 00 Endo/Zay knowledge/s Endo/Zay Active 2020-0 [facility] kill 11-01 [place] deficit 12:30: [id number] hypo/hyperg 00 lycemia: pt Integument surgical Integument Active 2020-0 [facility] wound 11-01 [place] present 12:30: [id number] 00 Nutrition nutritional Nutrition Active 2020-0 [facility] restriction 11-01 [place] s 12:30: [id number] 00 Elimination urinary Eliminatio Active 2020-0 [facility] incontinenc n 11-01 [place] e 12:30: [id number] 00 Elimination GI drain or Eliminatio Active 2020-0 [facility] tube n 11-01 [place] present 12:30: [id number] 00 Neuro confusion Neuro/Emot Active 2020-0 [facility] present ion 11-01 [place] 12:30: [id number] 00 Neuro anxiety Neuro/Emot Active 2020-0 [facility] present ion 11-01 [place] 12:30: [id number] 00 Neuro impaired Neuro/Emot Active 2020-0 [facility] decision-ma ion 11-01 [place] niecy 12:30: [id number] 00 Neuro knowledge/s Neuro/Emot Active 2020-0 [facility] kill ion 11-01 [place] deficit: pt 12:30: [id number] 00 Activity ADL Activity Active 2020-0 [facility] assistance 11-01 [place] required 12:30: [id number] 00 Activity self-care Activity Active 2020-0 [facility] deficit 11-01 [place] 12:30: [id number] 00 Safety structural Safety Active 2020-0 [facility] barriers 11-01 [place] present 12:30: [id number] 00 Safety cannot be Safety Active 2020-0 [facility] left alone 11-01 [place] 12:30: [id number] 00 Safety fall risk Safety Active 2020-0 [facility] factor 11-01 [place] present 12:30: [id number] 00 Safety risk for Safety Active 2020-0 [facility] hospitaliza 11-01 [place] tion 12:30: [id number] 00 Medication oral med Meds Active 2020-0 [facility] assistance 11-01 [place] required 12:30: [id number] 00 Medication injectable Meds Active 2020-0 [facility] med 11-01 [place] assistance 12:30: [id number] required 00 Medication knowledge/s Meds Active 2020-0 [facility] kill 11-01 [place] deficit: pt 12:30: [id number] 00 Medication potential Meds Active 2020-0 [facility] clinically 11-01 [place] significant 12:30: [id number] medication 00 issue Musculoskel transfer Musculoske Active 2020-0 [facility] etal assistance letal 11-01 [place] required 12:30: [id number] 00 Cath/Ostomy k/s Cath\Ostom Active 2020-0 [facility] /GI deficit: y\GI Care 11-01 [place] cath/ost/GI 12:30: [id number] care - pt 00 Allergies, Adverse Reactions, Alerts Allergy Name Allergy Status Severity Reaction(s) Onset Inactive Treating Comments Type Date Date Clinician Penicillins Allergen Active Unknown Anaphylaxis 2020-0 [facility] 1-14 Medications Ordered Filled Start Stop Current Ordering Indication Dosage Frequency Signature Comments Components Medication Medication Date Date Medication? Clinician (SIG) Name Name ibuprofen ibuprofen Yes Octder Unknown Unknown 200 mg 200 mg 11-01 ,Masha tablet tablet levoFLOXaci levoFLOXaci 2019- Yes Octder Unknown Unknown n 500 mg n 500 mg 11-01 ,Masha tablet tablet metroNIDAZO metroNIDAZO 2019- Yes Octder Unknown Unknown LE 500 mg LE 500 mg 11-01 ,Masha tablet tablet oxyCODONE-a oxyCODONE-a Yes Octder Unknown Unknown cetaminophe cetaminophe 11-01 ,Masha n 5 mg-325 n 5 mg-325 mg tablet mg tablet Basaglar Basaglar Yes Octder Unknown Unknown KwikPen KwbeverleyPen 11-01 MDMasha U-100 U-100 Insulin 100 Insulin 100 unit/mL (3 unit/mL (3 mL) mL) subcutaneou subcutaneou s s omeprazole omeprazole Yes Octder Unknown Unknown 40 mg 40 mg 11-01 ,Masha capsule,del capsule,del ayed ayed release release norethindro norethindro Yes Octder Unknown Unknown ne ne 11-01 Masha GARCIA (contracept (contracept duncan) 0.35 duncan) 0.35 mg tablet mg tablet HumaLOG HumaLOG Yes Octder Unknown Unknown KwbeverleyPen KwMalgorzata 11-01 Masha GARCIA (U-100) (U-100) Insulin 100 Insulin 100 unit/mL unit/mL subcutaneou subcutaneou s s buPROPion buPROPion Yes Octder Unknown Unknown HCl XL 300 HCl XL 300 11-01 MDMasha mg 24 hr mg 24 hr tablet, tablet, extended extended release release divalproex divalproex Yes Octder Unknown Unknown 500 mg 500 mg 11-01 ,Masha tablet,oscar tablet,oscar yed release yed release pantoprazol pantoprazol Yes Octder Unknown Unknown e 40 mg e 40 mg 11-01 ,Masha tablet,oscar tablet,oscar yed release yed release QUEtiapine QUEtiapine Yes Octder Unknown Unknown 200 mg 200 mg 11-01 MD,Masha tablet tablet docusate docusate 2019-0 Yes Jander Unknown Unknown sodium 100 sodium 100 11-01 MD,Masha mg capsule mg capsule polyethylen polyethylen 2019- Yes Jander Unknown Unknown e glycol e glycol 11-01 MD,Masha 3350 (bulk) 3350 (bulk) powder powder senna 8.6 senna 8.6 2019- Yes Jander Unknown Unknown mg tablet mg tablet 11-01 MD,Masha levothyroxi levothyroxi Yes Jander Unknown Unknown ne 175 mcg ne 175 mcg 11-01 MD,Masha tablet tablet Vital Signs Vital Name Observation Time Observation Value Comments SYSTOLIC mm[Hg] 2019-11-01 18:10:00 128 mm[Hg] mm[Hg] Method: Sit SYSTOLIC mm[Hg] 2019-11-01 18:10:00 120 mm[Hg] mm[Hg] Method: Stand DIASTOLIC mm[Hg] 2019-11-01 18:10:00 80 mm[Hg] mm[Hg] Method: Sit DIASTOLIC mm[Hg] 2019-11-01 18:10:00 76 mm[Hg] mm[Hg] Method: Stand PULSE 2019-11-01 18:10:00 88 /min /min RESP RATE 2019-11-01 18:10:00 16 /min /min TEMP 2019-11-01 18:10:00 97.8 [degF] Procedures This patient has no known procedures. Results This patient has no known results.
--- OUTSIDE RECORDS SUMMARY | 2019-11-20 19:45 | XMS REPORT ---
:1980 Author Organization [facility] Care Team Providers Name Role Phone Unavailable Unavailable Unavailable Problems Condition Condition Condition Status Onset Resolution Last Treating Comments Name Details Category Date Date Treatment Clinician Date Acute Acute Diagnosis Active 2020-0 Sofia appendiciti appendiciti 1-14 Fan s with s with [id number] perforation perforation and and localized localized peritonitis peritonitis , without , without abscess abscess Pain frequent Pain Mgmt Active 2020-0 [facility] pain 11-01 [place] 12:30: [id number] 00 Respiratory dyspnea Respirator Active 2020-0 [facility] present y 11-01 [place] 12:30: [id number] 00 Endo/Zay insulin Endo/Zay Active 2020-0 [facility] admn 11-01 [place] dependence 12:30: [id number] 00 Endo/Zay knowledge/s Endo/Zay Active 2020-0 [facility] kill 11-01 [place] deficit: pt 12:30: [id number] 00 Endo/Zay diabetic Endo/Zay Active 2020-0 [facility] foot care 11-01 [place] 12:30: [id number] 00 Endo/Zay knowledge/s Endo/Zay Active 2020-0 [facility] kill 11-01 [place] deficit 12:30: [id number] hypo/hyperg 00 lycemia: pt Integument surgical Integument Active 2020-0 [facility] wound 11-01 [place] present 12:30: [id number] 00 Nutrition nutritional Nutrition Active 2020-0 [facility] restriction 11-01 [place] s 12:30: [id number] 00 Elimination urinary Eliminatio Active 2020-0 [facility] incontinenc n 11-01 [place] e 12:30: [id number] 00 Elimination GI drain or Eliminatio Active 2020-0 [facility] tube n 11-01 [place] present 12:30: [id number] 00 Neuro confusion Neuro/Emot Active 2020-0 [facility] present ion 11-01 [place] 12:30: [id number] 00 Neuro anxiety Neuro/Emot Active 2020-0 [facility] present ion 11-01 [place] 12:30: [id number] 00 Neuro impaired Neuro/Emot Active 2020-0 [facility] decision-ma ion 11-01 [place] niecy 12:30: [id number] 00 Neuro knowledge/s Neuro/Emot Active 2020-0 [facility] kill ion 11-01 [place] deficit: pt 12:30: [id number] 00 Activity ADL Activity Active 2020-0 [facility] assistance 11-01 [place] required 12:30: [id number] 00 Activity self-care Activity Active 2020-0 [facility] deficit 11-01 [place] 12:30: [id number] 00 Safety structural Safety Active 2020-0 [facility] barriers 11-01 [place] present 12:30: [id number] 00 Safety cannot be Safety Active 2020-0 [facility] left alone 11-01 [place] 12:30: [id number] 00 Safety fall risk Safety Active 2020-0 [facility] factor 11-01 [place] present 12:30: [id number] 00 Safety risk for Safety Active 2020-0 [facility] hospitaliza 11-01 [place] tion 12:30: [id number] 00 Medication oral med Meds Active 2020-0 [facility] assistance 11-01 [place] required 12:30: [id number] 00 Medication injectable Meds Active 2020-0 [facility] med 11-01 [place] assistance 12:30: [id number] required 00 Medication knowledge/s Meds Active 2020-0 [facility] kill 11-01 [place] deficit: pt 12:30: [id number] 00 Medication potential Meds Active 2020-0 [facility] clinically 11-01 [place] significant 12:30: [id number] medication 00 issue Musculoskel transfer Musculoske Active 2020-0 [facility] etal assistance letal 11-01 [place] required 12:30: [id number] 00 Cath/Ostomy k/s Cath\Ostom Active 2020-0 [facility] /GI deficit: y\GI Care 11-01 [place] cath/ost/GI 12:30: [id number] care - pt 00 Safety can be left Safety Active 2020-0 Sofia alone for 11-10 [place] only short 11:14: [id number] periods 00 Allergies, Adverse Reactions, Alerts Allergy Name Allergy Status Severity Reaction(s) Onset Inactive Treating Comments Type Date Date Clinician Penicillins Allergen Active Unknown Anaphylaxis [facility] 1-14 Medications Ordered Filled Start Stop Current Ordering Indication Dosage Frequency Signature Comments Components Medication Medication Date Date Medication? Clinician (SIG) Name Name ibuprofen ibuprofen Yes Jander Unknown Unknown 200 mg 200 mg 11-01 ,Masha tablet tablet levoFLOXaci levoFLOXaci 2019- Yes Jander Unknown Unknown n 500 mg n 500 mg 11-01 ,Masha tablet tablet metroNIDAZO metroNIDAZO 2019- Yes Jander Unknown Unknown LE 500 mg LE 500 mg 11-01 ,Masha tablet tablet oxyCODONE-a oxyCODONE-a Yes Jander Unknown Unknown cetaminophe cetaminophe 11-01 Masha GARCIA n 5 mg-325 n 5 mg-325 mg tablet mg tablet Basaglar Basaglar Yes Jander Unknown Unknown Christian Gonzales 11-01 Masha GARCIA U-100 U-100 Insulin 100 Insulin 100 unit/mL (3 unit/mL (3 mL) mL) subcutaneou subcutaneou s s omeprazole omeprazole Yes Jander Unknown Unknown 40 mg 40 mg 11-01 Masha GARCIA capsule,del capsule,del ayed ayed release release norethindro norethindro Yes Jander Unknown Unknown ne ne 11-01 Masha GARCIA (contracept (contracept duncan) 0.35 duncan) 0.35 mg tablet mg tablet HumaLOG HumaLOG Yes Jander Unknown Unknown Christian Gonzales 11-01 Masha GARCIA (U-100) (U-100) Insulin 100 Insulin 100 unit/mL unit/mL subcutaneou subcutaneou s s buPROPion buPROPion Yes Jander Unknown Unknown HCl XL 300 HCl XL 300 11-01 MDMasha mg 24 hr mg 24 hr tablet, tablet, extended extended release release divalproex divalproex Yes Jander Unknown Unknown 500 mg 500 mg 11-01 ,Masha tablet,oscar tablet,oscar yed release yed release pantoprazol pantoprazol Yes Jander Unknown Unknown e 40 mg e 40 mg 11-01 ,Masha tablet,oscar tablet,oscar yed release yed release QUEtiapine QUEtiapine 2019-0 Yes Jander Unknown Unknown 200 mg 200 mg - MD,Masha tablet tablet docusate docusate 2019- Yes Jander Unknown Unknown sodium 100 sodium [...] Observation Time Observation Value Comments SYSTOLIC mm[Hg] 2019-11-13 18:10:12 108 mm[Hg] mm[Hg] Method: Sit SYSTOLIC mm[Hg] 2019-11-01 18:10:00 120 mm[Hg] mm[Hg] Method: Stand DIASTOLIC mm[Hg] 2019-11-13 18:10:12 78 mm[Hg] mm[Hg] Method: Sit DIASTOLIC mm[Hg] 2019-11-01 18:10:00 76 mm[Hg] mm[Hg] Method: Stand PULSE 2019-11-13 18:10:12 104 /min /min RESP RATE 2019-11-13 18:10:12 18 /min /min TEMP 2019-11-13 18:10:12 97.9 [degF] Procedures This patient has no known procedures. Results This patient has no known results.
--- OUTSIDE RECORDS SUMMARY | 2019-11-20 19:45 | XMS REPORT ---
:1980 Author Organization [facility] Care Team Providers Name Role Phone Unavailable Unavailable Unavailable Problems Condition Condition Condition Status Onset Resolution Last Treating Comments Name Details Category Date Date Treatment Clinician Date Acute Acute Diagnosis Active 2020-0 Sofia appendiciti appendiciti 1-14 Fan s with s with [id number] perforation perforation and and localized localized peritonitis peritonitis , without , without abscess abscess Pain frequent Pain Mgmt Active 2020-0 [facility] pain 11-01 [place] 12:30: [id number] 00 Respiratory dyspnea Respirator Active 2020-0 [facility] present y 11-01 [place] 12:30: [id number] 00 Endo/Zay insulin Endo/Zay Active 2020-0 [facility] admn 11-01 [place] dependence 12:30: [id number] 00 Endo/Zay knowledge/s Endo/Zay Active 2020-0 [facility] kill 11-01 [place] deficit: pt 12:30: [id number] 00 Endo/Zay diabetic Endo/Zay Active 2020-0 [facility] foot care 11-01 [place] 12:30: [id number] 00 Endo/Zay knowledge/s Endo/Zay Active 2020-0 [facility] kill 11-01 [place] deficit 12:30: [id number] hypo/hyperg 00 lycemia: pt Integument surgical Integument Active 2020-0 [facility] wound 11-01 [place] present 12:30: [id number] 00 Nutrition nutritional Nutrition Active 2020-0 [facility] restriction 11-01 [place] s 12:30: [id number] 00 Elimination urinary Eliminatio Active 2020-0 [facility] incontinenc n 11-01 [place] e 12:30: [id number] 00 Elimination GI drain or Eliminatio Active 2020-0 [facility] tube n 11-01 [place] present 12:30: [id number] 00 Neuro confusion Neuro/Emot Active 2020-0 [facility] present ion 11-01 [place] 12:30: [id number] 00 Neuro anxiety Neuro/Emot Active 2020-0 [facility] present ion 11-01 [place] 12:30: [id number] 00 Neuro impaired Neuro/Emot Active 2020-0 [facility] decision-ma ion 11-01 [place] niecy 12:30: [id number] 00 Neuro knowledge/s Neuro/Emot Active 2020-0 [facility] kill ion 11-01 [place] deficit: pt 12:30: [id number] 00 Activity ADL Activity Active 2020-0 [facility] assistance 11-01 [place] required 12:30: [id number] 00 Activity self-care Activity Active 2020-0 [facility] deficit 11-01 [place] 12:30: [id number] 00 Safety structural Safety Active 2020-0 [facility] barriers 11-01 [place] present 12:30: [id number] 00 Safety cannot be Safety Active 2020-0 [facility] left alone 11-01 [place] 12:30: [id number] 00 Safety fall risk Safety Active 2020-0 [facility] factor 11-01 [place] present 12:30: [id number] 00 Safety risk for Safety Active 2020-0 [facility] hospitaliza 11-01 [place] tion 12:30: [id number] 00 Medication oral med Meds Active 2020-0 [facility] assistance 11-01 [place] required 12:30: [id number] 00 Medication injectable Meds Active 2020-0 [facility] med 11-01 [place] assistance 12:30: [id number] required 00 Medication knowledge/s Meds Active 2020-0 [facility] kill 11-01 [place] deficit: pt 12:30: [id number] 00 Medication potential Meds Active 2020-0 [facility] clinically 11-01 [place] significant 12:30: [id number] medication 00 issue Musculoskel transfer Musculoske Active 2020-0 Divine etal assistance letal 11-01 [place] required 12:30: [id number] 00 Cath/Ostomy k/s Cath\Ostom Active 2020-0 [facility] /GI deficit: y\GI Care 11-01 [place] cath/ost/GI 12:30: [id number] care - pt 00 Allergies, Adverse Reactions, [...]
--- OUTSIDE RECORDS SUMMARY | 2019-11-20 19:45 | XMS REPORT ---
:1980 Author Organization [facility] Care Team Providers Name Role Phone Unavailable Unavailable Unavailable Problems Condition Condition Condition Status Onset Resolution Last Treating Comments Name Details Category Date Date Treatment Clinician Date Acute Acute Diagnosis Active 2020-0 Sofia appendiciti appendiciti 1-14 Fan s with s with [id number] perforation perforation and and localized localized peritonitis peritonitis , without , without abscess abscess Pain frequent Pain Mgmt Active 2020-0 [facility] pain 11-01 [place] 12:30: [id number] 00 Respiratory dyspnea Respirator Active 2020-0 [facility] present y 11-01 [place] 12:30: [id number] 00 Endo/Zay insulin Endo/Zay Active 2020-0 [facility] admn 11-01 [place] dependence 12:30: [id number] 00 Endo/Zay knowledge/s Endo/Zay Active 2020-0 [facility] kill 11-01 [place] deficit: pt 12:30: [id number] 00 Endo/Zay diabetic Endo/Zay Active 2020-0 [facility] foot care 11-01 [place] 12:30: [id number] 00 Endo/Zay knowledge/s Endo/Zay Active 2020-0 [facility] kill 11-01 [place] deficit 12:30: [id number] hypo/hyperg 00 lycemia: pt Integument surgical Integument Active 2020-0 [facility] wound 11-01 [place] present 12:30: [id number] 00 Nutrition nutritional Nutrition Active 2020-0 [facility] restriction 11-01 [place] s 12:30: [id number] 00 Elimination urinary Eliminatio Active 2020-0 [facility] incontinenc n 11-01 [place] e 12:30: [id number] 00 Elimination GI drain or Eliminatio Active 2020-0 [facility] tube n 11-01 [place] present 12:30: [id number] 00 Neuro confusion Neuro/Emot Active 2020-0 [facility] present ion 11-01 [place] 12:30: [id number] 00 Neuro anxiety Neuro/Emot Active 2020-0 [facility] present ion 11-01 [place] 12:30: [id number] 00 Neuro impaired Neuro/Emot Active 2020-0 [facility] decision-ma ion 11-01 [place] niecy 12:30: [id number] 00 Neuro knowledge/s Neuro/Emot Active 2020-0 [facility] kill ion 11-01 [place] deficit: pt 12:30: [id number] 00 Activity ADL Activity Active 2020-0 [facility] assistance 11-01 [place] required 12:30: [id number] 00 Activity self-care Activity Active 2020-0 [facility] deficit 11-01 [place] 12:30: [id number] 00 Safety structural Safety Active 2020-0 [facility] barriers 11-01 [place] present 12:30: [id number] 00 Safety cannot be Safety Active 2020-0 [facility] left alone 11-01 [place] 12:30: [id number] 00 Safety fall risk Safety Active 2020-0 Divine factor 11-01 [place] present 12:30: [id number] 00 Safety risk for Safety Active 2020-0 [facility] hospitaliza 11-01 [place] tion 12:30: [id number] 00 Medication oral med Meds Active 2020-0 [facility] assistance 11-01 [place] required 12:30: [id number] 00 Medication injectable Meds Active 2020-0 [facility] med 11-01 [place] assistance 12:30: [id number] required 00 Medication knowledge/s Meds Active 2020-0 [facility] kill 11-01 [place] deficit: pt 12:30: [id number] 00 Medication potential Meds Active 2020-0 [facility] clinically 11-01 [place] significant 12:30: [id number] medication 00 issue Musculoskel transfer Musculoske Active 2020-0 [facility] etal assistance letal 11-01 [place] required 12:30: [id number] 00 Cath/Ostomy k/s Cath\Ostom Active 2020-0 [facility] /GI deficit: y\GI Care 11-01 [place] cath/ost/GI 12:30: [id number] care - pt 00 Allergies, Adverse Reactions, [...]
--- OUTSIDE RECORDS SUMMARY | 2019-11-20 19:45 | XMS REPORT ---
:1980 Author Organization [facility] Care Team Providers Name Role Phone Unavailable Unavailable Unavailable Problems Condition Condition Condition Status Onset Resolution Last Treating Comments Name Details Category Date Date Treatment Clinician Date Acute Acute Diagnosis Active 2020-0 Sofia appendiciti appendiciti 1-14 Fan s with s with [id number] perforation perforation and and localized localized peritonitis peritonitis , without , without abscess abscess Pain frequent Pain Mgmt Active 2020-0 [facility] pain 11-01 [place] 12:30: [id number] 00 Respiratory dyspnea Respirator Active 2020-0 [facility] present y 11-01 [place] 12:30: [id number] 00 Endo/Zay insulin Endo/Zay Active 2020-0 [facility] admn 11-01 [place] dependence 12:30: [id number] 00 Endo/Zay knowledge/s Endo/Zay Active 2020-0 [facility] kill 11-01 [place] deficit: pt 12:30: [id number] 00 Endo/Zay diabetic Endo/Zay Active 2020-0 [facility] foot care 11-01 [place] 12:30: [id number] 00 Endo/Zay knowledge/s Endo/Zay Active 2020-0 [facility] kill 11-01 [place] deficit 12:30: [id number] hypo/hyperg 00 lycemia: pt Integument surgical Integument Active 2020-0 [facility] wound 11-01 [place] present 12:30: [id number] 00 Nutrition nutritional Nutrition Active 2020-0 [facility] restriction 11-01 [place] s 12:30: [id number] 00 Elimination urinary Eliminatio Active 2020-0 [facility] incontinenc n 11-01 [place] e 12:30: [id number] 00 Elimination GI drain or Eliminatio Active 2020-0 [facility] tube n 11-01 [place] present 12:30: [id number] 00 Neuro confusion Neuro/Emot Active 2020-0 [facility] present ion 11-01 [place] 12:30: [id number] 00 Neuro anxiety Neuro/Emot Active 2020-0 [facility] present ion 11-01 [place] 12:30: [id number] 00 Neuro impaired Neuro/Emot Active 2020-0 [facility] decision-ma ion 11-01 [place] niecy 12:30: [id number] 00 Neuro knowledge/s Neuro/Emot Active 2020-0 [facility] kill ion 11-01 [place] deficit: pt 12:30: [id number] 00 Activity ADL Activity Active 2020-0 [facility] assistance 11-01 [place] required 12:30: [id number] 00 Activity self-care Activity Active 2020-0 [facility] deficit 11-01 [place] 12:30: [id number] 00 Safety structural Safety Active 2020-0 [facility] barriers 11-01 [place] present 12:30: [id number] 00 Safety cannot be Safety Active 2020-0 [facility] left alone 11-01 [place] 12:30: [id number] 00 Safety fall risk Safety Active 2020-0 [facility] factor 11-01 [place] present 12:30: [id number] 00 Safety risk for Safety Active 2020-0 [facility] hospitaliza 11-01 [place] tion 12:30: [id number] 00 Medication oral med Meds Active 2020-0 [facility] assistance 11-01 [place] required 12:30: [id number] 00 Medication injectable Meds Active 2020-0 [facility] med 11-01 [place] assistance 12:30: [id number] required 00 Medication knowledge/s Meds Active 2020-0 [facility] kill 11-01 [place] deficit: pt 12:30: [id number] 00 Medication potential Meds Active 2020-0 [facility] clinically 11-01 [place] significant 12:30: [id number] medication 00 issue Musculoskel transfer Musculoske Active 2020-0 [facility] etal assistance letal 11-01 [place] required 12:30: [id number] 00 Cath/Ostomy k/s Cath\Ostom Active 2020-0 [facility] /GI deficit: y\GI Care 11-01 [place] cath/ost/GI 12:30: [id number] care - pt 00 Allergies, Adverse Reactions, [...]
--- OUTSIDE RECORDS SUMMARY | 2019-11-20 19:45 | XMS REPORT ---
:1980 Author Organization [facility] Care Team Providers Name Role Phone Unavailable Unavailable Unavailable Problems Condition Condition Condition Status Onset Resolution Last Treating Comments Name Details Category Date Date Treatment Clinician Date Acute Acute Diagnosis Active 2020-0 Sofia appendiciti appendiciti 1-14 Fan s with s with [id number] perforation perforation and and localized localized peritonitis peritonitis , without , without abscess abscess Pain frequent Pain Mgmt Active 2020-0 [facility] pain 11-01 [place] 12:30: [id number] 00 Respiratory dyspnea Respirator Active 2020-0 [facility] present y 11-01 [place] 12:30: [id number] 00 Endo/Zay insulin Endo/Zay Active 2020-0 [facility] admn 11-01 [place] dependence 12:30: [id number] 00 Endo/Zay knowledge/s Endo/Zay Active 2020-0 [facility] kill 11-01 [place] deficit: pt 12:30: [id number] 00 Endo/Zay diabetic Endo/Zay Active 2020-0 [facility] foot care 11-01 [place] 12:30: [id number] 00 Endo/Zay knowledge/s Endo/Zay Active 2020-0 [facility] kill 11-01 [place] deficit 12:30: [id number] hypo/hyperg 00 lycemia: pt Integument surgical Integument Active 2020-0 [facility] wound 11-01 [place] present 12:30: [id number] 00 Nutrition nutritional Nutrition Active 2020-0 [facility] restriction 11-01 [place] s 12:30: [id number] 00 Elimination urinary Eliminatio Active 2020-0 [facility] incontinenc n 11-01 [place] e 12:30: [id number] 00 Elimination GI drain or Eliminatio Active 2020-0 [facility] tube n 11-01 [place] present 12:30: [id number] 00 Neuro confusion Neuro/Emot Active 2020-0 [facility] present ion 11-01 [place] 12:30: [id number] 00 Neuro anxiety Neuro/Emot Active 2020-0 [facility] present ion 11-01 [place] 12:30: [id number] 00 Neuro impaired Neuro/Emot Active 2020-0 [facility] decision-ma ion 11-01 [place] niecy 12:30: [id number] 00 Neuro knowledge/s Neuro/Emot Active 2020-0 [facility] kill ion 11-01 [place] deficit: pt 12:30: [id number] 00 Activity ADL Activity Active 2020-0 [facility] assistance 11-01 [place] required 12:30: [id number] 00 Activity self-care Activity Active 2020-0 [facility] deficit 11-01 [place] 12:30: [id number] 00 Safety structural Safety Active 2020-0 [facility] barriers 11-01 [place] present 12:30: [id number] 00 Safety cannot be Safety Active 2020-0 [facility] left alone 11-01 [place] 12:30: [id number] 00 Safety fall risk Safety Active 2020-0 [facility] factor 11-01 [place] present 12:30: [id number] 00 Safety risk for Safety Active 2020-0 [facility] hospitaliza 11-01 [place] tion 12:30: [id number] 00 Medication oral med Meds Active 2020-0 [facility] assistance 11-01 [place] required 12:30: [id number] 00 Medication injectable Meds Active 2020-0 [facility] med 11-01 [place] assistance 12:30: [id number] required 00 Medication knowledge/s Meds Active 2020-0 [facility] kill 11-01 [place] deficit: pt 12:30: [id number] 00 Medication potential Meds Active 2020-0 [facility] clinically 11-01 [place] significant 12:30: [id number] medication 00 issue Musculoskel transfer Musculoske Active 2020-0 [facility] etal assistance letal 11-01 [place] required 12:30: [id number] 00 Cath/Ostomy k/s Cath\Ostom Active 2020-0 [facility] /GI deficit: y\GI Care 11-01 [place] cath/ost/GI 12:30: [id number] care - pt 00 Safety can be left Safety Active 2020-0 Sofia alone for 11-10 [place] only short 11:14: [id number] periods 00 Allergies, Adverse Reactions, Alerts Allergy [...]
--- OUTSIDE RECORDS SUMMARY | 2019-11-20 19:45 | XMS REPORT ---
:1980 Author Organization [facility] Care Team Providers Name Role Phone Unavailable Unavailable Unavailable Problems Condition Condition Condition Status Onset Resolution Last Treating Comments Name Details Category Date Date Treatment Clinician Date Acute Acute Diagnosis Active 2020-0 Sofia appendiciti appendiciti 1-14 Fan s with s with [id number] perforation perforation and and localized localized peritonitis peritonitis , without , without abscess abscess Pain frequent Pain Mgmt Active 2020-0 [facility] pain 11-01 [place] 12:30: [id number] 00 Respiratory dyspnea Respirator Active 2020-0 [facility] present y 11-01 [place] 12:30: [id number] 00 Endo/Zay insulin Endo/Zay Active 2020-0 [facility] admn 11-01 [place] dependence 12:30: [id number] 00 Endo/Zay knowledge/s Endo/Zay Active 2020-0 [facility] kill 11-01 [place] deficit: pt 12:30: [id number] 00 Endo/Zay diabetic Endo/Zya Active 2020-0 [facility] foot care 11-01 [place] 12:30: [id number] 00 Endo/Zay knowledge/s Endo/Zay Active 2020-0 [facility] kill 11-01 [place] deficit 12:30: [id number] hypo/hyperg 00 lycemia: pt Integument surgical Integument Active 2020-0 [facility] wound 11-01 [place] present 12:30: [id number] 00 Nutrition nutritional Nutrition Active 2020-0 [facility] restriction 11-01 [place] s 12:30: [id number] 00 Elimination urinary Eliminatio Active 2020-0 [facility] incontinenc n 11-01 [place] e 12:30: [id number] 00 Elimination GI drain or Eliminatio Active 2020-0 [facility] tube n 11-01 [place] present 12:30: [id number] 00 Neuro confusion Neuro/Emot Active 2020-0 [facility] present ion 11-01 [place] 12:30: [id number] 00 Neuro anxiety Neuro/Emot Active 2020-0 [facility] present ion 11-01 [place] 12:30: [id number] 00 Neuro impaired Neuro/Emot Active 2020-0 [facility] decision-ma ion 11-01 [place] niecy 12:30: [id number] 00 Neuro knowledge/s Neuro/Emot Active 2020-0 [facility] kill ion 11-01 [place] deficit: pt 12:30: [id number] 00 Activity ADL Activity Active 2020-0 [facility] assistance 11-01 [place] required 12:30: [id number] 00 Activity self-care Activity Active 2020-0 [facility] deficit 11-01 [place] 12:30: [id number] 00 Safety structural Safety Active 2020-0 [facility] barriers 11-01 [place] present 12:30: [id number] 00 Safety cannot be Safety Active 2020-0 [facility] left alone 11-01 [place] 12:30: [id number] 00 Safety fall risk Safety Active 2020-0 [facility] factor 11-01 [place] present 12:30: [id number] 00 Safety risk for Safety Active 2020-0 [facility] hospitaliza 11-01 [place] tion 12:30: [id number] 00 Medication oral med Meds Active 2020-0 [facility] assistance 11-01 [place] required 12:30: [id number] 00 Medication injectable Meds Active 2020-0 [facility] med 11-01 [place] assistance 12:30: [id number] required 00 Medication knowledge/s Meds Active 2020-0 [facility] kill 11-01 [place] deficit: pt 12:30: [id number] 00 Medication potential Meds Active 2020-0 [facility] clinically 11-01 [place] significant 12:30: [id number] medication 00 issue Musculoskel transfer Musculoske Active 2020-0 [facility] etal assistance letal 11-01 [place] required 12:30: [id number] 00 Cath/Ostomy k/s Cath\Ostom Active 2020-0 [facility] /GI deficit: y\GI Care 11-01 [place] cath/ost/GI 12:30: [id number] care - pt 00 Safety can be left Safety Active 2020-0 Sofia alone for 11-10 [place] only short 11:14: [id number] periods 00 Allergies, Adverse Reactions, Alerts Allergy [...]
--- OUTSIDE RECORDS SUMMARY | 2019-11-20 19:45 | XMS REPORT | Continuity of Care Document ---
:1980 External Reference #:[id number] Author Name Martin Tsang M.D. (transmitted by agent of provider Ashley Torres ) Address [address] [place] [id number] Care Team Providers Name Role Phone Masha Devlin MD - Internal Medicine Care Team Information Child And Family Therapist Problems Description No Information Available Social History Type Date Description Comments Sex Unknown Tobacco Use Start: Unknown End: Former Cigarette Smoker Unknown Smoking Status Reviewed: 11/13/19 Former Cigarette Smoker ETOH Use Occasionally consumes alcohol Tobacco Use Start: Unknown End: Patient is a former quit Nov 2018 Unknown smoker Recreational Drug Use Denies Drug Use Exercise Type/Frequency Does not exercise Allergies, Adverse Reactions, Alerts Active Allergies Reaction Severity Comments Date Penicillin anaphylaxsis Severe 02/02/2019 Medications Active Medications SIG Qnty Indications Ordering Date Provider Invanz iv once daily x 14 K65.1 Martin Lemus 11/13/2019 1gm Solution days at [facility] Dav Tsang [facility] infusion center Levothyroxine Sodium Take 1 Tablet By 90tabs E10.40 Jose Parsons MD 2019 Mouth Every Day In 300mcg Tablets The Morning 0.9% Normal Saline 10 cc flush to [...] directed, mdd 100Unit/ML Solution 30 Pen-Inject Pen [place] 1 each with every 150units E10.40 Jose Parsons MD 06/14/2019 31G X 6 insulin injection mm Misc Onetouch Ultra Mini as directed 1units E10.40 Jose Parsons MD 06/14/2019 w/Device Kit Onetouch Ultra Blue Test Blood Sugars 450units E10.40 Jose Parsons MD 01/2019 Three Times Daily Strips And as Needed as Directed Onetouch Delica Plus to use 4 x [...] injection 30G X 5/16" 0.3 ML Misc Quick-Set Infusion place 1 each every 20units E10.65 Jose Parsons MD 02/02 43" 9mm 2 days for insulin 43"/9mm Misc pump Minimed Pump replace every 2 20units Jose Parsons MD 02/02/2019 [facility] 3ML days. dx e10.9 Res 3ML Misc [...] B6 Natural take one 60tabs G56.03 Deangelo Monet 05/18/2019 - 100mg Tablets capsule/tablet M.D. Unknown daily by mouth Synthroid take 1 tablet 30tabs E10.40 Jose Parsons MD 05/18/2019 - 200mcg Tablets daily on an 06/14/2019 empty stomach Medications Administered in Office Medication SIG Qnty Indications Ordering Provider Date Records Fee Jose Parsons MD 03/22/2019 Injection Immunizations Description No Information Available Vital Signs Date Vital Result Comment 11/13/2019 3:33pm Height 60 inches 5'0" Weight 125.00 lb Heart Rate 106 /min BP Systolic Sitting 114 mmHg BP Diastolic Sitting 67 mmHg Body Temperature 98.7 F Pain Level 8 RLQ for weeks O2 % BldC Oximetry 98 % BMI (Body Mass Index) 24.4 kg/m2 11/09/2019 8:16am Height 60 inches 5'0" Weight 127.00 lb w/ shoes Heart Rate 104 /min BP Systolic Sitting 110 mmHg BP Diastolic Sitting 80 mmHg BMI (Body Mass Index) 24.8 kg/m2 Results Test Acquired Date Facility Test Result H/L Range Note Laboratory test 11/09[facility] C Reactive 10.39 mg/L High <8.[address] [place] [address] [phone] Comp Metabolic 11/09/2019 [facility] Sodium 132 mmol/L Low 135 -[address] [place] [address] [phone] Chloride 96 mmol/L Low 101-111 Co2 Carbon Dioxide 28 mmol/L Normal 22-32 Glucose 482 mg/dL High 70-100 Blood Urea Nitrogen 14 mg/dL Normal 6-24 Creatinine 0.80 mg/dL Normal 0.51-0.95 BUN/Creatinine Ratio 17.5 Normal 8-20 Calcium 9.7 mg/dL Normal 8.6-10.3 Total Protein 7.0 g/dL Normal 6.4-8.9 Albumin 3.4 g/dL Normal 3.2-5.2 Globulin 3.6 g/dL Normal 2-4 Albumin/Globulin Ratio 0.9 Low 1-3 Total Bilirubin 0.50 mg/dL Normal 0.2-1.0 Alkaline Phosphatase 75 U/L Normal 34-104 Alt 10 U/L Normal 7-52 Ast 17 U/L Normal 13-39 Egfr Non- 79.9 >60 Egfr 96.6 >60 1 Potassium 5.3 mmol/L High 3.5-5.0 Anion Gap 8 mmol/L Normal 2-11 CBC Auto 11/09/2019 [facility] White Blood 5.8 10^3/uL Normal 3.5-10.[address] [place] [address] [phone] Red Blood Count 3.81 10^6/uL Normal 3.70-4.87 Hemoglobin 11.7 g/dL Low 12.0-16.0 Hematocrit 36 % Normal 35-47 Mean Corpuscular Volume 95 fL Normal 80-97 Mean Corpuscular Hemoglobin 31 pg Normal 27-31 Mean Corpuscular HGB Conc 32 g/dL Normal 31-36 Red Cell Distribution Width 15 % Normal 10-15 Platelet Count 691 10^3/uL High 150-450 Mean Platelet Volume 7.0 fL Low 7.4-10.4 Abs Neutrophils 3.5 10^3/uL Normal 1.5-7.7 Abs Lymphocytes 1.3 10^3/uL Normal 1.0-4.8 Abs Monocytes 0.7 10^3/uL Normal 0-0.8 Abs Eosinophils 0.3 10^3/uL Normal 0-0.6 Abs Basophils 0.1 10^3/uL Normal 0-0.2 Abs Nucleated RBC 0.0 10^3/uL Granulocyte % 61.1 % Lymphocyte % 22.0 % Monocyte % 11.4 % Eosinophil % 4.3 % Basophil % 1.2 % Nucleated Red Blood Cells % 0.0 Laboratory 05/16/2019 [facility] TSH (Thyroid 56.19 High 0.34- 5.[address] Stim Horm) mcIU/[place] [address] [phone] Laboratory 05/16/2019 [facility] Rheumatoid < 10 IU/mL Normal <[address] [place] [address] [phone] Anca AB Ser If 05/16/2019 [facility] C-Anca Negative Negative [address] [place], [place] [id number] [phone] P-Anca Negative Negative 2 Vitamin B6 05/16/2019 [facility] Pyridoxal See Comment 5-50 3 [facility] 5-Phosphate g/[place] [address] [phone] Pyridoxic Acid 2 g/L Abnormal 3-30 4 Laboratory 05/16/2019 [facility] Aso Negative <200 5 test finding [facility] (Antistreptolysin O) IU/mL Iu/[place] [address] Titer [phone] Lyme Screen W/ Reflex To WB Negative Negative Creatine Kinase(CK) 28 U/L Normal 10-223 Uric Acid 4.7 mg/dL Normal 2.3-6.6 Ssa/SSB Abs Igg 05/16/2019 [facility] SS-A/Ro Antibody <0.2 U [address] [place] [address] [phone] SS-B/La Antibody <0.2 U 7 Laboratory test 05/16/2019 [facility] Erythrocyte Sed 20 mm/Hr High 0-[address] [place] [address] [phone] C Reactive Protein 3.79 mg/L Normal <8.01 Ferritin 159.9 ng/mL Normal 11-307 1 Because ethnic data is not always readily available, this report includes an eGFR for both -Americans and non- Americans. The National Kidney Disease Education Program (NKDEP) does not endorse the use of the MDRD equation for patients that are not between the ages of 18 and 70, are , have extremes of body size, muscle mass, or nutritional status, or are non- or non-. According to the National Kidney Foundation, irrespective of diagnosis, the stage of the disease is based on the level of kidney function: Stage Description GFR(mL/min/1.73 m(2)) 1 Kidney damage with normal or decreased GFR 90 2 Kidney damage with mild decrease in GFR 60-89 3 Moderate decrease in GFR 30-59 4 Severe decrease in GFR 15-29 5 Kidney failure <15 (or dialysis) 2 Negative for cANCA and pANCA patterns by immunofluorescence. ADDITIONAL INFORMATION This test was developed and its performance characteristics determined by [facility] in a manner consistent with CLIA requirements. This test has not been cleared or approved by the U.S. Food and Drug Administration. Test Performed by: [facility] [employer] [address] [place] [address] 3 Unknown interfering substance present; unable to obtain results. ADDITIONAL INFORMATION This test was developed and its performance characteristics determined by [facility] in a manner consistent with CLIA requirements. This test has not been cleared or approved by the U.S. Food and Drug Administration. 4 ADDITIONAL INFORMATION This test was developed and its performance characteristics determined by [facility] in a manner consistent with CLIA requirements. This test has not been cleared or approved by the U.S. Food and Drug Administration. Test Performed by: [facility] [employer] [address] [place] [address] 5 Normal values may vary with age, season and geographic area. Titers above upper limits may be indicative of infection, however only a two dilution rise in titer is required to be considered significant. ASO titer will usually rise above upper limits within one week of exposure, increase to peak levels at 3-5 weeks and return to baseline level at 6-12 twelve months. 6 REFERENCE VALUE <1.0 (Negative) 7 REFERENCE VALUE <1.0 (Negative) Test Performed by: [facility] [address] [place] [address] Procedures Date Code Description Status 10/22/2019 83530 Insert Non-Tunneled Venous Catether Completed 10/18/2019 83710 Laparoscopy, Surgical, Appendectomy Completed 10/18/2019 01256 Laparoscopy, Surgical, Appendectomy Completed 10/17/2019 98684 EKG, Interpretation Only Completed 08/21/2019 17270 EKG, Interpretation Only Completed 05/31/2019 67670 Nerve Conduction 09-10 Studies Completed 05/31/2019 68085 Needle Electromyography Complete, Five Or More Muscles Completed Studied 05/31/2019 66601 Needle Electromyography Each Extremity W/Related Completed Paraspinal Areas Medical Devices Description No Information Available Encounters Type Date Location Provider Dx Diagnosis Office Visit 11/09/2019 [facility] Jose Parsons MD E10.10 Type 1 diabetes 8:20a End[facility]in[facility] of I[facility] Design Engineer mellitus with ketoacidosis without coma E03.9 Hypothyroidism, unspecified K35.21 Acute appendicitis with gen peritonitis, with abscess Office Visit 11/07/2019 [facility] Alma Rosa Lemus K65.1 Peritoneal 10:30a Lloyd Tsang M.D. abscess Diseases Office Visit 10/29/2019 [facility] E03.9 Hypothyroidism, 8:53a claire Estrella MD unspecified Hospitalists R60.0 Localized edema Z79.4 senior care (current) use of insulin Office Visit 10/28/2019 [facility] E03.9 Hypothyroidism, 8:52a claire Estrella MD unspecified Hospitalists R60.0 Localized edema Z79.4 meter setter (current) use of insulin Office Visit 10/27/2019 [facility] Alma Rosa Beebe D72.829 Elevated white 8:37a Infectious Isai, DRUM DRIER OPERATOR blood cell Diseases count, unspecified Office Visit 10/27/2019 [facility] E03.9 Hypothyroidism, 7:50p claire Estrella MD unspecified Hospitalists R60.0 Localized edema Z79.4 senior care (current) use of insulin Office Visit 10/26/2019 [facility] E03.9 Hypothyroidism, 8:50a Assjulio,claire Brady MD unspecified Hospitalists F32.9 Major depressive disorder, single episode, unspecified R60.0 Localized edema Z79.4 meter setter (current) use of insulin Office Visit 10/25/2019 [facility] E03.9 Hypothyroidism, 8:47a Assclaire kim NP unspecified Hospitalists F32.9 Major depressive disorder, single episode, unspecified Z79.4 meter setter (current) use of insulin Office Visit 10/24/2019 [facility] Martin Lemus D72.829 Elevated white 7:54a For Infectious Dav Tsang blood cell count, Diseases unspecified E11.9 Type 2 diabetes mellitus without complications Office Visit 10/24/2019 [facility] E10.9 Type 1 diabetes 8:46a claire Estrella NP mellitus without Hospitalists complications F32.9 Major depressive disorder, single episode, unspecified E03.9 Hypothyroidism, unspecified Office Visit 10/23/2019 [facility] E03.9 Hypothyroidism, 8:45a Assclaire kim NP unspecified Hospitalists F32.9 Major depressive disorder, single episode, unspecified Z79.4 meter setter (current) use of insulin Office Visit 10/22/2019 [facility] E10.9 Type 1 diabetes 8:44a claire Estrella M.D. mellitus without Hospitalists complications E03.9 Hypothyroidism, unspecified F32.9 Major depressive disorder, single episode, unspecified Office Visit 10/21/2019 [facility] E03.9 Hypothyroidism, 8:44a Assclaire kim M.D. unspecified Hospitalists F32.9 Major depressive disorder, single episode, unspecified Z91.19 Patient's noncompliance w oth medical treatment and regimen Z79.4 senior care (current) use of insulin Office Visit 10/20/2019 [facility] E03.9 Hypothyroidism, 8:42a Assclaire kim M.D. unspecified Hospitalists F32.9 Major depressive disorder, single episode, unspecified Z79.4 senior care (current) use of insulin Office Visit 10/19/2019 [facility] Judy E03.9 Hypothyroidism, 8:37a Assclaire kim M.D. unspecified Hospitalists F32.9 Major depressive disorder, single episode, unspecified Z79.4 senior care (current) use of insulin Office Visit 10/18/2019 8:37a [facility] Stacy A41.9 Sepsis, Assclaire kim PA-C unspecified Hospitalists organism E03.9 Hypothyroidism, unspecified Z79.4 meter setter (current) use of insulin Office Visit 10/17/2019 [facility] Stacy K59.00 Constipation, 8:37a claire Estrella PA-C unspecified Hospitalists E03.9 Hypothyroidism, unspecified F32.9 Major depressive disorder, single episode, unspecified Z79.4 senior care (current) use of insulin Office Visit 10/16/2019 8:34a Intensivists Gustavo Holbrook, N39.0 Urinary tract M.D. infection, site not specified D72.829 Elevated white blood cell count, unspecified Z79.4 senior care (current) use of insulin Office Visit 10/15/2019 8:31a Intensivists Kassie E10.10 Type 1 diabetes MD Ludwig mellitus with ketoacidosis without coma R07.81 Pleurodynia Z91.19 Patient's noncompliance w oth medical treatment and regimen Office 08/22/2019 [facility] Juyl T43.212A Poisn by slctv Visit 11:43a Assoc,claire Dietz M.D. seroton/norepineph Hospitalists reup inhibtr,slf-hrm, init E11.65 Type 2 diabetes mellitus with hyperglycemia K59.00 Constipation, unspecified E03.9 Hypothyroidism, unspecified Office Visit 08/21/2019 [facility] Madelyn T50.901A Poisoning by unsp 11:43a Assoc,claire Lacy, DRUM DRIER OPERATOR drug/meds/biol Hospitalists subst, accidental, init E11.649 Type 2 diabetes mellitus with hypoglycemia without coma E03.9 Hypothyroidism, unspecified Z79.4 meter setter (current) use of insulin Office Visit 08/20/2019 11:42a Intensivists Perfecto Moore M.D. R53.83 Other fatigue T43.212A Poisn by slctv seroton/norepineph reup inhibtr,slf-hrm, init Office Visit 08/20/2019 11:42a [facility] R53.83 Other fatigue Assoc,claire Orozco, DRUM DRIER OPERATOR Hospitalists T43.212A Poisn by slctv seroton/norepineph reup inhibtr,slf-hrm, init E11.9 Type 2 diabetes mellitus without complications Office Visit 08/17/2019 1:20p Rheumatology Deangelo Monet, G56.03 Carpal tunnel Services Of [facility] Demarco syndrome, bilateral upper limbs G56.22 Lesion of ulnar nerve, left upper limb R70.0 Elevated erythrocyte sedimentation rate G62.9 Polyneuropathy, unspecified Office Visit 06/14/2019 9:00a [facility] Jose Parsons, E10.40 Type 1 diabetes Endocrinology of mellitus with Jayson diabetic neuropathy, unsp E06.3 Autoimmune thyroiditis Office Visit 05/18/2019 1:20p Rheumatology Deangelo R20.8 Other disturbances Services [facility] Monet M.D. of skin sensation M06.4 Inflammatory polyarthropathy M79.643 Pain in unspecified hand R70.0 Elevated erythrocyte sedimentation rate G56.03 Carpal tunnel syndrome, bilateral upper limbs Assessments Date Code Description Provider 11/13/2019 K65.1 Peritoneal abscess Martin Tsang M.D. 11/09/2019 E10.10 Type 1 diabetes mellitus with [...] K35.21 Acute appendicitis with generalized Kassie Petty Ramosrode , DRUM DRIER OPERATOR peritonitis, with abscess 10/30/2019 A41.9 Sepsis, unspecified [...] elsewhere Tish Brady MD classified 10/30/2019 Z79.4 senior care (current) use of jay [...] Localized edema Tish Brady MD 10/28/2019 Z79.4 meter setter (current) use of jay jay Brady MD 10/27/2019 D72.829 Elevated white blood cell count, Jasmin Winkleblack Alex , MILLER unspecified 10/27/2019 E03.9 Hypothyroidism, unspecified Tish Brady [...] abscess 10/25/2019 E03.9 Hypothyroidism, unspecified Elham Pam, DRUM DRIER OPERATOR 10/25/2019 F32.9 Major depressive disorder, single Elham Orzoco, DRUM DRIER OPERATOR episode, unspecified 10/25/2019 Z79.4 meter setter (current) use of insulin Elham Orozco, DRUM DRIER OPERATOR 10/24/2019 D72.829 Elevated white blood cell count, Martin Tsang M.D. unspecified 10/24/2019 E10.9 Type 1 diabetes mellitus without Elham Hartford, DRUM DRIER OPERATOR complications 10/24/2019 E11.9 Type 2 diabetes mellitus without Martin Tsang M.D. complications 10/24/2019 K35.21 Acute appendicitis with generalized MACK Kaur peritonitis, with abscess 10/24/2019 F32.9 Major depressive disorder, single Elhamchau Orozco, DRUM DRIER OPERATOR episode, unspecified 10/24/2019 E03.9 Hypothyroidism, unspecified Elham Pam, DRUM DRIER OPERATOR 10/23/2019 E03.9 Hypothyroidism, unspecified Elham Pam, DRUM DRIER OPERATOR 10/23/2019 K35.21 Acute appendicitis with generalized MACK Kaur peritonitis, with abscess 10/23/2019 F32.9 Major depressive disorder, single Elham Orozco NP episode, unspecified 10/23/2019 Z79.4 senior care (current) [...] M.D. medical treatment and regimen 10/21/2019 Z79.4 meter setter (current) use of insulin Judy Hartman M.D. 10/20/2019 E03.9 Hypothyroidism, unspecified Judy Hartman M.D. 10/20/2019 K35.21 Acute appendicitis with generalized MACK Kaur peritonitis, with abscess 10/20/2019 F32.9 Major depressive disorder, single Judy Hartman M.D. episode, unspecified 10/20/2019 Z79.4 meter setter (current) use of insulin Judy Hartman M.D. 10/19/2019 E03.9 Hypothyroidism, unspecified Judy Hartman M.D. 10/19/2019 K35.21 Acute appendicitis with generalized Ashwin Tavera MD, FACS peritonitis, with abscess 10/19/2019 F32.9 Major depressive disorder, single Judy Minnie, M.D. episode, unspecified 10/19/2019 Z79.4 meter setter (current) use of insulin Judy Hartman M.D. [...] Stacy O'gissell, PA-C episode, unspecified 10/17/2019 Z79.4 meter setter (current) use of insulin Stacy O'gissell, PA-C [...] T50.901A Poisoning by unspecified drugs, Madelyn Lacy, DRUM DRIER OPERATOR medicaments and biological substances, accidental (unintentional), initial encounter 08/21/2019 E11.649 Type 2 diabetes mellitus with Madelyn Lacy, DRUM DRIER OPERATOR hypoglycemia without coma 08/21/2019 E03.9 Hypothyroidism, unspecified Madelyn Lacy, DRUM DRIER OPERATOR 08/21/2019 Z79.4 meter setter (current) use of insulin Madelyn Lacy, DRUM DRIER OPERATOR 08/20/2019 R53.83 Other fatigue Perfecto Moore M.D. 08/20/2019 T43.212A Poisoning by selective serotonin and Perfecto Moore M.D. norepinephrine reuptake inhibitors, intentional self-harm, initial encounter 08/20/2019 R53.83 Other fatigue Elham Orozco, DRUM DRIER OPERATOR 08/20/2019 T43.212A Poisoning by selective serotonin and Elham Orozco, DRUM DRIER OPERATOR norepinephrine reuptake inhibitors, intentional self-harm, initial encounter 08/20/2019 E11.9 Type 2 diabetes mellitus without Elham Hartford, DRUM DRIER OPERATOR complications 08/17/2019 G56.03 Carpal tunnel syndrome, bilateral [...] M.D. upper limbs Plan of Treatment Future Appointment(s):11/20/2019 3:00 pm - Martin Tsang M.D. at [facility] Ozpyfkgj62/19/2020 11:00 am - Jose Parsons MD at [facility]11/13/2019 - Martin Tsang M.D.K65.1 Peritoneal abscessNew Medication:Invanz 1 gm - iv once daily x [facility] infusion centerComments:place midline, start invanz; continue levaquin/flagyl until it is set up, will follow imaging resultsFollow up:next week Functional Status Description No Information Available Mental Status Description No Information Available Referrals Refer to Reason for Referral Status Appt Date Daly Grider M.D. Please evaluate patient with carpal tunnel Sent symptoms confirmed on EMG; for possible carpal tunnel release [address] [place] [address] [phone]
--- OUTSIDE RECORDS SUMMARY | 2019-11-20 19:45 | XMS REPORT ---
:1980 Author Organization [facility] Care Team Providers Name Role Phone Unavailable Unavailable Unavailable Problems Condition Condition Condition Status Onset Resolution Last Treating Comments Name Details Category Date Date Treatment Clinician Date Acute Acute Diagnosis Active 2020-0 Sofia appendiciti appendiciti 1-14 Fan s with s with [id number] perforation perforation and and localized localized peritonitis peritonitis , without , without abscess abscess Pain frequent Pain Mgmt Active 2020-0 Divine pain 11-01 [place] 12:30: [id number] Respiratory dyspnea Respirator Active 2020-0 Divine present y 11-01 [place] 12:30: [id number] 00 Endo/Zay insulin Endo/Zay Active 2020-0 Divine admn 11-01 [place] dependence 12:30: [id number] 00 Endo/Azy knowledge/s Endo/Zay Active 2020-0 Divine kill 11-01 [place] deficit: pt 12:30: [id number] 00 Endo/Zay diabetic Endo/Zay Active 2020-0 Divine foot care 11-01 [place] 12:30: [id number] 00 Endo/Zay knowledge/s Endo/Zay Active 2020-0 Divine kill 11-01 [place] deficit 12:30: [id number] hypo/hyperg 00 lycemia: pt Integument surgical Integument Active 2020-0 Divine wound 11-01 [place] present 12:30: [id number] 00 Nutrition nutritional Nutrition Active 2020-0 Divine restriction 11-01 [place] s 12:30: [id number] 00 Elimination urinary Eliminatio Active 2020-0 Divine incontinenc n 11-01 [place] e 12:30: [id number] 00 Elimination GI drain or Eliminatio Active 2020-0 Divine tube n 11-01 [place] present 12:30: [id number] 00 Neuro confusion Neuro/Emot Active 2020-0 Divine present ion 11-01 [place] 12:30: [id number] 00 Neuro anxiety Neuro/Emot Active 2020-0 Divine present ion 11-01 [place] 12:30: [id number] 00 Neuro impaired Neuro/Emot Active 2020-0 Divine decision-ma ion 11-01 [place] niecy 12:30: [id number] 00 Neuro knowledge/s Neuro/Emot Active 2020-0 Divine kill ion 11-01 [place] deficit: pt 12:30: [id number] 00 Activity ADL Activity Active 2020-0 Divine assistance 11-01 [place] required 12:30: [id number] 00 Activity self-care Activity Active 2020-0 Divine deficit 11-01 [place] 12:30: [id number] 00 Safety structural Safety Active 2020-0 Divine barriers 11-01 [place] present 12:30: [id number] 00 Safety cannot be Safety Active 2020-0 Divine left alone 11-01 [place] 12:30: [id number] 00 Safety fall risk Safety Active 2020-0 Divine factor 11-01 [place] present 12:30: [id number] 00 Safety risk for Safety Active 2020-0 Divine hospitaliza 11-01 [place] tion 12:30: [id number] 00 Medication oral med Meds Active 2020-0 Divine assistance 11-01 [place] required 12:30: [id number] 00 Medication injectable Meds Active 2020-0 Divine med 11-01 [place] assistance 12:30: [id number] required 00 Medication knowledge/s Meds Active 2020-0 Divine kill 11-01 [place] deficit: pt 12:30: [id number] 00 Medication potential Meds Active 2020-0 Divine clinically 11-01 [place] significant 12:30: [id number] medication 00 issue Musculoskel transfer Musculoske Active 2020-0 Divine etal assistance letal 11-01 [place] required 12:30: [id number] 00 Cath/Ostomy k/s Cath\Ostom Active 2020-0 Divine /GI deficit: y\GI Care 11-01 [place] cath/ost/GI 12:30: [id number] care - pt 00 Safety can be left Safety Active 2020-0 Sofia alone for 11-10 Chavira only short 11:14: [id number] periods 00 Allergies, Adverse Reactions, Alerts Allergy [...]
--- OUTSIDE RECORDS SUMMARY | 2019-11-20 19:45 | XMS REPORT ---
:1980 Author Organization [facility] Care Team Providers Name Role Phone Unavailable Unavailable Unavailable Problems Condition Condition Condition Status Onset Resolution Last Treating Comments Name Details Category Date Date Treatment Clinician Date Acute Acute Diagnosis Active 2020-0 Sofia appendiciti appendiciti 1-14 Fan s with s with [id number] perforation perforation and and localized localized peritonitis peritonitis , without , without abscess abscess Pain frequent Pain Mgmt Active 2020-0 [facility] pain 11-01 [place] 12:30: [id number] 00 Respiratory dyspnea Respirator Active 2020-0 [facility] present y 11-01 [place] 12:30: [id number] 00 Endo/Zay insulin Endo/Zay Active 2020-0 [facility] admn 11-01 [place] dependence 12:30: [id number] 00 Endo/Zay knowledge/s Endo/Zay Active 2020-0 [facility] kill 11-01 [place] deficit: pt 12:30: [id number] 00 Endo/Zay diabetic Endo/Zay Active 2020-0 [facility] foot care 11-01 [place] 12:30: [id number] 00 Endo/Zay knowledge/s Endo/Zay Active 2020-0 [facility] kill 11-01 [place] deficit 12:30: [id number] hypo/hyperg 00 lycemia: pt Integument surgical Integument Active 2020-0 [facility] wound 11-01 [place] present 12:30: [id number] 00 Nutrition nutritional Nutrition Active 2020-0 [facility] restriction 11-01 [place] s 12:30: [id number] 00 Elimination urinary Eliminatio Active 2020-0 [facility] incontinenc n 11-01 [place] e 12:30: [id number] 00 Elimination GI drain or Eliminatio Active 2020-0 [facility] tube n 11-01 [place] present 12:30: [id number] 00 Neuro confusion Neuro/Emot Active 2020-0 [facility] present ion 11-01 [place] 12:30: [id number] 00 Neuro anxiety Neuro/Emot Active 2020-0 [facility] present ion 11-01 [place] 12:30: [id number] 00 Neuro impaired Neuro/Emot Active 2020-0 [facility] decision-ma ion 11-01 [place] niecy 12:30: [id number] 00 Neuro knowledge/s Neuro/Emot Active 2020-0 [facility] kill ion 11-01 [place] deficit: pt 12:30: [id number] 00 Activity ADL Activity Active 2020-0 [facility] assistance 11-01 [place] required 12:30: [id number] 00 Activity self-care Activity Active 2020-0 [facility] deficit 11-01 [place] 12:30: [id number] 00 Safety structural Safety Active 2020-0 [facility] barriers 11-01 [place] present 12:30: [id number] 00 Safety cannot be Safety Active 2020-0 [facility] left alone 11-01 [place] 12:30: [id number] 00 Safety fall risk Safety Active 2020-0 [facility] factor 11-01 [place] present 12:30: [id number] 00 Safety risk for Safety Active 2020-0 [facility] hospitaliza 11-01 [place] tion 12:30: [id number] 00 Medication oral med Meds Active 2020-0 [facility] assistance 11-01 [place] required 12:30: [id number] 00 Medication injectable Meds Active 2020-0 [facility] med 11-01 [place] assistance 12:30: [id number] required 00 Medication knowledge/s Meds Active 2020-0 [facility] kill 11-01 [place] deficit: pt 12:30: [id number] 00 Medication potential Meds Active 2020-0 [facility] clinically 11-01 [place] significant 12:30: [id number] medication 00 issue Musculoskel transfer Musculoske Active 2020-0 [facility] etal assistance letal 11-01 [place] required 12:30: [id number] 00 Cath/Ostomy k/s Cath\Ostom Active 2020-0 [facility] /GI deficit: y\GI Care 11-01 [place] cath/ost/GI 12:30: [id number] care - pt 00 Allergies, Adverse Reactions, [...]
--- OUTSIDE RECORDS SUMMARY | 2019-11-20 19:45 | XMS REPORT ---
:1980 Author Organization [facility] Care Team Providers Name Role Phone Unavailable Unavailable Unavailable Problems Condition Condition Condition Status Onset Resolution Last Treating Comments Name Details Category Date Date Treatment Clinician Date Acute Acute Diagnosis Active 2020-0 Sofia appendiciti appendiciti 1-14 Fan s with s with [id number] perforation perforation and and localized localized peritonitis peritonitis , without , without abscess abscess Pain frequent Pain Mgmt Active 2020-0 [facility] pain 11-01 [place] 12:30: [id number] 00 Respiratory dyspnea Respirator Active 2020-0 [facility] present y 11-01 [place] 12:30: [id number] 00 Endo/Zay insulin Endo/Zay Active 2020-0 [facility] admn 11-01 [place] dependence 12:30: [id number] 00 Endo/Zay knowledge/s Endo/Zay Active 2020-0 [facility] kill 11-01 [place] deficit: pt 12:30: [id number] 00 Endo/Zay diabetic Endo/Zay Active 2020-0 [facility] foot care 11-01 [place] 12:30: [id number] 00 Endo/Zay knowledge/s Endo/Zay Active 2020-0 [facility] kill 11-01 [place] deficit 12:30: [id number] hypo/hyperg 00 lycemia: pt Integument surgical Integument Active 2020-0 [facility] wound 11-01 [place] present 12:30: [id number] 00 Nutrition nutritional Nutrition Active 2020-0 [facility] restriction 11-01 [place] s 12:30: [id number] 00 Elimination urinary Eliminatio Active 2020-0 [facility] incontinenc n 11-01 [place] e 12:30: [id number] 00 Elimination GI drain or Eliminatio Active 2020-0 [facility] tube n 11-01 [place] present 12:30: [id number] 00 Neuro confusion Neuro/Emot Active 2020-0 [facility] present ion 11-01 [place] 12:30: [id number] 00 Neuro anxiety Neuro/Emot Active 2020-0 [facility] present ion 11-01 [place] 12:30: [id number] 00 Neuro impaired Neuro/Emot Active 2020-0 [facility] decision-ma ion 11-01 [place] niecy 12:30: [id number] 00 Neuro knowledge/s Neuro/Emot Active 2020-0 [facility] kill ion 11-01 [place] deficit: pt 12:30: [id number] 00 Activity ADL Activity Active 2020-0 [facility] assistance 11-01 [place] required 12:30: [id number] 00 Activity self-care Activity Active 2020-0 [facility] deficit 11-01 [place] 12:30: [id number] 00 Safety structural Safety Active 2020-0 [facility] barriers 11-01 [place] present 12:30: [id number] 00 Safety cannot be Safety Active 2020-0 [facility] left alone 11-01 [place] 12:30: [id number] 00 Safety fall risk Safety Active 2020-0 [facility] factor 11-01 [place] present 12:30: [id number] 00 Safety risk for Safety Active 2020-0 [facility] hospitaliza 11-01 [place] tion 12:30: [id number] 00 Medication oral med Meds Active 2020-0 [facility] assistance 11-01 [place] required 12:30: [id number] 00 Medication injectable Meds Active 2020-0 [facility] med 11-01 [place] assistance 12:30: [id number] required 00 Medication knowledge/s Meds Active 2020-0 [facility] kill 11-01 [place] deficit: pt 12:30: [id number] 00 Medication potential Meds Active 2020-0 [facility] clinically 11-01 [place] significant 12:30: [id number] medication 00 issue Musculoskel transfer Musculoske Active 2020-0 [facility] etal assistance letal 11-01 [place] required 12:30: [id number] 00 Cath/Ostomy k/s Cath\Ostom Active 2020-0 [facility] /GI deficit: y\GI Care 11-01 [place] cath/ost/GI 12:30: [id number] care - pt 00 Allergies, Adverse Reactions, [...]
--- OUTSIDE RECORDS SUMMARY | 2019-11-20 19:46 | XMS REPORT ---
:1980 Author Organization [facility] Care Team Providers Name Role Phone Unavailable Unavailable Unavailable Problems Condition Condition Condition Status Onset Resolution Last Treating Comments Name Details Category Date Date Treatment Clinician Date Acute Acute Diagnosis Active 20200 Deena appendiciti appendiciti 1-14 Regeczi s with s with [id number] perforation perforation and and localized localized peritonitis peritonitis , without , without abscess abscess Pain frequent Pain Mgmt Active 2020-0 [facility] pain 11-01 [place] 12:30: [id number] 00 Respiratory dyspnea Respirator Active 2020-0 [facility] present y 11-01 [place] 12:30: [id number] 00 Endo/Zay insulin Endo/Zay Active 2020-0 [place] admn 11-01 [place] dependence 12:30: [id number] 00 Endo/Zay knowledge/s Endo/Zay Active 2020-0 [facility] kill 11-01 [place] deficit: pt 12:30: [id number] 00 Endo/Zay diabetic Endo/Zay Active 2020-0 [facility] foot care 11-01 [place] 12:30: [id number] 00 Endo/Zay knowledge/s Endo/Zay Active 2020-0 [facility] kill 11-01 [place] deficit 12:30: [id number] hypo/hyperg 00 lycemia: pt Integument surgical Integument Active 2020-0 [facility] wound 11-01 [place] present 12:30: [id number] 00 Nutrition nutritional Nutrition Active 2020-0 [facility] restriction 11-01 [place] s 12:30: [id number] 00 Elimination urinary Eliminatio Active 2020-0 [facility] incontinenc n 11-01 [place] e 12:30: [id number] 00 Elimination GI drain or Eliminatio Active 2020-0 [facility] tube n 11-01 [place] present 12:30: [id number] 00 Neuro confusion Neuro/Emot Active 2020-0 [facility] present ion 11-01 [place] 12:30: [id number] 00 Neuro anxiety Neuro/Emot Active 2020-0 [facility] present ion 11-01 [place] 12:30: [id number] 00 Neuro impaired Neuro/Emot Active 2020-0 [facility] decision-ma ion 11-01 [place] niecy 12:30: [id number] 00 Neuro knowledge/s Neuro/Emot Active 2020-0 [facility] kill ion 11-01 [place] deficit: pt 12:30: [id number] 00 Activity ADL Activity Active 2020-0 [facility] assistance 11-01 [place] required 12:30: [id number] 00 Activity self-care Activity Active 2020-0 [facility] deficit 11-01 [place] 12:30: [id number] 00 Safety structural Safety Active 2020-0 [facility] barriers 11-01 [place] present 12:30: [id number] 00 Safety cannot be Safety Active 2020-0 [facility] left alone 11-01 [place] 12:30: [id number] 00 Safety fall risk Safety Active 2020-0 [facility] factor 11-01 [place] present 12:30: [id number] 00 Safety risk for Safety Active 2020-0 [facility] hospitaliza 11-01 [place] tion 12:30: [id number] 00 Medication oral med Meds Active 2020-0 [facility] assistance 11-01 [place] required 12:30: [id number] 00 Medication injectable Meds Active 2020-0 [facility] med 11-01 [place] assistance 12:30: [id number] required 00 Medication knowledge/s Meds Active 2020-0 [facility] kill 11-01 [place] deficit: pt 12:30: [id number] 00 Medication potential Meds Active 2020-0 [facility] clinically 11-01 [place] significant 12:30: [id number] medication 00 issue Musculoskel transfer Musculoske Active 2020-0 [facility] etal assistance letal 11-01 [place] required 12:30: [id number] 00 Cath/Ostomy k/s Cath\Ostom Active 2020-0 [facility] /GI deficit: y\GI Care 11-01 [place] cath/ost/GI 12:30: [id number] care - pt 00 Allergies, Adverse Reactions, [...] n 500 mg n 500 mg 11-01 Shantanu GARCIAia tablet tablet metroNIDAZO metroNIDAZO 2019- Yes Octder Unknown Unknown LE 500 mg LE 500 mg 11-01 ,Masha tablet tablet oxyCODONE-a oxyCODONE-a Yes Octder Unknown Unknown cetaminophe cetaminophe 11-01 Masha GARCIA n 5 mg-325 n 5 mg-325 mg tablet mg tablet Basaglar Basaglar Yes Octder Unknown Unknown KwMalgorzata Gonzales 11-01 Masha GARCIA U-100 U-100 Insulin [...] tablet HumaLOG HumaLOG Yes Octder Unknown Unknown Christian Gonzales 11-01 Masha GARCIA (U-100) (U-100) Insulin 100 Insulin 100 unit/mL unit/mL subcutaneou subcutaneou s s buPROPion buPROPion Yes Octder Unknown Unknown HCl XL 300 HCl XL 300 11-01 Masha GARCIA mg 24 hr mg 24 hr tablet, tablet, extended extended release release divalproex divalproex Yes Octder Unknown Unknown 500 mg 500 mg 11-01 MDMasha tablet,oscar tablet,oscar yed release yed release pantoprazol pantoprazol Yes Octder Unknown Unknown e 40 mg e 40 mg 11-01 MDMasha tablet,oscar tablet,socar yed release yed release QUEtiapine QUEtiapine Yes Octder Unknown Unknown 200 mg 200 mg 11-01 MD,Masha tablet tablet docusate docusate 2019-0 Yes Jander Unknown Unknown sodium 100 sodium 100 11-01 MD,Masha mg capsule mg capsule polyethylen polyethylen Yes Jander Unknown Unknown e glycol e [...]
--- OUTSIDE RECORDS SUMMARY | 2019-11-20 19:46 | XMS REPORT ---
:1980 Author Organization [facility] Care Team Providers Name Role Phone Unavailable Unavailable Unavailable Problems Condition Condition Condition Status Onset Resolution Last Treating Comments Name Details Category Date Date Treatment Clinician Date Acute Acute Diagnosis Active 2020-0 Deena appendiciti appendiciti 1-14 Regeczi s with s with [id number] perforation perforation and and localized localized peritonitis peritonitis , without , without abscess abscess Pain frequent Pain Mgmt Active 2020-0 [facility] pain 11-01 [place] 12:30: [id number] 00 Respiratory dyspnea Respirator Active 2020-0 [facility] present y 11-01 [place] 12:30: [id number] 00 Endo/Zay insulin Endo/Zay Active 2020-0 [facility] admn 11-01 [place] dependence 12:30: [id number] 00 Endo/Zay knowledge/s Endo/Zay Active 2020-0 [facility] kill 11-01 [place] deficit: pt 12:30: [id number] 00 Endo/Zay diabetic Endo/Zay Active 2020-0 [facility] foot care 11-01 [place] 12:30: [id number] 00 Endo/Zay knowledge/s Endo/Zay Active 2020-0 [facility] kill 11-01 [place] deficit 12:30: [id number] hypo/hyperg 00 lycemia: pt Integument surgical Integument Active 2020-0 [facility] wound 11-01 [place] present 12:30: [id number] 00 Nutrition nutritional Nutrition Active 2020-0 [facility] restriction 11-01 [place] s 12:30: [id number] 00 Elimination urinary Eliminatio Active 2020-0 [facility] incontinenc n 11-01 [place] e 12:30: [id number] 00 Elimination GI drain or Eliminatio Active 2020-0 [facility] tube n 11-01 [place] present 12:30: [id number] 00 Neuro confusion Neuro/Emot Active 2020-0 [facility] present ion 11-01 [place] 12:30: [id number] 00 Neuro anxiety Neuro/Emot Active 2020-0 [facility] present ion 11-01 [place] 12:30: [id number] 00 Neuro impaired Neuro/Emot Active 2020-0 [facility] decision-ma ion 11-01 [place] niecy 12:30: [id number] 00 Neuro knowledge/s Neuro/Emot Active 2020-0 [facility] kill ion 11-01 [place] deficit: pt 12:30: [id number] 00 Activity ADL Activity Active 2020-0 [facility] assistance 11-01 [place] required 12:30: [id number] 00 Activity self-care Activity Active 2020-0 [facility] deficit 11-01 [place] 12:30: [id number] 00 Safety structural Safety Active 2020-0 [facility] barriers 11-01 [place] present 12:30: [id number] 00 Safety cannot be Safety Active 2020-0 [facility] left alone 11-01 [place] 12:30: [id number] 00 Safety fall risk Safety Active 2020-0 [facility] factor 11-01 [place] present 12:30: [id number] 00 Safety risk for Safety Active 2020-0 [facility] hospitaliza 11-01 [place] tion 12:30: [id number] 00 Medication oral med Meds Active 2020-0 [facility] assistance 11-01 [place] required 12:30: [id number] 00 Medication injectable Meds Active 2020-0 [facility] med 11-01 [place] assistance 12:30: [id number] required 00 Medication knowledge/s Meds Active 2020-0 [facility] kill 11-01 [place] deficit: pt 12:30: [id number] 00 Medication potential Meds Active 2020-0 [facility] clinically 11-01 [place] significant 12:30: [id number] medication 00 issue Musculoskel transfer Musculoske Active 2020-0 [facility] etal assistance letal 11-01 [place] required 12:30: [id number] 00 Cath/Ostomy k/s Cath\Ostom Active 2020-0 [facility] /GI deficit: y\GI Care 11-01 [place] cath/ost/GI 12:30: [id number] care - pt 00 Allergies, Adverse Reactions, [...] mg e 40 mg 11-01 MDMasha tablet,oscar tablet,oscar yed release yed release QUEtiapine [...]
--- OUTSIDE RECORDS SUMMARY | 2019-11-20 19:46 | XMS REPORT | Continuity of Care Document ---
:1980 External Reference #:[id number] Author Name Ashwin Tavera MD, FACS (transmitted by agent of provider Shivam Arrieta) Address [address] [place] [address] Care Team Providers Name Role Phone Masha Devlin MD - Internal Medicine Care Team Information [facility] Problems Description No Information Available Social History Type Date Description Comments Sex Unknown Tobacco Use Start: Unknown End: Former Cigarette Smoker Unknown Smoking Status Reviewed: 11/02/19 Former Cigarette Smoker ETOH Use Occasionally consumes alcohol Tobacco Use Start: Unknown End: Patient is a former quit Nov 2018 Unknown smoker Recreational Drug Use Denies Drug Use Exercise Type/Frequency Does not exercise Allergies, Adverse Reactions, Alerts Active Allergies Reaction Severity Comments Date Penicillin anaphylaxsis Severe 02/02/2019 Medications Active Medications SIG Qnty Indications Ordering Date Provider Voltmakenzie apply 2 grams twice 200units Deangelo Monet, [...] Jose Parsons MD 06/14 300mcg Tablets Pen [place] 1 each with every 150units E10.40 Jose [...] use nightly to help 2units G56.03 Deangelo Chiki, 05/18/2019 Misc with carpal tunnel M.D. features g56.01 Contour Next Blood use to test blood 150units E10.40 Jose Parsons MD 02/13 Glucose Test sugar 5 times Strips daily. Minimed Pump replace every 2 20units Jose Parsons MD 02/02/2019 [place] 3ML days. dx e10.9 Res 3ML Misc [...] Available Vital Signs Date Vital Result Comment 11/02/2019 1:31pm Height 60 inches 5'0" Weight 149.00 lb Heart Rate 72 /min BP Systolic 122 mmHg BP Diastolic 80 mmHg Respiratory Rate 16 /min Body Temperature 97.5 F BMI (Body Mass Index) 29.1 kg/m2 08/17/2019 1:26pm Height 60 inches 5'0" Weight 138.00 lb Heart Rate 87 /min BP Systolic Sitting 114 mmHg BP Diastolic Sitting 78 mmHg Respiratory Rate 16 /min Body Temperature 96.8 F O2 % BldC Oximetry 98 % BMI (Body Mass Index) 26.9 kg/m2 Results Test Acquired Facility Test Result H/L Range Note Date Laboratory 05/16/2019 [facility] TSH (Thyroid 56.19 High 0.34- 5.[address] Stim Horm) mcIU/mL [place], [place] [id number] [phone] Laboratory 05/16/2019 [facility] Rheumatoid < 10 IU/mL Normal <[address] [place] [address] [phone] Anca AB Ser If 05/16/2019 [facility] C-Anca Negative Negative [address] [place] [address] [phone] P-Anca Negative Negative 1 Vitamin B6 05/16/2019 [facility] Pyridoxal See Comment 5-[address] 5-Phosphate g/[place] [address] [phone] Pyridoxic Acid 2 g/L Abnormal 3-30 3 Laboratory 05/16/2019 [facility] Aso Negative <[address] (Antistreptolysin O) IU/mL Iu/[place] [address] Titer [phone] Lyme Screen W/ Reflex To WB Negative Negative Creatine Kinase(CK) 28 U/L Normal 10-223 Uric Acid 4.7 mg/dL Normal 2.3-6.6 Ssa/SSB Abs Igg 05/16/2019 [facility] SS-A/Ro Antibody <0.2 U [address] [place] [address] [phone] SS-B/La Antibody <0.2 U 6 Laboratory test 05/16/2019 [facility] Erythrocyte Sed 20 mm/Hr High 0-[address] [place] [address] [phone] C Reactive Protein 3.79 mg/L Normal <8.01 Ferritin 159.9 ng/mL Normal 11-307 1 Negative for cANCA and pANCA patterns by immunofluorescence. ADDITIONAL INFORMATION This test was developed and its performance characteristics determined by [facility] in a manner consistent with CLIA requirements. This test has not been cleared or approved by the U.S. Food and Drug Administration. Test Performed by: [facility] [place] [address] 2 Unknown interfering substance present; unable to obtain results. ADDITIONAL INFORMATION This test was developed and its performance characteristics determined by [facility] in a manner consistent with CLIA requirements. This test has not been cleared or approved by the U.S. Food and Drug Administration. 3 ADDITIONAL INFORMATION This test was developed and its performance characteristics determined by [facility] in a manner consistent with CLIA requirements. This test has not been cleared or approved by the U.S. Food and Drug Administration. Test Performed by: [facility] [place] [address] 4 Normal values may vary with age, [...] REFERENCE VALUE <1.0 (Negative) Test Performed by: [facility] [address] [place] [address] Procedures Date Code Description Status 10/22/2019 62069 Insert Non-Tunneled Venous Catether Completed 10/18/2019 69191 Laparoscopy, Surgical, Appendectomy Completed 10/18/2019 27079 Laparoscopy, Surgical, Appendectomy Completed 10/17/2019 49613 EKG, Interpretation Only Completed 08/21/2019 02480 EKG, Interpretation Only Completed 05/31/2019 08191 Nerve Conduction 09-10 Studies Completed 05/31/2019 01359 Needle Electromyography Complete, Five Or More Muscles Completed Studied 05/31/2019 39000 Needle Electromyography Each Extremity W/Related Completed Paraspinal Areas Medical Devices Description No Information Available Encounters Type Date Location Provider Dx Diagnosis Office Visit 08/22/2019 [facility] July Dietz, T43.212A [facility] 11:43a claire Estrella M.D. seroton/norepine Hospitalists ph reup inhibtr,slf-hrm, init E11.65 Type 2 diabetes mellitus with hyperglycemia K59.00 Constipation, unspecified E03.9 Hypothyroidism, unspecified Office Visit 08/21/2019 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 R53.83 Other fatigue T43.212A Poisn by sl[facility] seroton/norepineph reup inhibtr,slf-hrm, init Office Visit 08/20/2019 11:42a [facility] Elham R53.83 Other fatigue Assoc,claire Orozco, MILLER Hospitalists T43.212A Poisn by slctv seroton/norepineph reup inhibtr,slf-hrm, init E11.9 Type 2 diabetes mellitus without complications Office Visit 08/17/2019 1:20p Rheumatology Deangelo Monet, G56.03 Carpal tunnel [facility] Demarco syndrome, bilateral upper limbs G56.22 Lesion of ulnar nerve, left upper limb R70.0 Elevated erythrocyte sedimentation rate G62.9 Polyneuropathy, unspecified Office Visit 06/14/2019 9:00a [place] [facility] Jose Parsons, E10.40 Type 1 diabetes Endocrinology of mellitus with [facility] diabetic neuropathy, unsp E06.3 Autoimmune thyroiditis Office Visit 05/18/2019 1:20p Rheumatology Deangelo R20.8 Other disturbances [facility] Monet M.D. of skin sensation M06.4 Inflammatory polyarthropathy M79.643 Pain in unspecified hand R70.0 Elevated erythrocyte sedimentation rate G56.03 Carpal tunnel syndrome, bilateral upper limbs Assessments Date Code Description Provider 11/02/2019 K35.33 Acute appendicitis with perforation Ashwin Tavera MD, FACS and localized peritonitis, with abscess 10/30/2019 K35.33 Acute appendicitis with perforation Tish Brady MD and localized peritonitis, with abscess 10/30/2019 K35.21 Acute appendicitis with generalized Kassie Godwin NP peritonitis, with abscess 10/30/2019 A41.9 Sepsis, unspecified [...] elsewhere Tish Brady MD classified 10/30/2019 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 jay Brady MD 10/29/2019 E03.9 Hypothyroidism, unspecified Tish Brady MD 10/29/2019 K35.21 Acute appendicitis with generalized Gigi Almazan MD, FACS peritonitis, with abscess 10/29/2019 R60.0 Localized edema Tish Brady MD 10/29/2019 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 jay Brady MD 10/28/2019 E03.9 Hypothyroidism, unspecified Tish Brady MD 10/28/2019 K35.21 Acute appendicitis with generalized Gigi Almazan MD, FACS peritonitis, with abscess 10/28/2019 R60.0 Localized edema Tish Brady MD 10/28/2019 Z79.4 FPC (current) use of jay jay Brady MD 10/27/2019 E03.9 Hypothyroidism, unspecalysa Brady MD 10/27/2019 K35.21 Acute appendicitis with generalized Hari Cisneros PA-C peritonitis, with abscess 10/27/2019 R60.0 Localized edema Tish Brady MD 10/27/2019 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 jay Brady MD 10/26/2019 E03.9 Hypothyroidism, unspecified Tish Brady MD 10/26/2019 F32.9 Major depressive disorder, single Tish Brady MD episode, unspecified 10/26/2019 K65.1 Peritoneal abscess Eitan Maxwell PA-C 10/26/2019 R60.0 Localized edema Tish Brady MD 10/26/2019 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 Tish Brady MD 10/25/2019 K35.33 Acute appendicitis with perforation MACK Kaur and localized peritonitis, with abscess 10/25/2019 E03.9 Hypothyroidism, unspecified Elhamchau Orozco, OPERATIONS INTELLIGENCE SUPERINTENDENT 10/25/2019 F32.9 Major depressive disorder, single Elham Orozco, OPERATIONS INTELLIGENCE SUPERINTENDENT episode, unspecified 10/25/2019 Z79.4 FPC (current) use of insulin Elham Orozco, OPERATIONS INTELLIGENCE SUPERINTENDENT 10/24/2019 K35.21 Acute appendicitis with generalized MACK Kaur peritonitis, with abscess 10/23/2019 E03.9 Hypothyroidism, unspecified Elham Orozco, OPERATIONS INTELLIGENCE SUPERINTENDENT 10/23/2019 K35.21 Acute appendicitis with generalized MACK Kaur peritonitis, with abscess 10/23/2019 F32.9 Major depressive disorder, single Elham Orozco, OPERATIONS INTELLIGENCE SUPERINTENDENT episode, unspecified 10/23/2019 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 medical treatment and regimen 10/21/2019 Z79.4 FPC (current) use of insulin Judy Hartman M.D. 10/20/2019 E03.9 Hypothyroidism, unspecified Judy Hartman M.D. 10/20/2019 K35.21 Acute appendicitis with generalized MACK Kaur peritonitis, with abscess 10/20/2019 F32.9 Major depressive disorder, single Judy Hartman M.D. episode, unspecified 10/20/2019 Z79.4 FPC (current) use of insulin Judy Hartman M.D. 10/19/2019 E03.9 Hypothyroidism, unspecified Judy Hartman M.D. 10/19/2019 K35.21 Acute appendicitis with generalized Ashwin Tavera MD, FACS peritonitis, with abscess 10/19/2019 F32.9 Major depressive disorder, single Judy Hartman M.D. 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 10/17/2019 F32.9 Major depressive disorder, single Stacy O'gissell, PA-C episode, unspecified 10/17/2019 Z79.4 FPC (current) use of insulin Stacy O'gissell, PA-C 10/16/2019 N39.0 Urinary tract infection, site not Gustavo Holbrook M.D. specified 10/16/2019 D72.829 Elevated white blood cell count, Gustavo Holbrook M.D. 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 [...] T50.901A Poisoning by unspecified drugs, Madelyn Lacy, OPERATIONS INTELLIGENCE SUPERINTENDENT medicaments and biological substances, accidental (unintentional), initial encounter 08/21/2019 E11.649 Type 2 diabetes mellitus with Madelyn Lacy, OPERATIONS INTELLIGENCE SUPERINTENDENT hypoglycemia without coma 08/21/2019 E03.9 Hypothyroidism, unspecified Madelyn Lacy, OPERATIONS INTELLIGENCE SUPERINTENDENT 08/21/2019 Z79.4 FPC (current) use of insulin Madelyn Lacy, OPERATIONS INTELLIGENCE SUPERINTENDENT 08/20/2019 R53.83 Other fatigue Perfecto Moore M.D. 08/20/2019 T43.212A Poisoning by selective serotonin and Perfecto Moore M.D. norepinephrine reuptake inhibitors, intentional self-harm, initial encounter 08/20/2019 R53.83 Other fatigue Elham Orozco NP 08/20/2019 T43.212A Poisoning by selective serotonin and Elham Orozco NP norepinephrine reuptake inhibitors, intentional self-harm, initial encounter 08/20/2019 E11.9 Type 2 diabetes mellitus without Elham Orozco, OPERATIONS INTELLIGENCE SUPERINTENDENT complications 08/17/2019 G56.03 Carpal tunnel syndrome, bilateral Deangelo Chiki, M.D. upper limbs 08/17/2019 G56.22 Lesion of [...] M.D. upper limbs Plan of Treatment Future Appointment(s):11/06/2019 11:00 am - Ashwin [facility]a MD, [facility] at [facility]11/02/2019 - Ashwin Tavera MD, FACSK35.33 Acute appendicitis with perforation and localized peritonitis, with abscessFollow up:after testing is completed Functional Status Description No Information Available Mental Status Description No Information Available Referrals Refer to Reason for Referral Status Appt Date Daly Grider M.D. Please evaluate patient with carpal tunnel Sent symptoms confirmed on EMG; for possible carpal tunnel release [address] [place] [id number] [phone]
--- OUTSIDE RECORDS SUMMARY | 2019-11-20 19:46 | XMS REPORT ---
:1980 Author Organization [facility] Care Team Providers Name Role Phone Unavailable Unavailable Unavailable Problems Condition Condition Condition Status Onset Resolution Last Treating Comments Name Details Category Date Date Treatment Clinician Date Acute Acute Diagnosis Active Sofia appendiciti appendiciti 1-14 Fan s with s with [id number] perforation perforation and and localized localized peritonitis peritonitis , without , without abscess abscess Allergies, Adverse Reactions, Alerts Allergy Name Allergy Status Severity Reaction(s) Onset Inactive Treating Comments Type Date Date Clinician Penicillins Allergen Active Unknown Anaphylaxis Kasia Beam Group 1-14 Medications Ordered Filled Start Stop Current Ordering Indication Dosage Frequency Signature Comments Components Medication Medication Date Date Medication? Clinician (SIG) Name Name No Known No Known No None None None Medications Medications For This For This Patient Patient Procedures This patient has no known procedures. Results This patient has no known results.
--- OUTSIDE RECORDS SUMMARY | 2019-11-20 19:46 | XMS REPORT ---
:1980 Author Organization [facility] Care Team Providers Name Role Phone Unavailable Unavailable Unavailable Problems Condition Condition Condition Status Onset Resolution Last Treating Comments Name Details Category Date Date Treatment Clinician Date Acute Acute Diagnosis Active 20200 Deena appendiciti appendiciti 1-14 Regeczi s with s with [id number] perforation perforation and and localized localized peritonitis peritonitis , without , without abscess abscess Pain frequent Pain Mgmt Active 2020-0 [facility] pain 11-01 [place] 12:30: [id number] Respiratory dyspnea Respirator Active 2020-0 [facility] present y 11-01 [place] 12:30: [id number] 00 Endo/Zay insulin Endo/Zay Active 2020-0 [facility] admn 11-01 [place] dependence 12:30: [id number] 00 Endo/Zay knowledge/s Endo/Zay Active 2020-0 [facility] kill 11-01 [place] deficit: pt 12:30: [id number] 00 Endo/Zay diabetic Endo/Zay Active 2020-0 [facility] foot care 11-01 [place] 12:30: [id number] 00 Endo/Zay knowledge/s Endo/Zay Active 2020-0 [facility] kill 11-01 [place] deficit 12:30: [id number] hypo/hyperg 00 lycemia: pt Integument surgical Integument Active 2020-0 [facility] wound 11-01 [place] present 12:30: [id number] 00 Nutrition nutritional Nutrition Active 2020-0 [facility] restriction 11-01 [place] s 12:30: [id number] 00 Elimination urinary Eliminatio Active 2020-0 [facility] incontinenc n 11-01 [place] e 12:30: [id number] 00 Elimination GI drain or Eliminatio Active 2020-0 [facility] tube n 11-01 [place] present 12:30: [id number] 00 Neuro confusion Neuro/Emot Active 2020-0 [facility] present ion 11-01 [place] 12:30: [id number] 00 Neuro anxiety Neuro/Emot Active 2020-0 [facility] present ion 11-01 [place] 12:30: [id number] 00 Neuro impaired Neuro/Emot Active 2020-0 [facility] decision-ma ion 11-01 [place] niecy 12:30: [id number] 00 Neuro knowledge/s Neuro/Emot Active 2020-0 [facility] kill ion 11-01 [place] deficit: pt 12:30: [id number] 00 Activity ADL Activity Active 2020-0 [facility] assistance 11-01 [place] required 12:30: [id number] 00 Activity self-care Activity Active 2020-0 [facility] deficit 11-01 [place] 12:30: [id number] 00 Safety structural Safety Active 2020-0 [facility] barriers 11-01 [place] present 12:30: [id number] 00 Safety cannot be Safety Active 2020-0 [facility] left alone 11-01 [place] 12:30: [id number] 00 Safety fall risk Safety Active 2020-0 [facility] factor 11-01 [place] present 12:30: [id number] 00 Safety risk for Safety Active 2020-0 [facility] hospitaliza 11-01 [place] tion 12:30: [id number] 00 Medication oral med Meds Active 2020-0 [facility] assistance 11-01 [place] required 12:30: [id number] 00 Medication injectable Meds Active 2020-0 [facility] med 11-01 [place] assistance 12:30: [id number] required 00 Medication knowledge/s Meds Active 2020-0 [facility] kill 11-01 [place] deficit: pt 12:30: [id number] 00 Medication potential Meds Active 2020-0 [facility] clinically 11-01 [place] significant 12:30: [id number] medication 00 issue Musculoskel transfer Musculoske Active 2020-0 [facility] etal assistance letal 11-01 [place] required 12:30: [id number] 00 Cath/Ostomy k/s Cath\Ostom Active 2020-0 [facility] /GI deficit: y\GI Care 11-01 [place] cath/ost/GI 12:30: [id number] care - pt 00 Allergies, Adverse Reactions, [...] Unknown Unknown mg tablet mg tablet 11-01 MD,Msaha levothyroxi levothyroxi Yes Jander Unknown Unknown ne [...]
--- OUTSIDE RECORDS SUMMARY | 2019-11-20 19:46 | XMS REPORT ---
:1980 Author Organization [facility] Care Team Providers Name Role Phone Unavailable Unavailable Unavailable Problems Condition Condition Condition Status Onset Resolution Last Treating Comments Name Details Category Date Date Treatment Clinician Date Acute Acute Diagnosis Active 2020-0 Sofia appendiciti appendiciti 1-14 Fan s with s with [id number] perforation perforation and and localized localized peritonitis peritonitis , without , without abscess abscess Pain frequent Pain Mgmt Active 2020-0 [facility] pain 11-01 [place] 12:30: [id number] 00 Respiratory dyspnea Respirator Active 2020-0 [facility] present y 11-01 [place] 12:30: [id number] 00 Endo/Zay insulin Endo/Zay Active 2020-0 [facility] admn 11-01 [place] dependence 12:30: [id number] 00 Endo/Zay knowledge/s Endo/Zay Active 2020-0 [facility] kill 11-01 [place] deficit: pt 12:30: [id number] 00 Endo/Zay diabetic Endo/Zay Active 2020-0 [facility] foot care 11-01 [place] 12:30: [id number] 00 Endo/Zay knowledge/s Endo/Zay Active 2020-0 [facility] kill 11-01 [place] deficit 12:30: [id number] hypo/hyperg 00 lycemia: pt Integument surgical Integument Active 2020-0 [facility] wound 11-01 [place] present 12:30: [id number] 00 Nutrition nutritional Nutrition Active 2020-0 [facility] restriction 11-01 [place] s 12:30: [id number] 00 Elimination urinary Eliminatio Active 2020-0 [facility] incontinenc n 11-01 [place] e 12:30: [id number] 00 Elimination GI drain or Eliminatio Active 2020-0 [facility] tube n 11-01 [place] present 12:30: [id number] 00 Neuro confusion Neuro/Emot Active 2020-0 [facility] present ion 11-01 [place] 12:30: [id number] 00 Neuro anxiety Neuro/Emot Active 2020-0 [facility] present ion 11-01 [place] 12:30: [id number] 00 Neuro impaired Neuro/Emot Active 2020-0 [facility] decision-ma ion 11-01 [place] niecy 12:30: [id number] 00 Neuro knowledge/s Neuro/Emot Active 2020-0 [facility] kill ion 11-01 [place] deficit: pt 12:30: [id number] 00 Activity ADL Activity Active 2020-0 [facility] assistance 11-01 [place] required 12:30: [id number] 00 Activity self-care Activity Active 2020-0 [facility] deficit 11-01 [place] 12:30: [id number] 00 Safety structural Safety Active 2020-0 Divine barriers 11-01 [place] present 12:30: [id number] 00 Safety cannot be Safety Active 2020-0 Divine left alone 11-01 [place] 12:30: [id number] 00 Safety fall risk Safety Active 2020-0 Divine factor 11-01 [place] present 12:30: [id number] 00 Safety risk for Safety Active 2020-0 [facility] hospitaliza 11-01 [place] tion 12:30: [id number] 00 Medication oral med Meds Active 2020-0 [facility] assistance 11-01 [place] required 12:30: [id number] 00 Medication injectable Meds Active 2020-0 [facility] med 11-01 [place] assistance 12:30: [id number] required 00 Medication knowledge/s Meds Active 2020-0 [facility] kill 11-01 [place] deficit: pt 12:30: [id number] 00 Medication potential Meds Active 2020-0 [facility] clinically 11-01 [place] significant 12:30: [id number] medication 00 issue Musculoskel transfer Musculoske Active 2020-0 [facility] etal assistance letal 11-01 [place] required 12:30: [id number] 00 Cath/Ostomy k/s Cath\Ostom Active 2020-0 [facility] /GI deficit: y\GI Care 11-01 [place] cath/ost/GI 12:30: [id number] care - pt 00 Allergies, Adverse Reactions, [...]
--- OUTSIDE RECORDS SUMMARY | 2019-11-20 19:46 | XMS REPORT ---
:1980 Author Organization [facility] Care Team Providers Name Role Phone Unavailable Unavailable Unavailable Problems Condition Condition Condition Status Onset Resolution Last Treating Comments Name Details Category Date Date Treatment Clinician Date Acute Acute Diagnosis Active 20200 Deena appendiciti appendiciti 1-14 Regeczi s with s with [id number] perforation perforation and and localized localized peritonitis peritonitis , without , without abscess abscess Pain frequent Pain Mgmt Active 2020-0 Divine pain 11-01 [place] 12:30: [id number] Respiratory dyspnea Respirator Active 2020-0 Divine present y 11-01 [place] 12:30: [id number] 00 Endo/Zay insulin Endo/Zay Active 2020-0 Divine admn 11-01 [place] dependence 12:30: [id number] 00 Endo/Zay knowledge/s Endo/Zay Active 2020-0 Divine kill 11-01 [place] deficit: pt 12:30: [id number] 00 Endo/Zay diabetic Endo/Zay Active 2020-0 Divine foot care 11-01 [place] 12:30: [id number] 00 Endo/Zay knowledge/s Endo/Zay Active 2020-0 Divine kill 11-01 [place] deficit 12:30: [id number] hypo/hyperg 00 lycemia: pt Integument surgical Integument Active 2020-0 Divine wound 11-01 [place] present 12:30: [id number] Nutrition nutritional Nutrition Active 2020-0 Divine restriction 11-01 [place] s 12:30: [id number] 00 Elimination urinary Eliminatio Active 2020-0 Divine incontinenc n 11-01 [place] e 12:30: [id number] 00 Elimination GI drain or Eliminatio Active 2020-0 Divine tube n 11-01 [place] present 12:30: [id number] 00 Neuro confusion Neuro/Emot Active 2020-0 Divine present ion 11-01 [place] 12:30: [id number] 00 Neuro anxiety Neuro/Emot Active 2020-0 Divine present ion 11-01 [place] 12:30: [id number] 00 Neuro impaired Neuro/Emot Active 2020-0 Divine decision-ma ion 11-01 [place] niecy 12:30: [id number] 00 Neuro knowledge/s Neuro/Emot Active 2020-0 Divine kill ion 11-01 [place] deficit: pt 12:30: [id number] 00 Activity ADL Activity Active 2020-0 Divine assistance 11-01 [place] required 12:30: [id number] 00 Activity self-care Activity Active 2020-0 Divine deficit 11-01 [place] 12:30: [id number] 00 Safety structural Safety Active 2020-0 Divine barriers 11-01 [place] present 12:30: [id number] 00 Safety cannot be Safety Active 2020-0 Divine left alone 11-01 [place] 12:30: [id number] 00 Safety fall risk Safety Active 2020-0 Divine factor 11-01 [place] present 12:30: [id number] 00 Safety risk for Safety Active 2020-0 Divine hospitaliza 11-01 [place] tion 12:30: [id number] 00 Medication oral med Meds Active 2020-0 Divine assistance 11-01 [place] required 12:30: [id number] 00 Medication injectable Meds Active 2020-0 Divine med 11-01 [place] assistance 12:30: [id number] required 00 Medication knowledge/s Meds Active 2020-0 Divine kill 11-01 [place] deficit: pt 12:30: [id number] 00 Medication potential Meds Active 2020-0 Divine clinically 11-01 [place] significant 12:30: [id number] medication 00 issue Musculoskel transfer Musculoske Active 2020-0 Divine etal assistance letal 11-01 [place] required 12:30: [id number] 00 Cath/Ostomy k/s Cath\Ostom Active 2020-0 Divine /GI deficit: y\GI Care 11-01 [place] cath/ost/GI 12:30: [id number] care - pt 00 Allergies, Adverse Reactions, [...]
--- OUTSIDE RECORDS SUMMARY | 2019-11-20 19:46 | XMS REPORT | Continuity of Care Document ---
:1980 External Reference #:[id number] Author Name Winter Rinaldi M.D. (transmitted by agent of provider Stacy Gómez) Address [address] [facility] [address] [place] [address] Care Team Providers Name Role Phone Masha Devlin MD - Internal Medicine Care Team Information Underwriting Clerks Supervisor Problems Description No Information Available Social History [...] Jose Parsons MD 06/14 300mcg Tablets Pen [place] 1 each with every 150units E10.40 Jose Parsons MD 06/14/2019 31G X 6 insulin injection mm [facility] Onetouch Ultra Mini as directed 1units E10.40 Jose Parsons MD 06/14/2019 w/Device Kit Onetouch Ultra Blue test 3 times per 150units E10.40 Jose Parsons MD 06/14 day and as Strips needed(based on insurance coverage) Onetouch Delica Plus to use 4 x daily to 1units E10.40 Jose Parsons MD 01/2019 Lancing Device monitor bs, ok to [facility] substitute what insurance will cover Onetouch Delica test up to 3 times 200units E10.40 Jose Parsons MD 2018 Lancets Fine 30G daily 30G [facility] Wrist Splint use nightly to help 2units G56.03 Deangelo Monet, 05/18/2019 [facility] with carpal tunnel M.D. features g56.01 B6 [...] 5/16" injection 30G X 5/16" 0.3 ML [facility] Quick-Set Infusion place 1 each every 20units E10.65 Jose Parsons MD 02/02 43" 9mm 2 days for insulin 43"/9mm [facility] pump Minimed Pump replace every 2 20units Jose Parsons MD 02/02/2019 Arab 3ML days. dx e10.9 Res 3ML [facility] Gabapentin 2 capsules by mouth 180caps Jose [...] daily on an empty 06/14/2019 Tablets stomach Medications Administered in Office Medication SIG [...] Result H/L Range Note Date Laboratory 05/16/2019 [facility] TSH (Thyroid 56.19 High 0.34- 5.[address] Stim Horm) mcIU/[place] [address] [phone] Laboratory 05/16/2019 [facility] Rheumatoid < 10 IU/mL Normal <[address] [place] [address] [phone] Anca AB Ser If 05/16/2019 [facility] C-Anca Negative Negative [address] [place] [address] [phone] P-Anca Negative Negative 1 Vitamin B6 05/16/2019 [facility] Pyridoxal See Comment 5-[address] 5-Phosphate g/[place] [address] [phone] Pyridoxic Acid 2 g/L Abnormal 3-30 3 Laboratory 05/16/2019 [facility] Aso Negative <[address] (Antistreptolysin O) IU/mL Iu/[place] [address] Titer [phone] Lyme Screen W/ Reflex To WB Negative Negative Creatine Kinase(CK) 28 U/L Normal 10-223 Uric Acid 4.7 mg/dL Normal 2.3-6.6 Ssa/SSB Abs Igg 05/16/2019 [facility] SS-A/Ro Antibody <0.2 U [address] [place] [address] [phone] SS-B/La Antibody <0.2 U 6 Laboratory test 05/16/2019 [facility] Erythrocyte Sed 20 mm/Hr High 0-[address] [place] [address] [phone] Reactive Protein 3.79 mg/L Normal <8.01 Ferritin 159.9 ng/mL Normal 11-307 1 Negative for cANCA and pANCA patterns by immunofluorescence. ADDITIONAL INFORMATION This test was developed and its performance characteristics determined by [facility] in a manner consistent with CLIA requirements. This test has not been cleared or approved by the U.S. Food and Drug Administration. Test Performed by: [facility] [place] [address] 2 Unknown interfering substance present; unable to obtain results. ADDITIONAL INFORMATION This test was developed and its performance characteristics determined by [facility] in a manner consistent with CLIA requirements. This test has not been cleared or approved by the U.S. Food and Drug Administration. 3 ADDITIONAL INFORMATION This test was developed and its performance characteristics determined by [facility] in a manner consistent with CLIA requirements. This test has not been cleared or approved by the U.S. Food and Drug Administration. Test Performed by: [facility] [place] [address] 4 Normal values may vary with age, [...] REFERENCE VALUE <1.0 (Negative) Test Performed by: [facility] [address] [place] [address] Procedures Date Code Description Status 08/21/2019 64623 EKG, Interpretation Only Completed 05/31/2019 25991 Nerve Conduction 09-10 Studies Completed 05/31/2019 14201 Needle Electromyography Complete, Five Or More Muscles Completed Studied 05/31/2019 89350 Needle Electromyography Each Extremity W/Related Completed Paraspinal Areas Medical Devices Description No Information Available Encounters Type Date Location Provider Dx Diagnosis Office Visit 08/22/2019 [facility] July Mirela, T43.212A Poisn by slctv 11:43a claire Estrella M.D.on/norepine Hospitalists ph reup inhibtr,slf-hrm, init E11.65 Type 2 diabetes mellitus with hyperglycemia K59.00 Constipation, unspecified E03.9 Hypothyroidism, unspecified Office Visit 08/21/2019 [facility] Madelyn T50.901A Poisoning by unsp 11:43a Assclaire kim NP drug/meds/biol Hospitalists subst, accidental, init E11.649 Type 2 diabetes mellitus with hypoglycemia without coma E03.9 Hypothyroidism, unspecified 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 R53.83 Other fatigue T43.212A Poisn by slctv seroton/norepineph reup inhibtr,slf-hrm, init Office Visit 08/20/2019 11:42a [facility] Elham R53.83 Other fatigue Assoc,claire Orozco, MILLER Hospitalists T43.212A Poisn by slctv seroton/norepineph reup inhibtr,slf-hrm, init E11.9 Type 2 diabetes mellitus without complications Office Visit 08/17/2019 1:20p Rheumatology Deangelo Monet, G56.03 Carpal tunnel [facility] Demarco syndrome, bilateral upper limbs G56.22 Lesion of ulnar nerve, left upper limb R70.0 Elevated erythrocyte sedimentation rate G62.9 Polyneuropathy, unspecified Office Visit 06/14/2019 9:00a Platter Diabetes and Jose Parsons, E10.40 Type 1 diabetes Endocrinology of MD mellitus with Jayson diabetic neuropathy, unsp E06.3 Autoimmune thyroiditis Office Visit 05/18/2019 1:20p Rheumatology Deangelo R20.8 Other disturbances [facility] Monet M.D. of skin sensation M06.4 Inflammatory polyarthropathy M79.643 Pain in unspecified hand R70.0 Elevated erythrocyte sedimentation rate G56.03 Carpal tunnel syndrome, bilateral upper limbs Assessments Date Code Description Provider 08/22/2019 T43.212A Poisoning by selective serotonin and July Dietz M.D. norepinephrine reuptake inhibitors, intentional self-harm, initial encounter 08/22/2019 E11.65 Type 2 diabetes mellitus with July Dietz M.D. hyperglycemia 08/22/2019 K59.00 Constipation, unspecified July Dietz M.D. 08/22/2019 E03.9 Hypothyroidism, unspecified July iDetz M.D. 08/21/2019 T50.901A Poisoning by unspecified drugs, Dion Nguyen M.D. medicaments and biological substances, accidental (unintentional), initial encounter 08/21/2019 T50.901A Poisoning by unspecified drugs, Madelyn House NP medicaments and biological substances, accidental (unintentional), initial encounter 08/21/2019 E11.649 Type 2 diabetes mellitus with hypoglycemia Madelyn Lacy, SENIOR POWER PLANT OPERATOR without coma 08/21/2019 E03.9 Hypothyroidism, unspecified Madelyn Lacy, SENIOR POWER PLANT OPERATOR 08/21/2019 Z79.4 marketing administrator (current) use of insulin Madelyn Lacy, SENIOR POWER PLANT OPERATOR 08/20/2019 R53.83 Other fatigue Perfecto Moore M.D. 08/20/2019 T43.212A Poisoning by selective serotonin and Perfecto Moore M.D. norepinephrine reuptake inhibitors, intentional self-harm, initial encounter 08/20/2019 R53.83 Other fatigue Elham Orozco, MILLER 08/20/2019 T43.212A Poisoning by selective serotonin and [place]ham Pam, SENIOR POWER PLANT OPERATOR norepinephrine reuptake inhibitors, intentional self-harm, initial encounter 08/20/2019 E11.9 Type 2 diabetes mellitus without Elham Orozco, SENIOR POWER PLANT OPERATOR complications 08/17/2019 G56.03 Carpal tunnel syndrome, bilateral upper Deangelo Monet M.D. limbs 08/17/2019 G56.22 Lesion of ulnar nerve, left upper limb Deangelo Monet M.D. 08/17/2019 R70.0 Elevated erythrocyte sedimentation rate Deangelo Monet M.D. 08/17/2019 G62.9 Polyneuropathy, unspecified Deangelo Monet M.D. 06/14/2019 E10.40 Type 1 diabetes mellitus with diabetic Jose Parsons MD neuropathy, unspecifi 06/14/2019 E06.3 Autoimmune thyroiditis Jose Parsons MD 05/31/2019 G56.03 Carpal tunnel syndrome, bilateral upper Brynn Rodrigez M.D. limbs 05/31/2019 G56.22 Lesion of ulnar nerve, left upper limb Brynn Rodrigez M.D. 05/18/2019 R20.8 Other disturbances of skin sensation Deangelo Monet M.D. 05/18/2019 M06.4 Inflammatory polyarthropathy Deangelo Monet M.D. 05/18/2019 M79.643 Pain in unspecified hand Deangelo Monet M.D. 05/18/2019 R70.0 Elevated erythrocyte sedimentation rate Deangelo Monet M.D. 05/18/2019 G56.03 Carpal tunnel syndrome, bilateral upper Deangelo Monet M.D. limbs Plan of Treatment 08/17/2019 - Deangelo Monet [...] the feet. See a healthcare provider or patient assessment coordinator for even minor procedures.Wash and check the [...] on EMG; for possible carpal tunnel release [address] [place] [phone]
[2019-11-20 21:14] LABS: ABS Basophils 0.1 10^3/ul (0-0.2); ABS Lymphocytes 1.1 10^3/ul (1.0-4.8); ABS Monocytes 0.8 10^3/ul (0-0.8); ABS Neutrophils 10.1 10^3/ul (1.5-7.7); Eosinophil % 0.1 %; Hematocrit 36 % (35-47); Hemoglobin 11.4 g/dL (12.0-16.0); Lymphocyte % 9.1 %; Mean Corpuscular HGB Conc 32 g/dL (31-36); Mean Corpuscular Hemoglobin 30 pg (27-31); Mean Corpuscular Volume 93 fL (80-97); Mean Platelet Volume 7.3 fL (7.4-10.4); Platelet Count 671 10^3/uL (150-450); Red Blood Count 3.82 10^6 /uL (3.70-4.87); Red Cell Distribution Width 15 % (10-15); White Blood Count 12.1 10^3/uL (3.5-10.8)
[2019-11-20 21:19] LABS: INR 1.07 (0.82-1.09)
[2019-11-20 21:26] LABS: Albumin 3.6 g/dL (3.2-5.2); Albumin/Globulin Ratio 0.8 (1-3); BUN/Creatinine Ratio 14.1 (8-20); C Reactive Protein 51.24 mg/L (<8.01); Calcium 9.7 mg/dL (8.6-10.3); EGFR African American 90.1 (>60); EGFR Non-African American 74.5 (>60); Globulin 4.4 g/dL (2-4); Potassium 4.3 mmol/L (3.5-5.0); Total Bilirubin 0.3 mg/dL (0.2-1.0)
[2019-11-20 21:32] LABS: HCG Pregnancy 1.2 mIU/mL
--- NOTE | 2019-11-20 22:40 | ED ---
Abdominal Pain/Female - HPI Summary HPI Summary: Patient with history of appendectomy 10/18/19 with subsequent abscess and percutaneous drainage catheters presents with new onset fever, worsening abdominal pain, nausea and vomiting , intermittent chest pain and shortness of breath x 2days. Patient states she is vomiting the same material that comes out in her drainage catheters. Decreased by mouth intake, tolerating fluids. Denies cough, sore throat, change in urine, change in BM, vaginal symptoms. Medical history is DM 1, hypothyroid. Per med rec patient is taking Levaquin and Flagyl. Surgeon Dr. Tavera - History of Current Complaint Chief Complaint: EDAbdPain Stated Complaint: CHEST PAIN /ABD PAIN PER PT Time Seen by Provider: 11/20/19 22:27 Hx Obtained From: Patient Onset/Duration: Gradual Onset, Lasting Days Timing: Constant Severity Initially: Severe Severity Currently: Severe Pain Intensity: 9 Pain Scale Used: 0-10 Numeric Location: Discrete At: RLQ Radiates: No Character: Sharp Aggravating Factor(s): Food Alleviating Factor(s): Nothing Associated Signs and Symptoms: Positive: Fever, Chest Pain, Decreased Appetite, Nausea, Vomiting Allergies/Adverse Reactions: Allergies Allergy/AdvReac Type Severity Reaction Status Date / Time Penicillins Allergy Severe Anaphylatic Verified 11/20/19 22:24 Shock Home Medications: Home Medications Levothyroxine Sodium 300 mcg PO DAILY 11/21/19 [History Confirmed 11/21/19] Omeprazole 40 mg PO DAILY 11/21/19 [History Confirmed 11/21/19] PMH/Surg Hx/FS Hx/Imm Hx Endocrine/Hematology History: Reports: Hx Diabetes - Type I Cardiovascular History: Denies: Hx Hypercholesterolemia, Hx Hypertension GI History: Reports: Hx Gastroesophageal Reflux Disease History: Denies: Hx Renal Disease Musculoskeletal History: Denies: Hx Gout Sensory History: Denies: Hx Contacts or Glasses, Hx Legally Blind, Hx Deafness, Hx Hearing Aid Opthamlomology History: Denies: Hx Contacts or Glasses, Hx Legally Blind EENT History: Denies: Hx Deafness Psychiatric History: Reports: Hx Depression, Hx Bipolar Disorder - Surgical History Surgery Procedure, Year, and Place: Cholecystectomy, tubal - Immunization History Date of Tetanus Vaccine: unk Date of Influenza Vaccine: unk Immunizations Up to Date: Yes Infectious Disease History: No Infectious Disease History: Denies: Traveled Outside the [place] in Last 30 Days - Family History Known Family History: Positive: Diabetes - Social History Alcohol Use: None Hx Substance Use: No Substance Use Type: Reports: None Substance Use Comment - Amount & Last Used: today Hx Tobacco Use: No Smoking Status (MU): Never Smoked Tobacco Type: Cigarettes Review of Systems Positive: Fever Eyes: Negative ENT: Negative Positive: Chest Pain Positive: Shortness Of Breath Positive: Abdominal Pain, Vomiting, Nausea Genitourinary: Negative Musculoskeletal: Negative Skin: Negative Neurological/Mental Status: Negative Psychological: Normal All Other Systems Reviewed And Are Negative: Yes Physical Exam Triage Information Reviewed: Yes Vital Signs On Initial Exam: Initial Vitals Temp Pulse Resp BP Pulse Ox 98.5 F 112 15 125/89 99 11/20/19 19:19 11/20/19 19:19 11/20/19 19:19 11/20/19 19:19 11/20/19 19:19 Vital Signs Reviewed: Yes Appearance: Positive: Well-Appearing Skin: Positive: Warm Head/Face: Positive: Normal Head/Face Inspection Eyes: Positive: Normal Neck: Positive: Supple Respiratory/Lung Sounds: Positive: Clear to Auscultation Cardiovascular: Positive: Normal Abdomen Description: Positive: Other: - Tenderness right lower quadrant at site of drainage catheter. Moderately diffusely tender other quadrants. Musculoskeletal: Positive: Normal Neurological: Positive: Normal Psychiatric: Positive: Normal AVPU Assessment: Alert - [place] Coma Scale Best Eye Response: 4 - Spontaneous Best Motor Response: 6 - Obeys Commands Best Verbal Response: 5 - Oriented Coma Scale Total: 15 Procedures - Sedation Patient Received Moderate/Deep Sedation with Procedure: No Diagnostics - Vital Signs Vital Signs Temp Pulse Resp BP Pulse Ox 11/20/19 22:39 109 20 117/75 100 11/20/19 21:57 100.3 F 123 16 127/82 99 11/20/19 19:19 98.5 F 112 15 125/89 99 - Laboratory Lab Results: Lab Results 11/20/19 11/20/19 11/20/19 Range/Units 21:00 21:00 21:00 WBC 12.1 H (3.5-10.8) 10^3/uL RBC 3.82 (3.70-4.87) 10^6 /uL Hgb 11.4 L (12.0-16.0) g/dL Hct 36 (35-47) % MCV 93 (80-97) fL MCH 30 (27-31) pg MCHC 32 (31-36) g/dL RDW 15 (10-15) % Plt Count 671 H (150-450) 10^3/uL MPV 7.3 L (7.4-10.4) fL Neut % (Auto) 83.4 % Lymph % (Auto) 9.1 % Jerauld % (Auto) 6.9 % Eos % (Auto) 0.1 % Baso % (Auto) 0.5 % Absolute Neuts (auto) 10.1 H (1.5-7.7) 10^3/ul Absolute Lymphs (auto) 1.1 (1.0-4.8) 10^3/ul Absolute Monos (auto) 0.8 (0-0.8) 10^3/ul Absolute Eos (auto) 0.0 (0-0.6) 10^3/ul Absolute Basos (auto) 0.1 (0-0.2) 10^3/ul Absolute Nucleated RBC 0.0 10^3/ul Nucleated RBC % 0.0 INR (Anticoag Therapy) 1.07 (0.82-1.09) Sodium 129 L (135-145) mmol/L Potassium 4.3 (3.5-5.0) mmol/L Chloride 93 L (101-111) mmol/L Carbon Dioxide 19 L (22-32) mmol/L Anion Gap 17 H (2-11) mmol/L BUN 12 (6-24) mg/dL Creatinine 0.85 (0.51-0.95) mg/dL Est GFR ( Amer) 90.1 (>60) Est GFR (Non-Af Amer) 74.5 (>60) BUN/Creatinine Ratio 14.1 (8-20) Glucose 522 H* (70-100) mg/dL Lactic Acid (0.5-2.0) mmol/L Calcium 9.7 (8.6-10.3) mg/dL Total Bilirubin 0.30 (0.2-1.0) mg/dL AST 8 L (13-39) U/L ALT 7 (7-52) U/L Alkaline Phosphatase 64 (34-104) U/L C-Reactive Protein 51.24 H (<8.01) mg/L Total Protein 8.0 (6.4-8.9) g/dL Albumin 3.6 (3.2-5.2) g/dL Globulin 4.4 H (2-4) g/dL Albumin/Globulin Ratio 0.8 L (1-3) Amylase 29 (29-103) U/L Lipase 15 (11.0-82.0) U/L Beta HCG, Quant 1.20 mIU/mL 11/20/19 Range/Units 21:00 WBC (3.5-10.8) 10^3/uL RBC (3.70-4.87) 10^6 /uL Hgb (12.0-16.0) g/dL Hct (35-47) % MCV (80-97) fL MCH (27-31) pg MCHC (31-36) g/dL RDW (10-15) % Plt Count (150-450) 10^3/uL MPV (7.4-10.4) fL Neut % (Auto) % Lymph % (Auto) % Jerauld % (Auto) % Eos % (Auto) % Baso % (Auto) % Absolute Neuts (auto) (1.5-7.7) 10^3/ul Absolute Lymphs (auto) (1.0-4.8) 10^3/ul Absolute Monos (auto) (0-0.8) 10^3/ul Absolute Eos (auto) (0-0.6) 10^3/ul Absolute Basos (auto) (0-0.2) 10^3/ul Absolute Nucleated RBC 10^3/ul Nucleated RBC % INR (Anticoag Therapy) (0.82-1.09) Sodium (135-145) mmol/L Potassium (3.5-5.0) mmol/L Chloride (101-111) mmol/L Carbon Dioxide (22-32) mmol/L Anion Gap (2-11) mmol/L BUN (6-24) mg/dL Creatinine (0.51-0.95) mg/dL Est GFR ( Amer) (>60) Est GFR (Non-Af Amer) (>60) BUN/Creatinine Ratio (8-20) Glucose (70-100) mg/dL Lactic Acid 1.7 (0.5-2.0) mmol/L Calcium (8.6-10.3) mg/dL Total Bilirubin (0.2-1.0) mg/dL AST (13-39) U/L ALT (7-52) U/L Alkaline Phosphatase (34-104) U/L C-Reactive Protein (<8.01) mg/L Total Protein (6.4-8.9) g/dL Albumin (3.2-5.2) g/dL Globulin (2-4) g/dL Albumin/Globulin Ratio (1-3) Amylase (29-103) U/L Lipase (11.0-82.0) U/L Beta HCG, Quant mIU/mL Result Diagrams: 11/21/19 06:08 11/21/19 14:25 Lab Statement: Any lab studies that have been ordered have been reviewed, and results considered in the medical decision making process. Abdominal Pain Fem Course/Dx - Course Course Of Treatment: Patient with history of appendectomy 10/18/19 with subsequent abscess and percutaneous drainage catheters presents with new onset fever, worsening abdominal pain, nausea and vomiting , intermittent chest pain and shortness of breath x 2days. Patient states she is vomiting the same material that comes out in her drainage catheters. Decreased by mouth intake, tolerating fluids. Denies cough, sore throat, change in urine, change in BM, vaginal symptoms. Medical history is DM 1, hypothyroid. Temp 100.3, tachycardic at 123. Vital signs otherwise within normal limits. WBC 12.1. PH 7.3. Blood glucose 522. Anion gap 17. Carbon dioxide 19. CRP 51. EKG sinus tachycardia, heart rate of 107. Patient in DKA. CTA chest, abdomen and pelvis negative for PE, positive for fluid collection lateral to the proximal colon which appears not significantly changed in size, possible abscess in the peritoneum. Also positive for loculated peripherally enhancing fluid collections some containing air locules in the right rectus abdominal sheath but the largest collection currently measuring 9.0 x 2.3 cm. These collections are consistent with abscess which have slightly increased in size. - Diagnoses Provider Diagnoses: DKA (diabetic ketoacidoses), Abdominal abscess Discharge ED - Sign-Out/Discharge Documenting (check all that apply): Sign-Out Patient Signing out patient TO: Leticia Lewis - Discharge Plan Condition: Stable Disposition: ADMITTED TO [facility] - Billing Disposition and Condition Condition: STABLE Disposition: Admitted to [facility]
[2019-11-20 23:18] LABS: Troponin I 0.02 ng/mL (<0.03)
[2019-11-21] MEDS ORDERED: Insulin REGULAR(*) 1 UNITS UNIT IV PUSH ONE ×2 (00:25→02:04)
[2019-11-21] MEDS ORDERED: Iodixanol* (CONTRAST) 320 MG/ML 100 ML SDV IV ONE (01:46)
[2019-11-21 03:03] LABS: Urine Appearance Clear; Urine Bilirubin Negative (Negative); Urine Blood Negative (Negative); Urine Color Straw; Urine Glucose 3+(>=500 mg/dL) (Negative); Urine Ketones 2+ (Negative); Urine Nitrite Negative (Negative); Urine Protein Negative (Negative); Urine Urobilinogen Negative (Negative)
[2019-11-21] MEDS ORDERED: Insulin Infusion 100unit/100mL 100 UNIT/100 ML BAG IV SCH ×2 (04:00→05:00)
[2019-11-21] MEDS ORDERED: Morphine 4 MG/ML VIAL (1 ml) 4 MG/ML VIAL IV PRN (04:15)
[2019-11-21] MEDS: NS 0.9% 1000 ML** 3,000 ML IV ONE (04:19)
--- NOTE | 2019-11-21 04:43 | ED ---
Progress - Progress Note Progress Note: Patient is received as a sign-out from DIANNE Zapien at 11/21/19 PA shift end pending surgical consult of the patient. 0438 - Patient's case was discussed with Dr. Tavera, he notes that the hospitalist should admit the patient. Surgery will consult on the case. 4 - Patient's case was discussed with Dr. Medrano, Dr. Medrano accepts for admission. Course/Dx - Course Course Of Treatment: 39-year-old female with recent appendicitis and appendectomy. Postop abscesses. Treated with drains. Antibiotics. Patient returned today with worsening pain vomiting and low-grade fevers. Signed out of changes shift to [facility] awaiting for consult with surgery. Discussed with surgery. They will consult in the morning. Recommend patient be admitted to medicine for DKA. Patient referred to hospitalist for admission. - Diagnoses Provider Diagnoses: DKA (diabetic ketoacidoses) - Provider Notifications Discussed Care Of Patient With: Ashwin Tavera Time Discussed With Above Provider: 04:38 Instructed by Provider To: Other - 043 - Patient's case was discussed with Dr. Tavera, he notes that the hospitalist should admit the patient. Surgery will consult on the case. 4 - Patient's case was discussed with Dr. Medrano, Dr. Medrano accepts for admission. Discharge ED - Sign-Out/Discharge Documenting (check all that apply): Patient Departure - admit - Discharge Plan Condition: Stable Disposition: ADMITTED TO [facility] Referrals: Masha Devlin MD [Primary Care Provider] - - Billing Disposition and Condition Condition: STABLE Disposition: Admitted to [facility] - Attestation Statements Document Initiated by Terence: Yes Documenting Scribe: GILBERT ROBLES Provider For Whom Terence is Documenting (Include Credential): REHAN QUIÑONES MD Scribenrrique Attestation: I, GILBERT ROBLES, scribed for REHAN QUIÑONES MD on 11/21/19 at 0639. Scribe Documentation Reviewed: Yes Provider Attestation: The documentation as recorded by the GILBERT magaña accurately reflects the service I personally performed and the decisions made by va, REHAN QUIÑONES MD Status of Scribe Document: Viewed
[2019-11-21] MEDS ORDERED: Pantoprazole IV* 40 MG IV SCH (05:00)
[2019-11-21] MEDS ORDERED: Cefepime 2 GM in Dextrose(*) 2 GM/50 ML BAG IV ONE (05:00)
[2019-11-21] MEDS: Ondansetron INJ* 2 MG/ML VIAL IV PRN (05:25)
[2019-11-21] MEDS ORDERED: Levothyroxine INJ* 100 MCG/5 ML VIAL IV SCH ×2 (06:00)
[2019-11-21 06:16] LABS: Hematocrit 27 % (35-47); Hemoglobin 9.1 g/dL (12.0-16.0); Mean Corpuscular HGB Conc 34 g/dL (31-36); Mean Corpuscular Hemoglobin 31 pg (27-31); Mean Corpuscular Volume 91 fL (80-97); Mean Platelet Volume 6.7 fL (7.4-10.4); Platelet Count 515 10^3/uL (150-450); Red Blood Count 2.98 10^6 /uL (3.70-4.87); Red Cell Distribution Width 14 % (10-15); White Blood Count 10.2 10^3/uL (3.5-10.8)
[2019-11-21 06:26] LABS: Activated Partial Thrombo Time 28.4 seconds (26.0-38.0); INR 1.11 (0.82-1.09)
[2019-11-21 06:31] LABS: EGFR African American 116.6 (>60); EGFR Non-African American 96.3 (>60)
[2019-11-21 06:32] LABS: BUN/Creatinine Ratio 14.9 (8-20); Calcium 7.8 mg/dL (8.6-10.3); EGFR African American 118.6 (>60); Potassium 3.1 mmol/L (3.5-5.0)
[2019-11-21] MEDS: KCL 10 MEQ/50 ML IVPREMIX* 10 MEQ/50 ML BAG IV SCH ×3 (06:41→09:41)
[2019-11-21] MEDS ORDERED: D5W 1/2 NS KCl 20 Meq 1000 ML* 1,000 ML IV SCH (07:00)
[2019-11-21 07:41] LABS: ABS Basophils 0.1 10^3/ul (0-0.2); ABS Lymphocytes 1.6 10^3/ul (1.0-4.8); ABS Monocytes 0.8 10^3/ul (0-0.8); ABS Neutrophils 7.6 10^3/ul (1.5-7.7); Eosinophil % 0.2 %; Lymphocyte % 16.1 %
[2019-11-21] MEDS: metroNIDAZOLE IV 500 MG/100ML* 500 MG/100 ML BAG IVPB SCH ×2 (07:47→18:18)
--- NOTE | 2019-11-21 08:40 | HP ---
CC: Dr. Devlin; Dr. Ash; Dr. Jiang * HISTORY AND PHYSICAL: DATE OF ADMISSION: 11/21/19 PRIMARY CARE PROVIDER: Dr. Devlin. MY ATTENDING PHYSICIAN WHILE IN THE HOSPITAL: Dr. Medrano.* (DICTATED BY FIDEL REEVES NP) CONSULTING INFECTIOUS DISEASE: Dr. Ash. CONSULTING SURGEON: Dr. Jiang. CHIEF COMPLAINT: 1. Abdominal pain. 2. Nausea. 3. Vomiting. HISTORY OF PRESENT ILLNESS: Ms. Niesha Jasso is a 39-year-old female patient who carries a history of diabetes, bipolar disorder, hypothyroidism, and depression, who last month was hospitalized from 10/15/19 to 10/30/19 was initially found to have DKA, later in the hospitalization was found to have a perforated appendicitis. She underwent percutaneous drains placement. She was discharged with followup on this week. She had a revision of one of her drains, and since then, she has been having right lower quadrant abdominal discomfort that has been constant in nature that she describes as an intense pain that is similar to the previous right- sided pain that she had when she was first diagnosed with her perforated appendicitis. In addition to this, she has noted that she had been feeling nauseated and she has been vomiting. She has had a loss of appetite. She has felt warm at times, but no reported fevers. She states that she also has not been taking her insulin. She has been taking her other medications that are prescribed, but states that she just overall has not been feeling well since the drain had been revised. She also has been complaining of an intermittent chest discomfort with no associated symptoms that are not exertional. She states that she was concerned because things were not getting better. She came into the ER today. It was ultimately noted that she appeared to be in DKA again. In addition to this, it was also noted on CT imaging that the loculated abscesses in her abdomen appeared to be slightly worse. In addition to this, she had a low-grade fever and an elevated temperature, and because of these findings, we were asked to evaluate for admission. PAST MEDICAL HISTORY: Significant for: 1. Diabetes. 2. Hypothyroidism. 3. Depression. 4. Bipolar. PAST SURGICAL HISTORY: 1. She had an appendectomy recently done. 2. Cholecystectomy. 3. Right ovarian cyst removal. MEDICATIONS: Home meds according to the list that she provided to us include: 1. Omeprazole 40 mg daily. 2. Synthroid 300 mcg p.o. daily. 3. Ibuprofen 400 mg every 6 hours as needed. 4. Colace 100 mg p.o. b.i.d.. 5. Wellbutrin 300 mg daily. 6. Levaquin 500 mg daily. 7. Insulin lispro sliding scale a.c. and h.s. 8. Lantus 24 units subcu q.p.m. 9. Percocet 2 tabs every 6 hours as needed. 10. Flagyl 500 mg p.o. t.i.d. 11. Senna 2 tabs p.o. b.i.d. as needed. 12. Seroquel 200 mg at bedtime. 14. MiraLAX 17 g daily as needed. 15. Protonix 40 mg daily. ALLERGIES TO MEDICATIONS: Include PENICILLIN. FAMILY HISTORY: Her mother had stroke. Father had diabetes. SOCIAL HISTORY: She has been a smoker for 3 years about half a pack a day. She states she quit recently. She denies any illicit drug use. She states that she does drink alcohol occasionally. Her ex- is her surrogate decision maker. REVIEW OF SYSTEMS: There is no documented fever at home. She did have a low- grade fever here. She denied having any significant weight change. There is no double vision or ear discharge. There was no rhinorrhea, no sore throat, no thyroid enlargement. She does admit to having chest pain. There is no shortness of breath, no orthopnea, no nocturnal dyspnea. There was abdominal pain from HPI. There was nausea with vomiting. There is no dysuria, no frequency, no seizure, and no loss of consciousness. Review of 14 systems completed, all others are negative. PHYSICAL EXAMINATION GENERAL: At this time, Ms. Scherer is a 39-year-old female patient. She is sitting in the ED stretcher. She does not appear to be in any acute distress. VITAL SIGNS: Blood pressure 145/85, pulse 108, respirations 18, O2 sat 99%, temperature 99.0. HEENT: Head: Atraumatic and normocephalic. Eyes: EOMs are intact. Sclerae anicteric, not pale. Throat: Oral mucosa appears to be dry. No oropharyngeal erythema. NECK: Supple. LUNGS: Clear to auscultation bilaterally. No wheezes, rales, or rhonchi. HEART: Sounds S1 and S2, she is tachycardic. No murmurs, rubs, or gallops. Regular rhythm. ABDOMEN: Soft. Bowel sounds were present in all 4 quadrants. She had tenderness in the right lower quadrant. EXTREMITIES: Pulses were 2+ throughout. She had no peripheral edema. She is moving all 4 extremities with 5/5 strength. NEUROLOGIC: She is awake, she is alert, she is oriented x3. Tongue is midline. Senior Animal Trainer are equal. No gross focal deficits. SKIN: Intact. She does have 2 drains noted to the lower abdominal area. DIAGNOSTIC STUDIES/LAB DATA: Labs today revealed WBC 12.1, RBC of 3.82, hemoglobin of 11.4, hematocrit 36, and platelet count of 671. INR 1.07. Blood gas revealed a pH of 7.3, her bicarb was 17, PCO2 of 36. Sodium 129, potassium 4.3, chloride of 93, bicarb 19, BUN 12, creatinine of 0.85, glucose 522, lactic 1.7, calcium 9.7. Total bili 0.3, AST 8, ALT 7, alk phos 54. Troponin 0.02, repeat troponin 0.01. Amylase, lipase normal. Beta-HCG negative. Albumin 3.6. Urine showed 3+ glucose, 2+ ketones. She had a CT of the chest, abdomen, and pelvis, which revealed no aortic dissection, no visible acute pulmonary embolism. Abdomen revealed as previously seen, there is a percutaneous drainage catheter with distal tip in right lower quadrant with fat stranding in this region, but no discrete fluid collection. There is, however, again a loculated peripherally enhancing fluid collection lateral to the proximal colon, which appears not significantly changed in size, measuring a maximum of 5.2 x 1.6 cm in the axial cross section , possible abscess in the peritoneum. Also, as previously seen, there is percutaneous drainage catheter with the distal tip now in position more laterally in the right rectus abdominal sheath. Again, there are loculated peripherally enhancing fluid collection, some containing air locules, in the right rectus abdominal sheath with the largest collection measuring 9.0 x 2.3 cm axial cross section and previously measured 8.6 x 1.5. These collections are consistent with abscess, which are slightly increased in size. EKG today shows sinus tachycardia, LVH noted with a rate of 107. No ST elevations or T-wave inversions. Microbiology from previous culture grew out Bacteroides fragilis, Streptococcus constellatus. Old medical records were reviewed. ASSESSMENT AND PLAN: Ms. Scherer is a 39-year-old female patient coming into the ER today with complaints of worsening right lower quadrant abdominal pain with nausea and vomiting. On evaluation today, it was found that she had slightly enlarged intraabdominal abscesses and in addition was found to be in diabetic ketoacidosis. She will be admitted under inpatient status for: 1. Diabetic ketoacidosis. At this point, I will place her on insulin sliding scale. Once her sugar falls below 250, we will switch her fluids over to D5 half normal. In addition to this, I will check BMPs every 4 hours and replace electrolytes as appropriate. She did not receive a bolus here in the ED, so I will be giving her 3 L of fluid upfront and we will continue to follow. 2. Sepsis secondary to loculated fluid abscess collections. I have placed her on cefepime and Flagyl IV. I have left her n.p.o. The ER is working on trying to touch base with the surgical team. We will get them involved in her care. In addition to this, I will also get Dr. Ash involved. 3. Diabetes. Again, poorly controlled. She will be on insulin drip to try to resolve her mild diabetic ketoacidosis. 4. Hypothyroidism. Continue her meds as prescribed. I ordered the IV equivalent for her. 5. Depression and bipolar. Continue with supportive care. 6. DVT prophylaxis. She is high risk. She was placed on heparin subcu. 7. Code status. She is full code. 8. Fluid, electrolytes, nutrition. She is n.p.o. She will get normal saline 3 L wide open and then she will get normal saline at 150 cc an hour. 9. Chest pain. At this point, she is chest pain free. She had 2 negative troponins. Her EKG appeared to be stable and her CTA was negative. We will continue to monitor this over time. TIME SPENT: Time spent on the admission was 60 minutes, greater than half the time was spent [id number] with the patient obtaining my history of physical; the other half time was spent going over the plan of care with the patient and implementing plan of care. I did discuss the plan of care with my attending Dr. Medrano; he is in agreement. FIDEL REEVES, MILLER [id number]/[facility] #: [id number] EMILY
[2019-11-21] MEDS ORDERED: Dextrose 50% Syringe 50 ML* 25 GM/50 ML SYRINGE IV PUSH PRN (09:14)
[2019-11-21] MEDS: BuPROPion XL* 300 MG TAB.XL PO SCH (09:45)
[2019-11-21] MEDS: Heparin VIAL(*) 5000 UNITS/ML VIAL (FIVE THOUSAND) SUBCUT SCH ×3 (09:45→20:48)
[2019-11-21] MEDS: NS 0.9% 1000 ML** 1,000 ML IV SCH (09:52)
[2019-11-21] MEDS: Insulin LISPRO* 1 UNITS UNIT SUBCUT SCH ×4 (09:52→20:53)
--- NOTE | 2019-11-21 10:15 | ECHO ---
*[facility]* [place] [address] Fax #: [phone] Transthoracic Echocardiogram Patient: Kelsie Shaw : 1980 Study Date: 11/21/2019 Age: 39 Gender: F HR: 94 bpm Height: 60 in /152.4 cm BSA: 1.51 m^2 Weight: 120.7 lb /54.9 kg BMI: 23.6 kg/m^2 *Life Cycle Assessment Analyst: * Jasmin Edmond [facility] *Referring Physician: * Ramón ChoiReading Physician: * Dion Nguyen MD Indications: Chest Pain, unspecified. History: Risk factors: Former tobacco use. Diabetes mellitus: type 1 (insulin-deficient). Labs, prior tests, procedures, and surgery: Appendectomy. Performed recently. Conclusions Summary: - Left ventricle: Systolic function is normal. The estimated ejection fraction is 60-65%. Wall motion is normal; there are no regional wall motion abnormalities. - Right ventricle: Systolic function is normal. Systolic pressure is within the normal range. - Mitral valve: There is mild regurgitation. - Aortic valve: There is no evidence of stenosis. - Tricuspid valve: There is mild regurgitation. - Study data: No prior study is available for comparison. Study data: Transthoracic echocardiogram. Procedure: Transthoracic echocardiography was performed. Image quality was good. Complete 2D, spectral Doppler, and color flow Doppler. Location: ICU Patient status: Inpatient. Patient room number: ICU-08. No prior study is available for comparison. Rhythm: Normal sinus rhythm. Findings Left ventricle: The cavity size is normal. Wall thickness is at the upper limits of normal. Systolic function is normal. The estimated ejection fraction is 60-65%. Wall motion is normal; there are no regional wall motion abnormalities. There is no consistent Doppler evidence of clinically significant diastolic dysfunction. Right ventricle: The cavity size is normal. Systolic function is normal. Systolic pressure is within the normal range. Left atrium: The atrium is normal in size. Right atrium: The atrium is normal in size. Mitral valve: The leaflets are normal thickness. There is no evidence of stenosis. There is mild regurgitation. Aortic valve: The valve is trileaflet. The leaflets are normal thickness. There is no evidence of stenosis. There is no significant regurgitation. Tricuspid valve: The leaflets are normal thickness. There is no evidence of stenosis. There is mild regurgitation. Pulmonic valve: The leaflets are normal thickness. There is no evidence of stenosis. There is trace regurgitation. Aorta: Aortic root: The aortic root is appears normal. Ascending aorta: The ascending aorta is appears normal. Aortic arch: The aortic arch is appears normal. Pericardium: There is no significant pericardial effusion. Pulmonary arteries: The main pulmonary artery is normal-sized. Systolic pressure is within the normal range. Systemic veins: Inferior vena cava: The vessel is normal in size. There is (>= 50%) respiratory change in the IVC dimension. Measurements Left ventricle Value Ref Aortic valve Value Ref DOROTHY, LAX 4.1 cm 3.8 - 5.2 Felix diam, ED 1.7 cm ----- ESD, LAX 2.7 cm 2.2 - 3.5 Peak v, S 1.46 m/sec ----- FS, LAX 34 % 27 - 45 VTI, S 21.8 cm ----- PW, ED, LAX (H) 1.0 cm 0.6 - 0.9 Mean grad, S 3.0 mm Hg ----- FS 34 % 27 - 45 Peak grad, S 9.0 mm Hg ----- PW, ED (H) 1.0 cm 0.6 - 0.9 LVOT/AV, VTI ratio 0.96 ----- E', lat felix, TDI (L) 8.6 cm/sec >=10.0 E/e', lat felix, 9 Mitral valve Value Ref TDI Peak E 0.8 m/sec ----- E', med felix, TDI 7.5 cm/sec >=7.0 Peak A 0.94 m/sec --- -- E/e', med felix, 11 Decel time 161 ms ----- TDI Peak grad, D 2.5 mm Hg ----- E', avg, TDI 8.1 cm/sec Peak E/A ratio 0.9 ----- E/e', avg, TDI 10 <=14 Pulmonic valve Value Ref LVOT Value Ref Peak v, S 1.16 m/sec ----- Peak eduarda, S 1.2 m/sec Peak grad, S 5.0 mm Hg ----- VTI, S 21.0 cm Peak grad, S 6 mm Hg Tricuspid valve Value Ref Mean grad, S 3 mm Hg TR peak v 2.4 m/sec <=2.8 Peak RV-RA grad, S 23 mm Hg ----- Ventricular septum Value Ref IVS, ED (H) 1.0 cm 0.6 - 0.9 Aortic root Value Ref Root diam 2.3 cm <3.1 Right ventricle Value Ref DOROTHY, LAX 2.6 cm Ascending aorta Value Ref DOROTHY minor ax, A4C 2.9 cm 1.9 - 3.5 AAo AP diam, S 2.7 cm ----- mid Pressure, S 26 mm Hg Aortic arch Value Ref Arch diam 1.9 cm ----- Left atrium Value Ref AP dim, ES 3.30 cm 2.70 - Decending aorta Value Ref 3.80 Cristian peak eduarda 0.87 m/sec ----- ML dim, A4C 3.8 cm SI dim, A4C 4.5 cm Pulmonary artery Value Ref Vol/bsa, ES, 1-p 21 ml/m^2 11 - 40 Pressure, S 21.0 mm Hg ----- A4C Vol/bsa, ES, A/L 29 ml/m^2 16 - 34 Inferior vena cava Value Ref Diam 1.6 cm ----- Right atrium Value Ref SI dim, ES 4.7 cm 3.4 - 5.3 ML dim, ES, A4C 3.0 cm 2.6 - 4.4 Estimated RAP 3 mm Hg Legend: (L) and (H) corry values outside specified reference range. Prepared and electronically signed by Dion Nguyen MD 11/21/2019 10:14
[2019-11-21] MEDS ORDERED: Insulin GLARGINE(*) 1 UNITS UNIT SUBCUT ONE (10:41)
--- NOTE | 2019-11-21 10:56 | PN ---
Progress Note - Progress Note Date of Service: 11/21/19 Note: Progress Note -- Critical Care 24 hour events/significant events: Admitted for DKA. AG now closed. Off insulin gtt. ROS: negative except for pertinent positives mentioned above; Tele: NSR Vitals: Vital Signs: Temp Pulse Resp BP Pulse Ox 99.5 F 94 17 112/66 98 11/21/19 08:05 11/21/19 08:45 11/21/19 08:45 11/21/19 08:45 11/21/19 08:45 O2/Vent: Room Air Infusions: Normal saline Medications: Acetaminophen (Tylenol Tab*) 650 mg PO Q4H PRN PRN Reason: PAIN - MILD Bupropion HCl (Bupropion Xl*) 300 mg PO DAILY [facility] Last Admin: 11/21/19 09:45 Dose: 300 mg Dextrose (D50w Syringe 50 Ml*) 12.5 gm IV PUSH .FOR FS < 60 - SS PRN PRN Reason: FS < 60 Heparin Sodium (Porcine) (Heparin Vial(*)) 5,000 units SUBCUT Q8HR [facility] Last Admin: 11/21/19 09:45 Dose: 5,000 units Cefepime HCl (Maxipime 2 Gm In Dextrose Duplex (*)) 2 gm in 50 mls @ 100 mls/ hr IV Q12H [facility] Metronidazole/Sodium Chloride (Flagyl 500 Mg Ivpb*) 500 mg in 100 mls @ 100 mls /hr IVPB Q8H [facility] Last Admin: 11/21/19 07:47 Dose: 100 mls/hr Sodium Chloride (Ns 0.9% 1000 Ml) 1,000 mls @ 150 mls/hr IV PER RATE [facility] Last Admin: 11/21/19 09:52 Dose: 150 mls/hr Insulin Human Lispro (Humalog*) 0 units SUBCUT ACHS [facility]; Protocol Last Admin: 11/21/19 09:52 Dose: 1 unit Levothyroxine Sodium (Synthroid Inj*) 150 mcg IV 0600 [facility] Last Admin: 11/21/19 09:42 Dose: 150 mcg Levothyroxine Sodium (Synthroid Tab*) 300 mcg PO DAILY@0600 [facility] Morphine Sulfate (Morphine 4 Mg/Ml Vial (1 Ml)) 4 mg IV Q4H PRN PRN Reason: PAIN - SEVERE Last Admin: 11/21/19 05:25 Dose: 4 mg Ondansetron HCl (Zofran Inj*) 4 mg IV Q6H PRN PRN Reason: NAUSEA Last Admin: 11/21/19 05:25 Dose: 4 mg Pantoprazole Sodium (Protonix Iv*) 40 mg IV Q24H [facility] Last Admin: 11/21/19 05:25 Dose: 40 mg Quetiapine Fumarate (Seroquel Tab*) 200 mg PO BEDTIME [facility] Physical Exam: Constitutional: awake, alert, no distress, no diaphoresis Head: normocephalic, atraumatic Eyes: no pallor, no icterus ENT: moist mucous membranes Neck: soft, supple, no jvd, no stridor CVS: normal rate, regular, no murmur Chest/Resp: bilateral air entry, no rhales, no wheeze, no rhonchi, no acc muscle use Abdomen/GI: soft, nontender, nondistended, BS+ Ext/Msk: warm, pulses+, no edema Skin: intact, warm Neuro: awake, alert, orientedx3, moving all extremities, no gross focal deficit Psych: normal affect Labs: Laboratory Results - last 24 hr 11/20/19 11/20/19 11/20/19 21:00 21:00 21:00 WBC 12.1 H RBC 3.82 Hgb 11.4 L Hct 36 MCV 93 MCH 30 MCHC 32 RDW 15 Plt Count 671 H MPV 7.3 L Neut % (Auto) 83.4 Lymph % (Auto) 9.1 [place] % (Auto) 6.9 Eos % (Auto) 0.1 Baso % (Auto) 0.5 Absolute Neuts (auto) 10.1 H Absolute Lymphs (auto) 1.1 Absolute Monos (auto) 0.8 Absolute Eos (auto) 0.0 Absolute Basos (auto) 0.1 Absolute Nucleated RBC 0.0 Nucleated RBC % 0.0 INR (Anticoag Therapy) 1.07 APTT VBG pH VBG pCO2 VBG pO2 VBG HCO3 VBG O2 Saturation VBG Base Excess Sodium 129 L Potassium 4.3 Chloride 93 L Carbon Dioxide 19 L Anion Gap 17 H BUN 12 Creatinine 0.85 Est GFR ( Amer) 90.1 Est GFR (Non-Af Amer) 74.5 BUN/Creatinine Ratio 14.1 Glucose 522 H* POC Glucose (mg/dL) Glucose Meter Confirm Lactic Acid Calcium 9.7 Total Bilirubin 0.30 AST 8 L ALT 7 Alkaline Phosphatase 64 Troponin I 0.02 C-Reactive Protein 51.24 H Total Protein 8.0 Albumin 3.6 Globulin 4.4 H Albumin/Globulin Ratio 0.8 L Amylase 29 Lipase 15 Beta HCG, Quant 1.20 Urine Color Urine Appearance Urine pH Ur Specific [place] Urine Protein Urine Ketones Urine Blood Urine Nitrate Urine Bilirubin Urine Urobilinogen Ur Leukocyte Esterase Urine Glucose 11/20/19 11/20/19 11/20/19 21:00 22:51 22:51 WBC RBC Hgb Hct MCV MCH MCHC RDW Plt Count MPV Neut % (Auto) Lymph % (Auto) [place] % (Auto) Eos % (Auto) Baso % (Auto) Absolute Neuts (auto) Absolute Lymphs (auto) Absolute Monos (auto) Absolute Eos (auto) Absolute Basos (auto) Absolute Nucleated RBC Nucleated RBC % INR (Anticoag Therapy) APTT VBG pH 7.30 L VBG pCO2 36 L VBG pO2 < 38.0 VBG HCO3 16.9 L VBG O2 Saturation 29.5 L VBG Base Excess -7.9 L Sodium Potassium Chloride Carbon Dioxide Anion Gap BUN Creatinine Est GFR ( Amer) Est GFR (Non-Af Amer) BUN/Creatinine Ratio Glucose POC Glucose (mg/dL) Glucose Meter Confirm Lactic Acid 1.7 Calcium Total Bilirubin AST ALT Alkaline Phosphatase Troponin I 0.01 C-Reactive Protein Total Protein Albumin Globulin Albumin/Globulin Ratio Amylase Lipase Beta HCG, Quant Urine Color Urine Appearance Urine pH Ur Specific [place] Urine Protein Urine Ketones Urine Blood Urine Nitrate Urine Bilirubin Urine Urobilinogen Ur Leukocyte Esterase Urine Glucose 11/21/19 11/21/19 11/21/19 01:57 02:01 02:10 WBC RBC Hgb Hct MCV MCH MCHC RDW Plt Count MPV Neut % (Auto) Lymph % (Auto) [place] % (Auto) Eos % (Auto) Baso % (Auto) Absolute Neuts (auto) Absolute Lymphs (auto) Absolute Monos (auto) Absolute Eos (auto) Absolute Basos (auto) Absolute Nucleated RBC Nucleated RBC % INR (Anticoag Therapy) APTT VBG pH VBG pCO2 VBG pO2 VBG HCO3 VBG O2 Saturation VBG Base Excess Sodium Potassium Chloride Carbon Dioxide Anion Gap BUN Creatinine Est GFR ( Amer) Est GFR (Non-Af Amer) BUN/Creatinine Ratio Glucose POC Glucose (mg/dL) > 444 H* > 444 H* Glucose Meter Confirm Lactic Acid Calcium Total Bilirubin AST ALT Alkaline Phosphatase Troponin I C-Reactive Protein Total Protein Albumin Globulin Albumin/Globulin Ratio Amylase Lipase Beta HCG, Quant Urine Color Straw Urine Appearance Clear Urine pH 5.0 Ur Specific [place] Urine Protein Negative Urine Ketones 2+ A Urine Blood Negative Urine Nitrate Negative Urine Bilirubin Negative Urine Urobilinogen Negative Ur Leukocyte Esterase Negative Urine Glucose 3+(>=500 mg/dl) A 11/21/19 11/21/19 11/21/19 02:38 02:38 04:28 WBC RBC Hgb Hct MCV MCH MCHC RDW Plt Count MPV Neut % (Auto) Lymph % (Auto) [place] % (Auto) Eos % (Auto) Baso % (Auto) Absolute Neuts (auto) Absolute Lymphs (auto) Absolute Monos (auto) Absolute Eos (auto) Absolute Basos (auto) Absolute Nucleated RBC Nucleated RBC % INR (Anticoag Therapy) APTT VBG pH VBG pCO2 VBG pO2 VBG HCO3 VBG O2 Saturation VBG Base Excess Sodium Potassium Chloride Carbon Dioxide Anion Gap BUN Creatinine Est GFR ( Amer) Est GFR (Non-Af Amer) BUN/Creatinine Ratio Glucose POC Glucose (mg/dL) 380 H Glucose Meter Confirm 408 H Lactic Acid 0.5 Calcium Total Bilirubin AST ALT Alkaline Phosphatase Troponin I C-Reactive Protein Total Protein Albumin Globulin Albumin/Globulin Ratio Amylase Lipase Beta HCG, Quant Urine Color Urine Appearance Urine pH Ur Specific [place] Urine Protein Urine Ketones Urine Blood Urine Nitrate Urine Bilirubin Urine Urobilinogen Ur Leukocyte Esterase Urine Glucose 11/21/19 11/21/19 11/21/19 05:15 06:08 06:08 WBC RBC Hgb Hct MCV MCH MCHC RDW Plt Count MPV Neut % (Auto) Lymph % (Auto) [place] % (Auto) Eos % (Auto) Baso % (Auto) Absolute Neuts (auto) Absolute Lymphs (auto) Absolute Monos (auto) Absolute Eos (auto) Absolute Basos (auto) Absolute Nucleated RBC Nucleated RBC % INR (Anticoag Therapy) 1.11 H APTT 28.4 VBG pH VBG pCO2 VBG pO2 VBG HCO3 VBG O2 Saturation VBG Base Excess Sodium Potassium Chloride Carbon Dioxide Anion Gap BUN 10 Creatinine 0.68 Est GFR ( Amer) 116.6 Est GFR (Non-Af Amer) 96.3 BUN/Creatinine Ratio Glucose POC Glucose (mg/dL) 312 H Glucose Meter Confirm Lactic Acid Calcium Total Bilirubin AST ALT Alkaline Phosphatase Troponin I C-Reactive Protein Total Protein Albumin Globulin Albumin/Globulin Ratio Amylase Lipase Beta HCG, Quant Urine Color Urine Appearance Urine pH Ur Specific [place] Urine Protein Urine Ketones Urine Blood Urine Nitrate Urine Bilirubin Urine Urobilinogen Ur Leukocyte Esterase Urine Glucose 11/21/19 11/21/19 11/21/19 06:08 06:08 06:08 WBC 10.2 RBC 2.98 L Hgb 9.1 L Hct 27 L MCV 91 MCH 31 MCHC 34 RDW 14 Plt Count 515 H D MPV 6.7 L Neut % (Auto) 74.7 Lymph % (Auto) 16.1 [place] % (Auto) 8.2 Eos % (Auto) 0.2 Baso % (Auto) 0.8 Absolute Neuts (auto) 7.6 Absolute Lymphs (auto) 1.6 Absolute Monos (auto) 0.8 Absolute Eos (auto) 0.0 Absolute Basos (auto) 0.1 Absolute Nucleated RBC 0.0 Nucleated RBC % 0.0 INR (Anticoag Therapy) APTT VBG pH VBG pCO2 VBG pO2 VBG HCO3 VBG O2 Saturation VBG Base Excess Sodium 136 Potassium 3.1 L Chloride 107 Carbon Dioxide 22 Anion Gap 7 BUN 10 Creatinine 0.67 Est GFR ( Amer) 118.6 Est GFR (Non-Af Amer) 98.0 BUN/Creatinine Ratio 14.9 Glucose 209 H POC Glucose (mg/dL) 244 H Glucose Meter Confirm Lactic Acid Calcium 7.8 L Total Bilirubin AST ALT Alkaline Phosphatase Troponin I C-Reactive Protein Total Protein Albumin Globulin Albumin/Globulin Ratio Amylase Lipase Beta HCG, Quant Urine Color Urine Appearance Urine pH Ur Specific [place] Urine Protein Urine Ketones Urine Blood Urine Nitrate Urine Bilirubin Urine Urobilinogen Ur Leukocyte Esterase Urine Glucose 11/21/19 11/21/19 07:10 09:05 WBC RBC Hgb Hct MCV MCH MCHC RDW Plt Count MPV Neut % (Auto) Lymph % (Auto) [place] % (Auto) Eos % (Auto) Baso % (Auto) Absolute Neuts (auto) Absolute Lymphs (auto) Absolute Monos (auto) Absolute Eos (auto) Absolute Basos (auto) Absolute Nucleated RBC Nucleated RBC % INR (Anticoag Therapy) APTT VBG pH VBG pCO2 VBG pO2 VBG HCO3 VBG O2 Saturation VBG Base Excess Sodium Potassium Chloride Carbon Dioxide Anion Gap BUN Creatinine Est GFR ( Amer) Est GFR (Non-Af Amer) BUN/Creatinine Ratio Glucose POC Glucose (mg/dL) 179 H 194 H Glucose Meter Confirm Lactic Acid Calcium Total Bilirubin AST ALT Alkaline Phosphatase Troponin I C-Reactive Protein Total Protein Albumin Globulin Albumin/Globulin Ratio Amylase Lipase Beta HCG, Quant Urine Color Urine Appearance Urine pH Ur Specific [place] Urine Protein Urine Ketones Urine Blood Urine Nitrate Urine Bilirubin Urine Urobilinogen Ur Leukocyte Esterase Urine Glucose Imaging: CTA Chest IMPRESSION: 1. No visible acute pulmonary embolism. 2. No aortic dissection. CTA abd/pel IMPRESSION: 1. As previously seen, there is a percutaneous drainage catheter with distal tip in the right lower quadrant with fat stranding in this region but no discrete fluid collection. There is however again, a loculated peripherally enhancing fluid collection lateral to the proximal colon which appears not significantly changed in size measuring a maximum of 5.2 x 1.6 cm in axial cross-section, possible abscess in the peritoneum. 2. Also as previously seen, there is a percutaneous drainage catheter with distal tip now position more laterally in the right rectus abdominal sheath. Again, there are loculated peripherally enhancing fluid collections, some containing air locules, in the right rectus abdominal sheath with the largest collection currently measuring 9.0 x 2.3 cm in axial cross-section and previously measured 8.6 x 1.5 cm. These collections are consistent with abscess which have slightly increased in size. TTE Summary: - Left ventricle: Systolic function is normal. The estimated ejection fraction is 60-65%. Wall motion is normal; there are no regional wall motion abnormalities. - Right ventricle: Systolic function is normal. Systolic pressure is within the normal range. - Mitral valve: There is mild regurgitation. - Aortic valve: There is no evidence of stenosis. - Tricuspid valve: There is mild regurgitation. - Study data: No prior study is available for comparison. Assessment: 39F with hypothyroid, dm, depression, bipolar disorder with h/o intaabdominal abscesses after perforated appendix presents with nausea and vomiting. Found to be in DKA requiring insulin gtt. CT of abd/pel shows increasing size of abscesses. Plan: Neuro - bipolar depression - c/w seroquel CVS- - bp ok - TTE with normal EF Resp- saturating well on room air ID- sepsis - low grade temp and elevated wbc in ER - 2/2 intraabdominal absesses with increase in size - discussed with ID - c./w cefepime/flagyl - prior cultures with strep constellatus/bacteriodes - for another drain placement by IR - surgery eval GI- npo for now Renal- -strict I/O, replete to keep K>4, Mg>2 -corley as indicated Heme- monitor cbc Endo- DM, Hypothyroid - mild dka improved with fluids and insulin gtt - transition to lantus, sliding scale - c/w synthroid Musculsk- pressure ulcer prophylaxis. OOB to chair. Wounds- none Nutrition- npo - diet after drain placement DVT prophylaxis: hsq GI prophylaxis: ppi Central Line: none Arterial Line: none Corley Cathetor: remove Disposition: Patient requires Critical Care/ICU for insulin gtt Patient clinical status: stable Code Status: Full
--- NOTE | 2019-11-21 11:37 | CONSULT ---
Consult Consult: CC: ABD pain HPI: 39 yo F with recent history of hospitalization due to perforated appendicitis with percutaneous drain placements, was discharged with drains. 4 days ago she began right sided abdominal pain, nausea, and vomiting that was worsening. Confirms also loss of appetite. Presented to the ER yesterday with these symptoms and was found to be in DKA and CT imaging showing loculated abscesses in her abdomen. Denies urinary symptoms, cough, chest pain. States bowel movements have been normal. Surgical history: Recent appendectomy. Cholecystectomy. Right ovarian cyst removal. Denies problems with anesthesia, bleeding, or clotting. Family history: Paternal grandmother with uterine CA. Mother had stroke. Father had DM. Social history: Quit 1 year ago, former 1/2 PPD smoker for 3 years. No alcohol or drug use. PMH: Diabetes, hypothyroidism, depression, bipolar Home Medications Medication Instructions Recorded Confirmed Type Insulin Glargine,Hum.rec.anlog 24 units SUBCUT QPM 08/20/19 11/21/19 History [Basaglar Kwikpen 100 inuts/ml 3 ml x 5 Pens] Insulin LISPRO* [HumaLOG 100 0 units SUBCUT ACHS unit 08/22/19 11/21/19 Rx units/ml 3 ml VIAL *] Bupropion XL* [Wellbutrin XL *] 300 mg PO DAILY #28 tab 08/25/19 11/21/19 Rx Docusate CAP* [Colace Cap*] 100 mg PO BID PRN #28 cap 08/25/19 11/21/19 Rx Pantoprazole TAB * [Protonix TAB*] 40 mg PO DAILY tab 08/25/19 11/21/19 Rx Polyethylene Glycol 3350* [Miralax 17 gm PO DAILY PRN #14 packet 08/25/19 Rx (17 GM DOSE ALISHA)] QUEtiapine TAB* [Seroquel 100 MG *] 200 mg PO BEDTIME #28 tab 08/25/19 11/21/19 Rx Senna TAB 8.6 mg* [Senokot 8.6 mg 2 tab PO BID PRN #28 tab 08/25/19 11/21/19 Rx TAB*] Ibuprofen TAB* [Motrin TAB* 600 MG] 400 mg PO Q6H PRN #30 tab 10/30/19 11/21/19 Rx Levofloxacin TAB* [Levaquin 500 500 mg PO DAILY #10 tab 10/30/19 11/21/19 Rx Tab*] metroNIDAZOLE [Flagyl] 500 mg PO TID #30 tablet 10/30/19 11/21/19 Rx oxyCODONE/Acetamin 5/325 MG* 2 tab PO Q6H PRN #40 tab MDD 8 10/30/19 11/21/19 Rx [Percocet 5/325 TAB*] Levothyroxine Sodium 300 mcg PO DAILY 11/21/19 11/21/19 History Omeprazole 40 mg PO DAILY 11/21/19 11/21/19 History Allergies Allergy/AdvReac Type Severity Reaction Status Date / Time Penicillins Allergy Severe Anaphylatic Verified 11/20/19 22:24 Shock ROS: 12 point ROS negative, except as otherwise stated in HPI. PEX: General: Alert, in NAD. Integumentary: No rashes, jaundice, petechia. HEENT: Oropharynx clear. PERRLA. Heart: RRR, no MRG. Lungs: CTAB, no WRR ABD: BS present. Soft, nondistended. Tender in RUQ and RLQ. Negative rebound. ERICA and pigtail drains with purulent drainage. Extremities: Distal pulses intact bilaterally. No edema. Calves soft and nontender. Laboratory Last Values WBC 10.2 10^3/uL (3.5-10.8) 11/21/19 06:08 RBC 2.98 10^6 /uL (3.70-4.87) L 11/21/19 06:08 Hgb 9.1 g/dL (12.0-16.0) L 11/21/19 06:08 Hct 27 % (35-47) L 11/21/19 06:08 MCV 91 fL (80-97) 11/21/19 06:08 MCH 31 pg (27-31) 11/21/19 06:08 MCHC 34 g/dL (31-36) 11/21/19 06:08 RDW 14 % (10-15) 11/21/19 06:08 Plt Count 515 10^3/uL (150-450) H D 11/21/19 06:08 MPV 6.7 fL (7.4-10.4) L 11/21/19 06:08 Neut % (Auto) 74.7 % 11/21/19 06:08 Lymph % (Auto) 16.1 % 11/21/19 06:08 [place] % (Auto) 8.2 % 11/21/19 06:08 Eos % (Auto) 0.2 % 11/21/19 06:08 Baso % (Auto) 0.8 % 11/21/19 06:08 Absolute Neuts (auto) 7.6 10^3/ul (1.5-7.7) 11/21/19 06:08 Absolute Lymphs (auto) 1.6 10^3/ul (1.0-4.8) 11/21/19 06:08 Absolute Monos (auto) 0.8 10^3/ul (0-0.8) 11/21/19 06:08 Absolute Eos (auto) 0.0 10^3/ul (0-0.6) 11/21/19 06:08 Absolute Basos (auto) 0.1 10^3/ul (0-0.2) 11/21/19 06:08 Absolute Nucleated RBC 0.0 10^3/ul 11/21/19 06:08 Nucleated RBC % 0.0 11/21/19 06:08 INR (Anticoag Therapy) 1.11 (0.82-1.09) H 11/21/19 06:08 APTT 28.4 seconds (26.0-38.0) 11/21/19 06:08 VBG pH 7.30 (7.32-7.43) L 11/20/19 22:51 VBG pCO2 36 mmHg (41-51) L 11/20/19 22:51 VBG pO2 < 38.0 mmHg (35-45) 11/20/19 22:51 VBG HCO3 16.9 mmol/L (24-28) L 11/20/19 22:51 VBG O2 Saturation 29.5 % (70-80) L 11/20/19 22:51 VBG Base Excess -7.9 mmol/L (0.0-4.0) L 11/20/19 22:51 Sodium 136 mmol/L (135-145) 11/21/19 06:08 Potassium 3.1 mmol/L (3.5-5.0) L 11/21/19 06:08 Chloride 107 mmol/L (101-111) 11/21/19 06:08 Carbon Dioxide 22 mmol/L (22-32) 11/21/19 06:08 Anion Gap 7 mmol/L (2-11) 11/21/19 06:08 BUN 10 mg/dL (6-24) 11/21/19 06:08 Creatinine 0.67 mg/dL (0.51-0.95) 11/21/19 06:08 Est GFR ( Amer) 118.6 (>60) 11/21/19 06:08 Est GFR (Non-Af Amer) 98.0 (>60) 11/21/19 06:08 BUN/Creatinine Ratio 14.9 (8-20) 11/21/19 06:08 Glucose 209 mg/dL (70-100) H 11/21/19 06:08 POC Glucose (mg/dL) 194 mg/dL (70-100) H 11/21/19 09:05 Glucose Meter Confirm 408 mg/dL (70-100) H 11/21/19 02:38 Lactic Acid 0.5 mmol/L (0.5-2.0) 11/21/19 02:38 Calcium 7.8 mg/dL (8.6-10.3) L 11/21/19 06:08 Total Bilirubin 0.30 mg/dL (0.2-1.0) 11/20/19 21:00 AST 8 U/L (13-39) L 11/20/19 21:00 ALT 7 U/L (7-52) 11/20/19 21:00 Alkaline Phosphatase 64 U/L (34-104) 11/20/19 21:00 Troponin I 0.01 ng/mL (<0.03) 11/20/19 22:51 C-Reactive Protein 51.24 mg/L (<8.01) H 11/20/19 21:00 Total Protein 8.0 g/dL (6.4-8.9) 11/20/19 21:00 Albumin 3.6 g/dL (3.2-5.2) 11/20/19 21:00 Globulin 4.4 g/dL (2-4) H 11/20/19 21:00 Albumin/Globulin Ratio 0.8 (1-3) L 11/20/19 21:00 Amylase 29 U/L (29-103) 11/20/19 21:00 Lipase 15 U/L (11.0-82.0) 11/20/19 21:00 Beta HCG, Quant 1.20 mIU/mL 11/20/19 21:00 Urine Color Straw 11/21/19 02:10 Urine Appearance Clear 11/21/19 02:10 Urine pH 5.0 (5-9) 11/21/19 02:10 Ur Specific [place] (1.010-1.030) 11/21/19 02:10 Urine Protein Negative (Negative) 11/21/19 02:10 Urine Ketones 2+ (Negative) A 11/21/19 02:10 Urine Blood Negative (Negative) 11/21/19 02:10 Urine Nitrate Negative (Negative) 11/21/19 02:10 Urine Bilirubin Negative (Negative) 11/21/19 02:10 Urine Urobilinogen Negative (Negative) 11/21/19 02:10 Ur Leukocyte Esterase Negative (Negative) 11/21/19 02:10 Urine Glucose 3+(>=500 mg/dl) (Negative) A 11/21/19 02:10 Imaging: CT chest, abd, pelvis: 1. As previously seen, there is a percutaneous drainage catheter with distal tip in the right lower quadrant with fat stranding in this region but no discrete fluid collection. There is however again, a loculated peripherally enhancing fluid collection lateral to the proximal colon which appears not significantly changed in size measuring a maximum of 5.2 x 1.6 cm in axial cross-section, possible abscess in the peritoneum. 2. Also as previously seen, there is a percutaneous drainage catheter with distal tip now position more laterally in the right rectus abdominal sheath. Again, there are loculated peripherally enhancing fluid collections, some containing air locules, in the right rectus abdominal sheath with the largest collection currently measuring 9.0 x 2.3 cm in axial cross-section and previously measured 8.6 x 1.5 cm. These collections are consistent with abscess which have slightly increased in size. Assessment and plan: 39 yo F with right sided ABD pain and abscesses on CT scan. IR drainage of collections in abdomen. Continue antibiotics. NPO for now. No surgery at this point.
[2019-11-21] MEDS: Morphine INJ* 4 MG/ML 1 ML SYRINGE (NEW SYRINGE VERSION) IV PRN ×2 (12:18→20:43)
--- NOTE | 2019-11-21 14:51 | CONS ---
CONSULTATION REPORT: DATE OF CONSULT: 11/21/19 PRIMARY CARE PROVIDER: Dr. Masha Devlin. PROVIDER REQUESTING CONSULTATION: Ramón Choi NP CONSULTING SERVICE: Infectious Disease. PROVIDER: James Alex NP ATTENDING PROVIDER: Dr. Martin Ash* (dictated by James Alex NP). REASON FOR CONSULTATION: Abdominal abscess. IMPRESSION: 1. Loculated abdominal abscesses. Status post perforated appendicitis and status post appendectomy on 10/18/19. The patient has had drains in place since her surgery for her abdominal abscesses. Cultures in October with Streptococcus constellatus and Bacteroides. She was originally hospitalized on IV antibiotics, transitioned to oral Levaquin and Flagyl at discharge, had been working on getting her set up with IV antibiotics outpatient, she missed her appointment. She is currently on cefepime and Flagyl intravenously. Plan is for CT or ultrasound-guided drainage placement today for the loculated fluid collection seen on CT scan. 2. Diabetes mellitus type 1. The patient was admitted with diabetic ketoacidosis. 3. Hypothyroidism. RECOMMENDATION/PLAN: Recommend continuing cefepime and Flagyl intravenously at this time. The patient will likely need an extended course of IV antibiotics outpatient. Final recommendations will be based off of any culture results obtained during the percutaneous drain placement and the patient's clinical course. Agree with placement of the drain that has previously been planned. HISTORY OF PRESENT ILLNESS: Ms. Niesha Jasso is a 39-year-old female with past medical history significant for diabetes mellitus type 2, hypothyroidism, depression, and bipolar disorder, who was previously hospitalized in October for perforated appendicitis with abscesses. She underwent a laparoscopic appendectomy with washout on 10/18/19. Cultures from that time grew Streptococcus constellatus and Bacteroides. Blood cultures were negative. She had ERICA drain in place draining purulent drainage. She was found to have worsening leukocytosis, was found to have a small abscess collection in the retroperitoneum and had a pigtail drain placed, was treated with Levaquin and metronidazole. The patient was ultimately discharged on a course of oral Levaquin and metronidazole, with plans to follow up with Infectious Disease outpatient for initiation of IV antibiotics and she missed her followup appointment. She states that overall she had been doing well when approximately 4 to 5 days ago she developed right-sided abdominal pain. She has continued to have bilateral abdominal drains draining purulent drainage, states this has not changed since her discharge from the hospital. She had an abdomen and pelvis CT on 11/03/19 showing a right drainage catheter in place with fluid collection present. Multiple other collections in the right lateral abdominal wall and deep to the transverse muscle a fluid collection inferior to the liver, bilateral pleural effusions. On 11/16/19, she had catheter patency checked with advancement of a new 12-L[place]ian catheter into the collection more superiorly and medially oriented, where the original pigtail was placed. After the abdominal pain returned, she presented to the emergency room. While in the emergency room, she had a CTA chest, abdomen, and pelvis showing no pulmonary embolus, previously seen percutaneous drain catheter with distal tip in the right lower quadrant with fat stranding in this region but no discrete fluid collection. There was also a loculated peripherally enhanced fluid collection lateral to the proximal colon, which appeared not significantly changed in size, the maximum 5.2 x 1.6. Possible abscess in the peritoneum. Additionally, there was a percutaneous drain catheter within the distal tip more laterally in the right rectus abdominis sheath and a loculated peripherally enhancing fluid collection, some containing air locules in the right rectus abdominis sheath with the largest collection measuring 9 x 2.3 cm, previously measured 8.6 x 1.5 cm consistent with abscess. She had a low-grade fever while in the emergency room at 100.3. Labs revealing leukocytosis with a white blood count of 12.1. She had a CRP of 51.24. She was also noted to be in DKA and was referred to the hospitalist service for admission. She was admitted to the hospital for DKA in addition to abdominal abscesses and sepsis. PAST MEDICAL HISTORY: 1. Diabetes mellitus type 1. 2. Hypothyroidism. 3. Depression. 4. Bipolar disorder. PAST SURGICAL HISTORY: 1. Status post appendectomy in October 2019. 2. Status post cholecystectomy. 3. Status post right ovarian cyst excision. HOME MEDICATIONS: 1. Omeprazole 40 mg by mouth daily. 2. Synthroid 300 mcg by mouth daily. 3. Ibuprofen 400 mg by mouth every 6 hours as needed for pain. 4. Colace 100 mg by mouth twice daily. 5. Wellbutrin 300 mg by mouth daily. 6. Levaquin 500 mg by mouth daily. 7. Lispro insulin sliding scale a.c. and h.s. subcutaneously. 8. Lantus 24 units subcutaneous every evening. 9. Percocet 5/325 two tablets by mouth every 6 hours as needed for pain. 10. Flagyl 500 mg by mouth 3 times daily. 11. Senna 2 tablets by mouth twice daily as needed for constipation. 12. Seroquel 200 mg by mouth at bedtime. 13. MiraLAX 17 g by mouth daily as needed for constipation. 14. Protonix 40 mg by mouth daily. ALLERGIES: PENICILLIN, she had anaphylaxis 30 years ago as a child. FAMILY HISTORY: Denies family history of recurrent or resistant infections. Father with a history of diabetes, passed at age 39 from rendal disease secondary to diabetes. 1 brother with history of type 1 diabetes. Paternal grandmother with a history of uterine cancer. Mother with a history of CVA. SOCIAL HISTORY: Rarely drinks alcohol. She is a former smoker, quitting approximately a year ago, prior to that she had a 3-1/2 pack a day smoking history. Denies recreational drug use. REVIEW OF SYSTEMS: I performed a 10-point review of systems. All the pertinent positives and negatives are mentioned in the history of present illness. The remaining review of systems are negative. PHYSICAL EXAM: Vital Signs: Temperature 99.5, heart rate 97, respiratory rate 16, O2 sat 98% on room air, blood pressure 124/73. General Appearance: Appears to be in no acute distress, lying in bed. HEENT: Head is normocephalic , atraumatic. Extraocular movements are intact. No subconjunctival hemorrhage. Moist mucous membranes. Neck: Supple. No nuchal rigidity. Neurological: Alert and oriented. Cranial nerves II through XII are grossly intact. Cardiovascular: Regular rate and rhythm. S1 and S2 present. No murmurs, rubs , or gallops heard. Respiratory: No accessory muscle use. The lungs are clear to auscultation bilaterally. Abdomen: Bowel sounds are present. Abdomen is soft with slightly tenderness with palpation in the lower quadrants. It is nondistended. Extremities: No lower extremity edema. Musculoskeletal: No clubbing or cyanosis noted and moves all extremities. Psychological: Calm and cooperative. Skin: No rashes or abnormalities seen. She has a ERICA drain and a pigtail drain to her lower abdomen with no gross signs of infection of the drain sites. Both drains are draining purulent drainage. DIAGNOSTIC STUDIES/LABORATORY DATA: Sodium 136, potassium 3.1, chloride 107, CO2 of 22, BUN 10, creatinine 0.67, glucose 209. White blood cell count 10, hemoglobin 9.1, hematocrit 27, platelet count 515. CRP yesterday 51.24. Please see impression and recommendations outlined above. Recommendations have been discussed with DIANNE Barragan. Thank you for asking us to see Ms. Niesha Jasso in consultation. The case has been reviewed with my attending, Dr. Martin Ash, who agrees with the plan of care. Reviewed by JAMES ALEX, MARIANGEL-C 11/22/19 1635 [id number]/[facility] #: [id number] MTDD
[2019-11-21 15:13] LABS: BUN/Creatinine Ratio 14.5 (8-20); Calcium 7.6 mg/dL (8.6-10.3); EGFR African American 129.7 (>60); EGFR Non-African American 107.2 (>60); Magnesium 1.6 mg/dL (1.9-2.7); Phosphorus 1.9 mg/dL (2.5-5.0); Potassium 3.8 mmol/L (3.5-5.0)
[2019-11-21] MEDS ORDERED: fentaNYL* 50 MCG/ML 2 ML VIAL (100 MCG VIAL) ONE (15:13)
[2019-11-21 15:35] LABS: HIV 4th Generation Nonreactive (Nonreactive)
[2019-11-21] MEDS ORDERED: Magnesium Sulfate IV* 3 GM in NS 0.9% 100 ML* 100 ML IVPB ONE (16:02)
[2019-11-21] MEDS ORDERED: Potassium Phosphate IV* 15 MMOLE in NS 0.9% 250 ML* 250 ML IVPB ONE (16:03)
--- NOTE | 2019-11-21 17:33 | BRIEFOPN ---
Brief Operative/Procedure Note - Operation Details Pre-Op Diagnosis: Righ flank subcutaneous abcess. (Current percutaneous drain not in communication with abscess) Post-Op Diagnosis: Same Procedures: Ultrasound and fluoroscopy guided drain study, repositioning and replacement with a 12 Slovenian biliary drain. Surgeon(s)/Proceduralists: Edgar Anesthesia: Lidocaine & Fentanyl Estimated Blood Loss: None Findings: Subcutaneous abscess posterior from current drain. Specimen(s)/Culture(s) Description: 10 mL purulent fluid sent to lab. Complications: 0
[2019-11-21] MEDS ORDERED: Insulin GLARGINE(*) 1 UNITS UNIT SUBCUT SCH (18:00)
[2019-11-21] MEDS: QUEtiapine TAB* 100 MG PO SCH ×2 (20:47→20:56)
[2019-11-21] MEDS: Cefepime 2 GM in Dextrose(*) 2 GM/50 ML BAG IV SCH (22:34)
[2019-11-22] MEDS: metroNIDAZOLE IV 500 MG/100ML* 500 MG/100 ML BAG IVPB SCH ×4 (00:20→23:45)
[2019-11-22] MEDS: Cefepime 2 GM in Dextrose(*) 2 GM/50 ML BAG IV SCH ×2 (04:16→17:30)
[2019-11-22 04:32] LABS: ABS Eosinophils 0.1 10^3/ul (0-0.6); ABS Lymphocytes 1.3 10^3/ul (1.0-4.8); ABS Monocytes 0.8 10^3/ul (0-0.8); ABS Neutrophils 5.5 10^3/ul (1.5-7.7); Hematocrit 29 % (35-47); Hemoglobin 9.5 g/dL (12.0-16.0); Lymphocyte % 17.2 %; Mean Corpuscular HGB Conc 33 g/dL (31-36); Mean Corpuscular Hemoglobin 31 pg (27-31); Mean Corpuscular Volume 93 fL (80-97); Nucleated Red Blood Cells % 0.2; Platelet Count 451 10^3/uL (150-450); Red Blood Count 3.08 10^6 /uL (3.70-4.87); Red Cell Distribution Width 15 % (10-15); White Blood Count 7.8 10^3/uL (3.5-10.8)
[2019-11-22 04:48] LABS: BUN/Creatinine Ratio 10.5 (8-20); Calcium 7.6 mg/dL (8.6-10.3); EGFR African American 142.9 (>60); EGFR Non-African American 118.1 (>60); Magnesium 2.3 mg/dL (1.9-2.7); Phosphorus 2.4 mg/dL (2.5-5.0); Potassium 3.7 mmol/L (3.5-5.0)
[2019-11-22] MEDS: Levothyroxine TAB* 150 MCG TAB PO SCH (05:49)
[2019-11-22] MEDS: NS 0.9% 1000 ML** 1,000 ML IV SCH ×2 (05:53→19:42)
[2019-11-22] MEDS: Heparin VIAL(*) 5000 UNITS/ML VIAL (FIVE THOUSAND) SUBCUT SCH ×3 (05:53→20:58)
[2019-11-22] MEDS: BuPROPion XL* 300 MG TAB.XL PO SCH (07:49)
[2019-11-22] MEDS: Insulin LISPRO* 1 UNITS UNIT SUBCUT SCH ×4 (07:49→20:57)
[2019-11-22] MEDS: Morphine INJ* 4 MG/ML 1 ML SYRINGE (NEW SYRINGE VERSION) IV PRN ×2 (07:50→19:43)
--- NOTE | 2019-11-22 07:51 | PN ---
Progress Note - Progress Note Date of Service: 11/22/19 Note: Progress Note -- Critical Care 24 hour events/significant events: s/p IR drain replacement yesterday. Labs improved. Off insulin gtt. ROS: negative except for pertinent positives mentioned above Tele: NSR Vitals: Vital Signs: Temp Pulse Resp BP Pulse Ox 98.2 F 92 12 106/65 97 11/22/19 04:00 11/22/19 04:00 11/22/19 04:00 11/22/19 04:00 11/22/19 04:00 O2/Vent: Room air Infusions: None Medications: Acetaminophen (Tylenol Tab*) 650 mg PO Q4H PRN PRN Reason: PAIN - MILD Bupropion HCl (Bupropion Xl*) 300 mg PO DAILY [facility] Last Admin: 11/21/19 09:45 Dose: 300 mg Dextrose (D50w Syringe 50 Ml*) 12.5 gm IV PUSH .FOR FS < 60 - SS PRN PRN Reason: FS < 60 Heparin Sodium (Porcine) (Heparin Vial(*)) 5,000 units SUBCUT Q8HR [facility] Last Admin: 11/22/19 05:53 Dose: 5,000 units Cefepime HCl (Maxipime 2 Gm In Dextrose Duplex (*)) 2 gm in 50 mls @ 100 mls/ hr IV Q12H [facility] Last Admin: 11/22/19 04:16 Dose: 100 mls/hr Metronidazole/Sodium Chloride (Flagyl 500 Mg Ivpb*) 500 mg in 100 mls @ 100 mls /hr IVPB Q8H [facility] Last Admin: 11/22/19 00:20 Dose: 100 mls/hr Sodium Chloride (Ns 0.9% 1000 Ml) 1,000 mls @ 150 mls/hr IV PER RATE [facility] Last Admin: 11/22/19 05:53 Dose: 150 mls/hr Potassium Phosphate 15 mmole/ (Sodium Chloride) 255 mls @ 42 mls/hr IVPB ONCE ONE Stop: 11/22/19 13:47 Insulin Glargine (Lantus(*)) 24 units SUBCUT Q24H [facility] Insulin Human Lispro (Humalog*) 0 units SUBCUT ACHS [facility]; Protocol Last Admin: 11/21/19 20:53 Dose: 3 unit Levothyroxine Sodium (Synthroid Tab*) 300 mcg PO DAILY@0600 [facility] Last Admin: 11/22/19 05:49 Dose: 300 mcg Morphine Sulfate (Morphine Inj (Syringe)*) 4 mg IV Q4H PRN PRN Reason: PAIN - SEVERE Last Admin: 11/21/19 20:43 Dose: 4 mg Ondansetron HCl (Zofran Inj*) 4 mg IV Q6H PRN PRN Reason: NAUSEA Last Admin: 11/21/19 05:25 Dose: 4 mg Quetiapine Fumarate (Seroquel Tab*) 200 mg PO BEDTIME [facility] Last Admin: 11/21/19 20:56 Dose: Not Given Physical Exam: Constitutional: awake, alert, no distress, no diaphoresis Head: normocephalic, atraumatic Eyes: no pallor, no icterus ENT: moist mucous membranes Neck: soft, supple, no jvd, no stridor CVS: normal rate, regular, no murmur Chest/Resp: bilateral air entry, no rhales, no wheeze, no rhonchi, no acc muscle use Abdomen/GI: soft, mild tenderness, +drains in place Ext/Msk: warm, pulses+, no edema Skin: intact, warm Neuro: awake, alert, orientedx3, moving all extremities, no gross focal deficit Psych: normal affect Labs: Laboratory Results - last 24 hr 11/21/19 11/21/19 11/21/19 07:10 09:05 14:25 WBC RBC Hgb Hct MCV MCH MCHC RDW Plt Count MPV Neut % (Auto) Lymph % (Auto) [place] % (Auto) Eos % (Auto) Baso % (Auto) Absolute Neuts (auto) Absolute Lymphs (auto) Absolute Monos (auto) Absolute Eos (auto) Absolute Basos (auto) Absolute Nucleated RBC Nucleated RBC % Sodium 134 L Potassium 3.8 Chloride 108 Carbon Dioxide 21 L Anion Gap 5 BUN 9 Creatinine 0.62 Est GFR ( Amer) 129.7 Est GFR (Non-Af Amer) 107.2 BUN/Creatinine Ratio 14.5 Glucose 276 H POC Glucose (mg/dL) 179 H 194 H Calcium 7.6 L Phosphorus 1.9 L Magnesium 1.6 L HIV 1&2 Ab/P24 Ag 4thGn 11/21/19 11/22/19 11/22/19 14:25 04:21 04:21 WBC 7.8 RBC 3.08 L Hgb 9.5 L Hct 29 L MCV 93 MCH 31 MCHC 33 RDW 15 Plt Count 451 H D MPV 7.0 L Neut % (Auto) 71.0 Lymph % (Auto) 17.2 [place] % (Auto) 10.2 Eos % (Auto) 1.0 Baso % (Auto) 0.6 Absolute Neuts (auto) 5.5 Absolute Lymphs (auto) 1.3 Absolute Monos (auto) 0.8 Absolute Eos (auto) 0.1 Absolute Basos (auto) 0.0 Absolute Nucleated RBC 0.0 Nucleated RBC % 0.2 Sodium 133 L Potassium 3.7 Chloride 108 Carbon Dioxide 20 L Anion Gap 5 BUN 6 Creatinine 0.57 Est GFR ( Amer) 142.9 Est GFR (Non-Af Amer) 118.1 BUN/Creatinine Ratio 10.5 Glucose 259 H POC Glucose (mg/dL) Calcium 7.6 L Phosphorus 2.4 L Magnesium 2.3 HIV 1&2 Ab/P24 Ag 4thGn Nonreactive Imaging: CTA Chest 11/20/19 IMPRESSION: 1. No visible acute pulmonary embolism. 2. No aortic dissection. CTA abd/pel 11/20/19 IMPRESSION: 1. As previously seen, there is a percutaneous drainage catheter with distal tip in the right lower quadrant with fat stranding in this region but no discrete fluid collection. There is however again, a loculated peripherally enhancing fluid collection lateral to the proximal colon which appears not significantly changed in size measuring a maximum of 5.2 x 1.6 cm in axial cross-section, possible abscess in the peritoneum. 2. Also as previously seen, there is a percutaneous drainage catheter with distal tip now position more laterally in the right rectus abdominal sheath. Again, there are loculated peripherally enhancing fluid collections, some containing air locules, in the right rectus abdominal sheath with the largest collection currently measuring 9.0 x 2.3 cm in axial cross-section and previously measured 8.6 x 1.5 cm. These collections are consistent with abscess which have slightly increased in size. TTE 11/21/19 Summary: - Left ventricle: Systolic function is normal. The estimated ejection fraction is 60-65%. Wall motion is normal; there are no regional wall motion abnormalities. - Right ventricle: Systolic function is normal. Systolic pressure is within the normal range. - Mitral valve: There is mild regurgitation. - Aortic valve: There is no evidence of stenosis. - Tricuspid valve: There is mild regurgitation. - Study data: No prior study is available for comparison. Abd Sono 11/21/19 IMPRESSION: SUBCUTANEOUS ABSCESS CORRESPONDING TO SAME DAY CT IMAGES. Assessment: 39F with hypothyroid, dm, depression, bipolar disorder with h/o intaabdominal abscesses after perforated appendix presents with nausea and vomiting. Found to be in DKA requiring insulin gtt. CT of abd/pel shows increasing size of abscesses. s/p IR drain replacement Plan: Neuro - bipolar depression - c/w seroquel CVS- - bp ok - TTE with normal EF Resp- saturating well on room air ID- sepsis - low grade temp and elevated wbc in ER - 2/2 intraabdominal absesses with increase in size - discussed with ID - c./w cefepime/flagyl - prior cultures with strep constellatus/bacteriodes - s/p drain replacement GI- advance diet as tolerated Renal- replete potassium and phos -strict I/O, replete to keep K>4, Mg>2 -corley as indicated Heme- monitor cbc Endo- DM, Hypothyroid - DKA improved - c/w lantus/sliding scale Musculsk- pressure ulcer prophylaxis. OOB to chair. Wounds- none Nutrition- npo - diet after drain placement DVT prophylaxis: hsq GI prophylaxis: ppi Central Line: none Arterial Line: none Corley Cathetor: remove Disposition: Downgraded to med/surg Patient clinical status: stable Code Status: Full
[2019-11-22] MEDS ORDERED: Potassium Phosphate IV* 15 MMOLE in NS 0.9% 250 ML* 250 ML IVPB ONE (08:30)
--- NOTE | 2019-11-22 09:44 | PN ---
Progress Note - Progress Note Date of Service: 11/22/19 SOAP: Subjective: CC: Abdominal abscess HPI: Ms. Niesha Jasso is a 39 yo female with PMH significant for DM1, hypothyroidism , depression, and bipolar disorder; hospitalized last month for a perforated appendicitis and ABD abscess. She returned to the ED due to increased ABD pain, and was found to have another ABD abscess. Denies fever, chills, nausea, vomiting, or diarrhea. Reports continued ABD discomfort. Objective: Vital Signs - 8 hr 11/22/19 11/22/19 11/22/19 04:00 07:48 07:50 Temperature 98.2 F Pulse Rate 92 92 Respiratory 12 18 Rate Blood Pressure 106/65 136/88 (mmHg) O2 Sat by Pulse 97 98 Oximetry 11/22/19 08:00 Temperature 98.4 F Pulse Rate Respiratory Rate Blood Pressure (mmHg) O2 Sat by Pulse Oximetry Physical Exam: General: NAD, sitting up in a chair Neurological: Alert and Oriented HEENT: Moist MM Cardiovascular: Heart rate regular Respiratory: Lung sounds clear Abdominal: Bowel sounds present; ABD soft, non distended, diffuse tenderness MSK: Moves all extremities Skin: No rash. ERICA drain and Pig tail drain to lower ABD with purulent drainage Laboratory Results - last 24 hr 11/21/19 11/21/19 11/21/19 09:05 14:25 14:25 Sodium 134 L Potassium 3.8 Chloride 108 Carbon Dioxide 21 L Anion Gap 5 BUN 9 Creatinine 0.62 Est GFR ( Amer) 129.7 Est GFR (Non-Af Amer) 107.2 BUN/Creatinine Ratio 14.5 Glucose 276 H POC Glucose (mg/dL) 194 H Calcium 7.6 L Phosphorus 1.9 L Magnesium 1.6 L HIV 1&2 Ab/P24 Ag 4thGn Nonreactive 11/22/19 11/22/19 04:21 04:21 WBC 7.8 RBC 3.08 L Hgb 9.5 L Hct 29 L MCV 93 MCH 31 MCHC 33 RDW 15 Plt Count 451 H D MPV 7.0 L Neut % (Auto) 71.0 Lymph % (Auto) 17.2 [place] % (Auto) 10.2 Eos % (Auto) 1.0 Baso % (Auto) 0.6 Absolute Neuts (auto) 5.5 Absolute Lymphs (auto) 1.3 Absolute Monos (auto) 0.8 Absolute Eos (auto) 0.1 Absolute Basos (auto) 0.0 Absolute Nucleated RBC 0.0 Nucleated RBC % 0.2 Sodium 133 L Potassium 3.7 Chloride 108 Carbon Dioxide 20 L Anion Gap 5 BUN 6 Creatinine 0.57 Est GFR ( Amer) 142.9 Est GFR (Non-Af Amer) 118.1 BUN/Creatinine Ratio 10.5 Glucose 259 H POC Glucose (mg/dL) Calcium 7.6 L Phosphorus 2.4 L Magnesium 2.3 Microbiology 11/20/19 21:00 Aerobic Blood Culture - Preliminary Blood Venous No Growth Day 1 Anaerobic Blood Culture - Preliminary No Growth Day 1 11/20/19 21:00 Aerobic Blood Culture - Preliminary Blood Venous No Growth Day 1 Anaerobic Blood Culture - Preliminary No Growth Day 1 Assessment: 1. ABD abscess, loculated. Perforated appendicitis in October, s/p appy. Found to have ABD abscess and was discharged on oral ABX and drains in place. Cultures with streptococcus constellatus and bacteroides in October. Pigtail drain was repositioned on 11/[address] scan showed increased abscess. Pigtail drain replaced yesterday and ERICA drainage remains in place, draining purulent drainage. Blood cultures with no growth to date. Afebrile and no leukocytosis. 2. Thrombocytosis. Suspect secondary to #1. 3. DM1. Plan: Continue Cefepime and Flagyl. She will likely require a prolonged course of IV ABX at discharged.
[2019-11-22] MEDS ORDERED: Insulin LISPRO* 1 UNITS UNIT SUBCUT ONE (12:07)
--- NOTE | 2019-11-22 15:27 | PN ---
Progress Note - Progress Note Date of Service: 11/22/19 SOAP: Subjective: seen in am. sleeping but arousable. c/o pain at drain site. no n/v. Objective: avss abd: soft, tender at pigtail. ERICA intact with seropurulent o/p. lab reviewed Assessment: s/p IR drainage of persisting retroperitoneal abscess. s/p laparoscopic drainage of same with appendectomy (delayed presentation) Plan: cont drains IV abx per ID will follow
[2019-11-22] MEDS: Acetaminophen TAB* 325 MG PO PRN (16:28)
[2019-11-22] MEDS ORDERED: Insulin GLARGINE(*) 1 UNITS UNIT SUBCUT SCH (18:00)
[2019-11-22] MEDS: QUEtiapine TAB* 100 MG PO SCH (20:58)
[2019-11-23] MEDS: NS 0.9% 1000 ML** 1,000 ML IV SCH ×3 (01:16→20:14)
[2019-11-23] MEDS ORDERED: Vancomycin(*) 750 MG in NS 0.9% 250 ML* 250 ML IVPB SCH (02:00)
[2019-11-23] MEDS: Levothyroxine TAB* 150 MCG TAB PO SCH (05:02)
[2019-11-23] MEDS: Cefepime 2 GM in Dextrose(*) 2 GM/50 ML BAG IV SCH (05:05)
[2019-11-23] MEDS: Heparin VIAL(*) 5000 UNITS/ML VIAL (FIVE THOUSAND) SUBCUT SCH ×3 (05:13→20:10)
--- NOTE | 2019-11-23 07:12 | PN ---
Subjective Date of Service: 11/23/19 Interval History: HD 4 on 11/23 transferred from ICU on 11/22 39 F with Insulin dependent DM, recent perforated appendix(s/p appendectomy with drain placement), Hypothyroidism and Bipolar presented with right sided abdominal pain, nausea and vomiting. Found to be in DKA 2/2 to noncompliance, worsening intrabdominal abscess with drain revision. Treated in ICU for 2 days with insulin drip. Transferred to floor on 11/22. Overnight: No acute overnight events. two drains on abdomen draining liu-colored fluid. vitals: stable Patient having her breakfast. Has right sided abdominal pain and some nausea. Denies vomiting and diarrhea. According to patient, she was not taking her insulin regularly and used to miss the dose. Patient was following with Infectious disease outpatient and was planning for IV antibiotics. Objective Active Medications: Acetaminophen (Tylenol Tab*) 650 mg PO Q4H PRN PRN Reason: PAIN - MILD Last Admin: 11/22/19 16:28 Dose: 650 mg Bupropion HCl (Bupropion Xl*) 300 mg PO DAILY [facility] Last Admin: 11/22/19 07:49 Dose: 300 mg Dextrose (D50w Syringe 50 Ml*) 12.5 gm IV PUSH .FOR FS < 60 - SS PRN PRN Reason: FS < 60 Heparin Sodium (Porcine) (Heparin Vial(*)) 5,000 units SUBCUT Q8HR [facility] Last Admin: 11/23/19 05:13 Dose: 5,000 units Cefepime HCl (Maxipime 2 Gm In Dextrose Duplex (*)) 2 gm in 50 mls @ 100 mls/ hr IV Q12H [facility] Last Admin: 11/23/19 05:05 Dose: 100 mls/hr Metronidazole/Sodium Chloride (Flagyl 500 Mg Ivpb*) 500 mg in 100 mls @ 100 mls /hr IVPB Q8H [facility] Last Admin: 11/22/19 23:45 Dose: 100 mls/hr Sodium Chloride (Ns 0.9% 1000 Ml) 1,000 mls @ 75 mls/hr IV PER RATE [facility] Last Admin: 11/23/19 05:13 Dose: 75 mls/hr Insulin Glargine (Lantus(*)) 24 units SUBCUT Q24H [facility] Last Admin: 11/22/19 17:31 Dose: 24 units Insulin Human Lispro (Humalog*) 0 units SUBCUT ACHS [facility]; Protocol Last Admin: 11/22/19 20:57 Dose: 3 unit Levothyroxine Sodium (Synthroid Tab*) 300 mcg PO DAILY@0600 [facility] Last Admin: 11/23/19 05:02 Dose: 300 mcg Morphine Sulfate (Morphine Inj (Syringe)*) 4 mg IV Q4H PRN PRN Reason: PAIN - SEVERE Last Admin: 11/22/19 19:43 Dose: 4 mg Ondansetron HCl (Zofran Inj*) 4 mg IV Q6H PRN PRN Reason: NAUSEA Last Admin: 11/21/19 05:25 Dose: 4 mg Quetiapine Fumarate (Seroquel Tab*) 200 mg PO BEDTIME [facility] Last Admin: 11/22/19 20:58 Dose: Not Given Vital Signs - 8 hr 11/23/19 11/23/19 00:00 03:49 Temperature 98.2 F 98.2 F Pulse Rate 95 93 Respiratory 16 16 Rate Blood Pressure 132/76 128/80 (mmHg) O2 Sat by Pulse 99 100 Oximetry Oxygen Devices in Use Now: None Exam: Patient is sitting comfortably in bed with no acute distress. HEENT: Normocephalic and atraumatic Chest: clear with no added sounds. Heart: S1/S2 heard with no murmur Abdomen: Two drain in right and left lower quadrant draining purulent discharge. Extremities: No swelling Neuro: alert, oriented and coperative. Result Diagrams: 11/23/19 14:28 11/23/19 14:28 Additional Lab and Data: Lab Results 11/20/19 11/20/19 11/20/19 Range/Units 21:00 21:00 21:00 WBC 12.1 H (3.5-10.8) 10^3/uL RBC 3.82 (3.70-4.87) 10^6 /uL Hgb 11.4 L (12.0-16.0) g/dL Hct 36 (35-47) % MCV 93 (80-97) fL MCH 30 (27-31) pg MCHC 32 (31-36) g/dL RDW 15 (10-15) % Plt Count 671 H (150-450) 10^3/uL MPV 7.3 L (7.4-10.4) fL Neut % (Auto) 83.4 % Lymph % (Auto) 9.1 % [place] % (Auto) 6.9 % Eos % (Auto) 0.1 % Baso % (Auto) 0.5 % Absolute Neuts (auto) 10.1 H (1.5-7.7) 10^3/ul Absolute Lymphs (auto) 1.1 (1.0-4.8) 10^3/ul Absolute Monos (auto) 0.8 (0-0.8) 10^3/ul Absolute Eos (auto) 0.0 (0-0.6) 10^3/ul Absolute Basos (auto) 0.1 (0-0.2) 10^3/ul Absolute Nucleated RBC 0.0 10^3/ul Nucleated RBC % 0.0 INR (Anticoag Therapy) 1.07 (0.82-1.09) Sodium 129 L (135-145) mmol/L Potassium 4.3 (3.5-5.0) mmol/L Chloride 93 L (101-111) mmol/L Carbon Dioxide 19 L (22-32) mmol/L Anion Gap 17 H (2-11) mmol/L BUN 12 (6-24) mg/dL Creatinine 0.85 (0.51-0.95) mg/dL Est GFR ( Amer) 90.1 (>60) Est GFR (Non-Af Amer) 74.5 (>60) BUN/Creatinine Ratio 14.1 (8-20) Glucose 522 H* (70-100) mg/dL Lactic Acid (0.5-2.0) mmol/L Calcium 9.7 (8.6-10.3) mg/dL Total Bilirubin 0.30 (0.2-1.0) mg/dL AST 8 L (13-39) U/L ALT 7 (7-52) U/L Alkaline Phosphatase 64 (34-104) U/L C-Reactive Protein 51.24 H (<8.01) mg/L Total Protein 8.0 (6.4-8.9) g/dL Albumin 3.6 (3.2-5.2) g/dL Globulin 4.4 H (2-4) g/dL Albumin/Globulin Ratio 0.8 L (1-3) Amylase 29 (29-103) U/L Lipase 15 (11.0-82.0) U/L Beta HCG, Quant 1.20 mIU/mL 11/20/19 Range/Units 21:00 WBC (3.5-10.8) 10^3/uL RBC (3.70-4.87) 10^6 /uL Hgb (12.0-16.0) g/dL Hct (35-47) % MCV (80-97) fL MCH (27-31) pg MCHC (31-36) g/dL RDW (10-15) % Plt Count (150-450) 10^3/uL MPV (7.4-10.4) fL Neut % (Auto) % Lymph % (Auto) % [place] % (Auto) % Eos % (Auto) % Baso % (Auto) % Absolute Neuts (auto) (1.5-7.7) 10^3/ul Absolute Lymphs (auto) (1.0-4.8) 10^3/ul Absolute Monos (auto) (0-0.8) 10^3/ul Absolute Eos (auto) (0-0.6) 10^3/ul Absolute Basos (auto) (0-0.2) 10^3/ul Absolute Nucleated RBC 10^3/ul Nucleated RBC % INR (Anticoag Therapy) (0.82-1.09) Sodium (135-145) mmol/L Potassium (3.5-5.0) mmol/L Chloride (101-111) mmol/L Carbon Dioxide (22-32) mmol/L Anion Gap (2-11) mmol/L BUN (6-24) mg/dL Creatinine (0.51-0.95) mg/dL Est GFR ( Amer) (>60) Est GFR (Non-Af Amer) (>60) BUN/Creatinine Ratio (8-20) Glucose (70-100) mg/dL Lactic Acid 1.7 (0.5-2.0) mmol/L Calcium (8.6-10.3) mg/dL Total Bilirubin (0.2-1.0) mg/dL AST (13-39) U/L ALT (7-52) U/L Alkaline Phosphatase (34-104) U/L C-Reactive Protein (<8.01) mg/L Total Protein (6.4-8.9) g/dL Albumin (3.2-5.2) g/dL Globulin (2-4) g/dL Albumin/Globulin Ratio (1-3) Amylase (29-103) U/L Lipase (11.0-82.0) U/L Beta HCG, Quant mIU/mL Assess/Plan/Problems-Billing Assessment: 39 F with Insulin dependent DM, recent perforated appendix(s/p appendectomy with drain placement), Hypothyroidism and Bipolar presented with right sided abdominal pain, nausea and vomiting. Found to be n DKA 2/2 to noncompliance, worsening intrabdominal abscess with drain replacement. Treated in ICU for 2 days with insulin drip. Transferred to floor on 11/22. On cefepime and flagyl( day 3) - Patient Problems (1) DKA (diabetic ketoacidoses) Current Visit: No Status: Acute Code(s): E11.10 - TYPE 2 DIABETES MELLITUS WITH KETOACIDOSIS WITHOUT COMA SNOMED Code(s): 351993687 Comment: -secondary to non-compliance -Gaps closed -received insulin drip in ICU -now receiving lantus and lispro (2) Insulin dependent diabetes mellitus Current Visit: No Status: Acute Code(s): E11.9 - TYPE 2 DIABETES MELLITUS WITHOUT COMPLICATIONS; Z79.4 - LONGTERM (CURRENT) USE OF INSULIN SNOMED Code( s): 69790140 Comment: -On lantus and lispro at home -non-compliant -HbA1c is 17 on 10/16/19 -hyperglycemic- Insulin lantus increased to 30 U -continue lispro ss (3) Intra-abdominal abscess Current Visit: Yes Status: Acute Code(s): K65.1 - PERITONEAL ABSCESS SNOMED Code(s): 64435682 Comment: -s/p drain replacement on 11/21 on right side. -has two drain on right and left lower abdomen-draining purulent material -growing gram positive cocci and gram negative arlette- ID aware -waiting susceptibility -continue cefepime and flagyl(day 3 on 11/23)- will need 3-4 weeks of antibiotics. -ID and surgery following (4) Depression Current Visit: No Status: Acute Code(s): F32.9 - MAJOR DEPRESSIVE DISORDER, SINGLE EPISODE, UNSPECIFIED SNOMED Code(s): 10806714 Comment: -Continue wellbutrin and seroquel (5) Sepsis Current Visit: No Status: Acute Comment: - resolved -met with leucocytosis with tachycardia; sourece is abdomen -lactic acid normal -resolved now -on abx (6) Hypothyroidism Current Visit: No Status: Acute Code(s): E03.9 - HYPOTHYROIDISM, UNSPECIFIED SNOMED Code(s): 94006428 Comment: -TSH of 18. -taking levothyroxine of 300mcg -could be from poor compliance (7) DVT prophylaxis Current Visit: No Status: Acute Code(s): Z29.9 - ENCOUNTER FOR PROPHYLACTIC MEASURES, UNSPECIFIED SNOMED Code(s): 655156495 Comment: -on heparin (8) Full code status Current Visit: No Status: Acute Code(s): Z78.9 - OTHER SPECIFIED HEALTH STATUS SNOMED Code(s): 518522018 Comment: Status and Disposition: Inpatient Attending: Tuyet Uribe Attestation Documenting Resident: Shivani Campoverde Supervising Physician: Tuyet Uribe Attending/Supervising Physician Comment: Agree with resident note and findings. Attending A/P: Ms Scherer is a 39 yo F with type I diabetes, hypothyroid and depression who had a ruptured appendicitis last month with continued ERICA drainage who presented to the ER with abdominal pain, nausea and vomiting and was admitted for DKA. She has recovered from the DKA though her sugars remain uncontrolled. Increase lantus and continue sliding scale to see what her daily insulin dose is. In term of her persistent retroperitoneal abscess, ERICA drain was replaced this admission, still draining purulent liquid. ID following and recommends continuing cefepime and flagyl D#/-. General surgery recommends continued conservative management and repeat imaging in about 1 week. Attestation: This service has been performed in part by a resident under the direction of a teaching physician.I, Tuyet Uribe, performed the service, or was physically present during the critical, or krishnan portions of the service, furnished by the resident. I participated in the management of the patient.
[2019-11-23] MEDS: Morphine INJ* 4 MG/ML 1 ML SYRINGE (NEW SYRINGE VERSION) IV PRN ×3 (08:21→19:42)
[2019-11-23] MEDS: metroNIDAZOLE IV 500 MG/100ML* 500 MG/100 ML BAG IVPB SCH ×3 (08:22→23:35)
[2019-11-23] MEDS: BuPROPion XL* 300 MG TAB.XL PO SCH (08:27)
[2019-11-23] MEDS: Insulin LISPRO* 1 UNITS UNIT SUBCUT SCH ×4 (08:34→20:10)
[2019-11-23 10:09] LABS: Magnesium 1.8 mg/dL (1.9-2.7); Phosphorus 2.3 mg/dL (2.5-5.0)
--- NOTE | 2019-11-23 10:40 | PN ---
Progress Note - Progress Note Date of Service: 11/23/19 SOAP: Subjective: CC: abdominal abscess HPI:39 year old woman with perforated appendicitis and abdominal abscess with DKA and worsening abdominal pain. She hadn't been able to make it in to start IV antibiotics as an outpatient. She had a new drain placed here, purulent drainage continued. Abdominal pain better sometimes. Having formed stools and decr appetite. No fever or rash. Objective: Vital Signs Temp 36.5 C 11/23/19 08:00 Pulse 98 11/23/19 08:00 Resp 16 11/23/19 08:21 BP 127/77 11/23/19 08:00 Pulse Ox 97 11/23/19 08:00 Intake & Output 11/22/19 11/23/19 11/23/19 18:59 06:59 18:59 Intake Total 829 1413 120 Output Total 300 950 Balance 529 463 120 Intake: IV Fluids 977 NS (0.9%) 977 IVPB 169 100 ABX - FLAGYL 109 100 cefepime 60 Oral 660 336 120 Output: Pigtail Drain 75 Urine 300 875 Other: Estimated Void Medium # Bowel Movements 0 0 Estimated Stool Amount Medium # Voids 1 1 Gen:awake, no distress Neuro:Ox3, moves all extremities HEENT: no thrush Heart:RRR no murmur Lungs:clear to auscultation Abd:+BS right sided tenderness, new drain bag with purulent fluid Skin:no Rash LN: no palpable nodes Laboratory Results - last 24 hr 11/22/19 11/22/19 11/22/19 11:46 17:13 20:34 POC Glucose (mg/dL) 356 H 276 H 275 H Phosphorus Magnesium 11/23/19 11/23/19 08:06 09:43 POC Glucose (mg/dL) 208 H Phosphorus 2.3 L Magnesium 1.8 L Assessment: 1. multiple abdominal abscesses s/p drain, polymicrobial, culture pending 2. T1DM with DKA 3. s/p appendectomy Oct 2019 Plan: 1. continue cefepime, will decr to 1 gm IV Q12hrs and flagyl 500 mg IV Q8hrs, day 3/-28 IV antibiotics.
[2019-11-23 11:26] LABS: TSH (Thyroid Stimulating Horm) 18.85 mcIU/mL (0.34-5.60)
--- NOTE | 2019-11-23 12:00 | PN ---
Progress Note - Progress Note Date of Service: 11/23/19 SOAP: Subjective: NAD reports regular BM's [] Objective: Vital Signs Temp 97.6 F 11/23/19 11:03 Pulse 103 11/23/19 11:03 Resp 16 11/23/19 08:21 BP 128/76 11/23/19 11:03 Pulse Ox 98 11/23/19 11:03 Intake & Output 11/22/19 11/23/19 11/23/19 18:59 06:59 18:59 Intake Total 829 1413 120 Output Total 300 950 Balance 529 463 120 Intake: IV Fluids 977 NS (0.9%) 977 IVPB 169 100 ABX - FLAGYL 109 100 cefepime 60 Oral 660 336 120 Output: Pigtail Drain 75 Urine 300 875 Other: Estimated Void Medium # Bowel Movements 0 0 Estimated Stool Amount Medium # Voids 1 1 PEX Gen: NAD Chest: CTAB CVS: tachy Abd: R Pig tail and L ERICA with purulent output, mild tenderness to palp R side of Abd and at R drain site Ext: Calves soft non tender [] Assessment: 39 yo female s/p lap appy and drainage of abscess after a delayed presentation, with persistent retroperitoneal abscess [] Plan: Continue current management, ABX per ID, Continue drains, likely repeat CT in 1 week. Will continue to follow. D/W Dr Tavera []
[2019-11-23] MEDS ORDERED: Magnesium Sulfate 2 GM IV* 2 GM/50 ML BAG IVPB ONE (13:24)
[2019-11-23 14:38] LABS: ABS Basophils 0.1 10^3/ul (0-0.2); ABS Eosinophils 0.1 10^3/ul (0-0.6); ABS Lymphocytes 1.4 10^3/ul (1.0-4.8); ABS Monocytes 0.5 10^3/ul (0-0.8); ABS Neutrophils 4.3 10^3/ul (1.5-7.7); Eosinophil % 1.5 %; Hematocrit 30 % (35-47); Hemoglobin 9.8 g/dL (12.0-16.0); Lymphocyte % 21.6 %; Mean Corpuscular HGB Conc 33 g/dL (31-36); Mean Corpuscular Hemoglobin 31 pg (27-31); Mean Corpuscular Volume 91 fL (80-97); Mean Platelet Volume 6.8 fL (7.4-10.4); Platelet Count 524 10^3/uL (150-450); Red Blood Count 3.23 10^6 /uL (3.70-4.87); Red Cell Distribution Width 15 % (10-15); White Blood Count 6.4 10^3/uL (3.5-10.8)
[2019-11-23 15:01] LABS: BUN/Creatinine Ratio 5.6 (8-20); Calcium 8.5 mg/dL (8.6-10.3); EGFR African American 152.1 (>60); EGFR Non-African American 125.7 (>60); Potassium 3.6 mmol/L (3.5-5.0)
[2019-11-23 16:55] LABS: Free T4 1.56 ng/dL (0.61-1.12)
[2019-11-23] MEDS ORDERED: Vancomycin per Pharmacy* NOTE FOLLOW UP SCH (18:00)
[2019-11-23] MEDS ORDERED: Vancomycin(*) 1,000 MG in NS 0.9% 250 ML* 250 ML IVPB ONE ×2 (18:30→19:30)
[2019-11-23] MEDS: Cefepime 1 GM in Dextrose(*) 1 GM/50 ML BAG IV SCH (18:41)
[2019-11-23] MEDS: Insulin GLARGINE(*) 1 UNITS UNIT SUBCUT SCH (20:10)
[2019-11-24] MEDS: Vancomycin(*) 750 MG in NS 0.9% 250 ML* 250 ML IVPB SCH ×4 (02:07→21:06)
[2019-11-24] MEDS: Cefepime 1 GM in Dextrose(*) 1 GM/50 ML BAG IV SCH (05:44)
[2019-11-24] MEDS: Heparin VIAL(*) 5000 UNITS/ML VIAL (FIVE THOUSAND) SUBCUT SCH ×2 (05:45→14:35)
[2019-11-24] MEDS: Levothyroxine TAB* 150 MCG TAB PO SCH (05:45)
[2019-11-24] MEDS: BuPROPion XL* 300 MG TAB.XL PO SCH (07:25)
[2019-11-24] MEDS: metroNIDAZOLE IV 500 MG/100ML* 500 MG/100 ML BAG IVPB SCH ×2 (07:25→23:04)
[2019-11-24] MEDS: Morphine INJ* 4 MG/ML 1 ML SYRINGE (NEW SYRINGE VERSION) IV PRN ×2 (07:40→21:07)
[2019-11-24] MEDS: Insulin LISPRO* 1 UNITS UNIT SUBCUT SCH ×4 (08:21→21:16)
--- NOTE | 2019-11-24 10:25 | PN ---
Progress Note - Progress Note Date of Service: 11/24/19 Note: S: Reports lower pain is feeling better, though still present. Some intermittent nausea, no emesis. Last BM 2 days ago. Passing flatus. Ambulating and tolerating PO intake well. O: Vital Signs - 8 hr 11/24/19 11/24/19 11/24/19 02:50 07:32 07:40 Temperature 96.9 F Pulse Rate 93 Respiratory 18 18 18 Rate Blood Pressure 124/72 (mmHg) O2 Sat by Pulse 100 Oximetry 11/24/19 11/24/19 07:42 09:42 Temperature 97.2 F Pulse Rate 87 Respiratory 18 18 Rate Blood Pressure 131/82 (mmHg) O2 Sat by Pulse 100 Oximetry Intake and Output Last 24 Hours 11/22/19 11/23/19 11/24/19 11/25/19 06:59 06:59 06:59 06:59 Intake Total 2683 2242 4720 220 Output Total 1320 1250 1400 Balance 9618 963 0100 220 Weight 119 lb 0.794 oz Intake: IV Fluids 2583 977 1647 ABX - FLAGYL 100 KCL 107 NS (0.9%) 2086 977 1647 POTASSIUM PHOSPHATE 240 IVPB 100 269 733 100 ABX - FLAGYL 209 146 100 ABX - VANCOMYCIN 532 NS (0.9%) 100 cefepime 60 55 Oral 0 996 2340 120 Output: ERICA #1 60 ERICA #2 10 Abdominal Drain 50 Pigtail Drain 75 Urine 1200 1175 1400 Other: Estimated Void Medium # Bowel Movements 0 0 Estimated Stool Amount Medium # Voids 1 PEX General: Alert, in NAD or discomfort. Integumentary: No rashes or jaundice. HEENT: Oropharynx clear. Heart: Tachycardic. Lungs: CTAB. ABD: BS present. Soft, nondistended. Tender in hypogastrium and at R drain site. R pigtail and L ERICA drain with purulent output. Extremities: Calves soft and nontender. Distal pulses intact bilaterally. No edema. Assessment and plan: 39 yo F s/p laparoscopic appendectomy with persistent abscess and drainage. Continue drains, ABD per ID, follow up CT scan in approximately 1 week. Would likely benefit from placement at retirement facility for close diabetes control and antibiotic administration.
--- NOTE | 2019-11-24 10:47 | PN ---
Progress Note - Progress Note Date of Service: 11/24/19 SOAP: Subjective: CC: Abdominal abscess HPI: Ms. Niesha Jasso is a 39 yo female with PMH significant for DM1, hypothyroidism , depression, and bipolar disorder; hospitalized last month for a perforated appendicitis and ABD abscess. She returned to the ED due to increased ABD pain, and was found to have another ABD abscess. Denies fever, chills, vomiting, or diarrhea. Reports continued ABD discomfort, nausea, and decreased appetite ( reports this is improving). Objective: Vital Signs 11/24/19 11/24/19 07:42 09:42 Temperature 97.2 F Pulse Rate 87 Respiratory 18 18 Rate Blood Pressure 131/82 (mmHg) O2 Sat by Pulse 100 Oximetry Physical Exam: General: NAD, sitting up in a chair Neurological: Alert and Oriented HEENT: Moist MM Cardiovascular: Heart rate regular Respiratory: Lung sounds clear Abdominal: Bowel sounds present; ABD soft, non distended, diffuse tenderness in lower ABD MSK: Moves all extremities Skin: No rash. ERICA drain and Pig tail drain to lower ABD with purulent drainage Laboratory Results - last 24 hr 11/23/19 11/23/19 11/23/19 09:43 12:29 14:28 WBC 6.4 RBC 3.23 L Hgb 9.8 L Hct 30 L MCV 91 MCH 31 MCHC 33 RDW 15 Plt Count 524 H D MPV 6.8 L Neut % (Auto) 67.7 Lymph % (Auto) 21.6 [place] % (Auto) 8.4 Eos % (Auto) 1.5 Baso % (Auto) 0.8 Absolute Neuts (auto) 4.3 Absolute Lymphs (auto) 1.4 Absolute Monos (auto) 0.5 Absolute Eos (auto) 0.1 Absolute Basos (auto) 0.1 Absolute Nucleated RBC 0.0 Nucleated RBC % 0.0 POC Glucose (mg/dL) 218 H Phosphorus 2.3 L Magnesium 1.8 L TSH 18.85 H Free T4 1.56 H 11/23/19 11/23/19 11/23/19 14:28 17:12 19:47 Sodium 137 Potassium 3.6 Chloride 106 Carbon Dioxide 26 Anion Gap 5 BUN 3 L Creatinine 0.54 Est GFR ( Amer) 152.1 Est GFR (Non-Af Amer) 125.7 BUN/Creatinine Ratio 5.6 L Glucose 179 H POC Glucose (mg/dL) 198 H 281 H Calcium 8.5 L Microbiology 11/20/19 21:00 Aerobic Blood Culture - Preliminary Blood Venous No Growth Day 3 Anaerobic Blood Culture - Preliminary No Growth Day 3 11/20/19 21:00 Aerobic Blood Culture - Preliminary Blood Venous No Growth Day 3 Anaerobic Blood Culture - Preliminary No Growth Day 3 11/22/19 17:00 Gram Stain - Final Peritoneal Fluid Body Fluid Culture - Preliminary Streptococcus Constellatus Staphylococcus Aureus Skin and Soft Tissue MRSA/MSSA (PCR - Final Mrsa Positive S.aureus Positive Assessment: 1. ABD abscess, loculated. Perforated appendicitis in October, s/p appy. Found to have ABD abscess and was discharged on oral ABX and drains in place. Cultures with streptococcus constellatus and bacteroides in October. Pigtail drain was repositioned on 11/[address] scan showed increased abscess. Pigtail drain replaced and repositioned and ERICA drainage remains in place, draining purulent drainage. Peritoneal fluid with Streptococcus and staph aureus , PCR + for MRSA. Blood cultures with no growth to date. Afebrile and no leukocytosis. 2. Thrombocytosis. Suspect secondary to #1. 3. DM1. Plan: Discontinue Cefepime. Start Ceftriaxone 1 gm IV daily and Vanco, trough goal 15- 20 and Flagyl (will decrease to BID); day 01/29-28. Will need to have midline or PICC line placed. Weekly labs while on IV ABX: CBC, CMP, and CRP. Final recommendations based on final culture results.
[2019-11-24] MEDS ORDERED: Vancomycin Trough Check NOTE FOLLOW UP ONE (13:30)
[2019-11-24] MEDS: cefTRIAXone(*) 1 GM in NS 0.9% 50 ML* 50 ML IVPB SCH (14:35)
[2019-11-24 15:05] LABS: EGFR African American 158.8 (>60); EGFR Non-African American 131.3 (>60)
[2019-11-24 15:46] LABS: Vancomycin Trough 13.9 mcg/mL
[2019-11-24] MEDS ORDERED: Magnesium Hydroxide LIQ* 30 ML UDC PO PRN (17:24)
--- NOTE | 2019-11-24 17:30 | PN ---
Subjective Date of Service: 11/24/19 Interval History: HD 5 on 11/24 transferred from ICU on 11/22 39 F with Insulin dependent DM, recent perforated appendix(s/p appendectomy with drain placement), Hypothyroidism and Bipolar presented with right sided abdominal pain, nausea and vomiting. Found to be in DKA 2/2 to noncompliance, worsening intrabdominal abscess with drain revision. Treated in ICU for 2 days with insulin drip. Transferred to floor on 11/22. Overnight: No acute overnight events. two drains on abdomen draining liu-colored fluid. vitals: stable Patient had lower abdominal pain but decreased than yesterday. Has some nausea but no vomiting. Last BM 2 days ago; but passing flatus. Tolerating PO well Objective Active Medications: Acetaminophen (Tylenol Tab*) 650 mg PO Q4H PRN PRN Reason: PAIN - MILD Last Admin: 11/22/19 16:28 Dose: 650 mg Bupropion HCl (Bupropion Xl*) 300 mg PO DAILY [facility] Last Admin: 11/24/19 07:25 Dose: 300 mg Dextrose (D50w Syringe 50 Ml*) 12.5 gm IV PUSH .FOR FS < 60 - SS PRN PRN Reason: FS < 60 Heparin Sodium (Porcine) (Heparin Vial(*)) 5,000 units SUBCUT Q8HR [facility] Last Admin: 11/24/19 14:35 Dose: 5,000 units Sodium Chloride (Ns 0.9% 1000 Ml) 1,000 mls @ 75 mls/hr IV PER RATE [facility] Last Admin: 11/23/19 20:14 Dose: 75 mls/hr Vancomycin HCl 750 mg/ Sodium (Chloride) 250 mls @ 166.667 mls/hr IVPB Q6H [facility] Last Admin: 11/24/19 15:53 Dose: 166.667 mls/hr Ceftriaxone Sodium 1 gm/ (Sodium Chloride) 50 mls @ 100 mls/hr IVPB Q24H [facility] Last Admin: 11/24/19 14:35 Dose: 100 mls/hr Metronidazole/Sodium Chloride (Flagyl 500 Mg Ivpb*) 500 mg in 100 mls @ 100 mls /hr IVPB Q12H [facility] Insulin Glargine (Lantus(*)) 30 units SUBCUT Q24H [facility] Last Admin: 11/23/19 20:10 Dose: 30 units Insulin Human Lispro (Humalog*) 0 units SUBCUT ACHS [facility]; Protocol Last Admin: 11/24/19 17:10 Dose: 1 unit Levothyroxine Sodium (Synthroid Tab*) 300 mcg PO DAILY@0600 [facility] Last Admin: 11/24/19 05:45 Dose: 300 mcg Magnesium Hydroxide (Milk Of Magnesia Liq*) 30 ml PO Q6H PRN PRN Reason: CONSTIPATION Morphine Sulfate (Morphine Inj (Syringe)*) 4 mg IV Q4H PRN PRN Reason: PAIN - SEVERE Last Admin: 11/24/19 07:40 Dose: 4 mg Ondansetron HCl (Zofran Inj*) 4 mg IV Q6H PRN PRN Reason: NAUSEA Last Admin: 11/21/19 05:25 Dose: 4 mg Pharmacy Consult (Vancomycin Per Pharmacy*) 1 note FOLLOW UP .VANC PER PHARMACY [facility]; Protocol Vital Signs - 8 hr 11/24/19 11/24/19 11/24/19 09:42 11:08 15:40 Temperature 97.9 F 97.4 F Pulse Rate 91 93 Respiratory 18 16 17 Rate Blood Pressure 138/86 143/80 (mmHg) O2 Sat by Pulse 100 100 Oximetry Oxygen Devices in Use Now: None Exam: Patient is sitting comfortably in bed with no acute distress. HEENT: Normocephalic and atraumatic Chest: clear with no added sounds. Heart: S1/S2 heard with no murmur Abdomen: Two drain in right and left lower quadrant draining purulent discharge. Tenderness on lower quadrant Extremities: No swelling Neuro: alert, oriented and coperative. Result Diagrams: 11/23/19 14:28 11/24/19 14:37 Additional Lab and Data: Lab Results 11/20/19 11/20/19 11/20/19 Range/Units 21:00 21:00 21:00 WBC 12.1 H (3.5-10.8) 10^3/uL RBC 3.82 (3.70-4.87) 10^6 /uL Hgb 11.4 L (12.0-16.0) g/dL Hct 36 (35-47) % MCV 93 (80-97) fL MCH 30 (27-31) pg MCHC 32 (31-36) g/dL RDW 15 (10-15) % Plt Count 671 H (150-450) 10^3/uL MPV 7.3 L (7.4-10.4) fL Neut % (Auto) 83.4 % Lymph % (Auto) 9.1 % Bee % (Auto) 6.9 % Eos % (Auto) 0.1 % Baso % (Auto) 0.5 % Absolute Neuts (auto) 10.1 H (1.5-7.7) 10^3/ul Absolute Lymphs (auto) 1.1 (1.0-4.8) 10^3/ul Absolute Monos (auto) 0.8 (0-0.8) 10^3/ul Absolute Eos (auto) 0.0 (0-0.6) 10^3/ul Absolute Basos (auto) 0.1 (0-0.2) 10^3/ul Absolute Nucleated RBC 0.0 10^3/ul Nucleated RBC % 0.0 INR (Anticoag Therapy) 1.07 (0.82-1.09) Sodium 129 L (135-145) mmol/L Potassium 4.3 (3.5-5.0) mmol/L Chloride 93 L (101-111) mmol/L Carbon Dioxide 19 L (22-32) mmol/L Anion Gap 17 H (2-11) mmol/L BUN 12 (6-24) mg/dL Creatinine 0.85 (0.51-0.95) mg/dL Est GFR ( Amer) 90.1 (>60) Est GFR (Non-Af Amer) 74.5 (>60) BUN/Creatinine Ratio 14.1 (8-20) Glucose 522 H* (70-100) mg/dL Lactic Acid (0.5-2.0) mmol/L Calcium 9.7 (8.6-10.3) mg/dL Total Bilirubin 0.30 (0.2-1.0) mg/dL AST 8 L (13-39) U/L ALT 7 (7-52) U/L Alkaline Phosphatase 64 (34-104) U/L C-Reactive Protein 51.24 H (<8.01) mg/L Total Protein 8.0 (6.4-8.9) g/dL Albumin 3.6 (3.2-5.2) g/dL Globulin 4.4 H (2-4) g/dL Albumin/Globulin Ratio 0.8 L (1-3) Amylase 29 (29-103) U/L Lipase 15 (11.0-82.0) U/L Beta HCG, Quant 1.20 mIU/mL 11/20/19 Range/Units 21:00 WBC (3.5-10.8) 10^3/uL RBC (3.70-4.87) 10^6 /uL Hgb (12.0-16.0) g/dL Hct (35-47) % MCV (80-97) fL MCH (27-31) pg MCHC (31-36) g/dL RDW (10-15) % Plt Count (150-450) 10^3/uL MPV (7.4-10.4) fL Neut % (Auto) % Lymph % (Auto) % Bee % (Auto) % Eos % (Auto) % Baso % (Auto) % Absolute Neuts (auto) (1.5-7.7) 10^3/ul Absolute Lymphs (auto) (1.0-4.8) 10^3/ul Absolute Monos (auto) (0-0.8) 10^3/ul Absolute Eos (auto) (0-0.6) 10^3/ul Absolute Basos (auto) (0-0.2) 10^3/ul Absolute Nucleated RBC 10^3/ul Nucleated RBC % INR (Anticoag Therapy) (0.82-1.09) Sodium (135-145) mmol/L Potassium (3.5-5.0) mmol/L Chloride (101-111) mmol/L Carbon Dioxide (22-32) mmol/L Anion Gap (2-11) mmol/L BUN (6-24) mg/dL Creatinine (0.51-0.95) mg/dL Est GFR ( Amer) (>60) Est GFR (Non-Af Amer) (>60) BUN/Creatinine Ratio (8-20) Glucose (70-100) mg/dL Lactic Acid 1.7 (0.5-2.0) mmol/L Calcium (8.6-10.3) mg/dL Total Bilirubin (0.2-1.0) mg/dL AST (13-39) U/L ALT (7-52) U/L Alkaline Phosphatase (34-104) U/L C-Reactive Protein (<8.01) mg/L Total Protein (6.4-8.9) g/dL Albumin (3.2-5.2) g/dL Globulin (2-4) g/dL Albumin/Globulin Ratio (1-3) Amylase (29-103) U/L Lipase (11.0-82.0) U/L Beta HCG, Quant mIU/mL Assess/Plan/Problems-Billing Assessment: 39 F with Insulin dependent DM, recent perforated appendix(s/p appendectomy with drain placement), Hypothyroidism and Bipolar presented with right sided abdominal pain, nausea and vomiting. Found to be n DKA 2/ to noncompliance, worsening intrabdominal abscess with drain replacement. Treated in ICU for 2 days with insulin drip. Transferred to floor on 11/22. On cefepime and flagyl( day 4) - Patient Problems (1) DKA (diabetic ketoacidoses) Current Visit: No Status: Acute Code(s): E11.10 - TYPE 2 DIABETES MELLITUS WITH KETOACIDOSIS WITHOUT COMA SNOMED Code(s): 372619506 Comment: -secondary to non-compliance -Gaps closed -received insulin drip in ICU -now receiving lantus and lispro -BG between 85-178 (2) Insulin dependent diabetes mellitus Current Visit: No Status: Acute Code(s): E11.9 - TYPE 2 DIABETES MELLITUS WITHOUT COMPLICATIONS; Z79.4 - [facility] (CURRENT) USE OF INSULIN SNOMED Code( s): 15797929 Comment: -On lantus and lispro at home -non-compliant -HbA1c is 17 on 10/16/19 -Insulin lantus increased to 30 U; responding well -continue lispro ss (3) Intra-abdominal abscess Current Visit: Yes Status: Acute Code(s): K65.1 - PERITONEAL ABSCESS SNOMED Code(s): 10479300 Comment: -s/p drain replacement on 11/21 on right side. -has two drain on right and left lower abdomen-draining purulent material -growing streptococcus -waiting susceptibility constellatus and MRSA -switched to ceftriaxone and flagyl(day 4 on 11/24)- will need 3-4 weeks of antibiotics. -added vancomycin on 11/23 -ID and surgery following -ordered picc line (4) Depression Current Visit: No Status: Acute Code(s): F32.9 - MAJOR DEPRESSIVE DISORDER, SINGLE EPISODE, UNSPECIFIED SNOMED Code(s): 30692257 Comment: -Continue wellbutrin -According to patient serquel and depakote was stopped by her psychiatrist (5) Sepsis Current Visit: No Status: Acute Comment: - resolved -met with leucocytosis with tachycardia; source is abdomen -lactic acid normal -resolved now -on abx (6) Hypothyroidism Current Visit: No Status: Acute Code(s): E03.9 - HYPOTHYROIDISM, UNSPECIFIED SNOMED Code(s): 12672100 Comment: -TSH of 18. -taking levothyroxine of 300mcg -could be from poor compliance (7) DVT prophylaxis Current Visit: No Status: Acute Code(s): Z29.9 - ENCOUNTER FOR PROPHYLACTIC MEASURES, UNSPECIFIED SNOMED Code(s): 392579810 Comment: -on heparin (8) Full code status Current Visit: No Status: Acute Code(s): Z78.9 - OTHER SPECIFIED HEALTH STATUS SNOMED Code(s): 878429744 Comment: Status and Disposition: Inpatient will need rehab for iv antibiotics Attending: Sherrie Avitia Attestation Documenting Resident: Shivani Campoverde Supervising Physician: Sherrie Avitia Attestation: This service has been performed in part by a resident under the direction of a teaching physician.I, Sherrie Avitia, performed the service, or was physically present during the critical, or krishnan portions of the service, furnished by the resident. I participated in the management of the patient.
[2019-11-24] MEDS: NS 0.9% 1000 ML** 1,000 ML IV SCH (19:06)
[2019-11-24] MEDS ORDERED: Insulin GLARGINE(*) 1 UNITS UNIT SUBCUT ONE (23:00)
[2019-11-24] MEDS: Insulin GLARGINE(*) 1 UNITS UNIT SUBCUT SCH (23:06)
[2019-11-25] MEDS: Heparin VIAL(*) 5000 UNITS/ML VIAL (FIVE THOUSAND) SUBCUT SCH ×4 (00:18→23:05)
[2019-11-25] MEDS: Vancomycin(*) 750 MG in NS 0.9% 250 ML* 250 ML IVPB SCH ×4 (02:14→20:29)
[2019-11-25] MEDS: Levothyroxine TAB* 150 MCG TAB PO SCH (05:59)
[2019-11-25] MEDS: Morphine INJ* 4 MG/ML 1 ML SYRINGE (NEW SYRINGE VERSION) IV PRN ×2 (07:34→23:03)
[2019-11-25] MEDS: BuPROPion XL* 300 MG TAB.XL PO SCH (07:34)
[2019-11-25] MEDS: metroNIDAZOLE IV 500 MG/100ML* 500 MG/100 ML BAG IVPB SCH ×2 (07:35→23:02)
[2019-11-25] MEDS: Insulin LISPRO* 1 UNITS UNIT SUBCUT SCH ×4 (08:30→23:07)
--- NOTE | 2019-11-25 11:34 | PN ---
Subjective Date of Service: 11/25/19 Interval History: HD 6 on 11/25 transferred from ICU on 11/22 39 F with Insulin dependent DM, recent perforated appendix(s/p appendectomy with drain placement), Hypothyroidism and Bipolar presented with right sided abdominal pain, nausea and vomiting. Found to be in DKA 2/2 to noncompliance, worsening intrabdominal abscess with drain revision. Treated in ICU for 2 days with insulin drip. Transferred to floor on 11/22. Overnight: No acute overnight events. two drains on abdomen draining liu-colored fluid. vitals: stable Patient seen and examined at bedside. patient states her pain is same as yesterday. Has mild nausea. Denies vomiting and fever. Last BM yesterday. Counselled about need of going to residential for iv abx as patient is having difficulty even managing her insulin. Drainage decreasing than yesterday; tolerating PO well Objective Active Medications: Acetaminophen (Tylenol Tab*) 650 mg PO Q4H PRN PRN Reason: PAIN - MILD Last Admin: 11/22/19 16:28 Dose: 650 mg Bupropion HCl (Bupropion Xl*) 300 mg PO DAILY [facility] Last Admin: 11/25/19 07:34 Dose: 300 mg Dextrose (D50w Syringe 50 Ml*) 12.5 gm IV PUSH .FOR FS < 60 - SS PRN PRN Reason: FS < 60 Heparin Sodium (Porcine) (Heparin Vial(*)) 5,000 units SUBCUT Q8HR [facility] Last Admin: 11/25/19 06:01 Dose: 5,000 units Heparin Sodium (Porcine) (Heparin Flush Picc/Ml/Cvc(*)) 1 - 3 ml FLUSH 0600, 1800 [facility]; Protocol Last Admin: 11/25/19 04:05 Dose: 1 ml Vancomycin HCl 750 mg/ Sodium (Chloride) 250 mls @ 166.667 mls/hr IVPB Q6H [facility] Last Admin: 11/25/19 08:58 Dose: 166.667 mls/hr Ceftriaxone Sodium 1 gm/ (Sodium Chloride) 50 mls @ 100 mls/hr IVPB Q24H [facility] Last Admin: 11/24/19 14:35 Dose: 100 mls/hr Metronidazole/Sodium Chloride (Flagyl 500 Mg Ivpb*) 500 mg in 100 mls @ 100 mls /hr IVPB Q12H [facility] Last Admin: 11/25/19 07:35 Dose: 100 mls/hr Insulin Glargine (Lantus(*)) 30 units SUBCUT Q24H [facility] Last Admin: 11/24/19 23:06 Dose: Not Given Insulin Human Lispro (Humalog*) 0 units SUBCUT ACHS [facility]; Protocol Last Admin: 11/25/19 08:30 Dose: 3 unit Levothyroxine Sodium (Synthroid Tab*) 300 mcg PO DAILY@0600 [facility] Last Admin: 11/25/19 05:59 Dose: 300 mcg Magnesium Hydroxide (Milk Of Magnesia Liq*) 30 ml PO Q6H PRN PRN Reason: CONSTIPATION Morphine Sulfate (Morphine Inj (Syringe)*) 4 mg IV Q4H PRN PRN Reason: PAIN - SEVERE Last Admin: 11/25/19 07:34 Dose: 4 mg Ondansetron HCl (Zofran Inj*) 4 mg IV Q6H PRN PRN Reason: NAUSEA Last Admin: 11/21/19 05:25 Dose: 4 mg Pharmacy Consult (Vancomycin Per Pharmacy*) 1 note FOLLOW UP .VANC PER PHARMACY [facility]; Protocol Vital Signs - 8 hr 11/25/19 11/25/19 11/25/19 03:41 07:24 07:34 Temperature 98.2 F 98.2 F Pulse Rate 98 92 Respiratory 17 18 18 Rate Blood Pressure 126/73 136/79 (mmHg) O2 Sat by Pulse 100 100 Oximetry 11/25/19 11/25/19 11/25/19 07:46 08:58 11:23 Temperature 98.3 F Pulse Rate 93 Respiratory 18 18 18 Rate Blood Pressure 118/76 (mmHg) O2 Sat by Pulse 100 Oximetry Oxygen Devices in Use Now: None Exam: Patient is sitting comfortably in bed with no acute distress. HEENT: Normocephalic and atraumatic Chest: clear with no added sounds. Heart: S1/S2 heard with no murmur Abdomen: Two drain in right and left lower quadrant draining purulent discharge. Tenderness on lower quadrant Extremities: No swelling Neuro: alert, oriented and coperative. Result Diagrams: 11/23/19 14:28 11/24/19 14:37 Additional Lab and Data: Lab Results 11/20/19 11/20/19 11/20/19 Range/Units 21:00 21:00 21:00 WBC 12.1 H (3.5-10.8) 10^3/uL RBC 3.82 (3.70-4.87) 10^6 /uL Hgb 11.4 L (12.0-16.0) g/dL Hct 36 (35-47) % MCV 93 (80-97) fL MCH 30 (27-31) pg MCHC 32 (31-36) g/dL RDW 15 (10-15) % Plt Count 671 H (150-450) 10^3/uL MPV 7.3 L (7.4-10.4) fL Neut % (Auto) 83.4 % Lymph % (Auto) 9.1 % Brown % (Auto) 6.9 % Eos % (Auto) 0.1 % Baso % (Auto) 0.5 % Absolute Neuts (auto) 10.1 H (1.5-7.7) 10^3/ul Absolute Lymphs (auto) 1.1 (1.0-4.8) 10^3/ul Absolute Monos (auto) 0.8 (0-0.8) 10^3/ul Absolute Eos (auto) 0.0 (0-0.6) 10^3/ul Absolute Basos (auto) 0.1 (0-0.2) 10^3/ul Absolute Nucleated RBC 0.0 10^3/ul Nucleated RBC % 0.0 INR (Anticoag Therapy) 1.07 (0.82-1.09) Sodium 129 L (135-145) mmol/L Potassium 4.3 (3.5-5.0) mmol/L Chloride 93 L (101-111) mmol/L Carbon Dioxide 19 L (22-32) mmol/L Anion Gap 17 H (2-11) mmol/L BUN 12 (6-24) mg/dL Creatinine 0.85 (0.51-0.95) mg/dL Est GFR ( Amer) 90.1 (>60) Est GFR (Non-Af Amer) 74.5 (>60) BUN/Creatinine Ratio 14.1 (8-20) Glucose 522 H* (70-100) mg/dL Lactic Acid (0.5-2.0) mmol/L Calcium 9.7 (8.6-10.3) mg/dL Total Bilirubin 0.30 (0.2-1.0) mg/dL AST 8 L (13-39) U/L ALT 7 (7-52) U/L Alkaline Phosphatase 64 (34-104) U/L C-Reactive Protein 51.24 H (<8.01) mg/L Total Protein 8.0 (6.4-8.9) g/dL Albumin 3.6 (3.2-5.2) g/dL Globulin 4.4 H (2-4) g/dL Albumin/Globulin Ratio 0.8 L (1-3) Amylase 29 (29-103) U/L Lipase 15 (11.0-82.0) U/L Beta HCG, Quant 1.20 mIU/mL 11/20/19 Range/Units 21:00 WBC (3.5-10.8) 10^3/uL RBC (3.70-4.87) 10^6 /uL Hgb (12.0-16.0) g/dL Hct (35-47) % MCV (80-97) fL MCH (27-31) pg MCHC (31-36) g/dL RDW (10-15) % Plt Count (150-450) 10^3/uL MPV (7.4-10.4) fL Neut % (Auto) % Lymph % (Auto) % Brown % (Auto) % Eos % (Auto) % Baso % (Auto) % Absolute Neuts (auto) (1.5-7.7) 10^3/ul Absolute Lymphs (auto) (1.0-4.8) 10^3/ul Absolute Monos (auto) (0-0.8) 10^3/ul Absolute Eos (auto) (0-0.6) 10^3/ul Absolute Basos (auto) (0-0.2) 10^3/ul Absolute Nucleated RBC 10^3/ul Nucleated RBC % INR (Anticoag Therapy) (0.82-1.09) Sodium (135-145) mmol/L Potassium (3.5-5.0) mmol/L Chloride (101-111) mmol/L Carbon Dioxide (22-32) mmol/L Anion Gap (2-11) mmol/L BUN (6-24) mg/dL Creatinine (0.51-0.95) mg/dL Est GFR ( Amer) (>60) Est GFR (Non-Af Amer) (>60) BUN/Creatinine Ratio (8-20) Glucose (70-100) mg/dL Lactic Acid 1.7 (0.5-2.0) mmol/L Calcium (8.6-10.3) mg/dL Total Bilirubin (0.2-1.0) mg/dL AST (13-39) U/L ALT (7-52) U/L Alkaline Phosphatase (34-104) U/L C-Reactive Protein (<8.01) mg/L Total Protein (6.4-8.9) g/dL Albumin (3.2-5.2) g/dL Globulin (2-4) g/dL Albumin/Globulin Ratio (1-3) Amylase (29-103) U/L Lipase (11.0-82.0) U/L Beta HCG, Quant mIU/mL Assess/Plan/Problems-Billing Assessment: 39 F with Insulin dependent DM, recent perforated appendix(s/p appendectomy with drain placement), Hypothyroidism and Bipolar presented with right sided abdominal pain, nausea and vomiting. Found to be n DKA 2/ to noncompliance, worsening intrabdominal abscess with drain replacement. Treated in ICU for 2 days with insulin drip. Transferred to floor on 11/22. On cefepime and flagyl( day 5) - Patient Problems (1) DKA (diabetic ketoacidoses) Current Visit: No Status: Acute Code(s): E11.10 - TYPE 2 DIABETES MELLITUS WITH KETOACIDOSIS WITHOUT COMA SNOMED Code(s): 738020918 Comment: -secondary to non-compliance -Gaps closed -received insulin drip in ICU -now receiving lantus and lispro -BG higher today as she only received half of her lantus (2) Insulin dependent diabetes mellitus Current Visit: No Status: Acute Code(s): E11.9 - TYPE 2 DIABETES MELLITUS WITHOUT COMPLICATIONS; Z79.4 - [facility] (CURRENT) USE OF INSULIN SNOMED Code( s): 37195152 Comment: -On lantus and lispro at home -non-compliant -HbA1c is 17 on 10/16/19 -Insulin lantus increased to 30 U; responding well -continue lispro ss -Patient should have lantus 30 U daily (3) Intra-abdominal abscess Current Visit: Yes Status: Acute Code(s): K65.1 - PERITONEAL ABSCESS SNOMED Code(s): 50595447 Comment: -s/p drain replacement on 11/21 on right side. -has two drain on right and left lower abdomen-draining purulent material- less than yesterday -growing streptococcus and MRSA -switched to ceftriaxone and flagyl(day 5 on 11/25)- will need 3-4 weeks of antibiotics. -added vancomycin on 11/23 -ID and surgery following -picc line in place (4) Depression Current Visit: No Status: Acute Code(s): F32.9 - MAJOR DEPRESSIVE DISORDER, SINGLE EPISODE, UNSPECIFIED SNOMED Code(s): 46980402 Comment: -Continue wellbutrin -According to patient serquel and depakote was stopped by her psychiatrist (5) Sepsis Current Visit: No Status: Acute Comment: - resolved -met with leucocytosis with tachycardia; source is abdomen -lactic acid normal -resolved now -on abx (6) Hypothyroidism Current Visit: No Status: Acute Code(s): E03.9 - HYPOTHYROIDISM, UNSPECIFIED SNOMED Code(s): 49382855 Comment: -TSH of 18. -taking levothyroxine of 300mcg -could be from poor compliance (7) DVT prophylaxis Current Visit: No Status: Acute Code(s): Z29.9 - ENCOUNTER FOR PROPHYLACTIC MEASURES, UNSPECIFIED SNOMED Code(s): 447191661 Comment: -on lovenox (8) Full code status Current Visit: No Status: Acute Code(s): Z78.9 - OTHER SPECIFIED HEALTH STATUS SNOMED Code(s): 462289012 Comment: Status and Disposition: Inpatient will need SNF for iv antibiotics Attending: Sherrie Avitia Attestation Documenting Resident: Shivani Campoverde Supervising Physician: Sherrie Avitia Attestation: This service has been performed in part by a resident under the direction of a teaching physician.I, Sherrie Avitia, performed the service, or was physically present during the critical, or krishnan portions of the service, furnished by the resident. I participated in the management of the patient.
--- NOTE | 2019-11-25 12:44 | PN ---
Progress Note - Progress Note Date of Service: 11/25/19 Note: Reports pain in RLQ and flank which has improved a little. Appetite is still decreased but she is tolerating regular diet. She has been ambulating. Denies chest pain, SOB, nausea. Feels tired this morning. Afebrile. Vital Signs - 12 hr Temp Pulse Resp BP Pulse Ox 11/25/19 11:23 98.3 F 93 18 118/76 100 11/25/19 08:58 18 11/25/19 07:46 18 11/25/19 07:34 18 11/25/19 07:24 98.2 F 92 18 136/79 100 11/25/19 03:41 98.2 F 98 17 126/73 100 Intake & Output 11/24/19 11/25/19 11/25/19 22:59 06:59 14:59 Intake Total 0 815 600 Output Total 85 Balance 0 730 600 Intake: IV Fluids 435 ABX - VANCOMYCIN 260 NS (0.9%) 175 IVPB 380 360 ABX - FLAGYL 100 100 ABX - VANCOMYCIN 280 260 Oral 0 0 240 Output: ERICA #1 75 ERICA #2 10 Other: # Bowel Movements 1 0 General: NAD CV: RRR Resp: Clear to auscultation Abdomen: Soft, tenderness in RLQ, no rebound or guarding. Non-distended. IR drain with thick yellow drainage. ERICA drain has serous fluid. Extremities: warm, no pedal edema. Neuro: Alert and oriented x3. Moves all extremities equally. A&P 39F s/p lap appy with intra-abdominal abscesses in October, re-admitted now with new intra-abd abscess s/p drainage. -Continue antibiotics per ID -12Fr drain to gravity, ERICA drain to bulb suction -Regular/diabetic diet as tolerated. -Encourage ambulation
[2019-11-25] MEDS: cefTRIAXone(*) 1 GM in NS 0.9% 50 ML* 50 ML IVPB SCH (13:53)
[2019-11-25] MEDS: Insulin GLARGINE(*) 1 UNITS UNIT SUBCUT SCH (23:06)
[2019-11-26] MEDS: Vancomycin(*) 750 MG in NS 0.9% 250 ML* 250 ML IVPB SCH ×4 (01:33→21:30)
[2019-11-26] MEDS: Levothyroxine TAB* 150 MCG TAB PO SCH (05:59)
[2019-11-26] MEDS: Heparin VIAL(*) 5000 UNITS/ML VIAL (FIVE THOUSAND) SUBCUT SCH ×2 (06:01→13:43)
[2019-11-26] MEDS: Morphine INJ* 4 MG/ML 1 ML SYRINGE (NEW SYRINGE VERSION) IV PRN (07:18)
[2019-11-26] MEDS: BuPROPion XL* 300 MG TAB.XL PO SCH (07:18)
[2019-11-26] MEDS: metroNIDAZOLE IV 500 MG/100ML* 500 MG/100 ML BAG IVPB SCH ×2 (07:19→20:16)
[2019-11-26] MEDS: Insulin LISPRO* 1 UNITS UNIT SUBCUT SCH ×3 (08:24→17:00)
--- NOTE | 2019-11-26 09:55 | PN ---
Progress Note - Progress Note Date of Service: 11/26/19 Note: Continues to have right sided abdominal pain. Currently at 7/10 but sometimes the pain is worse. She is tolerating regular diet. She was out of bed to the bathroom yesterday, but plans to walk today. Denies chest pain, SOB, nausea. Afebrile. Vital Signs - 12 hr Temp Pulse Resp BP Pulse Ox 11/26/19 08:51 16 11/26/19 07:36 18 11/26/19 07:18 18 11/26/19 07:15 98.1 F 88 16 128/76 99 11/26/19 03:12 97.5 F 102 16 115/64 99 11/26/19 00:00 97.4 F 92 17 138/75 100 11/25/19 23:03 18 General: NAD Abd: soft, tenderness in RUQ and RLQ, nondistended. No rebound or guarding. ERICA bulb with serous fluid. Pigtail draining thick liu-colored drainage. Extremities: Warm, no pedal edema. Neuro: Alert, oriented x3. Moves all extremities equally. PSych: Affect normal. A&P 39F s/p lap appy with intra-abdominal abscesses in October, re-admitted now with new intra-abd abscess s/p drainage. -Continue antibiotics per ID -12Fr drain to gravity, ERICA drain to bulb suction -Regular/diabetic diet as tolerated. -Encourage ambulation
[2019-11-26] MEDS: Ondansetron INJ* 2 MG/ML VIAL IV PRN (12:19)
[2019-11-26] MEDS: cefTRIAXone(*) 1 GM in NS 0.9% 50 ML* 50 ML IVPB SCH (13:43)
--- NOTE | 2019-11-26 15:52 | PN ---
Subjective Date of Service: 11/26/19 Interval History: Denies abdominal pain. States she has a good appetite. Reports no BM yesterday but will ask for a laxative today if without BM by the afternoon. Agrees that she needs extra help with medication management and that SNF would be best given significant IV abx and insulin requirements. Attempting to decrease number of sticks per day - heparin tid to lovenox qd, decrease fingersicks and insulin to AC from [facility]. Glucose above goal, but noted to be getting very little from ISS (1-3 u per dose ). Will increase mealtime sliding scale doses. Objective Active Medications: Acetaminophen (Tylenol Tab*) 650 mg PO Q4H PRN PRN Reason: PAIN - MILD Last Admin: 11/22/19 16:28 Dose: 650 mg Bupropion HCl (Bupropion Xl*) 300 mg PO DAILY [facility] Last Admin: 11/26/19 07:18 Dose: 300 mg Dextrose (D50w Syringe 50 Ml*) 12.5 gm IV PUSH .FOR FS < 60 - SS PRN PRN Reason: FS < 60 Heparin Sodium (Porcine) (Heparin Vial(*)) 5,000 units SUBCUT Q8HR [facility] Last Admin: 11/26/19 13:43 Dose: 5,000 units Heparin Sodium (Porcine) (Heparin Flush Picc/Ml/Cvc(*)) 1 - 3 ml FLUSH 0600, 1800 [facility]; Protocol Last Admin: 11/26/19 06:02 Dose: Not Given Vancomycin HCl 750 mg/ Sodium (Chloride) 250 mls @ 166.667 mls/hr IVPB Q6H [facility] Last Admin: 11/26/19 14:53 Dose: 166.667 mls/hr Ceftriaxone Sodium 1 gm/ (Sodium Chloride) 50 mls @ 100 mls/hr IVPB Q24H [facility] Last Admin: 11/26/19 13:43 Dose: 100 mls/hr Metronidazole/Sodium Chloride (Flagyl 500 Mg Ivpb*) 500 mg in 100 mls @ 100 mls /hr IVPB Q12H [facility] Last Admin: 11/26/19 07:19 Dose: 100 mls/hr Insulin Glargine (Lantus(*)) 30 units SUBCUT Q24H [facility] Last Admin: 11/25/19 23:06 Dose: 30 units Insulin Human Lispro (Humalog*) 0 units SUBCUT ACHS [facility]; Protocol Last Admin: 11/26/19 12:04 Dose: 3 unit Levothyroxine Sodium (Synthroid Tab*) 300 mcg PO DAILY@0600 [facility] Last Admin: 11/26/19 05:59 Dose: 300 mcg Magnesium Hydroxide (Milk Of Magnesia Liq*) 30 ml PO Q6H PRN PRN Reason: CONSTIPATION Morphine Sulfate (Morphine Inj (Syringe)*) 4 mg IV Q4H PRN PRN Reason: PAIN - SEVERE Last Admin: 11/26/19 07:18 Dose: 4 mg Ondansetron HCl (Zofran Inj*) 4 mg IV Q6H PRN PRN Reason: NAUSEA Last Admin: 11/26/19 12:19 Dose: 4 mg Pharmacy Consult (Vancomycin Per Pharmacy*) 1 note FOLLOW UP .VANC PER PHARMACY [facility]; Protocol Vital Signs - 8 hr 11/26/19 11/26/19 11/26/19 08:51 11:44 15:05 Temperature 97.8 F 98.3 F Pulse Rate 102 97 Respiratory 16 16 16 Rate Blood Pressure 133/82 133/75 (mmHg) O2 Sat by Pulse 100 100 Oximetry Oxygen Devices in Use Now: None Appearance: well appearing, sitting up in bed, alert and interactive Eyes: No Scleral Icterus Ears/Nose/Mouth/Throat: NL Teeth, Lips, Gums, Clear Oropharnyx Neck: NL Appearance and Movements; NL JVP, Trachea Midline Respiratory: Symmetrical Chest Expansion and Respiratory Effort, Clear to Auscultation Cardiovascular: NL Sounds; No Murmurs; No JVD, RRR Abdominal: No Hepatosplenomegaly, - - soft, nontender, nondistended, pigtail drain with cloudy liu fluid, ERICA drain on L with scant amt of cloudy fluid Lymphatic: No Cervical Adenopathy Extremities: No Edema Skin: No Rash or Ulcers Neurological: Alert and Oriented x 3 Result Diagrams: 11/23/19 14:28 11/24/19 14:37 Assess/Plan/Problems-Billing Assessment: 39W with type 1 DM, recent perforated appendix (s/p appendectomy with drain placement), hypothyroidism and bipolar disorder, presents with right sided abdominal pain, nausea and vomiting. Found with DKA 2/2 to nonadherence and worsening intrabdominal abscess. s/p ICU with insulin drip. Transferred to floor on 11/22. - Patient Problems (1) Intra-abdominal abscess Comment: s/p has pigtail drain on right and ERICA on left draining purulent material. Growing streptococcus and MRSA -cont ceftriaxone, and Flagyl (11/21 - ); will need 3-4 weeks of antibiotics. -added vancomycin (11/23 - ) -ID and surgery following (2) Insulin dependent diabetes mellitus Comment: Nonadherence to medications at home - HgbA1c is 17%. Presents in DKA. - cont insulin glargine 30units daily - increase lispro sliding scale and follow blood glucose - pending CGM in Endo clinic; Christine RN working with patient (3) DKA (diabetic ketoacidoses) Comment: Secondary to nonadherence and infection. - resolved s/p insulin drip, AG closed (4) Depression Comment: -Continue wellbutrin -According to patient serquel and depakote was stopped by her psychiatrist (5) Hypothyroidism Comment: TSH of 18 possibly from poor adherence. - cont levothyroxine 300mcg - recheck TSH again by end december (6) DVT prophylaxis Comment: -on lovenox Status and Disposition: Inpatient will need SNF for iv antibiotics
[2019-11-26] MEDS ORDERED: Insulin LISPRO* 1 UNITS UNIT SUBCUT SCH (16:30)
[2019-11-26] MEDS: Morphine INJ* 2 MG/ML 1 ML SYRINGE (TWO MG - NEW SYRINGE VERSION) IV PRN ×2 (17:01→23:45)
[2019-11-26] MEDS: Insulin GLARGINE(*) 1 UNITS UNIT SUBCUT SCH (22:09)
[2019-11-26] MEDS: Enoxaparin(*) 40 MG/0.4 ML SYR SUBCUT SCH (22:10)
[2019-11-27] MEDS: Vancomycin(*) 750 MG in NS 0.9% 250 ML* 250 ML IVPB SCH ×3 (01:28→22:47)
[2019-11-27] MEDS: Levothyroxine TAB* 150 MCG TAB PO SCH (05:55)
[2019-11-27 06:24] LABS: ABS Eosinophils 0.1 10^3/ul (0-0.6); ABS Lymphocytes 1.3 10^3/ul (1.0-4.8); ABS Neutrophils 5.9 10^3/ul (1.5-7.7); Eosinophil % 0.9 %; Hematocrit 27 % (35-47); Hemoglobin 9.2 g/dL (12.0-16.0); Lymphocyte % 15.3 %; Mean Corpuscular HGB Conc 34 g/dL (31-36); Mean Corpuscular Hemoglobin 31 pg (27-31); Mean Corpuscular Volume 91 fL (80-97); Mean Platelet Volume 6.7 fL (7.4-10.4); Platelet Count 569 10^3/uL (150-450); Red Blood Count 2.99 10^6 /uL (3.70-4.87); Red Cell Distribution Width 15 % (10-15); White Blood Count 8.3 10^3/uL (3.5-10.8)
[2019-11-27 06:45] LABS: ALT 7 U/L (7-52); AST 11 U/L (13-39); Albumin 2.5 g/dL (3.2-5.2); Albumin/Globulin Ratio 0.8 (1-3); Alkaline Phosphatase 46 U/L (34-104); Anion Gap 3 mmol/L (2-11); BUN/Creatinine Ratio 4.8 (8-20); Blood Urea Nitrogen 4 mg/dL (6-24); C Reactive Protein 7.25 mg/L (<8.01); CO2 Carbon Dioxide 32 mmol/L (22-32); Calcium 8.5 mg/dL (8.6-10.3); Chloride 106 mmol/L (101-111); EGFR African American 92.6 (>60); EGFR Non-African American 76.5 (>60); Globulin 3.2 g/dL (2-4); Glucose 154 mg/dL (70-100); Potassium 3.3 mmol/L (3.5-5.0); Sodium 141 mmol/L (135-145); Total Protein 5.7 g/dL (6.4-8.9)
[2019-11-27] MEDS ORDERED: Potassium Chlor TAB* 20 MEQ TAB.ER PO ONE ×2 (07:06→16:27)
--- NOTE | 2019-11-27 07:08 | PN ---
Subjective Date of Service: 11/27/19 Interval History: HD 7 on 11/27 transferred from ICU on 11/22 39 F with Insulin dependent DM, recent perforated appendix(s/p appendectomy with drain placement), Hypothyroidism and Bipolar presented with right sided abdominal pain, nausea and vomiting. Found to be in DKA 2/2 to noncompliance, worsening intrabdominal abscess with drain revision. Treated in ICU for 2 days with insulin drip. Transferred to floor on 11/22. Overnight: No acute overnight events. two drains on abdomen draining liu-colored fluid. vitals: stable Patient has right abdominal pain but is getting better. Tolerating well. Objective Active Medications: Acetaminophen (Tylenol Tab*) 650 mg PO Q4H PRN PRN Reason: PAIN - MILD Last Admin: 11/22/19 16:28 Dose: 650 mg Bupropion HCl (Bupropion Xl*) 300 mg PO DAILY [facility] Last Admin: 11/26/19 07:18 Dose: 300 mg Dextrose (D50w Syringe 50 Ml*) 12.5 gm IV PUSH .FOR FS < 60 - SS PRN PRN Reason: FS < 60 Enoxaparin Sodium (Lovenox(*)) 40 mg SUBCUT BEDTIME [facility] Last Admin: 11/26/19 22:10 Dose: 40 mg Heparin Sodium (Porcine) (Heparin Flush Picc/Ml/Cvc(*)) 1 - 3 ml FLUSH 0600, 1800 [facility]; Protocol Last Admin: 11/26/19 17:01 Dose: Not Given Vancomycin HCl 750 mg/ Sodium (Chloride) 250 mls @ 166.667 mls/hr IVPB Q6H [facility] Last Admin: 11/27/19 01:28 Dose: 166.667 mls/hr Ceftriaxone Sodium 1 gm/ (Sodium Chloride) 50 mls @ 100 mls/hr IVPB Q24H [facility] Last Admin: 11/26/19 13:43 Dose: 100 mls/hr Metronidazole/Sodium Chloride (Flagyl 500 Mg Ivpb*) 500 mg in 100 mls @ 100 mls /hr IVPB Q12H [facility] Last Admin: 11/26/19 20:16 Dose: 100 mls/hr Insulin Glargine (Lantus(*)) 30 units SUBCUT Q24H [facility] Last Admin: 11/26/19 22:09 Dose: 30 units Insulin Human Lispro (Humalog*) 0 units SUBCUT AC [facility]; Protocol Last Admin: 11/26/19 17:00 Dose: 6 units Levothyroxine Sodium (Synthroid Tab*) 300 mcg PO DAILY@0600 [facility] Last Admin: 11/27/19 05:55 Dose: 300 mcg Magnesium Hydroxide (Milk Of Magnesia Liq*) 30 ml PO Q6H PRN PRN Reason: CONSTIPATION Morphine Sulfate (Morphine Inj (Syringe))*) 2 mg IV Q6H PRN PRN Reason: PAIN - SEVERE Last Admin: 11/26/19 23:45 Dose: 2 mg Ondansetron HCl (Zofran Inj*) 4 mg IV Q6H PRN PRN Reason: NAUSEA Last Admin: 11/26/19 12:19 Dose: 4 mg Pharmacy Consult (Vancomycin Per Pharmacy*) 1 note FOLLOW UP .VANC PER PHARMACY [facility]; Protocol Pharmacy Profile Note (Vancomycin Trough Check) 1 note FOLLOW UP 0730 ONE Stop: 11/27/19 07:31 Potassium Chloride (Klor Con Er Tab*) 40 meq PO ONCE ONE Stop: 11/27/19 07:07 Vital Signs - 8 hr 11/26/19 11/26/19 11/27/19 23:35 23:45 00:45 Temperature 98.1 F Pulse Rate 92 Respiratory 16 18 17 Rate Blood Pressure 146/78 (mmHg) O2 Sat by Pulse 100 Oximetry 11/27/19 03:34 Temperature 97.7 F Pulse Rate 95 Respiratory 16 Rate Blood Pressure 130/74 (mmHg) O2 Sat by Pulse 98 Oximetry Oxygen Devices in Use Now: None Exam: Patient is sitting comfortably in bed with no acute distress. HEENT: Normocephalic and atraumatic Chest: clear with no added sounds. Heart: S1/S2 heard with no murmur Abdomen: Two drain in right and left lower quadrant draining purulent discharge. Tenderness on lower quadrant Extremities: No swelling Neuro: alert, oriented and coperative. Result Diagrams: 11/27/19 06:00 11/27/19 06:00 Additional Lab and Data: Lab Results 11/20/19 11/20/19 11/20/19 Range/Units 21:00 21:00 21:00 WBC 12.1 H (3.5-10.8) 10^3/uL RBC 3.82 (3.70-4.87) 10^6 /uL Hgb 11.4 L (12.0-16.0) g/dL Hct 36 (35-47) % MCV 93 (80-97) fL MCH 30 (27-31) pg MCHC 32 (31-36) g/dL RDW 15 (10-15) % Plt Count 671 H (150-450) 10^3/uL MPV 7.3 L (7.4-10.4) fL Neut % (Auto) 83.4 % Lymph % (Auto) 9.1 % Ector % (Auto) 6.9 % Eos % (Auto) 0.1 % Baso % (Auto) 0.5 % Absolute Neuts (auto) 10.1 H (1.5-7.7) 10^3/ul Absolute Lymphs (auto) 1.1 (1.0-4.8) 10^3/ul Absolute Monos (auto) 0.8 (0-0.8) 10^3/ul Absolute Eos (auto) 0.0 (0-0.6) 10^3/ul Absolute Basos (auto) 0.1 (0-0.2) 10^3/ul Absolute Nucleated RBC 0.0 10^3/ul Nucleated RBC % 0.0 INR (Anticoag Therapy) 1.07 (0.82-1.09) Sodium 129 L (135-145) mmol/L Potassium 4.3 (3.5-5.0) mmol/L Chloride 93 L (101-111) mmol/L Carbon Dioxide 19 L (22-32) mmol/L Anion Gap 17 H (2-11) mmol/L BUN 12 (6-24) mg/dL Creatinine 0.85 (0.51-0.95) mg/dL Est GFR ( Amer) 90.1 (>60) Est GFR (Non-Af Amer) 74.5 (>60) BUN/Creatinine Ratio 14.1 (8-20) Glucose 522 H* (70-100) mg/dL Lactic Acid (0.5-2.0) mmol/L Calcium 9.7 (8.6-10.3) mg/dL Total Bilirubin 0.30 (0.2-1.0) mg/dL AST 8 L (13-39) U/L ALT 7 (7-52) U/L Alkaline Phosphatase 64 (34-104) U/L C-Reactive Protein 51.24 H (<8.01) mg/L Total Protein 8.0 (6.4-8.9) g/dL Albumin 3.6 (3.2-5.2) g/dL Globulin 4.4 H (2-4) g/dL Albumin/Globulin Ratio 0.8 L (1-3) Amylase 29 (29-103) U/L Lipase 15 (11.0-82.0) U/L Beta HCG, Quant 1.20 mIU/mL 11/20/19 Range/Units 21:00 WBC (3.5-10.8) 10^3/uL RBC (3.70-4.87) 10^6 /uL Hgb (12.0-16.0) g/dL Hct (35-47) % MCV (80-97) fL MCH (27-31) pg MCHC (31-36) g/dL RDW (10-15) % Plt Count (150-450) 10^3/uL MPV (7.4-10.4) fL Neut % (Auto) % Lymph % (Auto) % Ector % (Auto) % Eos % (Auto) % Baso % (Auto) % Absolute Neuts (auto) (1.5-7.7) 10^3/ul Absolute Lymphs (auto) (1.0-4.8) 10^3/ul Absolute Monos (auto) (0-0.8) 10^3/ul Absolute Eos (auto) (0-0.6) 10^3/ul Absolute Basos (auto) (0-0.2) 10^3/ul Absolute Nucleated RBC 10^3/ul Nucleated RBC % INR (Anticoag Therapy) (0.82-1.09) Sodium (135-145) mmol/L Potassium (3.5-5.0) mmol/L Chloride (101-111) mmol/L Carbon Dioxide (22-32) mmol/L Anion Gap (2-11) mmol/L BUN (6-24) mg/dL Creatinine (0.51-0.95) mg/dL Est GFR ( Amer) (>60) Est GFR (Non-Af Amer) (>60) BUN/Creatinine Ratio (8-20) Glucose (70-100) mg/dL Lactic Acid 1.7 (0.5-2.0) mmol/L Calcium (8.6-10.3) mg/dL Total Bilirubin (0.2-1.0) mg/dL AST (13-39) U/L ALT (7-52) U/L Alkaline Phosphatase (34-104) U/L C-Reactive Protein (<8.01) mg/L Total Protein (6.4-8.9) g/dL Albumin (3.2-5.2) g/dL Globulin (2-4) g/dL Albumin/Globulin Ratio (1-3) Amylase (29-103) U/L Lipase (11.0-82.0) U/L Beta HCG, Quant mIU/mL Microbiology and Other Data: Microbiology 11/22/19 17:00 Gram Stain - Final Peritoneal Fluid Body Fluid Culture - Final Streptococcus Constellatus MRSA Skin and Soft Tissue MRSA/MSSA (PCR - Final Mrsa Positive S.aureus Positive 11/20/19 21:00 Aerobic Blood Culture - Final Blood Venous No Growth Day 5 Anaerobic Blood Culture - Final No Growth Day 5 11/20/19 21:00 Aerobic Blood Culture - Final Blood Venous No Growth Day 5 Anaerobic Blood Culture - Final No Growth Day 5 Assess/Plan/Problems-Billing Assessment: 39W with type 1 DM, recent perforated appendix (s/p appendectomy with drain placement), hypothyroidism and bipolar disorder, presents with right sided abdominal pain, nausea and vomiting. Found with DKA 2/2 to nonadherence and worsening intrabdominal abscess. s/p ICU with insulin drip. Transferred to floor on 11/22. - Patient Problems (1) DKA (diabetic ketoacidoses) Current Visit: Yes Status: Acute Code(s): E11.10 - TYPE 2 DIABETES MELLITUS WITH KETOACIDOSIS WITHOUT COMA SNOMED Code(s): 919500161 Comment: -Secondary to nonadherence and infection. - resolved s/p insulin drip, AG closed (2) Insulin dependent diabetes mellitus Current Visit: Yes Status: Acute Code(s): E11.9 - TYPE 2 DIABETES MELLITUS WITHOUT COMPLICATIONS; Z79.4 - EXECUTIVE SECRETARY (CURRENT) USE OF INSULIN SNOMED Code( s): 84077083 Comment: -Nonadherence to medications at home - HgbA1c is 17%. Presents in DKA. - cont insulin glargine 30units daily - increase lispro sliding scale and follow blood glucose - pending CGM in Endo clinic; Christine RN working with patient (3) Intra-abdominal abscess Current Visit: Yes Status: Acute Code(s): K65.1 - PERITONEAL ABSCESS SNOMED Code(s): 07846443 Comment: -s/p has pigtail drain on right and ERICA on left draining purulent material. Growing streptococcus and MRSA -cont ceftriaxone, and Flagyl (11/21 - ); will need 3-4 weeks of antibiotics. -added vancomycin (11/23 - ) -ID and surgery following -surgery following- recommended CT abdomen/pelvis- pending (4) Depression Current Visit: Yes Status: Acute Code(s): F32.9 - MAJOR DEPRESSIVE DISORDER , SINGLE EPISODE, UNSPECIFIED SNOMED Code(s): 59190702 Comment: -Continue wellbutrin -According to patient serquel and depakote was stopped by her psychiatrist (5) Sepsis Current Visit: No Status: Acute Comment: - resolved -met with leucocytosis with tachycardia; source is abdomen -lactic acid normal -resolved now -on abx (6) Hypothyroidism Current Visit: Yes Status: Acute Code(s): E03.9 - HYPOTHYROIDISM, UNSPECIFIED SNOMED Code(s): 20752921 Comment: -TSH of 18 possibly from poor adherence. - cont levothyroxine 300mcg - recheck TSH again by end of December (7) DVT prophylaxis Current Visit: No Status: Acute Code(s): Z29.9 - ENCOUNTER FOR PROPHYLACTIC MEASURES, UNSPECIFIED SNOMED Code(s): 162936208 Comment: -on lovenox (8) Full code status Current Visit: No Status: Acute Code(s): Z78.9 - OTHER SPECIFIED HEALTH STATUS SNOMED Code(s): 412170951 Comment: Status and Disposition: Inpatient will need SNF for iv antibiotics Attending: Sherrie Avitia Attestation Documenting Resident: Shivani Campoverde Supervising Physician: Sherrie Avitia Attestation: This service has been performed in part by a resident under the direction of a teaching physician.I, Sherrie Avitia, performed the service, or was physically present during the critical, or krishnan portions of the service, furnished by the resident. I participated in the management of the patient.
[2019-11-27 07:29] LABS: Magnesium 1.5 mg/dL (1.9-2.7)
[2019-11-27] MEDS ORDERED: Vancomycin Trough Check NOTE FOLLOW UP ONE (07:30)
[2019-11-27] MEDS: Morphine INJ* 2 MG/ML 1 ML SYRINGE (TWO MG - NEW SYRINGE VERSION) IV PRN ×2 (08:36→17:58)
[2019-11-27 08:49] LABS: % Iron Saturation 19 % (15-55); Iron 29 ug/dL (50-212); Total Iron Binding Capacity 150 mcg/dL (250-450); Transferrin 107 mg/dL (203-362)
[2019-11-27] MEDS: metroNIDAZOLE IV 500 MG/100ML* 500 MG/100 ML BAG IVPB SCH ×2 (08:51→20:14)
[2019-11-27] MEDS: Insulin LISPRO* 1 UNITS UNIT SUBCUT SCH ×3 (08:51→17:06)
[2019-11-27] MEDS: BuPROPion XL* 300 MG TAB.XL PO SCH (08:51)
[2019-11-27 09:09] LABS: Ferritin 165.5 ng/mL (11-307)
[2019-11-27 10:07] LABS: Vancomycin Trough 32.6 mcg/mL
--- NOTE | 2019-11-27 11:02 | PN ---
Progress Note - Progress Note Date of Service: 11/27/19 SOAP: Subjective: CC: Abdominal abscess HPI: Ms. Niesha Jasso is a 39 yo female with PMH significant for DM1, hypothyroidism , depression, and bipolar disorder; hospitalized last month for a perforated appendicitis and ABD abscess. She returned to the ED due to increased ABD pain, and was found to have another ABD abscess. Denies fever, chills, vomiting, or diarrhea. Reports continued ABD discomfort, nausea, and decreased appetite ( reports this is improving). Objective: Vital Signs - 8 hr 11/27/19 11/27/19 11/27/19 03:34 07:48 08:36 Temperature 97.7 F 97.6 F Pulse Rate 95 94 Respiratory 16 17 16 Rate Blood Pressure 130/74 133/76 (mmHg) O2 Sat by Pulse 98 98 Oximetry Physical Exam: General: NAD, sitting up in a chair Neurological: Alert and Oriented HEENT: Moist MM Cardiovascular: Heart rate regular Respiratory: Lung sounds clear Abdominal: Bowel sounds present; ABD soft, non distended, tenderness in lower ABD MSK: Moves all extremities Skin: No rash. ERICA drain and Pig tail drain to lower ABD with purulent drainage Laboratory Results - last 24 hr 11/27/19 11/27/19 11/27/19 06:00 06:00 07:42 WBC 8.3 RBC 2.99 L Hgb 9.2 L Hct 27 L MCV 91 MCH 31 MCHC 34 RDW 15 Plt Count 569 H MPV 6.7 L Neut % (Auto) 71.6 Lymph % (Auto) 15.3 Smith % (Auto) 11.7 Eos % (Auto) 0.9 Baso % (Auto) 0.5 Absolute Neuts (auto) 5.9 Absolute Lymphs (auto) 1.3 Absolute Monos (auto) 1.0 H Absolute Eos (auto) 0.1 Absolute Basos (auto) 0.0 Absolute Nucleated RBC 0.0 Nucleated RBC % 0.0 Sodium 141 Potassium 3.3 L Chloride 106 Carbon Dioxide 32 Anion Gap 3 BUN 4 L Creatinine 0.83 Est GFR ( Amer) 92.6 Est GFR (Non-Af Amer) 76.5 BUN/Creatinine Ratio 4.8 L Glucose 154 H POC Glucose (mg/dL) 145 H Calcium 8.5 L Magnesium 1.5 L Total Bilirubin 0.20 AST 11 L ALT 7 Alkaline Phosphatase 46 C-Reactive Protein 7.25 Total Protein 5.7 L Albumin 2.5 L Globulin 3.2 Albumin/Globulin Ratio 0.8 L 11/27/19 08:00 Iron 29 L TIBC 150 L % Saturation 19 Unsat Iron Binding < 135 Transferrin 107 L Ferritin 165.5 Vancomycin Trough 32.6 H* Microbiology 11/22/19 17:00 Gram Stain - Final Peritoneal Fluid Body Fluid Culture - Final Streptococcus Constellatus MRSA Skin and Soft Tissue MRSA/MSSA (PCR - Final Mrsa Positive S.aureus Positive 11/20/19 21:00 Aerobic Blood Culture - Final Blood Venous No Growth Day 5 Anaerobic Blood Culture - Final No Growth Day 5 11/20/19 21:00 Aerobic Blood Culture - Final Blood Venous No Growth Day 5 Anaerobic Blood Culture - Final No Growth Day 5 Assessment: 1. ABD abscess, loculated. Perforated appendicitis in October, s/p appy. Found to have ABD abscess and was discharged on oral ABX and drains in place. Cultures with streptococcus constellatus and bacteroides in October. Pigtail drain was repositioned on 11/[address] scan showed increased abscess. Pigtail drain replaced and repositioned and ERICA drainage remains in place, draining purulent drainage. Peritoneal fluid with Streptococcus and MRSA. Blood cultures with no growth to date. Afebrile and no leukocytosis. 2. Thrombocytosis. Suspect secondary to #1. 3. DM1. Plan: Continue Ceftriaxone 1 gm IV daily and Vanco, trough goal 15-20 and Flagyl (BID) ; day 7/21-28. Will need to have midline or PICC line placed. Will need repeat ABD CT scan prior to completion of ABX. Weekly labs while on IV ABX: CBC, CMP, and CRP.
[2019-11-27 11:18] LABS: HCG Pregnancy < 0.60 mIU/mL
--- NOTE | 2019-11-27 12:07 | PN ---
Progress Note - Progress Note Date of Service: 11/27/19 SOAP: Subjective: NAD comfortable in bed Tolerating diet + Flatus + BM's c/o pain at pigtail site [] Objective: Vital Signs Temp 97.7 F 11/27/19 11:07 Pulse 98 11/27/19 11:07 Resp 15 11/27/19 11:07 BP 120/67 11/27/19 11:07 Pulse Ox 100 11/27/19 11:07 Intake & Output 11/26/19 11/27/19 11/27/19 18:59 06:59 18:59 Intake Total 760 33 362 Output Total 60 Balance 760 33 302 Intake: IV Fluids 33 17 D5W 1/2 NS 33 NS (0.9%) 17 IVPB 100 105 ABX - FLAGYL 100 105 Oral 660 0 240 Output: ERICA #1 pigtail 50 ERICA #2 ERICA 10 Other: # Bowel Movements 0 # Voids 0 Microbiology 11/22/19 17:00 Peritoneal Fluid Gram Stain - Final 11/22/19 17:00 Peritoneal Fluid Skin and Soft Tissue MRSA/MSSA (PCR - Final Streptococcus Constellatus MRSA Mrsa Positive S.aureus Positive Laboratory Tests 11/27/19 11/27/19 06:00 06:00 WBC 8.3 Potassium 3.3 L PEX Gen: NAD ABD: soft, non distended, + right sided tenderness, no guarding Right Pigtail with purulent output, Left ERICA with serous output tender at pigtail site. dressing c/d/i EXT: calves soft non tender [] Assessment: 39 yo female HD 7 s/p lap appy for per appendix with abscess in October, re admit for persistent abscesses s/p drainage, on IV ABX [] Plan: Repeat CT today ABD/PEL with PO and IV Contrast. Cont ABX per ID, ERICA to ss, Pigtail to gravity, cont current diet. Ambulation encouraged. Replace K+. Above D/W Dr Tavera []
[2019-11-27] MEDS: cefTRIAXone(*) 1 GM in NS 0.9% 50 ML* 50 ML IVPB SCH (14:06)
[2019-11-27] MEDS ORDERED: Iodixanol* (CONTRAST) 320 MG/ML 100 ML SDV IV ONE (15:39)
[2019-11-27] MEDS ORDERED: Magnesium Sulfate IV* 3 GM in NS 0.9% 100 ML* 100 ML IVPB ONE (16:26)
[2019-11-27] MEDS ORDERED: Vancomycin Random Level* NOTE FOLLOW UP ONE (18:00)
[2019-11-27] MEDS: Enoxaparin(*) 40 MG/0.4 ML SYR SUBCUT SCH (20:14)
[2019-11-27] MEDS: Insulin GLARGINE(*) 1 UNITS UNIT SUBCUT SCH (20:14)
[2019-11-27] MEDS: Acetaminophen TAB* 325 MG PO PRN (21:07)
[2019-11-28] MEDS: Morphine INJ* 2 MG/ML 1 ML SYRINGE (TWO MG - NEW SYRINGE VERSION) IV PRN (05:14)
[2019-11-28] MEDS: Vancomycin(*) 750 MG in NS 0.9% 250 ML* 250 ML IVPB SCH ×3 (05:14→22:43)
[2019-11-28 05:40] LABS: ABS Basophils 0.1 10^3/ul (0-0.2); ABS Eosinophils 0.1 10^3/ul (0-0.6); ABS Lymphocytes 1.3 10^3/ul (1.0-4.8); ABS Monocytes 0.9 10^3/ul (0-0.8); Eosinophil % 1.3 %; Hematocrit 27 % (35-47); Lymphocyte % 17.2 %; Mean Corpuscular HGB Conc 34 g/dL (31-36); Mean Corpuscular Hemoglobin 31 pg (27-31); Mean Corpuscular Volume 92 fL (80-97); Mean Platelet Volume 6.5 fL (7.4-10.4); Platelet Count 540 10^3/uL (150-450); Red Cell Distribution Width 15 % (10-15); White Blood Count 7.4 10^3/uL (3.5-10.8)
[2019-11-28 05:54] LABS: Calcium 8.3 mg/dL (8.6-10.3); Magnesium 2.4 mg/dL (1.9-2.7); Potassium 3.9 mmol/L (3.5-5.0)
[2019-11-28 05:59] LABS: BUN/Creatinine Ratio 5.4 (8-20); EGFR African American 82.2 (>60)
[2019-11-28] MEDS: Levothyroxine TAB* 150 MCG TAB PO SCH (06:14)
[2019-11-28] MEDS: Acetaminophen TAB* 325 MG PO PRN (08:51)
[2019-11-28] MEDS: metroNIDAZOLE IV 500 MG/100ML* 500 MG/100 ML BAG IVPB SCH ×2 (08:51→21:12)
[2019-11-28] MEDS: BuPROPion XL* 300 MG TAB.XL PO SCH (08:51)
[2019-11-28] MEDS: Insulin LISPRO* 1 UNITS UNIT SUBCUT SCH ×3 (09:00→16:47)
--- NOTE | 2019-11-28 10:05 | PN ---
Progress Note - Progress Note Date of Service: 11/28/19 SOAP: Subjective: CC: Abdominal abscess HPI: Ms. Niesha Jasso is a 39 yo female with PMH significant for DM1, hypothyroidism , depression, and bipolar disorder; hospitalized last month for a perforated appendicitis and ABD abscess. She returned to the ED due to increased ABD pain, and was found to have another ABD abscess. Denies fever, chills, vomiting. Reports 3-4 loose stools overnight, and nausea. She continues to have ABD discomfort and decreased appetite (reports these are improving). Objective: Vital Signs - 8 hr 11/28/19 11/28/19 11/28/19 03:28 05:14 08:00 Temperature 97.9 F 97.8 F Pulse Rate 90 92 Respiratory 16 16 16 Rate Blood Pressure 121/74 139/79 (mmHg) O2 Sat by Pulse 98 98 Oximetry Physical Exam: General: NAD, sitting up in a chair Neurological: Alert and Oriented HEENT: Moist MM Cardiovascular: Heart rate regular Respiratory: Lung sounds clear Abdominal: Bowel sounds present; ABD soft, non distended, diffuse tenderness MSK: Moves all extremities Skin: No rash. ERICA drain and Pig tail drain to lower ABD with purulent drainage Laboratory Results - last 24 hr 11/27/19 11/27/19 11/27/19 Sodium 141 Potassium 3.3 L Chloride 106 Carbon Dioxide 32 Anion Gap 3 BUN 4 L Creatinine 0.83 Est GFR ( Amer) 92.6 Est GFR (Non-Af Amer) 76.5 BUN/Creatinine Ratio 4.8 L Glucose 154 H POC Glucose (mg/dL) 249 H Calcium 8.5 L Magnesium 1.5 L Total Bilirubin 0.20 AST 11 L ALT 7 Alkaline Phosphatase 46 C-Reactive Protein 7.25 Total Protein 5.7 L Albumin 2.5 L Globulin 3.2 Albumin/Globulin Ratio 0.8 L Beta HCG, Quant < 0.60 Vancomycin Trough 32.6 H* 11/27/19 11/27/19 11/28/19 17:05 18:11 05:20 Sodium 141 Potassium 3.9 Chloride 107 Carbon Dioxide 31 Anion Gap 3 BUN 5 L Creatinine 0.92 Est GFR ( Amer) 82.2 Est GFR (Non-Af Amer) 68.0 BUN/Creatinine Ratio 5.4 L Glucose 128 H POC Glucose (mg/dL) 100 Calcium 8.3 L Magnesium 2.4 Random Vancomycin 18.4 11/28/19 11/28/19 05:20 07:39 WBC 7.4 RBC 2.90 L Hgb 9.0 L Hct 27 L MCV 92 MCH 31 MCHC 34 RDW 15 Plt Count 540 H MPV 6.5 L Neut % (Auto) 67.8 Lymph % (Auto) 17.2 Castro % (Auto) 12.8 Eos % (Auto) 1.3 Baso % (Auto) 0.9 Absolute Neuts (auto) 5.0 Absolute Lymphs (auto) 1.3 Absolute Monos (auto) 0.9 H Absolute Eos (auto) 0.1 Absolute Basos (auto) 0.1 Absolute Nucleated RBC 0.0 Nucleated RBC % 0.0 POC Glucose (mg/dL) 107 H Microbiology 11/22/19 17:00 Gram Stain - Final Peritoneal Fluid Body Fluid Culture - Final Streptococcus Constellatus MRSA Skin and Soft Tissue MRSA/MSSA (PCR - Final Mrsa Positive S.aureus Positive 11/20/19 21:00 Aerobic Blood Culture - Final Blood Venous No Growth Day 5 Anaerobic Blood Culture - Final No Growth Day 5 11/20/19 21:00 Aerobic Blood Culture - Final Blood Venous No Growth Day 5 Anaerobic Blood Culture - Final No Growth Day 5 Assessment: 1. ABD abscess, loculated. Perforated appendicitis in October, s/p appy. Found to have ABD abscess and was discharged on oral ABX and drains in place. Cultures with streptococcus constellatus and bacteroides in October. Pigtail drain was repositioned on 11/[address] scan showed increased abscess. Pigtail drain replaced and repositioned and ERICA drainage remains in place, draining purulent drainage. Peritoneal fluid with Streptococcus and MRSA. Blood cultures with no growth to date. Repeat CT scan yesterday shows decrease in overall burden of loculated fluifd collections in the right ABD wall. Afebrile and no leukocytosis. 2. Thrombocytosis. Suspect secondary to #1. 3. DM1. Plan: Continue Ceftriaxone 1 gm IV daily and Vanco, trough goal 15-20 and Flagyl (BID) ; day 05/31-. Midline has been placed. Plan for discharge: Ceftriaxone 1 gm IV daily, Vancomycin 1,000 mg IV BID, and Flagyl 500 MG PO BID (If she is unable to tolerate PO can switch back to IV). Weekly labs while on IV ABX: CBC, CMP, and CRP. Followup outpatient with ID (if she is discharged to [facility], I will see her there for followup). She will need repeat CT scan prior to completion of IV ABX.
--- NOTE | 2019-11-28 13:27 | PN ---
Subjective Date of Service: 11/28/19 Interval History: HD 8 on 11/28 transferred from ICU on 11/22 39 F with Insulin dependent DM, recent perforated appendix(s/p appendectomy with drain placement), Hypothyroidism and Bipolar presented with right sided abdominal pain, nausea and vomiting. Found to be in DKA 2/2 to noncompliance, worsening intrabdominal abscess with drain revision. Treated in ICU for 2 days with insulin drip. Transferred to floor on 11/22. Overnight: No acute overnight events. two drains on abdomen draining liu-colored fluid. vitals: stable Patient seen and examined at bedside. Patient states her pain is getting better. Has mild nausea but no vomiting. tolerating PO well ERICA drain on left side removed today. right side pigtail drain draining muddy fluid Objective Active Medications: Acetaminophen (Tylenol Tab*) 650 mg PO Q4H PRN PRN Reason: PAIN - MILD Last Admin: 11/28/19 08:51 Dose: 650 mg Bupropion HCl (Bupropion Xl*) 300 mg PO DAILY [facility] Last Admin: 11/28/19 08:51 Dose: 300 mg Dextrose (D50w Syringe 50 Ml*) 12.5 gm IV PUSH .FOR FS < 60 - SS PRN PRN Reason: FS < 60 Enoxaparin Sodium (Lovenox(*)) 40 mg SUBCUT BEDTIME [facility] Last Admin: 11/27/19 20:14 Dose: 40 mg Heparin Sodium (Porcine) (Heparin Flush Picc/Ml/Cvc(*)) 1 - 3 ml FLUSH 0600, 1800 [facility]; Protocol Last Admin: 11/28/19 06:03 Dose: Not Given Ceftriaxone Sodium 1 gm/ (Sodium Chloride) 50 mls @ 100 mls/hr IVPB Q24H [facility] Last Admin: 11/27/19 14:06 Dose: 100 mls/hr Metronidazole/Sodium Chloride (Flagyl 500 Mg Ivpb*) 500 mg in 100 mls @ 100 mls /hr IVPB Q12H [facility] Last Admin: 11/28/19 08:51 Dose: 100 mls/hr Vancomycin HCl 750 mg/ Sodium (Chloride) 250 mls @ 166.667 mls/hr IVPB Q8H [facility] Last Admin: 11/28/19 12:21 Dose: 166.667 mls/hr Insulin Glargine (Lantus(*)) 30 units SUBCUT Q24H [facility] Last Admin: 11/27/19 20:14 Dose: 30 units Insulin Human Lispro (Humalog*) 0 units SUBCUT [facility]; Protocol Last Admin: 11/28/19 12:21 Dose: 3 units Levothyroxine Sodium (Synthroid Tab*) 300 mcg PO DAILY@0600 [facility] Last Admin: 11/28/19 06:14 Dose: 300 mcg Magnesium Hydroxide (Milk Of Magnesia Liq*) 30 ml PO Q6H PRN PRN Reason: CONSTIPATION Morphine Sulfate (Morphine Inj (Syringe))*) 2 mg IV Q6H PRN PRN Reason: PAIN - SEVERE Last Admin: 11/28/19 05:14 Dose: 2 mg Ondansetron HCl (Zofran Inj*) 4 mg IV Q6H PRN PRN Reason: NAUSEA Last Admin: 11/26/19 12:19 Dose: 4 mg Pharmacy Consult (Vancomycin Per Pharmacy*) 1 note FOLLOW UP .VANC PER PHARMACY [facility]; Protocol Pharmacy Profile Note (Vancomycin Trough Check) 1 note FOLLOW UP 1230 ONE Stop: 11/29/19 12:31 Vital Signs - 8 hr 11/28/19 11/28/19 11/28/19 08:00 09:01 11:14 Temperature 97.8 F 97 F Pulse Rate 92 90 Respiratory 16 16 16 Rate Blood Pressure 139/79 138/81 (mmHg) O2 Sat by Pulse 98 100 Oximetry Oxygen Devices in Use Now: None Exam: Patient is sitting comfortably in bed with no acute distress. HEENT: Normocephalic and atraumatic Chest: clear with no added sounds. Heart: S1/S2 heard with no murmur Abdomen: right side pigtail drain draining muddy fluid. mIld tenderness on right side Extremities: No swelling Neuro: alert, oriented and coperative. Result Diagrams: 11/28/19 05:20 11/28/19 05:20 Additional Lab and Data: Lab Results 11/20/19 11/20/19 11/20/19 Range/Units 21:00 21:00 21:00 WBC 12.1 H (3.5-10.8) 10^3/uL RBC 3.82 (3.70-4.87) 10^6 /uL Hgb 11.4 L (12.0-16.0) g/dL Hct 36 (35-47) % MCV 93 (80-97) fL MCH 30 (27-31) pg MCHC 32 (31-36) g/dL RDW 15 (10-15) % Plt Count 671 H (150-450) 10^3/uL MPV 7.3 L (7.4-10.4) fL Neut % (Auto) 83.4 % Lymph % (Auto) 9.1 % Haakon % (Auto) 6.9 % Eos % (Auto) 0.1 % Baso % (Auto) 0.5 % Absolute Neuts (auto) 10.1 H (1.5-7.7) 10^3/ul Absolute Lymphs (auto) 1.1 (1.0-4.8) 10^3/ul Absolute Monos (auto) 0.8 (0-0.8) 10^3/ul Absolute Eos (auto) 0.0 (0-0.6) 10^3/ul Absolute Basos (auto) 0.1 (0-0.2) 10^3/ul Absolute Nucleated RBC 0.0 10^3/ul Nucleated RBC % 0.0 INR (Anticoag Therapy) 1.07 (0.82-1.09) Sodium 129 L (135-145) mmol/L Potassium 4.3 (3.5-5.0) mmol/L Chloride 93 L (101-111) mmol/L Carbon Dioxide 19 L (22-32) mmol/L Anion Gap 17 H (2-11) mmol/L BUN 12 (6-24) mg/dL Creatinine 0.85 (0.51-0.95) mg/dL Est GFR ( Amer) 90.1 (>60) Est GFR (Non-Af Amer) 74.5 (>60) BUN/Creatinine Ratio 14.1 (8-20) Glucose 522 H* (70-100) mg/dL Lactic Acid (0.5-2.0) mmol/L Calcium 9.7 (8.6-10.3) mg/dL Total Bilirubin 0.30 (0.2-1.0) mg/dL AST 8 L (13-39) U/L ALT 7 (7-52) U/L Alkaline Phosphatase 64 (34-104) U/L C-Reactive Protein 51.24 H (<8.01) mg/L Total Protein 8.0 (6.4-8.9) g/dL Albumin 3.6 (3.2-5.2) g/dL Globulin 4.4 H (2-4) g/dL Albumin/Globulin Ratio 0.8 L (1-3) Amylase 29 (29-103) U/L Lipase 15 (11.0-82.0) U/L Beta HCG, Quant 1.20 mIU/mL 11/20/19 Range/Units 21:00 WBC (3.5-10.8) 10^3/uL RBC (3.70-4.87) 10^6 /uL Hgb (12.0-16.0) g/dL Hct (35-47) % MCV (80-97) fL MCH (27-31) pg MCHC (31-36) g/dL RDW (10-15) % Plt Count (150-450) 10^3/uL MPV (7.4-10.4) fL Neut % (Auto) % Lymph % (Auto) % Haakon % (Auto) % Eos % (Auto) % Baso % (Auto) % Absolute Neuts (auto) (1.5-7.7) 10^3/ul Absolute Lymphs (auto) (1.0-4.8) 10^3/ul Absolute Monos (auto) (0-0.8) 10^3/ul Absolute Eos (auto) (0-0.6) 10^3/ul Absolute Basos (auto) (0-0.2) 10^3/ul Absolute Nucleated RBC 10^3/ul Nucleated RBC % INR (Anticoag Therapy) (0.82-1.09) Sodium (135-145) mmol/L Potassium (3.5-5.0) mmol/L Chloride (101-111) mmol/L Carbon Dioxide (22-32) mmol/L Anion Gap (2-11) mmol/L BUN (6-24) mg/dL Creatinine (0.51-0.95) mg/dL Est GFR ( Amer) (>60) Est GFR (Non-Af Amer) (>60) BUN/Creatinine Ratio (8-20) Glucose (70-100) mg/dL Lactic Acid 1.7 (0.5-2.0) mmol/L Calcium (8.6-10.3) mg/dL Total Bilirubin (0.2-1.0) mg/dL AST (13-39) U/L ALT (7-52) U/L Alkaline Phosphatase (34-104) U/L C-Reactive Protein (<8.01) mg/L Total Protein (6.4-8.9) g/dL Albumin (3.2-5.2) g/dL Globulin (2-4) g/dL Albumin/Globulin Ratio (1-3) Amylase (29-103) U/L Lipase (11.0-82.0) U/L Beta HCG, Quant mIU/mL Microbiology and Other Data: Microbiology 11/22/19 17:00 Gram Stain - Final Peritoneal Fluid Body Fluid Culture - Final Streptococcus Constellatus MRSA Skin and Soft Tissue MRSA/MSSA (PCR - Final Mrsa Positive S.aureus Positive 11/20/19 21:00 Aerobic Blood Culture - Final Blood Venous No Growth Day 5 Anaerobic Blood Culture - Final No Growth Day 5 11/20/19 21:00 Aerobic Blood Culture - Final Blood Venous No Growth Day 5 Anaerobic Blood Culture - Final No Growth Day 5 Assess/Plan/Problems-Billing Assessment: 39W with type 1 DM, recent perforated appendix (s/p appendectomy with drain placement), hypothyroidism and bipolar disorder, presents with right sided abdominal pain, nausea and vomiting. Found with DKA 2/2 to nonadherence and worsening intrabdominal abscess. s/p ICU with insulin drip. Transferred to floor on 11/22. - Patient Problems (1) DKA (diabetic ketoacidoses) Current Visit: Yes Status: Acute Code(s): E11.10 - TYPE 2 DIABETES MELLITUS WITH KETOACIDOSIS WITHOUT COMA SNOMED Code(s): 312712443 Comment: -Secondary to nonadherence and infection. -resolved s/p insulin drip, AG closed (2) Insulin dependent diabetes mellitus Current Visit: Yes Status: Acute Code(s): E11.9 - TYPE 2 DIABETES MELLITUS WITHOUT COMPLICATIONS; Z79.4 - RN PALLIATIVE (CURRENT) USE OF INSULIN SNOMED Code( s): 21202295 Comment: Nonadherence to medications at home - HgbA1c is 17%. Presents in DKA. - cont insulin glargine 30units daily - increase lispro sliding scale and follow blood glucose - pending CGM in Endo clinic; Christine RN working with patient (3) Intra-abdominal abscess Current Visit: Yes Status: Acute Code(s): K65.1 - PERITONEAL ABSCESS SNOMED Code(s): 54047929 Comment: s/p has pigtail drain on right and ERICA on left draining purulent material. Growing streptococcus and MRSA; removed L sided ERICA drain on 11/28 -cont ceftriaxone, and Flagyl (11/21 - ); will need 3-4 weeks of antibiotics. -added vancomycin (11/23 - ) -ID and surgery following -CT abdomen/pelvis 11/27 showing decreasing abscess but still pockets of pus present. L drain removal today. -will likely be dc eith right drain in place and will f/u as outpatient -Work to control pain without IV morphine (4) Depression Current Visit: Yes Status: Acute Code(s): F32.9 - MAJOR DEPRESSIVE DISORDER , SINGLE EPISODE, UNSPECIFIED SNOMED Code(s): 94435876 Comment: -Continue wellbutrin -According to patient serquel and depakote was stopped by her psychiatrist (5) Sepsis Current Visit: No Status: Acute Comment: resolved -met with leucocytosis with tachycardia; source is abdomen -lactic acid normal -resolved now -on abx (6) Hypothyroidism Current Visit: Yes Status: Acute Code(s): E03.9 - HYPOTHYROIDISM, UNSPECIFIED SNOMED Code(s): 06403855 Comment: -TSH of 18 possibly from poor adherence. - cont levothyroxine 300mcg - recheck TSH again by end december (7) DVT prophylaxis Current Visit: No Status: Acute Code(s): Z29.9 - ENCOUNTER FOR PROPHYLACTIC MEASURES, UNSPECIFIED SNOMED Code(s): 040009079 Comment: -on lovenox (8) Full code status Current Visit: No Status: Acute Code(s): Z78.9 - OTHER SPECIFIED HEALTH STATUS SNOMED Code(s): 545653767 Comment: Status and Disposition: Inpatient will need SNF for iv antibiotics, check to ensure PICC not midline Attending: Lizzette Valles Attestation Documenting Resident: Shivani Campoverde Supervising Physician: Lizzette Valles Attending/Supervising Physician Comment: Agree with resident note and findings: Attending A/P: 39F with type 1 IDDM, recent perforated appendix (s/p appendectomy with drain placement), hypothyroidism and bipolar disorder, presents with DKA 2/2 to nonadherence and worsening intrabdominal abscess. s/p ICU with insulin drip. Transferred to floor on 11/22. Now awaiting placement to SNF Today, doing well, CT scan shows L sided ERICA drain may be able to be pulled R sided drain still with sig drainage. Will ask surgery to leave recommendations If surgery will address drain mgmt and abx can be shifted by ID patient may be eligible for SNF placement as early as 11/29. Larger ongoing issues are poorly controlled DM, outpt DM nurse educator involved. stop IV morphine and change to oral pain control Attestation: This service has been performed in part by a resident under the direction of a teaching physician.I, Lizzette Valles, performed the service, or was physically present during the critical, or krishnan portions of the service, furnished by the resident. I participated in the management of the patient.
[2019-11-28] MEDS: oxyCODONE TAB* 5 MG TAB PO PRN (16:47)
[2019-11-28] MEDS: cefTRIAXone(*) 1 GM in NS 0.9% 50 ML* 50 ML IVPB SCH (16:48)
--- NOTE | 2019-11-28 20:24 | PN ---
Progress Note - Progress Note Date of Service: 11/28/19 Note: Surgery Progress (late entry; patient seen ~ 11:00) S: patient states that she still has 6/10 pain, but is otherwise doing well O: afeb; VSS Gen: appears comfortable; NAD Abd: soft; mild tenderness R flank and suprapubic areas; remainder soft, nontender. ERICA drain w/ clear drainage in tubing. Pigtail catheter w/ thin cloudy drainage in bag. Dressing changed. ERICA drain removed w/o incident; DSD placed. labs: Laboratory Tests 11/27/19 11/27/19 11/28/19 06:00 17:05 05:20 WBC Hgb Glucose 128 H POC Glucose (mg/dL) 100 C-Reactive Protein 7.25 11/28/19 11/28/19 11/28/19 05:20 07:39 11:46 WBC 7.4 Hgb 9.0 L Glucose POC Glucose (mg/dL) 107 H 192 H C-Reactive Protein 11/28/19 16:35 WBC Hgb Glucose POC Glucose (mg/dL) 191 H C-Reactive Protein CT abd and pelvis 11/27 personally reviewed and with Dr. Tavera; shows a small collection laterally that is not readily drainable by IR, per Dr. Wilson. A: s/p appendectomy and drainage of abscess w/ small, persistent collection after placement of pigtail drain and repositioning one week ago. She continues on abx (ceftriaxone, vancomycin, metronidazole) and appears to be improving clinically by all measures. P: cont abx per ID; cont current pigtail drain; consider repeat imaging at any point that clinical condition is worsening and/or near completion of planned antibiotics, and/or prior to removal of remaining drain.
[2019-11-28] MEDS: Insulin GLARGINE(*) 1 UNITS UNIT SUBCUT SCH (21:12)
[2019-11-28] MEDS: Enoxaparin(*) 40 MG/0.4 ML SYR SUBCUT SCH (21:13)
[2019-11-29] MEDS: Vancomycin(*) 750 MG in NS 0.9% 250 ML* 250 ML IVPB SCH ×2 (06:09→13:50)
[2019-11-29] MEDS: Levothyroxine TAB* 150 MCG TAB PO SCH (06:10)
[2019-11-29] MEDS: oxyCODONE TAB* 5 MG TAB PO PRN ×3 (07:41→22:11)
[2019-11-29] MEDS: BuPROPion XL* 300 MG TAB.XL PO SCH (08:54)
[2019-11-29] MEDS: Insulin LISPRO* 1 UNITS UNIT SUBCUT SCH ×3 (08:54→17:32)
[2019-11-29] MEDS: metroNIDAZOLE IV 500 MG/100ML* 500 MG/100 ML BAG IVPB SCH (08:54)
[2019-11-29] MEDS ORDERED: Alteplase (CATHFLO)* 2 MG VIAL IV ONE (10:19)
--- NOTE | 2019-11-29 10:40 | PN ---
Progress Note - Progress Note Date of Service: 11/29/19 SOAP: Subjective: CC: Abdominal abscess HPI: Ms. Niesha Jasso is a 39 yo female with PMH significant for DM1, hypothyroidism , depression, and bipolar disorder; hospitalized last month for a perforated appendicitis and ABD abscess. She returned to the ED due to increased ABD pain, and was found to have another ABD abscess. Denies fever, chills, vomiting, diarrhea. Reports mild nausea that is improving. She continues to have ABD discomfort and decreased appetite (reports these are improving). Objective: Vital Signs - 8 hr 11/29/19 11/29/19 11/29/19 03:32 07:41 07:47 Temperature 98.6 F 98.1 F Pulse Rate 97 93 Respiratory 16 18 16 Rate Blood Pressure 117/63 128/67 (mmHg) O2 Sat by Pulse 100 98 Oximetry Physical Exam: General: NAD, sitting up in a chair Neurological: Alert and Oriented HEENT: Moist MM Cardiovascular: Heart rate regular Respiratory: Lung sounds clear Abdominal: Bowel sounds present; ABD soft, non distended, no tenderness MSK: Moves all extremities Skin: No rash. Pig tail drain to lower ABD with purulent drainage Laboratory Tests 11/28/19 11/28/19 05:20 05:20 WBC 7.4 Hgb 9.0 L Hct 27 L Plt Count 540 H Sodium 141 Potassium 3.9 Chloride 107 Carbon Dioxide 31 BUN 5 L Creatinine 0.92 Glucose 128 H Microbiology 11/22/19 17:00 Gram Stain - Final Peritoneal Fluid Body Fluid Culture - Final Streptococcus Constellatus MRSA Skin and Soft Tissue MRSA/MSSA (PCR - Final Mrsa Positive S.aureus Positive 11/20/19 21:00 Aerobic Blood Culture - Final Blood Venous No Growth Day 5 Anaerobic Blood Culture - Final No Growth Day 5 11/20/19 21:00 Aerobic Blood Culture - Final Blood Venous No Growth Day 5 Anaerobic Blood Culture - Final No Growth Day 5 Assessment: 1. ABD abscess, loculated. Perforated appendicitis in October, s/p appy. Found to have ABD abscess and was discharged on oral ABX and drains in place. Cultures with streptococcus constellatus and bacteroides in October. Pigtail drain was repositioned on 11/[address] scan showed increased abscess. Pigtail drain replaced and repositioned and ERICA drainage remains in place, draining purulent drainage. Peritoneal fluid with Streptococcus and MRSA. Blood cultures with no growth to date. Repeat CT scan Wednesday shows decrease in overall burden of loculated fluifd collections in the right ABD wall. Afebrile and no leukocytosis. 2. Thrombocytosis. Suspect secondary to #1. 3. DM1. Plan: Continue Ceftriaxone 1 gm IV daily and Vanco, trough goal 15-20 and Flagyl (BID , will change to PO today); day 07/01-. PICC line has been placed. Plan for discharge: Ceftriaxone 1 gm IV daily, Vancomycin 1,000 mg IV BID, and Flagyl 500 MG PO BID (If she is unable to tolerate PO can switch back to IV). Vanco trough on Friday 12/01. Weekly labs while on IV ABX: CBC, CMP, and CRP (obtained on Wednesday or Wednesday). Followup outpatient with ID (if she is discharged to [facility], I will see her there for followup). She will need repeat CT scan prior to completion of IV ABX.
--- NOTE | 2019-11-29 10:59 | DS ---
Resident Discharge Summary Discharge Summary: Date of Admission: 11/21/19 Date of Discharge: 11/30/2019 Admitting MD: Tuyet Uribe DO Attending MD: Sherrie Avitia MD Primary Care Physician: Masha Devlin MD Medication on discharge: Bupropion XL* [Wellbutrin XL *] 300 mg PO DAILY #28 tab 08/25/19 [Rx Confirmed 11/21/19] Docusate CAP* [Colace Cap*] 100 mg PO BID PRN #28 cap 08/25/19 [Rx Confirmed 08/30] Polyethylene Glycol 3350* [Miralax (17 GM DOSE ALISHA)] 17 gm PO DAILY PRN #14 packet 08/25/19 [Rx Confirmed 11/21/19] Senna TAB 8.6 mg* [Senokot 8.6 mg TAB*] 2 tab PO BID PRN #28 tab 08/25/19 [Rx Confirmed 11/21/19] Acetaminophen TAB* [Tylenol TAB*] 650 mg PO Q4H PRN tab 11/30/19 [Rx] Heparin FLUSH PICC/ML/CVC(*) 1 - 3 ml FLUSH 0600,1800 syringe 11/30/19 [Rx] Insulin GLARGINE(*) [Lantus 100 unist/ml 10 ml VIAL (*)] 30 units SUBCUT Q24H unit 11/30/19 [Rx] Insulin LISPRO* [HumaLOG 100 units/ml 3 ml VIAL *] 0 units SUBCUT AC unit 11/30 [Rx] Levothyroxine TAB* [Synthroid 150 MCG TAB*] 300 mcg PO DAILY@0600 tab 11/30/19 [Rx] Magnesium Hydroxide LIQ* [Milk of Magnesia LIQ*] 30 ml PO Q6H PRN udc 11/30/19 [Rx] Ondansetron TAB* [Zofran 4 MG Tab*] 4 mg PO Q8H PRN tab 11/30/19 [Rx] Vancomycin/0.9 % Sod Chloride [Vancomycin 1 G/200Ml-0.9% NaCl] 1 gm IV BID #36 froz.piggy 11/30/19 [Rx] cefTRIAXone(*) [Rocephin(*)] 1 gm IV DAILY #18 vial 11/30/19 [Rx] metroNIDAZOLE TAB* [Flagyl 250 mg TAB*] 500 mg PO BID tab 11/30/19 [Rx] oxyCODONE TAB* [Roxycodone TAB 5 mg*] 5 mg PO Q6H PRN tab 11/30/19 [Rx] Disposition: Usp Condition: Stable Primary Diagnosis: 1. Intrabdominal abscess with drain replacement. 2. DKA 3. Insulin-dependent Diabetes Mellitus Secondary Diagnosis: 1. Depression 2. Hypothyroidism 3. Anemia Diagnostic Imagin. Chest/Abdomen/Pelvis CTA(11/20): No pulmonary embolism; No aortic dissection. Loculated peripherally enhancing collection lateral to proximal colon; possible abscess in peritoneum. MUltiple abscess with percutaenous catheter tips. 2. US Abdomen(11/21): Subcutaneous abscess corresponding to CT images. 3. Abdomen/Pelvis CT(11/27): Decreased burden of loculated fluid on right abdominal wall. The dominant remaining loculation measures 8.3x1.6x1.7 cm. 4. Transthoracic Echo: EF of 55-60% with no wall motion abnormalities. Trace MR with no stenosis. Atrium normal in size. PROCEDURES DURING HOSPITAL STAY ULtrasound and fluoroscopy-guided drain study with repositioning and replacement of 12F biliary drain on 11/21 Pertinent Laboratory Results: Her labs at the time of discharge were: WBC 5.4, Hb 8.9, Platelet 509, Na 141, K 3.9, Creatinine 0.92, Glucose 128, Magnesium 2.4 and Vancomycin trough 26. Hospital Course: 39 F with PMH significant for Insulin-dependent diabetes, recent appendectomy c/ b intrabdominal abscess with 2 drain, hypothyroidism and Mood disorder presented with right-sided abdominal pain, nasuea and vomiting. For details, please see H and P. But in short, she was found to be in DKA secondary to non- adherence and was found to have worsening intra-abdominal abscess in imaging. She was treated in ICU for 2 days for DKA with insulin drip and was transferred to floor. Her hospital course by problem is as follows: 1. Diabetes Keto-acidosis: She presented with nausea and vomiting and her BG was 522 initially with High anion gap metabolic acidosis. She was admitted in ICU and was treated for 2 days with IV insulin. She improved gradually and was transferred to floor where she received Insulin glargine 30 U daily and Insulin lispro according to sliding scale. Her blood glucose was controlled with this regimen and she will be on this regimen and blood glucose should be checked ACHS. patient stated that she was not taking her insulin regularly at home. 2. Intra-abdominal abscess: Patient was admitted in October for ruptured appendix and underwent appenedectomy which was complicated by abscess. So 2 drains were put and she was discharged with it. ON this admission, patient had right abdominal pain and CT was done which showed increasing abscess. SO. right sided drain was replaced and she was treated with IV antibiotics. Peritoneal fluid was positive for streptococcus constellatus and MRSA. SHe is improving in terms of her pain and left sided drain was removed on 11/29/19. She still has right sided drain which is draining muddy thick fluid. Repeat CT scan showed decreased overall burden of loculated fluid collection on right side. SHe should be on Ceftriaxone 1 gm IV daily, Vancomycin 1,000 mg IV BID, and Flagyl 500 MG PO BID (If she is unable to tolerate PO can switch back to IV) with weekly labs while on IV ABX: CBC, CMP, and CRP. She should follow up with Dr. Patricia in 1 week and should also get repeat CT abdomen before stopping antibiotics or at anytime if she gets worse. Antibiotic should be continued for total of 3-4 weeks and today is day 10 or as per ID. 3. Hypothyroidism: Patient has elevated TSH even though she is on pretty high dose of levothyroxine which I suspect is secondary to non-adherence. She should continue levothyroxine 300 mcg daily and follow up with PCP/Endocrine in 4-6 weeks. 4. Thrombocytosis: Secondary to infection. She should re-check it with her PCP. 5. Anemia: Hb is 9 and is normocytic. Iron is low with low TIBC which could be secondary to Anemia of chronic disease. She can follow up this as an outpatient. 6. Mood disorder; Stable on home medication with BUpropion 300 mg daily. CONSULTATION: Infectious disease, Surgery. At the time of discharge, patient was ambulating independently, tolerating PO well and having minimal pain. SHe has PICC Line placed. Follow Up Instructions: THINGS TO FOLLOW-UP STATUS POST DISCHARGE 1. She should follow-up with ID in 1 week and decide on antibiotics and drain. She should get weekly CBC,CMP and CRP while she is on IV antibiotics. Next lab draw should coming Wednesday or wednesday. 2. She should follow up with her PCP and check TFT in 4-6 weeks. She will need vancomycin trough on wednesday Morning(12/01). 3. Her blood glucose is controlled now with current regimen and she will continue on this while she is in detention. She should follow up with her Digital Camera Technician to optimize her insulin regimen as she is having difficulty to follow this regimen and she will likely benefit from insulin pump. In case of an emergency or after clinic hours, please go to your nearest Emergency Department. You may also call the [facility] thermograph operator at . Attestation Documenting Resident: Shivani Campoverde Supervising Physician: Sherrie Avitia Attestation: This service has been performed in part by a resident under the direction of a teaching physician.I, Sherrie Avitia, performed the service, or was physically present during the critical, or krishnan portions of the service, furnished by the resident. I participated in the management of the patient.
--- NOTE | 2019-11-29 12:04 | PN ---
Progress Note - Progress Note Date of Service: 11/29/19 SOAP: Subjective: NAD tolerating Diet, + Flatus, + BM [] Objective: Vital Signs Temp 98.1 F 11/29/19 07:47 Pulse 93 11/29/19 07:47 Resp 16 11/29/19 09:52 BP 128/67 11/29/19 07:47 Pulse Ox 98 11/29/19 07:47 Intake & Output 11/28/19 11/29/19 11/29/19 18:59 06:59 18:59 Intake Total 1010 890 360 Balance 1010 890 360 Intake: IV Fluids 60 NS (0.9%) 60 IVPB 410 350 ABX - FLAGYL 100 100 ABX - VANCOMYCIN 250 250 NS (0.9%) 60 Oral 600 480 360 PEX GEN: NAD Chest: CTAB CVS: RRR Abd: mildly tender at RLQ near drain, + BS's, no guarding, drain dressing C/D /I pigtail drain with thin purulent output [] Assessment: S/P Appy and Abscess drainage with persistent abscess with drain placement and repositioning along with ERICA drain since surgery which was D/C'd yesterday 11/28. Continues on IV ABX( Vanc, Ceftriaxone,Flagyl)and continues to improve, Right sided abdominal pain now localized to pig tail drain site [] Plan: ABX per ID. Continue pig tail drain with daily flushes until next CT to be determined by ID either by worsening of condition/end of abx regimen, prior to pig tail drain pull. Surgically clear for SNF. Above D/W Patient All Questions Answered []
[2019-11-29] MEDS ORDERED: Vancomycin Trough Check NOTE FOLLOW UP ONE (12:30)
[2019-11-29] MEDS: cefTRIAXone(*) 1 GM in NS 0.9% 50 ML* 50 ML IVPB SCH (13:55)
--- NOTE | 2019-11-29 18:28 | PN ---
Subjective Date of Service: 11/29/19 Interval History: HD 9 on 11/29 transferred from ICU on 11/22 39 F with Insulin dependent DM, recent perforated appendix(s/p appendectomy with drain placement), Hypothyroidism and Bipolar presented with right sided abdominal pain, nausea and vomiting. Found to be in DKA 2/2 to noncompliance, worsening intrabdominal abscess with drain revision. Treated in ICU for 2 days with insulin drip. Transferred to floor on 11/22. Overnight: No acute overnight events. vitals: stable Patient seen and examined at bedside. Patient doing well and tolerating PO. waiting authorization for SNF Objective Active Medications: Acetaminophen (Tylenol Tab*) 650 mg PO Q4H PRN PRN Reason: PAIN - MILD Last Admin: 11/28/19 08:51 Dose: 650 mg Bupropion HCl (Bupropion Xl*) 300 mg PO DAILY [facility] Last Admin: 11/29/19 08:54 Dose: 300 mg Dextrose (D50w Syringe 50 Ml*) 12.5 gm IV PUSH .FOR FS < 60 - SS PRN PRN Reason: FS < 60 Enoxaparin Sodium (Lovenox(*)) 40 mg SUBCUT BEDTIME [facility] Last Admin: 11/28/19 21:13 Dose: 40 mg Heparin Sodium (Porcine) (Heparin Flush Picc/Ml/Cvc(*)) 1 - 3 ml FLUSH 0600, 1800 [facility]; Protocol Last Admin: 11/29/19 16:06 Dose: 1 ml Ceftriaxone Sodium 1 gm/ (Sodium Chloride) 50 mls @ 100 mls/hr IVPB Q24H [facility] Last Admin: 11/29/19 13:55 Dose: 100 mls/hr Vancomycin HCl 1,000 mg/ (Sodium Chloride) 250 mls @ 166.667 mls/hr IV Q12HR [facility] Insulin Glargine (Lantus(*)) 30 units SUBCUT Q24H [facility] Last Admin: 11/28/19 21:12 Dose: 30 units Insulin Human Lispro (Humalog*) 0 units SUBCUT AC [facility]; Protocol Last Admin: 11/29/19 17:32 Dose: 6 units Levothyroxine Sodium (Synthroid Tab*) 300 mcg PO DAILY@0600 [facility] Last Admin: 11/29/19 06:10 Dose: 300 mcg Magnesium Hydroxide (Milk Of Magnesia Liq*) 30 ml PO Q6H PRN PRN Reason: CONSTIPATION Metronidazole (Flagyl Tab*) 500 mg PO BID [facility] Ondansetron HCl (Zofran Inj*) 4 mg IV Q6H PRN PRN Reason: NAUSEA Last Admin: 11/26/19 12:19 Dose: 4 mg Oxycodone HCl (Roxycodone Tab*) 5 mg PO Q6H PRN PRN Reason: PAIN - SEVERE Last Admin: 11/29/19 14:02 Dose: 5 mg Pharmacy Consult (Vancomycin Per Pharmacy*) 1 note FOLLOW UP .VANC PER PHARMACY [facility]; Protocol Pharmacy Profile Note (Vancomycin Trough Check) 1 note FOLLOW UP ONCE ONE Stop: 12/01/19 08:31 Vital Signs - 8 hr 11/29/19 11/29/19 11/29/19 11:31 14:02 15:57 Temperature 97.9 F Pulse Rate 97 Respiratory 16 16 16 Rate Blood Pressure 127/70 (mmHg) O2 Sat by Pulse 100 Oximetry 11/29/19 16:48 Temperature 98.2 F Pulse Rate 95 Respiratory 14 Rate Blood Pressure 141/81 (mmHg) O2 Sat by Pulse 100 Oximetry Oxygen Devices in Use Now: None Exam: Patient is sitting comfortably in bed with no acute distress. HEENT: Normocephalic and atraumatic Chest: clear with no added sounds. Heart: S1/S2 heard with no murmur Abdomen: right side pigtail drain draining muddy fluid. mIld tenderness on right side Extremities: No swelling Neuro: alert, oriented and coperative. Result Diagrams: 11/30/19 05:55 11/30/19 09:15 Additional Lab and Data: Lab Results 11/20/19 11/20/19 11/20/19 Range/Units 21:00 21:00 21:00 WBC 12.1 H (3.5-10.8) 10^3/uL RBC 3.82 (3.70-4.87) 10^6 /uL Hgb 11.4 L (12.0-16.0) g/dL Hct 36 (35-47) % MCV 93 (80-97) fL MCH 30 (27-31) pg MCHC 32 (31-36) g/dL RDW 15 (10-15) % Plt Count 671 H (150-450) 10^3/uL MPV 7.3 L (7.4-10.4) fL Neut % (Auto) 83.4 % Lymph % (Auto) 9.1 % Meriwether % (Auto) 6.9 % Eos % (Auto) 0.1 % Baso % (Auto) 0.5 % Absolute Neuts (auto) 10.1 H (1.5-7.7) 10^3/ul Absolute Lymphs (auto) 1.1 (1.0-4.8) 10^3/ul Absolute Monos (auto) 0.8 (0-0.8) 10^3/ul Absolute Eos (auto) 0.0 (0-0.6) 10^3/ul Absolute Basos (auto) 0.1 (0-0.2) 10^3/ul Absolute Nucleated RBC 0.0 10^3/ul Nucleated RBC % 0.0 INR (Anticoag Therapy) 1.07 (0.82-1.09) Sodium 129 L (135-145) mmol/L Potassium 4.3 (3.5-5.0) mmol/L Chloride 93 L (101-111) mmol/L Carbon Dioxide 19 L (22-32) mmol/L Anion Gap 17 H (2-11) mmol/L BUN 12 (6-24) mg/dL Creatinine 0.85 (0.51-0.95) mg/dL Est GFR ( Amer) 90.1 (>60) Est GFR (Non-Af Amer) 74.5 (>60) BUN/Creatinine Ratio 14.1 (8-20) Glucose 522 H* (70-100) mg/dL Lactic Acid (0.5-2.0) mmol/L Calcium 9.7 (8.6-10.3) mg/dL Total Bilirubin 0.30 (0.2-1.0) mg/dL AST 8 L (13-39) U/L ALT 7 (7-52) U/L Alkaline Phosphatase 64 (34-104) U/L C-Reactive Protein 51.24 H (<8.01) mg/L Total Protein 8.0 (6.4-8.9) g/dL Albumin 3.6 (3.2-5.2) g/dL Globulin 4.4 H (2-4) g/dL Albumin/Globulin Ratio 0.8 L (1-3) Amylase 29 (29-103) U/L Lipase 15 (11.0-82.0) U/L Beta HCG, Quant 1.20 mIU/mL 11/20/19 Range/Units 21:00 WBC (3.5-10.8) 10^3/uL RBC (3.70-4.87) 10^6 /uL Hgb (12.0-16.0) g/dL Hct (35-47) % MCV (80-97) fL MCH (27-31) pg MCHC (31-36) g/dL RDW (10-15) % Plt Count (150-450) 10^3/uL MPV (7.4-10.4) fL Neut % (Auto) % Lymph % (Auto) % Meriwether % (Auto) % Eos % (Auto) % Baso % (Auto) % Absolute Neuts (auto) (1.5-7.7) 10^3/ul Absolute Lymphs (auto) (1.0-4.8) 10^3/ul Absolute Monos (auto) (0-0.8) 10^3/ul Absolute Eos (auto) (0-0.6) 10^3/ul Absolute Basos (auto) (0-0.2) 10^3/ul Absolute Nucleated RBC 10^3/ul Nucleated RBC % INR (Anticoag Therapy) (0.82-1.09) Sodium (135-145) mmol/L Potassium (3.5-5.0) mmol/L Chloride (101-111) mmol/L Carbon Dioxide (22-32) mmol/L Anion Gap (2-11) mmol/L BUN (6-24) mg/dL Creatinine (0.51-0.95) mg/dL Est GFR ( Amer) (>60) Est GFR (Non-Af Amer) (>60) BUN/Creatinine Ratio (8-20) Glucose (70-100) mg/dL Lactic Acid 1.7 (0.5-2.0) mmol/L Calcium (8.6-10.3) mg/dL Total Bilirubin (0.2-1.0) mg/dL AST (13-39) U/L ALT (7-52) U/L Alkaline Phosphatase (34-104) U/L C-Reactive Protein (<8.01) mg/L Total Protein (6.4-8.9) g/dL Albumin (3.2-5.2) g/dL Globulin (2-4) g/dL Albumin/Globulin Ratio (1-3) Amylase (29-103) U/L Lipase (11.0-82.0) U/L Beta HCG, Quant mIU/mL Microbiology and Other Data: Microbiology 11/22/19 17:00 Gram Stain - Final Peritoneal Fluid Body Fluid Culture - Final Streptococcus Constellatus MRSA Skin and Soft Tissue MRSA/MSSA (PCR - Final Mrsa Positive S.aureus Positive 11/20/19 21:00 Aerobic Blood Culture - Final Blood Venous No Growth Day 5 Anaerobic Blood Culture - Final No Growth Day 5 11/20/19 21:00 Aerobic Blood Culture - Final Blood Venous No Growth Day 5 Anaerobic Blood Culture - Final No Growth Day 5 Assess/Plan/Problems-Billing Assessment: 39W with type 1 DM, recent perforated appendix (s/p appendectomy with drain placement), hypothyroidism and bipolar disorder, presents with right sided abdominal pain, nausea and vomiting. Found with DKA 2/2 to nonadherence and worsening intrabdominal abscess. s/p ICU with insulin drip. Transferred to floor on 11/22. - Patient Problems (1) DKA (diabetic ketoacidoses) Comment: -Secondary to nonadherence and infection. -resolved s/p insulin drip, AG closed (2) Insulin dependent diabetes mellitus Comment: Nonadherence to medications at home - HgbA1c is 17%. Presents in DKA. - cont insulin glargine 30units daily - increase lispro sliding scale and follow blood glucose - pending CGM in Endo clinic; Christine GARZA working with patient (3) Intra-abdominal abscess Comment: s/p has pigtail drain on right and ERICA on left draining purulent material. Growing streptococcus and MRSA; removed L sided ERICA drain on 11/28 -cont ceftriaxone, and Flagyl (11/21 - ); will need 3-4 weeks of antibiotics. -added vancomycin (11/23 - ) -ID and surgery following -CT abdomen/pelvis 11/27 showing decreasing abscess but still pockets of pus present. L drain removal today. -will likely be dc eith right drain in place and will f/u as outpatient (4) Depression Comment: -Continue wellbutrin -According to patient serquel and depakote was stopped by her psychiatrist (5) Sepsis Status: Acute Comment: resolved -met with leucocytosis with tachycardia; source is abdomen -lactic acid normal -resolved now -on abx (6) Hypothyroidism Comment: -TSH of 18 possibly from poor adherence. - cont levothyroxine 300mcg - recheck TSH again by end of December (7) DVT prophylaxis Comment: -on lovenox (8) Full code status Status: Acute Code(s): Z78.9 - OTHER SPECIFIED HEALTH STATUS SNOMED Code(s) : 174058274 Comment: Status and Disposition: Inpatient will need SNF for iv antibiotics, Attending: Sherrie Avitia Attestation Documenting Resident: Shivani Campoverde Supervising Physician: Sherrie Avitia Attending/Supervising Physician Comment: 39W with uncontrolled DM1 with poor adherence to insulin, recently perforated appendix s/p appy with drain placement, presents with DKA due to nonadherence and worsening intra-abdominal abscess. DKA resolved, with intra-abdominal drain exchanged. On 3 IV antibiotics. Endo following and will pursue insulin pump as outpatient. Pending placement in SNF. Attestation: This service has been performed in part by a resident under the direction of a teaching physician.I, Sherrie Avitia, performed the service, or was physically present during the critical, or krishnan portions of the service, furnished by the resident. I participated in the management of the patient.
[2019-11-29] MEDS: Vancomycin(*) 1,000 MG in NS 0.9% 250 ML* 250 ML IV SCH (21:03)
[2019-11-29] MEDS: metroNIDAZOLE TAB* 250 MG PO SCH (21:06)
[2019-11-29] MEDS: Enoxaparin(*) 40 MG/0.4 ML SYR SUBCUT SCH (21:07)
[2019-11-29] MEDS: Insulin GLARGINE(*) 1 UNITS UNIT SUBCUT SCH (21:08)
[2019-11-30] MEDS: Levothyroxine TAB* 150 MCG TAB PO SCH (05:50)
[2019-11-30 06:11] LABS: ABS Basophils 0.1 10^3/ul (0-0.2); ABS Eosinophils 0.1 10^3/ul (0-0.6); ABS Lymphocytes 1.1 10^3/ul (1.0-4.8); ABS Monocytes 0.7 10^3/ul (0-0.8); Eosinophil % 1.8 %; Hematocrit 27 % (35-47); Hemoglobin 8.9 g/dL (12.0-16.0); Lymphocyte % 22.6 %; Mean Corpuscular HGB Conc 33 g/dL (31-36); Mean Corpuscular Hemoglobin 30 pg (27-31); Mean Corpuscular Volume 93 fL (80-97); Mean Platelet Volume 6.4 fL (7.4-10.4); Platelet Count 509 10^3/uL (150-450); Red Blood Count 2.92 10^6 /uL (3.70-4.87); Red Cell Distribution Width 15 % (10-15)
[2019-11-30] MEDS: Insulin LISPRO* 1 UNITS UNIT SUBCUT SCH ×3 (08:05→12:59)
[2019-11-30] MEDS: metroNIDAZOLE TAB* 250 MG PO SCH (09:30)
[2019-11-30] MEDS: BuPROPion XL* 300 MG TAB.XL PO SCH (09:30)
[2019-11-30] MEDS: Vancomycin(*) 1,000 MG in NS 0.9% 250 ML* 250 ML IV SCH (09:30)
[2019-11-30] MEDS ORDERED: Ondansetron TAB* 4 MG PO PRN (09:39)
[2019-11-30 12:01] VITALS: BP 138/87
--- NOTE | 2019-11-30 12:08 | PN ---
Progress Note - Progress Note Date of Service: 11/30/19 SOAP: Subjective: NAD Comfortable in bed C/O pain at pig tail drain site + BM's [] Objective: Vital Signs Temp 98.3 F 11/30/19 07:18 Pulse 93 11/30/19 11:26 Resp 16 11/30/19 11:26 BP 138/87 11/30/19 11:26 Pulse Ox 100 11/30/19 11:26 Intake & Output 11/29/19 11/30/19 11/30/19 18:59 06:59 18:59 Intake Total 1835 280 Output Total 40 Balance 1835 280 -40 Intake: IV Fluids 555 20 ABX - CEFTRIAXONE 100 ABX - FLAGYL 100 ABX - VANCOMYCIN 250 NS (0.9%) 105 20 IVPB 260 ABX - VANCOMYCIN 260 Oral 1280 0 Output: ERICA #1 40 Other: Estimated Void Medium Medium # Bowel Movements 0 0 # Voids 2 1 PEX GEN: NAD Chest: CTAB CVS: RRR Abd: mildly tender on right near drain site, + BS's, no guarding, drain dressing C/D/I pigtail drain with thin purulent output Assessment: S/P Appy and Abscess drainage with persistent abscess with drain placement and repositioning along with ERICA drain since surgery which was D/C'd 11/28. Continues on IV ABX(Vanc, Ceftriaxone,Flagyl)and continues to improve, Right sided abdominal pain at pig tail drain site only Plan: ABX choice and duration per ID. Continue pig tail drain with daily flushes until next CT. CT to be determined by ID either by worsening of condition/end of abx regimen, prior to pig tail drain pull. Surgically clear for SNF. Above D/W Patient All Questions Answered
[2019-12-01] MEDS ORDERED: Vancomycin Trough Check NOTE FOLLOW UP ONE (08:30)
== END 2019-11-30 13:00 | DRG 871 ==
LOC: ED 19:09 → ICU 11-21 04:42 → MED 11-21 20:58
PROVIDERS: ADMIT Hospitalist; ATTEND Internal Medicine
PROC: 0W9G30Z Drainage of Peritoneal Cavity with Drainage Device, Percutaneous Approach (ICD-10-PCS; principal; 2019-11-21)
DX: A41.9 Sepsis, unspecified organism (principal); E10.10 Type 1 diabetes mellitus with ketoacidosis without coma; K65.1 Peritoneal abscess; F31.9 Bipolar disorder, unspecified; K21.9 Gastro-esophageal reflux disease without esophagitis; D64.9 Anemia, unspecified; D47.3 Essential (hemorrhagic) thrombocythemia; R07.9 Chest pain, unspecified; E03.9 Hypothyroidism, unspecified; Z88.0 Allergy status to penicillin; Z87.891 Personal history of nicotine dependence; Z91.14 Patient's other noncompliance with medication regimen; Z79.4 Long term (current) use of insulin; Z79.01 Long term (current) use of anticoagulants; Z79.890 Hormone replacement therapy; Z79.899 Other long term (current) drug therapy
CPT/HCPCS: 36415; 71275; 74177; 75989; 76705; 80048; 80053; 80202; 81003; 82150; 82565; 82728; 82803; 82947; 83540; 83550; 83605; 83690; 83735; 84100; 84439; 84443; 84484; 84520; 84681; 84702; 85025; 85610; 85730; 86140; 87040; 87070; 87077; 87186; 87205; 87389; 87640; 87641; 88112; 93005; 93306; 99285; A9270-GY; C1725; C1751; C1769; C1887; J0692; J0696; J1644; J1650; J2270; J2405; J2997; J3010; J3370; J3475; J3480; Q9967

== ENCOUNTER 2021-04-28 12:35 | Observation (INO) ==
[2021-04-28 13:42] LABS: Glucose Confirmatory 905 mg/dL (70-100)
[2021-04-28] MEDS ORDERED: NORMOSOL-R pH 7.4 1000 mL BAG 1,000 ML IV ONE (14:00)
[2021-04-28 14:50] LABS: ABS Basophils 0.1 10^3/ul (0-0.2); ABS Eosinophils 0.1 10^3/ul (0-0.6); ABS Lymphocytes 0.8 10^3/ul (1.0-4.8); ABS Monocytes 0.6 10^3/ul (0-0.8); ABS Neutrophils 3.8 10^3/ul (1.5-7.7); Eosinophil % 1.2 %; Hematocrit 37 % (35-47); Hemoglobin 12.3 g/dL (12.0-16.0); Lymphocyte % 14.4 %; Mean Corpuscular HGB Conc 34 g/dL (31-36); Mean Corpuscular Hemoglobin 31 pg (27-31); Mean Corpuscular Volume 93 fL (80-97); Platelet Count 291 10^3/uL (150-450); Red Blood Count 3.94 10^6 /uL (3.70-4.87); Red Cell Distribution Width 12 % (10-15); White Blood Count 5.3 10^3/uL (3.5-10.8)
[2021-04-28 14:58] LABS: Rapid Strep Molecular Negative (Negative)
[2021-04-28 15:00] LABS: Venous Bicarbonate HCO3 24.8 mmol/L (24-28)
[2021-04-28 15:16] LABS: ALT 20 U/L (7-52); AST 20 U/L (13-39); Albumin 3.2 g/dL (3.2-5.2); Albumin/Globulin Ratio 0.9 (1-3); Alkaline Phosphatase 61 U/L (35-149); Anion Gap 8 mmol/L (2-11); Blood Urea Nitrogen 29 mg/dL (6-24); CO2 Carbon Dioxide 26 mmol/L (22-32); Calcium 9.3 mg/dL (8.6-10.3); Chloride 93 mmol/L (101-111); EGFR African American 54.4 (>60); Globulin 3.4 g/dL (2-4); Potassium 4.4 mmol/L (3.5-5.0); Sodium 127 mmol/L (135-145); Total Protein 6.6 g/dL (6.4-8.9)
[2021-04-28 15:17] LABS: HCG Pregnancy < 0.60 mIU/mL
[2021-04-28 15:18] LABS: Troponin I 0.01 ng/mL (<0.03)
[2021-04-28 15:54] LABS: TSH Ultra Thyroid Stim Horm 0.15 mcIU/mL (0.34-5.60)
[2021-04-28] MEDS ORDERED: NORMOSOL-R pH 7.4 1000 mL BAG 1,000 ML IV SCH (16:00)
[2021-04-28 16:34] LABS: Urine Appearance Clear; Urine Bilirubin Negative (Negative); Urine Blood 1+ (Negative); Urine Color Colorless; Urine Glucose 3+(>=500 mg/dL) (Negative); Urine Ketones Negative (Negative); Urine Nitrite Negative (Negative); Urine Protein 2+(100 mg/dL) (Negative); Urine Specific Gravity 1.025 (1.002-1.030); Urine Urobilinogen Negative (Negative)
[2021-04-28 16:41] LABS: Urine Amorphous Crystals Present (Absent); Urine Bacteria Absent (Absent); Urine Red Blood Cell Trace(0-2/hpf) (Absent); Urine Squamous Epithelial Cell Present (Absent); Urine White Blood Cell Absent (Absent)
[2021-04-28 17:01] LABS: Free T4 1.02 ng/dL (0.61-1.12)
[2021-04-28] MEDS ORDERED: NS 0.9% 1000 ml BAG 1,000 ML IV SCH (17:15)
[2021-04-28] MEDS ORDERED: Dextrose 50% Syringe 50 ml 25 GM/50 ML SYRINGE IV PUSH PRN (17:16)
[2021-04-28 17:44] LABS: Glucose 904 mg/dL (70-100)
[2021-04-28 17:54] LABS: Blood Urea Nitrogen 21 mg/dL (6-24); CO2 Carbon Dioxide 21 mmol/L (22-32); Calcium 6.9 mg/dL (8.6-10.3); Chloride 105 mmol/L (101-111); EGFR African American 94.8 (>60); EGFR Non-African American 78.3 (>60); Glucose 424 mg/dL (70-100); Magnesium 1.8 mg/dL (1.9-2.7); Phosphorus 2.3 mg/dL (2.5-5.0); Sodium 135 mmol/L (135-145)
[2021-04-28 17:57] LABS: Anion Gap 9 mmol/L (2-11)
[2021-04-28] MEDS ORDERED: Potassium Phosphate IV 15 MMOLE in NS 0.9% 250 ml 250 ML IVPB ONE (18:20)
[2021-04-28] MEDS ORDERED: Insulin GLARGINE 100 un/ml 10 ml VIAL SUBCUT SCH (21:00)
[2021-04-28] MEDS: Pantoprazole VIAL 40 MG VIAL IV SCH (21:03)
[2021-04-28 21:31] LABS: Calcium 8.8 mg/dL (8.6-10.3); Potassium 3.6 mmol/L (3.5-5.0)
[2021-04-28 21:37] LABS: EGFR Non-African American 63.6 (>60); Phosphorus 2.6 mg/dL (2.5-5.0)
[2021-04-28] MEDS: Heparin 5000 UNITS/ML 1 mL VIAL SUBCUT SCH (22:24)
[2021-04-29] MEDS: Heparin 5000 UNITS/ML 1 mL VIAL SUBCUT SCH ×2 (06:22→14:11)
[2021-04-29 06:50] LABS: ABS Eosinophils 0.1 10^3/ul (0-0.6); ABS Monocytes 0.5 10^3/ul (0-0.8); ABS Neutrophils 1.9 10^3/ul (1.5-7.7); Eosinophil % 2.3 %; Hematocrit 32 % (35-47); Hemoglobin 11.3 g/dL (12.0-16.0); Mean Corpuscular HGB Conc 35 g/dL (31-36); Mean Corpuscular Hemoglobin 31 pg (27-31); Mean Corpuscular Volume 90 fL (80-97); Mean Platelet Volume 8.1 fL (7.4-10.4); Platelet Count 281 10^3/uL (150-450); Red Blood Count 3.59 10^6 /uL (3.70-4.87); Red Cell Distribution Width 12 % (10-15); White Blood Count 3.5 10^3/uL (3.5-10.8)
[2021-04-29 07:02] LABS: Calcium 8.1 mg/dL (8.6-10.3); Magnesium 1.8 mg/dL (1.9-2.7); Potassium 3.8 mmol/L (3.5-5.0)
[2021-04-29 07:08] LABS: EGFR African American 87.3 (>60); EGFR Non-African American 72.1 (>60); Phosphorus 3.2 mg/dL (2.5-5.0)
[2021-04-29] MEDS: Pantoprazole VIAL 40 MG VIAL IV SCH (10:01)
[2021-04-29] MEDS ORDERED: Ondansetron 4 mg VIAL 2 MG/ML 2 ml VIAL IV PRN (11:27)
[2021-04-29] MEDS ORDERED: Magnesium Sulfate 2 gm BAG 2 GM/50 ML BAG IVPB ONE (11:28)
[2021-04-29 15:44] VITALS: BP 122/67
== END 2021-04-29 16:45 | disposition home or self-care (01) ==
LOC: ED 12:35 → MED 16:59 → INTOOBSV 16:59
PROVIDERS: ADMIT Internal Medicine; ATTEND Internal Medicine

== ENCOUNTER 2021-07-22 13:24 | Inpatient (IN) ==
[2021-07-22 14:30] LABS: Urine Appearance Cloudy; Urine Bilirubin Negative (Negative); Urine Blood 1+ (Negative); Urine Color Yellow; Urine Glucose 3+(>=500 mg/dL) (Negative); Urine Ketones 2+ (Negative); Urine Nitrite Negative (Negative); Urine Protein 3+(>=500 mg/dL) (Negative); Urine Specific Gravity 1.029 (1.002-1.030); Urine Urobilinogen Negative (Negative)
[2021-07-22 14:34] LABS: Hematocrit 43 % (35-47); Hemoglobin 14.3 g/dL (12.0-16.0); Mean Corpuscular HGB Conc 34 g/dL (31-36); Mean Corpuscular Hemoglobin 30 pg (27-31); Mean Corpuscular Volume 90 fL (80-97); Red Blood Count 4.71 10^6 /uL (3.70-4.87); Red Cell Distribution Width 13 % (10-15); Urine Bacteria Absent (Absent); Urine Red Blood Cell 2+(6-10/hpf) (Absent); Urine Squamous Epithelial Cell Present (Absent); Urine White Blood Cell Trace(0-5/hpf) (Absent); White Blood Count 8.8 10^3/uL (3.5-10.8)
[2021-07-22 14:47] LABS: ABS Basophils 0.1 10^3/ul (0-0.2); ABS Lymphocytes 1.8 10^3/ul (1.0-4.8); ABS Monocytes 0.4 10^3/ul (0-0.8); ABS Neutrophils 6.4 10^3/ul (1.5-7.7); Eosinophil % 0.6 %; Lymphocyte % 20.4 %; Mean Platelet Volume 8.9 fL (7.4-10.4); Nucleated Red Blood Cells % 0.2; Platelet Count 355 10^3/uL (150-450)
[2021-07-22 14:51] LABS: HCG Pregnancy < 0.60 mIU/mL
[2021-07-22 14:56] LABS: ALT 15 U/L (7-52); AST 12 U/L (13-39); Albumin 3.6 g/dL (3.2-5.2); Alkaline Phosphatase 63 U/L (35-149); Anion Gap 13 mmol/L (2-11); Blood Urea Nitrogen 29 mg/dL (6-24); CO2 Carbon Dioxide 17 mmol/L (22-32); Calcium 9.1 mg/dL (8.6-10.3); Chloride 100 mmol/L (101-111); Globulin 3.7 g/dL (2-4); Glucose 475 mg/dL (70-100); Potassium 4.5 mmol/L (3.5-5.0); Sodium 130 mmol/L (135-145); Total Protein 7.3 g/dL (6.4-8.9)
[2021-07-22 14:57] LABS: Urine Benzodiazepine Screen None Detected (None Detect); Urine Cannabinoids Screen None Detected (None Detect); Urine Opiates Screen None Detected (None Detect)
[2021-07-22 15:20] LABS: Acetaminophen < 15 mcg/mL; Alcohol, S < 13 mg/dL (<13); Salicylate < 2.50 mg/dL (<30)
[2021-07-22 16:04] LABS: Venous Bicarbonate HCO3 17.4 mmol/L (24-28)
[2021-07-22] MEDS ORDERED: NS 0.9% 1000 ml BAG 1,000 ML IV ONE ×2 (16:16→18:49)
[2021-07-22] MEDS ORDERED: Insulin Infusion 100unit/100mL 100 UNIT/100 ML BAG IV SCH (16:30)
[2021-07-22 18:15] LABS: PCO2 Arterial 31 mmHg (35-45); PO2 Arterial 97 mmHg (80-100)
[2021-07-22 18:39] LABS: Calcium 8.5 mg/dL (8.6-10.3)
[2021-07-22 18:40] LABS: Potassium 4.3 mmol/L (3.5-5.0)
[2021-07-22] MEDS ORDERED: Magnesium Hydroxide LIQ 30 ML UDC PO PRN (20:17)
[2021-07-22] MEDS ORDERED: Dextrose 50% Syringe 50 ml 25 GM/50 ML SYRINGE IV PUSH PRN (20:26)
[2021-07-22] MEDS ORDERED: [UNRECOGNIZED DRUG - REMARK] SUBCUT SCH (20:30)
[2021-07-22] MEDS ORDERED: Insulin GLARGINE 100 un/ml 10 ml VIAL SUBCUT SCH (21:00)
[2021-07-22] MEDS: Insulin GLARGINE 100 un/ml 10 ml VIAL SUBCUT SCH (23:45)
[2021-07-23 00:23] LABS: Rapid COVID-19 Molecular Undetected (Undetected)
[2021-07-23] MEDS ORDERED: Iodixanol (CONTRAST) 320 MG/ML 100 ML SDV IV ONE (01:07)
[2021-07-23] MEDS ORDERED: Al Hydrox/Mg Hydrox/Simet LIQ 30 ML UDC PO PRN (12:31)
[2021-07-23 18:37] LABS: Anion Gap 6 mmol/L (2-11); Blood Urea Nitrogen 26 mg/dL (6-24); CO2 Carbon Dioxide 22 mmol/L (22-32); Calcium 8.5 mg/dL (8.6-10.3); Chloride 107 mmol/L (101-111); Glucose 320 mg/dL (70-100); Potassium 3.8 mmol/L (3.5-5.0); Sodium 135 mmol/L (135-145)
[2021-07-23 19:04] LABS: Vitamin B12 530 pg/mL (180-914)
[2021-07-23 19:07] LABS: Vitamin D Total 25(OH) < 7.0 ng/mL (20-50)
[2021-07-23] MEDS: Insulin GLARGINE 100 un/ml 10 ml VIAL SUBCUT SCH (20:56)
[2021-07-24] MEDS: Cholecalciferol (VIT D3) 1,000 unit TAB PO SCH (09:22)
[2021-07-24] MEDS: Vitamin THERAPEUTIC TAB PO SCH (09:23)
[2021-07-24] MEDS ORDERED: Dextrose 50% Syringe 50 ml 25 GM/50 ML SYRINGE IV PUSH PRN (15:13)
[2021-07-24] MEDS ORDERED: Insulin GLARGINE 100 un/ml 10 ml VIAL SUBCUT SCH (21:00)
[2021-07-25 08:05] LABS: Potassium 3.9 mmol/L (3.5-5.0)
[2021-07-25] MEDS: Vitamin THERAPEUTIC TAB PO SCH (09:11)
[2021-07-25] MEDS: Cholecalciferol (VIT D3) 1,000 unit TAB PO SCH (09:11)
[2021-07-25] MEDS ORDERED: Insulin GLARGINE 100 un/ml 10 ml VIAL SUBCUT SCH (21:00)
[2021-07-26] MEDS: Cholecalciferol (VIT D3) 1,000 unit TAB PO SCH (09:43)
[2021-07-26] MEDS: Vitamin THERAPEUTIC TAB PO SCH (09:44)
[2021-07-26] MEDS ORDERED: Insulin GLARGINE 100 un/ml 10 ml VIAL SUBCUT SCH (21:00)
[2021-07-27] MEDS: Cholecalciferol (VIT D3) 1,000 unit TAB PO SCH (08:43)
[2021-07-27] MEDS: Vitamin THERAPEUTIC TAB PO SCH (08:44)
[2021-07-27] MEDS ORDERED: Insulin GLARGINE 100 un/ml 10 ml VIAL SUBCUT SCH (21:00)
[2021-07-28 09:12] VITALS: BP 146/83
[2021-07-28] MEDS: Cholecalciferol (VIT D3) 1,000 unit TAB PO SCH (09:20)
[2021-07-28] MEDS: Vitamin THERAPEUTIC TAB PO SCH (09:20)
== END 2021-07-28 14:02 | disposition home or self-care (01) | DRG 885 ==
LOC: ED 13:24 → BSU 07-23 00:12
PROVIDERS: ADMIT Psychiatry & Neurology Psychiatry; ATTEND Psychiatry & Neurology Psychiatry